=== PATIENT | male | born 1935 | race Caucasian/White ===

== ENCOUNTER → 2016-05-06 | Outpatient (CLI) | payer MEDICARE, OTHER ==
--- NOTE | 2016-05-06 14:04 | XR ---
EXAMINATION TYPE: XR chest 2V DATE OF EXAM: 05/06/2016 1:52 PM COMPARISON: 02/23/2016 INDICATION: Pleural effusion TECHNIQUE: Frontal and lateral views of the chest are obtained. FINDINGS: The heart size is normal. The pulmonary vasculature is normal. There is some mild infiltrate residual at the left base. Some linear opacities in the periphery of th e left lung. There is blunting the left costophrenic angle. Findings have improved from January 2016. IMPRESSION: 1. Residual increased lung markings at the left base. Scarring could be considered. Some recurrent pn eumonia or atelectasis could be considered.
== END | disposition home or self-care (01) ==
LOC: RADXRMAIN 13:33
PROVIDERS: ATTEND Family Medicine
DX: R91.8 Other nonspecific abnormal finding of lung field (principal)
CPT/HCPCS: 71020

== ENCOUNTER → 2016-05-18 | Day surgery (SDC) | payer MEDICARE, OTHER ==
[2016-05-13 16:00] VITALS: BMI 33.7
[~2016-05-18] MED LIST: BUPIVACAINE (PF) 0.5% 30 ML VIAL SQ ONE; DEXAMETHASONE SOD PHOSPHATE 10 MG/ML 1 ML VIAL IV ONE; HYDROmorphone 1 MG/ML 1 ML SYRINGE IVP PRN; LACTATED RINGERS 1,000 ML IV SCH; LIDOCAINE 1% 20 ML VIAL (10MG/ML) FOR IV START INTRADERMA PRN; LIDOCAINE 2% INJ 20 MG/ML SQ ONE; MIDAZOLAM 2 MG/2 ML VIAL IV PRN; MIDAZOLAM 2 MG/2 ML VIAL ONE; ONDANSETRON 4 MG/2 ML VIAL IVP ONE; PROPOFOL 10 MG/ML 20 ML VIAL IV ONE; Pre Op ABX Message 1 EACH MISC MISCELLANE ONE; SCOPOLAMINE 1.5MG/72HR PATCH TRANSDERM ONE; fentaNYL (PF) 50 MCG/ML 2 ML AMP ONE
[2016-05-18 11:50] VITALS: RESP 16; TEMP 97.8
[2016-05-18 13:50] VITALS: BP 167/76; PULSE 50
--- NOTE | 2016-05-19 19:39 | PCN ---
DATE OF PROCEDURE: 05/18/2016 PREOPERATIVE DIAGNOSIS: Left carpal tunnel syndrome. POSTOPERATIVE DIAGNOSIS: Left carpal tunnel syndrome. PROCEDURE: Left carpal tunnel release. DESCRIPTION OF PROCEDURE: The patient was taken to the operative suite where a sedation was administered by the Department of Anesthesia. I then performed a local injection along the line of the incision with a combination of Marcaine and Xylocaine both without epinephrine. The hand was then prepped and draped in the usual manner. The arm was elevated, exsanguinated and the cuff was inflated to 250 mmHg. A longitudinal incision was made along the ring finger ray distal to the wrist crease. Dissection was taken through the skin and subcutaneous tissue, initially sharp through the skin and then blunt through the subcutaneous tissue to ensure protection of any potential terminal transverse branches of the palmar cutaneous nerve. The palmar fascia was then incised under direct vision longitudinally exposing the transverse carpal ligament. The transverse carpal ligament also was incised under direct vision. The dissection was then continued proximally beneath the skin under direct vision to release the distal forearm fascia. The median nerve was then reflected free of tenosynovium to ensure no adhesions. The tourniquet was then released. The wound was then irrigated and the skin was closed with a running 5-0 nylon suture. A soft bulky dressing was applied including a volar plaster splint holding the wrist in a neutral slightly extended position. The patient was then taken to the recovery room in satisfactory condition.
== END ==
LOC: OR 11:25
PROVIDERS: ATTEND Orthopaedic Surgery Hand Surgery
DX: G56.02 Carpal tunnel syndrome, left upper limb (principal); M19.032 Primary osteoarthritis, left wrist; M19.031 Primary osteoarthritis, right wrist; M19.042 Primary osteoarthritis, left hand; M19.041 Primary osteoarthritis, right hand; I10 Essential (primary) hypertension; E78.5 Hyperlipidemia, unspecified; I48.91 Unspecified atrial fibrillation; I25.10 Atherosclerotic heart disease of native coronary artery without angina pectoris; I50.9 Heart failure, unspecified; Z79.01 Long term (current) use of anticoagulants; Z79.899 Other long term (current) drug therapy; Z88.8 Allergy status to other drugs, medicaments and biological substances
CPT/HCPCS: 64721; J2001; J2250; J1100; J2405; J3010; J2704; 99152; 99153

== ENCOUNTER 2017-01-27 23:22 | Emergency (ER) | payer MEDICARE, OTHER ==
[2017-01-27 23:46] LABS: Basophils # (A) 0.1 k/uL (0-0.2); Basophils % (A) 0 %; CH 28.5; Eosinophils # (A) 0.2 k/uL (0-0.7); Eosinophils % (A) 2 %; HDW 2.61; Luc # (Auto) 0.45; Luc % (Auto) 4; Lymphocytes # (A) 1.2 k/uL (1.0-4.8); Lymphocytes % (A) 10 %; MCH 28.8 pg (25.0-35.0); MCHC 32.3 g/dL (31.0-37.0); MCV 89.4 fL (80.0-100.0); Mean Platelet Volume 6.8; Monocytes # (A) 0.9 k/uL (0-1.0); Monocytes % (A) 7 %; Neutrophils # (A) 9.8 k/uL (1.3-7.7); Neutrophils % (A) 78 %; RBC 3.47 m/uL (4.30-5.90); RDW 13.8 % (11.5-15.5); WBC 12.6 k/uL (3.8-10.6); WBC (Perox) 13.31
[2017-01-27 23:57] LABS: Alcohol <10 mg/dL; Anion Gap 9 mmol/L; Carbon Dioxide 23 mmol/L (22-30); Chloride 102 mmol/L (98-107); Glucose 155 mg/dL (74-99); Non-African American GFR(MDRD) >60 (>60 ml/min/1.73 sqM); Sodium 134 mmol/L (137-145); Total Bilirubin 0.4 mg/dL (0.2-1.3); Total Protein 5.6 g/dL (6.3-8.2)
--- NOTE | 2017-01-27 23:58 | ED ---
General Adult HPI - General Chief complaint: Fall Stated complaint: weakness Time Seen by Provider: 01/27/17 23:24 Source: patient, EMS, RN notes reviewed Mode of arrival: EMS Limitations: no limitations - History of Present Illness Initial comments: 81-year-old male presents status post fall. Patient is on anticoagulation. There was minimal head trauma, no loss of consciousness. Patient only walks with a walker or is in a wheelchair. He was up at the window without his walker , stumbled backwards and fell hitting his head. Denies any neck pain. Denies headache. Patient was noted by prison staff to have left-sided weakness. According to the patient his left arm has been weak for 20 years. Patient denies chest pain. Denies difficulty breathing. Denies fever or chills. Denies abdominal pain. Denies nausea vomiting or diarrhea. - Related Data Home Medications Medication Instructions Recorded Confirmed Cetirizine HCl [Zyrtec] 10 mg PO DAILY 10/11/15 01/02/17 Gemfibrozil [Lopid] 600 mg PO HS 10/11/15 01/02/17 Misoprostol [Cytotec] 200 mcg PO BID 10/11/15 01/02/17 Tamsulosin [Flomax] 0.4 mg PO DAILY 10/11/15 01/02/17 Multivitamins, Thera [Multivitamin 1 tab PO HS 01/16/16 01/02/17 (formulary)] DULoxetine HCL [Cymbalta] 60 mg PO HS 05/13/16 01/02/17 Pantoprazole Sodium [Protonix] 20 mg PO BID 05/13/16 01/02/17 Rivaroxaban [Xarelto] 20 mg PO HS 01/02/17 01/02/17 Previous Rx's Medication Instructions Recorded Colchicine [Colcrys] 0.6 mg PO DAILY tab 02/24/16 Furosemide [Lasix] 40 mg PO DAILY tab 02/24/16 HYDROcodone/APAP 5-325MG [[place] 1 each PO Q6H PRN #20 tab 01/06/17 5-325] Docusate [Colace] 100 mg PO BID cap 01/07/17 Ertapenem [INVanz] 1 gm IVPB Q24H #14 day 01/07/17 Lisinopril [Zestril] 20 mg PO BID #60 tab 01/07/17 Metoprolol Tartrate [Lopressor] 50 mg PO BID #1 tab 01/07/17 amLODIPine BESYLATE [Norvasc] 5 mg PO BID #1 tablet 01/07/17 hydrALAZINE HCL [Apresoline] 50 mg PO TID tab 01/07/17 Allergies Allergy/AdvReac Type Severity Reaction Status Date / Time tobramycin Allergy Unknown Itching, Verified 01/27/17 23:35 Red eyes (allergy to tobramycin eye drops) Review of Systems ROS Statement: Those systems with pertinent positive or pertinent negative responses have been documented in the HPI. ROS Other: All systems not noted in ROS Statement are negative. Past Medical History Past Medical History: Atrial Fibrillation, Cancer, Chest Pain / Angina, Deep Vein Thrombosis (DVT), GERD/Reflux, Hyperlipidemia, Hypertension, Osteoarthritis (OA), Prostate Disorder Additional Past Medical History / Comment(s): prostate cancer had 41 radiation tx, atrial tachycardia, DVT R leg many years ago, chronic back pain. Patient has a history of empyema requiring surgical drainage with chest tube History of Any Multi-Drug Resistant Organisms: None Reported Past Surgical History: Back Surgery, Hernia Repair, Joint Replacement, Orthopedic Surgery Additional Past Surgical History / Comment(s): bilateral cataract removal, laminectomy, back sx has deann and screws, lt shoulder arthroplasty, bilateral total hips, umbilical hernia repair. oral sx Past Anesthesia/Blood Transfusion Reactions: Motion Sickness, Postoperative Nausea & Vomiting (PONV) Past Psychological History: Anxiety, Depression Smoking Status: Never smoker Past Alcohol Use History: None Reported, Occasional Past Drug Use History: None Reported - Past Family History Father Additional Family Medical History / Comment(s): Father fell at the age of 87yrs- had head injury- from complications. Mother Family Medical History: Congestive Heart Failure (CHF), Osteoarthritis (OA) Additional Family Medical History / Comment(s): Mother had severe arthritis. Son(s) Family Medical History: Cancer Additional Family Medical History / Comment(s): FIBROSARCOMA BONE CANCER- AT 16 YRS OLD Daughter(s) Family Medical History: Cancer, Deep Vein Thrombosis (DVT) Additional Family Medical History / Comment(s): CERVICAL CANCER General Exam Limitations: no limitations General appearance: alert, in no apparent distress Head exam: Present: atraumatic, normocephalic Eye exam: Present: normal appearance, PERRL ENT exam: Present: mucous membranes dry Neck exam: Present: normal inspection, full ROM. Absent: tenderness Respiratory exam: Present: normal lung sounds bilaterally. Absent: respiratory distress Cardiovascular Exam: Present: regular rate, normal rhythm GI/Abdominal exam: Present: soft, distended. 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 Absent: cyanosis, diaphoretic Course Vital Signs 01/27/17 01/27/17 01/28/17 23:28 23:38 00:08 Temperature 100.4 F H Pulse Rate 95 94 94 Respiratory 18 18 18 Rate Blood Pressure 145/67 137/63 O2 Sat by Pulse 95 94 L 93 L Oximetry 01/28/17 01/28/17 01:15 01:32 Temperature 97.9 F Pulse Rate 71 Respiratory 18 Rate Blood Pressure 147/70 O2 Sat by Pulse 98 Oximetry - Reevaluation(s) Reevaluation #1: 01/28/17 02:36 On reevaluation, neurologic exam remains unchanged. Patient has no complaints. EKG Findings - EKG Comments: EKG Findings:: EKG shows normal sinus rhythm, ventricular rate 93, P her vital 172, QRS duration 98, QTC 450, no ST segment elevation or depression Medical Decision Making - Medical Decision Making 81-year-old male presents status post mechanical fall. Patient normally ambulatory walker or is wheelchair-bound. He lost his balance falling backwards with minimal head trauma. No loss of consciousness. Patient is on anticoagulation. CT head is obtained, negative for intracranial hemorrhage, CT cervical spine shows severe C5-C6 stenosis, no fracture or subluxation. Chest x -ray is obtained, negative for any acute findings. X-ray of the pelvis is negative for bony abnormality. Laboratory studies are obtained, there is mild white blood cell count elevation of 12.6, this is down trending from previous. Lactic acid 1.0, mild hypocalcemia in the setting of hypoalbuminemia. Patient' s urinalysis is negative for infection. Patient will be discharged home, will return to the prison. Should follow up with his primary doctor in the next several days. Diagnosis: Closed head injury, fall, cervical stenosis. - Lab Data Result diagrams: 01/27/17 23:37 01/27/17 23:37 Lab Results 01/27/17 01/27/17 01/27/17 Range/Units 23:37 23:37 23:37 WBC 12.6 H (3.8-10.6) k/uL RBC 3.47 L (4.30-5.90) m/uL Hgb 10.0 L D (13.0-17.5) gm/dL Hct 31.0 L (39.0-53.0) % MCV 89.4 (80.0-100.0) fL MCH 28.8 (25.0-35.0) pg MCHC 32.3 (31.0-37.0) g/dL RDW 13.8 (11.5-15.5) % Plt Count 336 (150-450) k/uL Neutrophils % 78 % Lymphocytes % 10 % Monocytes % 7 % Eosinophils % 2 % Basophils % 0 % Neutrophils # 9.8 H (1.3-7.7) k/uL Lymphocytes # 1.2 (1.0-4.8) k/uL Monocytes # 0.9 (0-1.0) k/uL Eosinophils # 0.2 (0-0.7) k/uL Basophils # 0.1 (0-0.2) k/uL PT (9.0-12.0) sec INR (<1.2) APTT (22.0-30.0) sec Sodium 134 L (137-145) mmol/L Potassium 4.8 (3.5-5.1) mmol/L Chloride 102 (98-107) mmol/L Carbon Dioxide 23 (22-30) mmol/L Anion Gap 9 mmol/L BUN 14 (9-20) mg/dL Creatinine 0.80 (0.66-1.25) mg/dL Est GFR (MDRD) Af Amer >60 (>60 ml/min/1.73 sqM) Est GFR (MDRD) Non-Af >60 (>60 ml/min/1.73 sqM) Glucose 155 H (74-99) mg/dL Plasma Lactic Acid Thierry (0.7-2.0) mmol/L Calcium 8.0 L (8.4-10.2) mg/dL Total Bilirubin 0.4 (0.2-1.3) mg/dL AST 25 (17-59) U/L ALT 28 (21-72) U/L Alkaline Phosphatase 95 (38-126) U/L Total Creatine Kinase 53 L (55-170) U/L CK-MB (CK-2) 0.9 (0.0-2.4) ng/mL CK-MB (CK-2) Rel Index 1.7 Troponin I <0.012 (0.000-0.034) ng/mL Total Protein 5.6 L (6.3-8.2) g/dL Albumin 2.7 L (3.5-5.0) g/dL Urine Color Urine Appearance (Clear) Urine pH (5.0-8.0) Ur Specific [place] (1.001-1.035) Urine Protein (Negative) Urine Glucose (UA) (Negative) Urine Ketones (Negative) Urine Blood (Negative) Urine Nitrite (Negative) Urine Bilirubin (Negative) Urine Urobilinogen (<2.0) mg/dL Ur Leukocyte Esterase (Negative) Urine RBC (0-5) /hpf Urine WBC (0-5) /hpf Ur Squamous Epith Cells (0-4) /hpf Urine Opiates Screen (NotDetected) Ur Oxycodone Screen (NotDetected) Urine Methadone Screen (NotDetected) Ur Propoxyphene Screen (NotDetected) Ur Barbiturates Screen (NotDetected) U Tricyclic Antidepress (NotDetected) Ur Phencyclidine Scrn (NotDetected) Ur Amphetamines Screen (NotDetected) U Methamphetamines Scrn (NotDetected) U Benzodiazepines Scrn (NotDetected) Urine Cocaine Screen (NotDetected) U Marijuana (THC) Screen (NotDetected) Serum Alcohol <10 mg/dL Blood Type Blood Type Recheck Antibody Screen Spec Expiration Date 01/27/17 01/27/17 01/27/17 Range/Units 23:37 23:48 23:48 WBC (3.8-10.6) k/uL RBC (4.30-5.90) m/uL Hgb (13.0-17.5) gm/dL Hct (39.0-53.0) % MCV (80.0-100.0) fL MCH (25.0-35.0) pg MCHC (31.0-37.0) g/dL RDW (11.5-15.5) % Plt Count (150-450) k/uL Neutrophils % % Lymphocytes % % Monocytes % % Eosinophils % % Basophils % % Neutrophils # (1.3-7.7) k/uL Lymphocytes # (1.0-4.8) k/uL Monocytes # (0-1.0) k/uL Eosinophils # (0-0.7) k/uL Basophils # (0-0.2) k/uL PT 13.1 H (9.0-12.0) sec INR 1.3 H (<1.2) APTT 26.5 (22.0-30.0) sec Sodium (137-145) mmol/L Potassium (3.5-5.1) mmol/L Chloride (98-107) mmol/L Carbon Dioxide (22-30) mmol/L Anion Gap mmol/L BUN (9-20) mg/dL Creatinine (0.66-1.25) mg/dL Est GFR (MDRD) Af Amer (>60 ml/min/1.73 sqM) Est GFR (MDRD) Non-Af (>60 ml/min/1.73 sqM) Glucose (74-99) mg/dL Plasma Lactic Acid Thierry 1.1 (0.7-2.0) mmol/L Calcium (8.4-10.2) mg/dL Total Bilirubin (0.2-1.3) mg/dL AST (17-59) U/L ALT (21-72) U/L Alkaline Phosphatase (38-126) U/L Total Creatine Kinase (55-170) U/L CK-MB (CK-2) (0.0-2.4) ng/mL CK-MB (CK-2) Rel Index Troponin I (0.000-0.034) ng/mL Total Protein (6.3-8.2) g/dL Albumin (3.5-5.0) g/dL Urine Color Urine Appearance (Clear) Urine pH (5.0-8.0) Ur Specific [place] (1.001-1.035) Urine Protein (Negative) Urine Glucose (UA) (Negative) Urine Ketones (Negative) Urine Blood (Negative) Urine Nitrite (Negative) Urine Bilirubin (Negative) Urine Urobilinogen (<2.0) mg/dL Ur Leukocyte Esterase (Negative) Urine RBC (0-5) /hpf Urine WBC (0-5) /hpf Ur Squamous Epith Cells (0-4) /hpf Urine Opiates Screen (NotDetected) Ur Oxycodone Screen (NotDetected) Urine Methadone Screen (NotDetected) Ur Propoxyphene Screen (NotDetected) Ur Barbiturates Screen (NotDetected) U Tricyclic Antidepress (NotDetected) Ur Phencyclidine Scrn (NotDetected) Ur Amphetamines Screen (NotDetected) U Methamphetamines Scrn (NotDetected) U Benzodiazepines Scrn (NotDetected) Urine Cocaine Screen (NotDetected) U Marijuana (THC) Screen (NotDetected) Serum Alcohol mg/dL Blood Type A Positive Blood Type Recheck No Antibody Screen NEGATIVE Spec Expiration Date 01/30/2017 - 234701/28/17 Range/Units 01:26 WBC (3.8-10.6) k/uL RBC (4.30-5.90) m/uL Hgb (13.0-17.5) gm/dL Hct (39.0-53.0) % MCV (80.0-100.0) fL MCH (25.0-35.0) pg MCHC (31.0-37.0) g/dL RDW (11.5-15.5) % Plt Count (150-450) k/uL Neutrophils % % Lymphocytes % % Monocytes % % Eosinophils % % Basophils % % Neutrophils # (1.3-7.7) k/uL Lymphocytes # (1.0-4.8) k/uL Monocytes # (0-1.0) k/uL Eosinophils # (0-0.7) k/uL Basophils # (0-0.2) k/uL PT (9.0-12.0) sec INR (<1.2) APTT (22.0-30.0) sec Sodium (137-145) mmol/L Potassium (3.5-5.1) mmol/L Chloride (98-107) mmol/L Carbon Dioxide (22-30) mmol/L Anion Gap mmol/L BUN (9-20) mg/dL Creatinine (0.66-1.25) mg/dL Est GFR (MDRD) Af Amer (>60 ml/min/1.73 sqM) Est GFR (MDRD) Non-Af (>60 ml/min/1.73 sqM) Glucose (74-99) mg/dL Plasma Lactic Acid Thierry (0.7-2.0) mmol/L Calcium (8.4-10.2) mg/dL Total Bilirubin (0.2-1.3) mg/dL AST (17-59) U/L ALT (21-72) U/L Alkaline Phosphatase (38-126) U/L Total Creatine Kinase (55-170) U/L CK-MB (CK-2) (0.0-2.4) ng/mL CK-MB (CK-2) Rel Index Troponin I (0.000-0.034) ng/mL Total Protein (6.3-8.2) g/dL Albumin (3.5-5.0) g/dL Urine Color Yellow Urine Appearance Clear (Clear) Urine pH 6.5 (5.0-8.0) Ur Specific Parkin 1.012 (1.001-1.035) Urine Protein Trace H (Negative) Urine Glucose (UA) Negative (Negative) Urine Ketones Negative (Negative) Urine Blood Negative (Negative) Urine Nitrite Negative (Negative) Urine Bilirubin Negative (Negative) Urine Urobilinogen <2.0 (<2.0) mg/dL Ur Leukocyte Esterase Trace H (Negative) Urine RBC 4 (0-5) /hpf Urine WBC 1 (0-5) /hpf Ur Squamous Epith Cells 2 (0-4) /hpf Urine Opiates Screen Detected H (NotDetected) Ur Oxycodone Screen Not Detected (NotDetected) Urine Methadone Screen Not Detected (NotDetected) Ur Propoxyphene Screen Not Detected (NotDetected) Ur Barbiturates Screen Not Detected (NotDetected) U Tricyclic Antidepress Detected H (NotDetected) Ur Phencyclidine Scrn Not Detected (NotDetected) Ur Amphetamines Screen Not Detected (NotDetected) U Methamphetamines Scrn Not Detected (NotDetected) U Benzodiazepines Scrn Not Detected (NotDetected) Urine Cocaine Screen Not Detected (NotDetected) U Marijuana (THC) Screen Not Detected (NotDetected) Serum Alcohol mg/dL Blood Type Blood Type Recheck Antibody Screen Spec Expiration Date Disposition Clinical Impression: Fall, Closed head injury Disposition: HOME SELF-CARE Condition: Good Instructions: Fall Prevention for Older Adults (ED), Concussion (ED) Referrals: Christian Mahmood MD [Primary Care Provider] - 1-2 days Time of Disposition: 02:39
[2017-01-28 00:02] LABS: ALT 28 U/L (21-72); AST 25 U/L (17-59); Alkaline Phosphatase 95 U/L (38-126); Blood Urea Nitrogen 14 mg/dL (9-20); Potassium 4.8 mmol/L (3.5-5.1)
[2017-01-28 00:03] LABS: INR 1.3 (<1.2); Partial Thromboplastin Time 26.5 sec (22.0-30.0); Prothrombin Time 13.1 sec (9.0-12.0)
[2017-01-28] MEDS ORDERED: HYDROcodone/APAP 5-325MG 1 EACH TAB PO STA (00:10)
[2017-01-28 00:21] LABS: Creatine Kinase 53 U/L (55-170)
[2017-01-28 00:31] LABS: Creatine Kinase MB 0.9 ng/mL (0.0-2.4)
--- NOTE | 2017-01-28 00:32 | CT ---
EXAMINATION TYPE: CT brain [place] DATE OF EXAM: 01/28/2017 COMPARISON: NONE HISTORY: fall CT DLP: 1647.20 mGycm Automated exposure control for dose reduction was used. TECHNIQUE: CT scan of the head and cervical spine are performed without contrast. FINDINGS: There is cerebral cortical atrophy. There is patchy hypodensity in the periventricular wh ite matter. There is no mass effect nor midline shift. There is no sign of intracranial hemorrhage. T he calvarium is intact. The cervical vertebra have fairly normal alignment. There is moderate narrowing of disc spaces throug hout the cervical spine. There is extensive spur formation of the endplates at C4-5 C5-6. There is se kevin bony spinal stenosis at C5-6 and mild relative spinal stenosis at C4-5. There is hypertrophic fa cet arthropathy. I see no fracture line. The skull base is intact. There are some cystic changes at t he base of the odontoid consistent with degenerative phenomenon. IMPRESSION: Cerebral atrophy. No acute intracranial abnormality. Moderate multilevel spondylosis. Severe C5-6 spinal stenosis. No fracture.
[2017-01-28 00:35] LABS: Troponin I <0.012 ng/mL (0.000-0.034)
--- NOTE | 2017-01-28 00:35 | XR ---
EXAMINATION TYPE: XR chest 1V portable DATE OF EXAM: 01/28/2017 COMPARISON: 01/02/2017 HISTORY: Chest pain TECHNIQUE: Single frontal view of the chest is obtained. FINDINGS: There is no heart failure nor confluent pneumonic infiltrate. Thoracic aorta is atheromato us. There is left shoulder prosthesis. There are chest leads. I see no pleural effusion. IMPRESSION: No active cardiopulmonary disease. There is clearing of the mild atelectasis at the lung bases compared to old exam.
--- NOTE | 2017-01-28 01:30 | XR ---
EXAMINATION TYPE: XR pelvis AP view DATE OF EXAM: 01/28/2017 COMPARISON: NONE HISTORY: Fall and pain TECHNIQUE: Single view FINDINGS: Pelvic ring is intact. There are bilateral hip prostheses. Sacroiliac joints are intact. I see no pelvic fracture. IMPRESSION: No acute abnormality of the pelvis.
[2017-01-28 02:04] LABS: Appearance,Urine Clear (Clear); Bilirubin,Urine Negative (Negative); Glucose,Urine (UA) Negative (Negative); Ketones,Urine Negative (Negative); Leukocyte Esterase,Urine Trace (Negative); Nitrite,Urine Negative (Negative); PH, Urine 6.5 (5.0-8.0); Particle Count 1442; Protein,Urine Trace (Negative); RBC,Urine 4 /hpf (0-5); Specific Gravity,Urine 1.012 (1.001-1.035); Squamous Epithelial Cell,Urine 2 /hpf (0-4); UA Billing (MACRO vs. MICRO) MICRO; Urobilinogen,Urine <2.0 mg/dL (<2.0); WBC,Urine 1 /hpf (0-5)
[2017-01-28 02:36] VITALS: BP 165/70; PULSE 92; RESP 16; TEMP 97.5
== END 2017-01-28 03:21 | disposition home or self-care (01) ==
LOC: EC 23:22
DX: S09.90XA Unspecified injury of head, initial encounter (principal); M48.02 Spinal stenosis, cervical region; I48.91 Unspecified atrial fibrillation; E78.5 Hyperlipidemia, unspecified; I10 Essential (primary) hypertension; K21.9 Gastro-esophageal reflux disease without esophagitis; M19.90 Unspecified osteoarthritis, unspecified site; N42.9 Disorder of prostate, unspecified; F32.9 Major depressive disorder, single episode, unspecified; F41.9 Anxiety disorder, unspecified; Z85.46 Personal history of malignant neoplasm of prostate; Z86.718 Personal history of other venous thrombosis and embolism; Z79.01 Long term (current) use of anticoagulants; Z79.899 Other long term (current) drug therapy; Z88.1 Allergy status to other antibiotic agents; W06.XXXA Fall from bed, initial encounter; Y92.009 Unspecified place in unspecified non-institutional (private) residence as the place of occurrence of the external cause
CPT/HCPCS: 36415; 70450; 71010; 72125; 72170; 80053; 80306; 80320; 81001; 82550; 82553; 83605; 84484; 85025; 85610; 85730; 86850; 86900; 86901; 87040; 87086; 93005; 99285

== ENCOUNTER 2017-11-18 20:34 | Observation (INO) | payer MEDICARE, OTHER ==
--- NOTE | 2017-11-18 21:31 | ED ---
Chest Pain HPI - General Chief Complaint: Chest Pain Stated Complaint: chest pressure/pain in left arm Time Seen by Provider: 11/18/17 21:16 Source: patient, family, RN notes reviewed Mode of arrival: ambulatory Limitations: no limitations - History of Present Illness Initial Comments: This 82-year-old male who is brought in by family after sustaining chest pain is started around 5:30 tonight after dinner last evening until just before arriving in triage. Pain was dull 3/10 severity radiating from his mid chest to his left arm. He had no symptoms that shortness breath nausea vomiting fevers chills sweats or other symptoms. He currently is pain-free and symptom- free MD Complaint: chest pain - Related Data Home Medications Medication Instructions Recorded Confirmed Cetirizine HCl [Zyrtec] 10 mg PO DAILY 10/11/15 11/18/17 Gemfibrozil [Lopid] 600 mg PO HS 10/11/15 11/18/17 Tamsulosin [Flomax] 0.4 mg PO BID 10/11/15 11/18/17 Multivitamins, Thera [Multivitamin 1 tab PO DAILY 01/16/16 11/18/17 (formulary)] DULoxetine HCL [Cymbalta] 60 mg PO HS 05/13/16 11/18/17 Pantoprazole Sodium [Protonix] 20 mg PO DAILY 05/13/16 11/18/17 Rivaroxaban [Xarelto] 20 mg PO HS 01/02/17 11/18/17 HYDROcodone/APAP 5-325MG [[place] 1 tab PO Q6H PRN 11/18/17 11/18/17 5-325] amLODIPine [Norvasc] 10 mg PO DAILY 11/18/17 11/18/17 hydrALAZINE HCL [Apresoline] 25 mg PO TID 11/18/17 11/18/17 traMADol HCL [Ultram] 50 mg PO BID 11/18/17 11/18/17 Previous Rx's Medication Instructions Recorded Colchicine [Colcrys] 0.6 mg PO DAILY tab 02/24/16 Furosemide [Lasix] 40 mg PO DAILY tab 02/24/16 Lisinopril [Zestril] 20 mg PO BID #60 tab 01/07/17 Metoprolol Tartrate [Lopressor] 50 mg PO BID #1 tab 01/07/17 Allergies Allergy/AdvReac Type Severity Reaction Status Date / Time tobramycin Allergy Unknown Itching, Verified 11/18/17 21:30 Red eyes (allergy to tobramycin eye drops) Review of Systems ROS Statement: Those systems with pertinent positive or pertinent negative responses have been documented in the HPI. ROS Other: All systems not noted in ROS Statement are negative. EKG Findings - EKG Results: EKG: interpreted by CANDELARIA, sinus rhythm (Sinus rhythm with a 56 DC interval 212 ferrous duration 116 QT since QTC of 444/428 first-degree AV block no acute ST- T wave changes seen at this time.) Past Medical History Past Medical History: Atrial Fibrillation, Cancer, Chest Pain / Angina, Deep Vein Thrombosis (DVT), GERD/Reflux, Hyperlipidemia, Hypertension, Osteoarthritis (OA), Prostate Disorder Additional Past Medical History / Comment(s): prostate cancer had 41 radiation tx, atrial tachycardia, DVT R leg many years ago, chronic back pain. Patient has a history of empyema requiring surgical drainage with chest tube History of Any Multi-Drug Resistant Organisms: None Reported Past Surgical History: Back Surgery, Hernia Repair, Joint Replacement, Orthopedic Surgery Additional Past Surgical History / Comment(s): bilateral cataract removal, laminectomy, back sx has deann and screws, lt shoulder arthroplasty, bilateral total hips, umbilical hernia repair. oral sx Past Anesthesia/Blood Transfusion Reactions: Motion Sickness, Postoperative Nausea & Vomiting (PONV) Past Psychological History: Anxiety, Depression Smoking Status: Never smoker Past Alcohol Use History: None Reported, Occasional Past Drug Use History: None Reported - Past Family History Father Additional Family Medical History / Comment(s): Father fell at the age of 87yrs- had head injury- from complications. Mother Family Medical History: Congestive Heart Failure (CHF), Osteoarthritis (OA) Additional Family Medical History / Comment(s): Mother had severe arthritis. Son(s) Family Medical History: Cancer Additional Family Medical History / Comment(s): FIBROSARCOMA BONE CANCER- AT 16 YRS OLD Daughter(s) Family Medical History: Cancer, Deep Vein Thrombosis (DVT) Additional Family Medical History / Comment(s): CERVICAL CANCER General Exam - General Exam Comments Initial Comments: This is a well-developed well-nourished awake alert oriented 3 male Limitations: no limitations General appearance: alert, in no apparent distress Head exam: Present: atraumatic, normocephalic, normal inspection Eye exam: Present: normal appearance, PERRL, EOMI. Absent: scleral icterus, conjunctival injection, periorbital swelling ENT exam: Present: normal exam, mucous membranes moist Neck exam: Present: normal inspection. Absent: tenderness, meningismus, lymphadenopathy Respiratory exam: Present: normal lung sounds bilaterally. Absent: respiratory distress, wheezes, rales, rhonchi, stridor Cardiovascular Exam: Present: regular rate, normal rhythm, normal heart sounds. Absent: systolic murmur, diastolic murmur, rubs, gallop, clicks GI/Abdominal exam: Present: soft, normal bowel sounds. Absent: distended, tenderness, guarding, rebound, rigid Extremities exam: Present: normal inspection, full ROM, normal capillary refill , pedal edema (Trace edema). Absent: tenderness, joint swelling, calf tenderness Back exam: Present: normal inspection Neurological exam: Present: alert, oriented X3, CN II-XII intact Psychiatric exam: Present: normal affect, normal mood Skin exam: Present: warm, dry, intact, normal color. Absent: rash Course Vital Signs 11/18/17 11/18/17 11/18/17 20:37 22:07 23:45 Temperature 98.5 F Pulse Rate 59 L 50 L 53 L Respiratory 18 18 18 Rate Blood Pressure 159/87 146/66 168/74 O2 Sat by Pulse 95 96 97 Oximetry - Reevaluation(s) Reevaluation #1: 11/19/17 00:21 No further chest pain on reexamination. Chest Pain MDM - MDM Review the imaging shows no acute findings I did discuss findings with patient family members. Patient be admitted for evaluation of chest pain. Critical Care Time Critical Care Time: Yes Critical Care Time: 31 minutes of critical care time which includes history physical labs x-rays several reevaluation the patient. Discussed with patient family regarding findings. Admission orders documentation above. Discussed with the admitting service. Disposition Clinical Impression: Unstable angina pectoris, Chest pain Disposition: ADMITTED IP TO THIS [facility] Condition: Stable Referrals: Ramya Arthur III, MD [Primary Care Provider] - 1-2 days
[2017-11-18 21:48] LABS: HCT 38.6 % (39.0-53.0); HGB 12.9 gm/dL (13.0-17.5); MCH 28.8 pg (25.0-35.0); MCHC 33.5 g/dL (31.0-37.0); MCV 85.8 fL (80.0-100.0); Mean Platelet Volume 7.7; Platelet Count 208 k/uL (150-450); RDW 14.7 % (11.5-15.5); WBC 5.4 k/uL (3.8-10.6)
[2017-11-18 21:51] LABS: Albumin 3.9 g/dL (3.5-5.0); Calcium 8.8 mg/dL (8.4-10.2); Magnesium 2.2 mg/dL (1.6-2.3); Potassium 3.6 mmol/L (3.5-5.1); Total Bilirubin 0.2 mg/dL (0.2-1.3); Total Protein 6.3 g/dL (6.3-8.2)
[2017-11-18 21:52] LABS: INR 1.4 (<1.2); Partial Thromboplastin Time 26.9 sec (22.0-30.0); Prothrombin Time 12.9 sec (9.0-12.0)
[2017-11-18 21:55] LABS: Creatine Kinase 91 U/L (55-170)
--- NOTE | 2017-11-18 22:06 | XR ---
EXAMINATION TYPE: XR chest 2V DATE OF EXAM: 11/18/2017 COMPARISON: 09/23/2017 HISTORY: Short of breath TECHNIQUE: Frontal and lateral views of the chest are obtained. FINDINGS: Heart and mediastinum are within normal limits. There is minimal linear density in the lef t lower lobe. There is no heart failure. There is left shoulder prosthesis. There is no sign of pleur al effusion. IMPRESSION: Minimal subsegmental atelectasis in the left lower lobe. No change.
[2017-11-18 22:07] LABS: Troponin I <0.012 ng/mL (0.000-0.034)
[2017-11-18 22:51] LABS: Eosinophils # (M) 0.32 k/uL (0-0.7); Lymphocytes # (M) 1.73 k/uL (1.0-4.8); Monocytes # (M) 0.49 k/uL (0-1.0); Neutrophils # (M) 2.86 k/uL (1.3-7.7); Neutrophils % (M) 53 %; Nucleated Red Blood Cells 0 /100 WBC (0-0); Total Cells Counted 100
[2017-11-18 22:52] LABS: Large Platelets Present
[2017-11-19] MEDS ORDERED: NITROGLYCERIN SL TABS 0.4 MG TAB SUBLINGUAL PRN (00:22)
[2017-11-19] MEDS ORDERED: SODIUM CHLORIDE 0.9% 1,000 ML IV SCH (00:30)
[2017-11-19 02:04] VITALS: BMI 39.8
[2017-11-19] MEDS: HYDROcodone/APAP 5-325MG 1 EACH TAB PO PRN ×2 (02:13→11:50)
[2017-11-19 03:44] LABS: Creatine Kinase MB 0.8 ng/mL (0.0-2.4); Troponin I 0.015 ng/mL (0.000-0.034)
[2017-11-19] MEDS ORDERED: NITROGLYCERIN OINT 1 INCH/GM PACKET TOPICAL SCH (06:00)
[2017-11-19] MEDS: PANTOPRAZOLE 40 MG TABLET PO SCH (06:48)
[2017-11-19] MEDS: MULTIVITAMINS, THERA 1 EACH TAB PO SCH (08:38)
[2017-11-19] MEDS: amLODIPine 10 MG TAB PO SCH (08:38)
[2017-11-19] MEDS: hydrALAZINE HCL 25 MG TAB PO SCH ×3 (08:38→23:53)
[2017-11-19] MEDS: FUROSEMIDE 40 MG TAB PO SCH (08:38)
[2017-11-19] MEDS: LISINOPRIL 20 MG TAB PO SCH ×2 (08:38→20:36)
[2017-11-19] MEDS: COLCHICINE 0.6 MG EACH PO SCH (08:38)
[2017-11-19] MEDS: LORATADINE 10 MG TAB PO SCH (08:39)
[2017-11-19] MEDS: TAMSULOSIN 0.4 MG CAP.ER.24H PO SCH ×2 (08:39→20:36)
[2017-11-19] MEDS: METOPROLOL TARTRATE 50 MG TAB PO SCH ×2 (08:39→20:36)
[2017-11-19] MEDS: traMADol 50 MG TAB PO SCH ×2 (08:42→20:41)
[2017-11-19 09:58] LABS: Creatine Kinase MB 0.9 ng/mL (0.0-2.4); Troponin I 0.016 ng/mL (0.000-0.034)
--- NOTE | 2017-11-19 10:58 | P.PN ---
Progress Note - Text this is an addendum to the dictated cardiology consultation. The patient has a history of paroxysmal atrial fibrillation, hypertension and hyperlipidemia. He has a history of severe arthritis is very limited in his physical activity. He has a history of chronic dyspnea on exertion and presented yesterday with symptoms of chest discomfort at rest involving the left arm. The pain lasted for a few hours and resolved since without any recurrence. He has no prior history of documented CAD, no history of PND or orthopnea. He has mild chronic peripheral edema without any changes. He is in sinus mechanism since his admission. On physical examination his lungs are clear, he is in sinus mechanism and he has trace to mild edema. EKG shows no acute changes and his troponin are normal. The patient presents with chest discomfort that could to present cardiac etiology. I had a long discussion with him and his daughter regarding the options of conservative treatment versus proceeding with a stress test and if abnormal further evaluation. He does not want to proceed with any further testing beyond the medication. I will obtain an echocardiogram to further evaluate his ejection fraction, add nitrate to his regimen, and depending on his symptoms further recommendations will be made. Thank you for this consult we will follow with you.
--- NOTE | 2017-11-19 10:59 | P.CRDCN ---
History of Present Illness Consult date: 11/19/17 Requesting physician: Hilda Landa Reason for Consult (text): Unstable Angina Chief complaint: left arm pain and chest pressure History of present illness: This is a pleasant 82-year-old gentleman who follows with Dr. Zamudio in the office. He has a known history of paroxysmal atrial fibrillation, hypertension , hyperlipidemia, BPH, DVT, prior low back surgery and GERD. He is on Xarelto anticoagulation. He has not previously undergone stress testing due to his inability to lay flat. He presented to the emergency department with complaints of left arm pain that started around 5:30 or 6:00 in the evening he described the pain as a dull ache. He also developed some left-sided chest pressure. Symptoms lasted until about 9 PM when he was in triage. Chest x-ray on admission showed minimal sudden segmental atelectasis in the left lower lobe , no change. EKG showed sinus bradycardia with no ST-T wave changes compared to previous. Treatment is reviewed and showed a BUN of 18, creatinine 1.27, WBCs, hemoglobin 12.9 and troponin negative 2. Upon examination, patient is resting comfortably in bed. He denies further complaints of arm or chest discomfort. Blood pressure is running a little on the high side however he has been having some hypotension with dizziness at home therefore his hydralazine was decreased. He is maintaining sinus rhythm on the monitor. He denies complaints of dizziness, lightheadedness, syncope or palpitations. He does have lower extremity edema that seems to be chronic. He also complains of shortness of breath with exertion that is not new for him. Past Medical History Past Medical History: Atrial Fibrillation, Cancer, Chest Pain / Angina, Deep Vein Thrombosis (DVT), GERD/Reflux, Hyperlipidemia, Hypertension, Osteoarthritis (OA), Prostate Disorder Additional Past Medical History / Comment(s): prostate cancer had 41 radiation tx, atrial tachycardia, DVT R leg many years ago, chronic back pain. Patient has a history of empyema requiring surgical drainage with chest tube History of Any Multi-Drug Resistant Organisms: None Reported Past Surgical History: Back Surgery, Hernia Repair, Joint Replacement, Orthopedic Surgery Additional Past Surgical History / Comment(s): bilateral cataract removal, laminectomy, back sx has deann and screws, lt shoulder arthroplasty, bilateral total hips, umbilical hernia repair. oral sx Past Anesthesia/Blood Transfusion Reactions: Motion Sickness, Postoperative Nausea & Vomiting (PONV) Past Psychological History: Anxiety, Depression Additional Psychological History / Comment(s): Pt resides with his spouse, daughter and granddaughter. He uses a cane and a walker. The patient used to live in [place] the family move them from [place] back to [place] further care due to the increasing age and somewhat failing status. Relates is a lifelong nonsmoker. No significant alcohol or recreational drug use. No recent international travel. Was in the [employer], without travel. No animal exposures, except for the grandchilds guinea pig Smoking Status: Never smoker Past Alcohol Use History: None Reported Past Drug Use History: None Reported - Past Family History Father Additional Family Medical History / Comment(s): Father fell at the age of 87yrs- had head injury- from complications. Mother Family Medical History: Congestive Heart Failure (CHF), Osteoarthritis (OA) Additional Family Medical History / Comment(s): Mother had severe arthritis. Son(s) Family Medical History: Cancer Additional Family Medical History / Comment(s): FIBROSARCOMA BONE CANCER- AT 16 YRS OLD Daughter(s) Family Medical History: Cancer, Deep Vein Thrombosis (DVT) Additional Family Medical History / Comment(s): CERVICAL CANCER Medications and Allergies Home Medications Medication Instructions Recorded Confirmed Type Cetirizine HCl [Zyrtec] 10 mg PO DAILY 10/11/15 11/18/17 History Gemfibrozil [Lopid] 600 mg PO HS 10/11/15 11/18/17 History Tamsulosin [Flomax] 0.4 mg PO BID 10/11/15 11/18/17 History Multivitamins, Thera [Multivitamin 1 tab PO DAILY 01/16/16 11/18/17 History (formulary)] Colchicine [Colcrys] 0.6 mg PO DAILY tab 02/24/16 11/18/17 Rx Furosemide [Lasix] 40 mg PO DAILY tab 02/24/16 11/18/17 Rx DULoxetine HCL [Cymbalta] 60 mg PO HS 05/13/16 11/18/17 History Pantoprazole Sodium [Protonix] 20 mg PO DAILY 05/13/16 11/18/17 History Rivaroxaban [Xarelto] 20 mg PO HS 01/02/17 11/18/17 History Lisinopril [Zestril] 20 mg PO BID #60 tab 01/07/17 11/18/17 Rx Metoprolol Tartrate [Lopressor] 50 mg PO BID #1 tab 01/07/17 11/18/17 Rx HYDROcodone/APAP 5-325MG [[place] 1 tab PO Q6H PRN 11/18/17 11/18/17 History 5-325] amLODIPine [Norvasc] 10 mg PO DAILY 11/18/17 11/18/17 History hydrALAZINE HCL [Apresoline] 25 mg PO TID 11/18/17 11/18/17 History traMADol HCL [Ultram] 50 mg PO BID 11/18/17 11/18/17 History Allergies Allergy/AdvReac Type Severity Reaction Status Date / Time tobramycin Allergy Unknown Itching, Verified 11/18/17 21:30 Red eyes (allergy to tobramycin eye drops) Physical Exam Vitals: Vital Signs Temp Pulse Pulse Resp BP BP Pulse Ox 11/19/17 08:00 97.2 F L 64 16 171/80 94 L 11/19/17 04:00 96.8 F L 61 16 156/88 97 11/19/17 00:55 97.8 F 52 L 18 156/67 99 11/18/17 23:45 53 L 18 168/74 97 11/18/17 22:07 50 L 18 146/66 96 11/18/17 20:37 98.5 F 59 L 18 159/87 95 Intake and Output 11/18/17 11/19/17 11/19/17 22:59 06:59 14:59 Intake Total 160 Balance 160 Intake: Intake, IV Titration 160 Amount Sodium Chloride 0.9% 1, 160 000 ml @ 20 mls/hr IV . Q24H [facility] Rx#:[id number] Other: Voiding Method Toilet Toilet # Voids 2 Weight 115.45 kg 108 kg PHYSICAL EXAMINATION: HEENT: Head is atraumatic, normocephalic. Pupils equal, round. Neck is supple. There is no elevated jugular venous pressure. HEART EXAMINATION: Heart sounds regular, S1 and S2 with a systolic murmur. CHEST EXAMINATION: Lungs are coarse, clear to auscultation and precussion. No chest wall tenderness is noted on palpation or with deep breathing. ABDOMEN: Soft, nontender. Bowel sounds are heard. No organomegaly noted. EXTREMITIES: 2+ peripheral pulses with evidence of trace peripheral edema and no calf tenderness noted. NEUROLOGIC patient is awake, alert and oriented x3. . Results 11/18/17 21:05 11/18/17 21:05 Cardiac Enzymes 11/18/17 11/18/17 11/19/17 Range/Units 21:05 21:05 02:39 AST 21 (17-59) U/L CK-MB (CK-2) 1.0 0.8 (0.0-2.4) ng/mL Troponin I <0.012 0.015 (0.000-0.034) ng/mL 11/19/17 Range/Units 08:41 AST (17-59) U/L CK-MB (CK-2) 0.9 (0.0-2.4) ng/mL Troponin I 0.016 (0.000-0.034) ng/mL Coagulation 11/18/17 Range/Units 21:05 PT 12.9 H (9.0-12.0) sec APTT 26.9 (22.0-30.0) sec CBC 11/18/17 Range/Units 21:05 WBC 5.4 (3.8-10.6) k/uL RBC 4.50 (4.30-5.90) m/uL Hgb 12.9 L (13.0-17.5) gm/dL Hct 38.6 L (39.0-53.0) % Plt Count 208 (150-450) k/uL Comprehensive Metabolic Panel 11/18/17 Range/Units 21:05 Sodium 140 (137-145) mmol/L Potassium 3.6 (3.5-5.1) mmol/L Chloride 105 (98-107) mmol/L Carbon Dioxide 26 (22-30) mmol/L BUN 18 (9-20) mg/dL Creatinine 1.27 H (0.66-1.25) mg/dL Glucose 117 H (74-99) mg/dL Calcium 8.8 (8.4-10.2) mg/dL AST 21 (17-59) U/L ALT 22 (21-72) U/L Alkaline Phosphatase 96 (38-126) U/L Total Protein 6.3 (6.3-8.2) g/dL Albumin 3.9 (3.5-5.0) g/dL Current Medications Generic Name Dose Route Start Last Admin Trade Name Freq PRN Reason Stop Dose Admin Hydrocodone Bitart/Acetaminophen 1 each 11/19/17 00:24 11/19/17 02:13 [place] 5-325 PO 1 each Q6H PRN Administration Pain Amlodipine Besylate 10 mg 11/19/17 09:00 11/19/17 08:38 Norvasc PO 10 mg DAILY YADIRA Administration Aspirin 325 mg 11/20/17 09:00 Aspirin PO DAILY YADIRA Colchicine 0.6 mg 11/19/17 09:00 11/19/17 08:38 Colcrys PO 0.6 mg DAILY YADIRA Administration Duloxetine HCl 60 mg 11/19/17 21:00 Cymbalta PO HS YADIRA Furosemide 40 mg 11/19/17 09:00 11/19/17 08:38 Lasix PO 40 mg DAILY YADIRA Administration Gemfibrozil 600 mg 11/19/17 21:00 Lopid PO HS YADIRA Hydralazine HCl 25 mg 11/19/17 09:00 11/19/17 08:38 Apresoline PO 25 mg TID YADIRA Administration Sodium Chloride 1,000 mls @ 20 mls/hr 11/19/17 00:30 11/19/17 00:51 Saline 0.9% IV 20 mls/hr .Q24H YADIRA Administration Lisinopril 20 mg 11/19/17 09:00 11/19/17 08:38 Zestril PO 20 mg BID YADIRA Administration Loratadine 10 mg 11/19/17 09:00 11/19/17 08:39 Claritin PO 10 mg DAILY YADIRA Administration Metoprolol Tartrate 50 mg 11/19/17 09:00 11/19/17 08:39 Lopressor PO 50 mg BID YADIRA Administration Multivitamins 1 each 11/19/17 09:00 11/19/17 08:38 Theragran PO 1 each DAILY YADIRA Administration Nitroglycerin 1 inch 11/19/17 06:00 11/19/17 06:48 Nitro-Bid Oint TOPICAL 1 inch Q6HR YADIRA Administration Nitroglycerin 0.4 mg 11/19/17 00:22 Nitrostat SUBLINGUAL Q5M PRN Chest Pain Pantoprazole Sodium 40 mg 11/19/17 07:30 11/19/17 06:48 Protonix PO 40 mg AC-BRKFST YADIRA Administration Rivaroxaban 20 mg 11/19/17 21:00 Xarelto PO HS YADIRA Tamsulosin HCl 0.4 mg 11/19/17 09:00 11/19/17 08:39 Flomax PO 0.4 mg BID YADIRA Administration Tramadol HCl 50 mg 11/19/17 09:00 11/19/17 08:42 Ultram PO 50 mg BID YADIRA Administration Intake and Output 11/18/17 11/19/17 11/19/17 22:59 06:59 14:59 Intake Total 160 Balance 160 Intake: Intake, IV Titration 160 Amount Sodium Chloride 0.9% 1, 160 000 ml @ 20 mls/hr IV . Q24H [facility] Rx#:[id number] Other: Voiding Method Toilet Toilet # Voids 2 Weight 115.45 kg 108 kg 11/18/17 21:05 11/18/17 21:05 Assessment and Plan Assessment: #1 symptoms of arm pain and left-sided chest pressure, lasting 3-4 hours, troponins negative 3 #2 hypertension #3 hyperlipidemia #4 paroxysmal atrial fibrillation, currently maintaining sinus rhythm on anticoagulated on Xarelto #5 history of low back surgery with rods Plan: From cardiology's perspective, patient does not wish to pursue any further testing besides an echocardiogram. We will obtain echo and add oral nitrate. Discontinue aspirin. Continue Xarelto. We will continue to follow the patient and provide further recommendations accordingly. RADIO INTELLIGENCE OPERATOR note has been reviewed, I agree with a documented findings and plan of care. Patient was seen and examined.
[2017-11-19] MEDS: ISOSORBIDE MONONITRATE ER 30 MG TAB.ER.24H PO SCH (11:50)
--- NOTE | 2017-11-19 15:13 | HP ---
HISTORY AND PHYSICAL CHIEF COMPLAINT: Chest pain. HISTORY OF PRESENT ILLNESS: This is an 82-year-old gentleman with a past medical history of multiple medical problems, including history of atrial fibrillation, history of DVT, GERD, hypertension, hyperlipidemia being followed by Dr. Arthur. The patient is complaining of chest pain. The patient reported the chest pain in the anterior port of the chest, dull in character, which radiated to the left and left shoulder. Also patient had right shoulder pain related to rotator cuff disease. Otherwise, there is no history of fever, rigors. No headache, loss of consciousness or seizures. Patient came to [facility] and troponins are found to be negative. Cardiology evaluation in progress. PAST MEDICAL HISTORY: History of atrial fibrillation, history of DVT, GERD, hyperlipidemia, history of DJD, history of prostate cancer. MEDICATIONS PRIOR TO ADMISSION INCLUDE HOME MEDICATIONS ARE:: 1. [place] 5 mg q.6 p.r.n. 2. Ultram 50 mg p.o. b.i.d. 3. Apresoline 25 mg t.i.d. 4. Lopressor 50 mg b.i.d. 5. Zestril 20 mg p.o. b.i.d. 6. Lopid 600 mg q.h.s. 7. Cymbalta 60 mg. 8. Xarelto 10 mg p.o. q.h.s. 9. Multivitamins 1 p.o. daily. 10.Lasix 40 mg b.i.d. 11.Ceretec 10 mg daily. 12.Norvasc 10 mg p.o. daily. 13.Flomax 0.4 b.i.d. 14.Protonix 20 mg p.o. daily. 15.Colcrys 0.6 daily. ALLERGIES: TOBRAMYCIN. FAMILY HISTORY: History of CHF, DJD in the family. SOCIAL HISTORY: No history of smoking. No history of alcohol intake. REVIEW OF SYSTEMS: ENT: No diminished hearing or vision. CARDIOVASCULAR: No angina or palpitation. RESPIRATORY: As mentioned earlier. GI: No nausea. : No dysuria. NERVOUS SYSTEM: No numbness or weakness. ALLERGY/IMMUNOLOGY: No history of anemia or hayfever. MUSCULOSKELETAL: As mentioned earlier. HEMATOLOGY/ONCOLOGY: No history of anemia. ENDOCRINE: As mentioned earlier. CONSTITUTIONAL: As mentioned earlier. PSYCHIATRY: As mentioned earlier. PHYSICAL EXAM: Alert and oriented x3. Pulse 63, blood pressure 140/60, respirations 16, temp 97 degrees, pulse ox 94% on room air. HEENT: Conjunctivae normal. Oral mucosa moist. Neck is no jugular venous distention. No lymph node enlargement. CARDIOVASCULAR SYSTEM: S1, S2, muffled. RESPIRATORY: Breath sounds diminished at the bases, no rhonchi, no crackles. ABDOMEN: Soft, nontender. No mass palpable. LEGS: No edema, no swelling. NERVOUS SYSTEM: Higher functions as mentioned earlier. Moves all 4 extremities. No focal motor deficit. LYMPHATICS: No lymph node enlargement in the neck ora axillae. SKIN: No ulcer, rash or bleeding. LABS: WBC is 5.4, hemoglobin is 12.8, INR 1.4. Creatinine 1.27. ASSESSMENT: 1. Chest pain, possible unstable angina. 2. History of atrial fibrillation. 3. Deep venous thrombosis. 4. Gastroesophageal reflux disease. 5. Hypertension. 6. Hyperlipidemia. 7. History of degenerative joint disease. 8. History of prostate cancer. 9. Anxiety, depression. RECOMMENDATION AND DISCUSSION: In this 82-year-old gentleman who presented with multiple complex medical issues, will monitor the patient closely. Continue with the current management and symptomatic treatment. Follow closely with Cardiology with the medical treatment. Patient is probably not a candidate for extensive evaluation and surgery. Prognosis guarded. Otherwise, repeat labs will be ordered. Increase ambulation. C difficile will be requested. Guarded prognosis because of multiple complex medical issues. Further recommendations to follow. See orders for further details. Patient is on Xarelto. MMODL / IJN: [id number] /
--- NOTE | 2017-11-19 17:16 | ECHOF ---
Referral Reason:chest pain MEASUREMENTS -------- HEIGHT: 170.2 cm WEIGHT: 108.0 kg BP: RVIDd: 3.5 cm (< 3.3) IVSd: 1.3 cm (0.6 - 1.1) LVIDd: 4.9 cm (3.9 - 5.3) LVPWd: 1.2 cm (0.6 - 1.1) IVSs: 1.8 cm LVIDs: 3.4 cm LVPWs: 1.8 cm LA Diam: 2.7 cm (2.7 - 3.8) LAESV Index (A-L): 50.92 ml/m Ao Diam: 3.3 cm (2.0 - 3.7) AV Cusp: 2.3 cm (1.5 - 2.6) LA Diam: 4.1 cm (2.7 - 3.8) MV EXCURSION: 18.069 mm (> 18.000) MV EF SLOPE: 61 mm/s (70 - 150) EPSS: 0.7 cm MV E Miguel: 0.47 m/s MV DecT: 174 ms MV A Miguel: 0.77 m/s MV E/A Ratio: 0.62 RAP: 5.00 mmHg RVSP: 30.01 mmHg FINDINGS -------- Sinus rhythm. This was a techncally difficult study with suboptimal views, , Lumason utilized for enhancement of im ages. The left ventricular size is normal. There is mild concentric left ventricular hypertrophy. Overa ll left ventricular systolic function is low-normal with, an EF between 50 - 55 %. The right ventricle is moderately enlarged. The left atrium is mildly dilated. LA is severely dilated >40 ml/m2 The right atrial size is normal. 5.0mg OF Lumason UTLIZED: 2 OR MORE WALL SEGMENTS NOT VISUALIZED. There is mild aortic valve sclerosis. There is no evidence of aortic regurgitation. Mild mitral annular calcification present. Mild mitral regurgitation is present. Mild tricuspid regurgitation present. There is no evidence of pulmonary hypertension. The right v entricular systolic pressure, as measured by Doppler, is 30.01mmHg. There is no pulmonic regurgitation present. The aortic root size is normal. CONCLUSIONS -------- 1. This was a techncally difficult study with suboptimal views, , Lumason utilized for enhancement of images. 2. The left ventricular size is normal. 3. There is mild concentric left ventricular hypertrophy. 4. Overall left ventricular systolic function is low-normal with, an EF between 50 - 55 %. 5. The right ventricle is moderately enlarged. 6. The left atrium is mildly dilated. 7. LA is severely dilated >40 ml/m2 8. The right atrial size is normal. 9. 5.0mg OF Lumason UTLIZED: 2 OR MORE WALL SEGMENTS NOT VISUALIZED. 10. There is mild aortic valve sclerosis. 11. Mild mitral annular calcification present. 12. Mild mitral regurgitation is present. 13. Mild tricuspid regurgitation present. 14. There is no evidence of pulmonary hypertension. 15. The right ventricular systolic pressure, as measured by Doppler, is 30.01mmHg. 16. There is no pulmonic regurgitation present. 17. The aortic root size is normal. ADVERTISEMENT COMPOSITOR: Pastora Obrien RDCS
[2017-11-19] MEDS ORDERED: GEMFIBROZIL 600 MG TAB PO SCH (21:00)
[2017-11-19] MEDS ORDERED: DULoxetine HCL 60 MG CAPSULE.DR PO SCH (21:00)
[2017-11-19] MEDS ORDERED: RIVAROXABAN 20 MG TAB PO SCH (21:00)
[2017-11-20 06:48] LABS: HCT 37.4 % (39.0-53.0); HGB 12.4 gm/dL (13.0-17.5); MCH 29.1 pg (25.0-35.0); MCHC 33.1 g/dL (31.0-37.0); MCV 87.8 fL (80.0-100.0); Mean Platelet Volume 7.9; Platelet Count 220 k/uL (150-450); RBC 4.26 m/uL (4.30-5.90); RDW 14.8 % (11.5-15.5); WBC 7.9 k/uL (3.8-10.6)
[2017-11-20 06:52] LABS: Potassium 3.6 mmol/L (3.5-5.1)
[2017-11-20] MEDS: PANTOPRAZOLE 40 MG TABLET PO SCH (06:52)
[2017-11-20] MEDS: TAMSULOSIN 0.4 MG CAP.ER.24H PO SCH (08:29)
[2017-11-20] MEDS: LORATADINE 10 MG TAB PO SCH (08:29)
[2017-11-20] MEDS: COLCHICINE 0.6 MG EACH PO SCH (08:29)
[2017-11-20] MEDS: MULTIVITAMINS, THERA 1 EACH TAB PO SCH (08:29)
[2017-11-20] MEDS: METOPROLOL TARTRATE 50 MG TAB PO SCH (08:29)
[2017-11-20] MEDS: ISOSORBIDE MONONITRATE ER 30 MG TAB.ER.24H PO SCH (08:30)
[2017-11-20] MEDS: FUROSEMIDE 40 MG TAB PO SCH (08:30)
[2017-11-20] MEDS: traMADol 50 MG TAB PO SCH (08:32)
[2017-11-20] MEDS ORDERED: ASPIRIN 325 MG TAB PO SCH (09:00)
[2017-11-20 10:22] VITALS: RESP 20; TEMP 97
--- NOTE | 2017-11-20 11:22 | PN ---
PROGRESS NOTE Mr. Lugo is an 82-year-old male who presented with symptoms of arm discomfort of unclear etiology. He has a history of paroxysmal atrial fibrillation. He is feeling well this morning. He has no chest discomfort. His breathing has been stable. He denies any dizziness or palpitation. He denies any nausea. He had an echocardiogram performed yesterday that revealed a preserved systolic function with mild mitral and tricuspid regurgitation. He continues to be at this time on amlodipine 10 mg daily, furosemide 40 mg daily, gemfibrozil 600 mg daily, hydralazine 25 mg 3 times a day, isosorbide mononitrate 30 mg daily, lisinopril 20 mg twice a day, metoprolol tartrate 50 mg twice a day, and Xarelto 20 mg daily. PHYSICAL EXAMINATION: Blood pressure running in the 120s with a heart rate in the 60s. LUNGS: Clear. Heart S1-S2 with a systolic murmur. No diastolic murmur. ABDOMEN: Soft, nontender. Extremities: Trace edema. LAB DATA: Lab data revealed a hemoglobin 12.4, BUN and creatinine 24 and 1.1. IMPRESSION: 1. Symptoms of chest discomfort of unclear etiology. No evidence for acute coronary syndrome. 2. History of paroxysmal atrial fibrillation, remains sinus mechanism. 3. Hypertension. 4. Hyperlipidemia. 5. Severe arthritis. RECOMMENDATION: From the cardiac standpoint, he is stable on his present medical regimen. I would expect he should be able to be discharged home today and follow up with Dr. Zamudio in 1 week. MMODL / IJN: [id number] /
[2017-11-20 11:36] LABS: Basophils # (M) 0.08 k/uL (0-0.2); Eosinophils # (M) 0.32 k/uL (0-0.7); Lymphocytes # (M) 1.98 k/uL (1.0-4.8); Monocytes # (M) 0.47 k/uL (0-1.0); Neutrophils # (M) 5.06 k/uL (1.3-7.7); Neutrophils % (M) 64 %; Nucleated Red Blood Cells 0 /100 WBC (0-0); Total Cells Counted 100
[2017-11-20 11:58] VITALS: BP 104/56; PULSE 55
[2017-11-20] MEDS: amLODIPine 10 MG TAB PO SCH (12:13)
[2017-11-20] MEDS: LISINOPRIL 20 MG TAB PO SCH (12:13)
[2017-11-20] MEDS: hydrALAZINE HCL 25 MG TAB PO SCH (12:14)
--- NOTE | 2017-11-20 13:35 | DS ---
DISCHARGE SUMMARY DATE OF SERVICE: 11/20/2017 FINAL DIAGNOSES: 1. Chest pain possible unstable angina. Myocardial infarction ruled out. 2. History of atrial fibrillation. 3. DVT history. 4. History of gastroesophageal reflux disease. 5. Hyperlipidemia. 6. History of degenerative joint disease. 7. History of prostate cancer. 8. History of anxiety, depression. DISCHARGE DISPOSITION: The patient is being discharged in stable condition with guarded prognosis. HISTORY OF PRESENT ILLNESS: This 82-year-old gentleman with past medical history of multiple medical problems, being followed Dr. Arthur in the outpatient setting was admitted with chest pain. Myocardial infarction ruled out. Cardiology saw the patient. Medical management recommended. On exam, vitals are stable. Cardiovascular: S1, S2 Abdomen: Soft. Nervous System: No focal deficits. Lipid panel is negative. The patient will be discharged in stable condition with guarded prognosis. DISCHARGE ADVICE: 1. Diet is cardiac. 2. Activities until followup. 3. Follow with Dr. Arthur in 2-3 days. 4. Follow with timing inspector as recommended. MEDICATIONS: Medications will be as follows: 1. Norvasc 10 mg p.o. daily. 2. Zyrtec 10 mg p.o. daily. 3. Cymbalta 60 mg p.o. q.h.s. 4. Lopid 600 mg q.h.s. 5. Apresoline 25 mg t.i.d. 6. [place] 5 mg q.6h p.r.n. 7. Multivitamins 1 p.o. daily. 8. Protonix 40 mg p.o. daily. 9. Xarelto 20 mg p.o. q.h.s. 10.Flomax 0.5 b.i.d. 11.Ultram 50 mg p.o. b.i.d. 12.Colcrys 0.6 daily. 13.Lasix 40 mg p.o. daily. 14.Imdur ER 30 mg p.o. daily. 15.Zestril 20 mg p.o. b.i.d. 16.Lopressor 50 mg p.o. b.i.d. 17.Nitrostat 0.4 mg p.r.n. Once again, the patient will be discharged in stable condition with guarded prognosis. MMODL / IJN: [id number] /
== END 2017-11-20 13:19 | disposition home or self-care (01) ==
LOC: EC 20:34 → 3OBS 11-19 00:22 → 6SEL 11-19 00:44
PROVIDERS: ADMIT Hospitalist; ATTEND Hospitalist
DX: R07.89 Other chest pain (principal); M79.602 Pain in left arm; I48.0 Paroxysmal atrial fibrillation; I10 Essential (primary) hypertension; E78.5 Hyperlipidemia, unspecified; N40.0 Benign prostatic hyperplasia without lower urinary tract symptoms; K21.9 Gastro-esophageal reflux disease without esophagitis; M19.90 Unspecified osteoarthritis, unspecified site; M54.9 Dorsalgia, unspecified; G89.29 Other chronic pain; I08.1 Rheumatic disorders of both mitral and tricuspid valves; F41.9 Anxiety disorder, unspecified; F32.9 Major depressive disorder, single episode, unspecified; M75.102 Unspecified rotator cuff tear or rupture of left shoulder, not specified as traumatic; R60.0 Localized edema; R06.09 Other forms of dyspnea; Z79.01 Long term (current) use of anticoagulants; Z79.891 Long term (current) use of opiate analgesic; Z79.899 Other long term (current) drug therapy; Z88.1 Allergy status to other antibiotic agents; Z87.09 Personal history of other diseases of the respiratory system; Z85.46 Personal history of malignant neoplasm of prostate; Z86.718 Personal history of other venous thrombosis and embolism; Z92.3 Personal history of irradiation; Z98.42 Cataract extraction status, left eye; Z98.41 Cataract extraction status, right eye; Z96.643 Presence of artificial hip joint, bilateral; Z96.612 Presence of left artificial shoulder joint; Z82.49 Family history of ischemic heart disease and other diseases of the circulatory system; Z82.61 Family history of arthritis; Z80.8 Family history of malignant neoplasm of other organs or systems; Z83.2 Family history of diseases of the blood and blood-forming organs and certain disorders involving the immune mechanism
CPT/HCPCS: 99291 ×2; 36415; 93005; 97116; 97162; 80061; 80053; 80048; 82550 ×2; 82553 ×2; 83735; 84484 ×2; 85025 ×2; 85610; 85730; 71046; G0378 ×2; C8929; Q9950; 93306

== ENCOUNTER 2018-01-29 08:52 | Observation (INO) | payer MEDICARE, OTHER ==
--- NOTE | 2018-01-29 09:20 | ED ---
General Adult HPI - General Chief complaint: Shortness of Breath Stated complaint: Sob Time Seen by Provider: 01/29/18 08:55 Source: patient, family, RN notes reviewed Mode of arrival: wheelchair Limitations: no limitations - History of Present Illness Initial comments: This is an 82-year-old male who presents emergency Department complaining of difficulty breathing. Patient states she woke up this morning short of breath worsened normal. Patient states she has a history of A. fib and sinus tachycardia. Patient states she was told if he has some rapid heartbeat he can take an extra metoprolol but he did not do so he came to the emergency department instead. Patient denies any lightheadedness or dizziness. Patient denies any sensation of palpitations he knows he was having a fast heart rate is his daughter took his pulse. Patient denies any chest pain. Patient denies any fever chills or cough. Patient denies abdominal pain patient denies nausea vomiting diarrhea. Patient states lying about 2 L oxygen on and he feels at his baseline. - Related Data Home Medications Medication Instructions Recorded Confirmed Cetirizine HCl [Zyrtec] 10 mg PO DAILY 10/11/15 11/18/17 Gemfibrozil [Lopid] 600 mg PO HS 10/11/15 11/18/17 Tamsulosin [Flomax] 0.4 mg PO BID 10/11/15 11/18/17 Multivitamins, Thera [Multivitamin 1 tab PO DAILY 01/16/16 11/18/17 (formulary)] DULoxetine HCL [Cymbalta] 60 mg PO HS 05/13/16 11/18/17 Pantoprazole Sodium [Protonix] 20 mg PO DAILY 05/13/16 11/18/17 Rivaroxaban [Xarelto] 20 mg PO HS 01/02/17 11/18/17 HYDROcodone/APAP 5-325MG [[place] 1 tab PO Q6H PRN 11/18/17 11/18/17 5-325] amLODIPine [Norvasc] 10 mg PO DAILY 11/18/17 11/18/17 hydrALAZINE HCL [Apresoline] 25 mg PO TID 11/18/17 11/18/17 traMADol HCL [Ultram] 50 mg PO BID 11/18/17 11/18/17 Previous Rx's Medication Instructions Recorded Colchicine [Colcrys] 0.6 mg PO DAILY tab 02/24/16 Furosemide [Lasix] 40 mg PO DAILY tab 02/24/16 Lisinopril [Zestril] 20 mg PO BID #60 tab 01/07/17 Metoprolol Tartrate [Lopressor] 50 mg PO BID #1 tab 01/07/17 Isosorbide Mononitrate ER [Imdur] 30 mg PO DAILY #30 tab.er.24h 11/20/17 Nitroglycerin Sl Tabs [Nitrostat] 0.4 mg SUBLINGUAL Q5M PRN #20 tab 11/20/17 Allergies Allergy/AdvReac Type Severity Reaction Status Date / Time tobramycin Allergy Unknown Itching, Verified 01/29/18 08:55 Red eyes (allergy to tobramycin eye drops) Review of Systems ROS Statement: Those systems with pertinent positive or pertinent negative responses have been documented in the HPI. ROS Other: All systems not noted in ROS Statement are negative. Past Medical History Past Medical History: Atrial Fibrillation, Cancer, Chest Pain / Angina, Deep Vein Thrombosis (DVT), GERD/Reflux, Hyperlipidemia, Hypertension, Osteoarthritis (OA), Prostate Disorder Additional Past Medical History / Comment(s): prostate cancer had 41 radiation tx, atrial tachycardia, DVT R leg many years ago, chronic back pain. Patient has a history of empyema requiring surgical drainage with chest tube History of Any Multi-Drug Resistant Organisms: None Reported Past Surgical History: Back Surgery, Hernia Repair, Joint Replacement, Orthopedic Surgery Additional Past Surgical History / Comment(s): bilateral cataract removal, laminectomy, back sx has deann and screws, lt shoulder arthroplasty, bilateral total hips, umbilical hernia repair. oral sx Past Anesthesia/Blood Transfusion Reactions: Motion Sickness, Postoperative Nausea & Vomiting (PONV) Past Psychological History: Anxiety, Depression Smoking Status: Never smoker Past Alcohol Use History: None Reported Past Drug Use History: None Reported - Past Family History Father Additional Family Medical History / Comment(s): Father fell at the age of 87yrs- had head injury- from complications. Mother Family Medical History: Congestive Heart Failure (CHF), Osteoarthritis (OA) Additional Family Medical History / Comment(s): Mother had severe arthritis. Son(s) Family Medical History: Cancer Additional Family Medical History / Comment(s): FIBROSARCOMA BONE CANCER- AT 16 YRS OLD Daughter(s) Family Medical History: Cancer, Deep Vein Thrombosis (DVT) Additional Family Medical History / Comment(s): CERVICAL CANCER General Exam - General Exam Comments Initial Comments: GENERAL: Patient is well-developed and well-nourished. Patient is nontoxic and well- hydrated and is in mild distress. ENT: Neck is soft and supple. No significant lymphadenopathy is noted. Oropharynx is clear. Moist mucous membranes. Neck has full range of motion without eliciting any pain. EYES: The sclera were anicteric and conjunctiva were pink and moist. Extraocular movements were intact and pupils were equal round and reactive to light. Eyelids were unremarkable. PULMONARY: Unlabored respirations. Good breath sounds bilaterally. No audible rales rhonchi or wheezing was noted. CARDIOVASCULAR: There is a regular rate and rhythm without any murmurs gallops or rubs. ABDOMEN: Soft and nontender with normal bowel sounds. SKIN: Skin is clear with no lesions or rashes and otherwise unremarkable. NEUROLOGIC: Patient is alert and oriented x3. Cranial nerves II through XII are grossly intact. Motor and sensory are also intact. Normal speech, volume and content. Symmetrical smile. MUSCULOSKELETAL: Normal extremities with adequate strength and full range of motion. LYMPHATICS: No significant lymphadenopathy is noted PSYCHIATRIC: Normal psychiatric evaluation. Normal interpersonal interactions appears functionally intact in deals appropriately with others. No signs of depression. No signs of anxiety. Limitations: no limitations Course Vital Signs 01/29/18 01/29/18 01/29/18 08:53 09:07 09:54 Temperature 98.5 F 99.1 F Pulse Rate 121 H 120 H 92 Respiratory 20 20 20 Rate Blood Pressure 85/58 113/60 75/55 O2 Sat by Pulse 97 97 96 Oximetry 01/29/18 01/29/18 01/29/18 10:08 10:55 11:20 Temperature Pulse Rate 94 75 91 Respiratory 18 18 18 Rate Blood Pressure 94/62 91/60 113/66 O2 Sat by Pulse 95 96 Oximetry Medical Decision Making - Medical Decision Making EKG shows sinus tachycardia 119 bpm SD interval is 84 QRS is 112 QT interval 358 QTC is 503. Patient's EKG shows some slight ST segment depression in leads [address] of the chest shows no acute abnormality. Patient was on oxygen and at rest was not feeling short of breath. I spoke with Dr. Landa and he agreed to admit the patient admitted the patient wrote admitting orders. I consult to cardiology. Patient had multiple episodes of transient hypotension throughout his ED stay - Lab Data Result diagrams: 01/29/18 09:18 01/29/18 09:18 Lab Results 01/29/18 01/29/18 01/29/18 Range/Units 09:18 09:18 09:18 WBC 8.4 (3.8-10.6) k/uL RBC 5.02 (4.30-5.90) m/uL Hgb 14.3 (13.0-17.5) gm/dL Hct 42.7 (39.0-53.0) % MCV 85.0 (80.0-100.0) fL MCH 28.4 (25.0-35.0) pg MCHC 33.4 (31.0-37.0) g/dL RDW 14.4 (11.5-15.5) % Plt Count 236 (150-450) k/uL Neutrophils % 63 % Lymphocytes % 21 % Monocytes % 8 % Eosinophils % 3 % Basophils % 1 % Neutrophils # 5.3 (1.3-7.7) k/uL Lymphocytes # 1.8 (1.0-4.8) k/uL Monocytes # 0.7 (0-1.0) k/uL Eosinophils # 0.3 (0-0.7) k/uL Basophils # 0.1 (0-0.2) k/uL PT (9.0-12.0) sec INR (<1.2) APTT (22.0-30.0) sec D-Dimer (<0.60) mg/L FEU Sodium 144 (137-145) mmol/L Potassium 3.7 (3.5-5.1) mmol/L Chloride 105 (98-107) mmol/L Carbon Dioxide 25 (22-30) mmol/L Anion Gap 14 mmol/L BUN 16 (9-20) mg/dL Creatinine 0.90 (0.66-1.25) mg/dL Est GFR (CKD-EPI)AfAm >90 (>60 ml/min/1.73 sqM) Est GFR (CKD-EPI)NonAf 79 (>60 ml/min/1.73 sqM) Glucose 138 H (74-99) mg/dL Calcium 9.0 (8.4-10.2) mg/dL Magnesium 2.1 (1.6-2.3) mg/dL Total Bilirubin 0.5 (0.2-1.3) mg/dL AST 26 (17-59) U/L ALT 18 L (21-72) U/L Alkaline Phosphatase 93 (38-126) U/L Total Creatine Kinase 117 (55-170) U/L CK-MB (CK-2) 1.2 (0.0-2.4) ng/mL CK-MB (CK-2) Rel Index 1.0 Troponin I 0.023 (0.000-0.034) ng/mL NT-Pro-B Natriuret Pep pg/mL Total Protein 6.7 (6.3-8.2) g/dL Albumin 4.0 (3.5-5.0) g/dL 01/29/18 01/29/18 Range/Units 09:18 10:16 WBC (3.8-10.6) k/uL RBC (4.30-5.90) m/uL Hgb (13.0-17.5) gm/dL Hct (39.0-53.0) % MCV (80.0-100.0) fL MCH (25.0-35.0) pg MCHC (31.0-37.0) g/dL RDW (11.5-15.5) % Plt Count (150-450) k/uL Neutrophils % % Lymphocytes % % Monocytes % % Eosinophils % % Basophils % % Neutrophils # (1.3-7.7) k/uL Lymphocytes # (1.0-4.8) k/uL Monocytes # (0-1.0) k/uL Eosinophils # (0-0.7) k/uL Basophils # (0-0.2) k/uL PT 11.7 (9.0-12.0) sec INR 1.2 H (<1.2) APTT 29.9 (22.0-30.0) sec D-Dimer 0.70 H (<0.60) mg/L FEU Sodium (137-145) mmol/L Potassium (3.5-5.1) mmol/L Chloride (98-107) mmol/L Carbon Dioxide (22-30) mmol/L Anion Gap mmol/L BUN (9-20) mg/dL Creatinine (0.66-1.25) mg/dL Est GFR (CKD-EPI)AfAm (>60 ml/min/1.73 sqM) Est GFR (CKD-EPI)NonAf (>60 ml/min/1.73 sqM) Glucose (74-99) mg/dL Calcium (8.4-10.2) mg/dL Magnesium (1.6-2.3) mg/dL Total Bilirubin (0.2-1.3) mg/dL AST (17-59) U/L ALT (21-72) U/L Alkaline Phosphatase (38-126) U/L Total Creatine Kinase (55-170) U/L CK-MB (CK-2) (0.0-2.4) ng/mL CK-MB (CK-2) Rel Index Troponin I (0.000-0.034) ng/mL NT-Pro-B Natriuret Pep 586 pg/mL Total Protein (6.3-8.2) g/dL Albumin (3.5-5.0) g/dL Disposition Clinical Impression: Dyspnea, Atrial tachycardia, Transient hypotension Disposition: ADMITTED IP TO THIS HOSP Referrals: Ramya Arthur III, MD [Primary Care Provider] - 1-2 days Time of Disposition: 11:43
--- NOTE | 2018-01-29 09:40 | XR ---
EXAMINATION TYPE: XR chest 2V DATE OF EXAM: 01/29/2018 HISTORY: difficulty breathing. REFERENCE: Previous study dated 11/18/2017. FINDINGS: There is a left shoulder hemiarthroplasty in place. The patient has taken a relatively poor inspiration. There is minor atelectatic change present at bot h lung bases. The heart is not enlarged. Pleural spaces are clear. IMPRESSION: 1. BIBASILAR ATELECTASIS. 2. POOR INSPIRATION.
[2018-01-29 09:55] LABS: Basophils # (A) 0.1 k/uL (0-0.2); Basophils % (A) 1 %; Eosinophils # (A) 0.3 k/uL (0-0.7); Eosinophils % (A) 3 %; HCT 42.7 % (39.0-53.0); HGB 14.3 gm/dL (13.0-17.5); Lymphocytes # (A) 1.8 k/uL (1.0-4.8); Lymphocytes % (A) 21 %; MCH 28.4 pg (25.0-35.0); MCHC 33.4 g/dL (31.0-37.0); Mean Platelet Volume 8.2; Monocytes # (A) 0.7 k/uL (0-1.0); Monocytes % (A) 8 %; Neutrophils # (A) 5.3 k/uL (1.3-7.7); Neutrophils % (A) 63 %; Platelet Count 236 k/uL (150-450); RBC 5.02 m/uL (4.30-5.90); RDW 14.4 % (11.5-15.5); WBC 8.4 k/uL (3.8-10.6)
[2018-01-29 10:05] LABS: ALT 18 U/L (21-72); AST 26 U/L (17-59); Alkaline Phosphatase 93 U/L (38-126); Anion Gap 14 mmol/L; Blood Urea Nitrogen 16 mg/dL (9-20); Carbon Dioxide 25 mmol/L (22-30); Chloride 105 mmol/L (98-107); Glucose 138 mg/dL (74-99); Magnesium 2.1 mg/dL (1.6-2.3); Potassium 3.7 mmol/L (3.5-5.1); Sodium 144 mmol/L (137-145); Total Bilirubin 0.5 mg/dL (0.2-1.3); Total Protein 6.7 g/dL (6.3-8.2)
[2018-01-29 10:42] LABS: Creatine Kinase MB 1.2 ng/mL (0.0-2.4); Troponin I 0.023 ng/mL (0.000-0.034)
[2018-01-29 10:46] LABS: INR 1.2 (<1.2); Partial Thromboplastin Time 29.9 sec (22.0-30.0); Prothrombin Time 11.7 sec (9.0-12.0)
[2018-01-29 10:49] LABS: D-Dimer 0.7 mg/L FEU (<0.60)
--- NOTE | 2018-01-29 11:36 | CT ---
EXAMINATION TYPE: CT chest angio for PE DATE OF EXAM: 01/29/2018 COMPARISON: Previous study dated 10/11/2015 HISTORY: Shortness of breath, chest pains, elevated d-dimer CT DLP: 850.5 mGycm Automated exposure control for dose reduction was used. CONTRAST: CT Chest for pulmonary embolism performed with with IV Contrast, patient injected with 100 mL of Isov ue 370. FINDINGS: There is some dependent atelectasis in the dependent portions of the lungs. There is no significant axillary, mediastinal or hilar adenopathy. There is no evidence of pulmonary embolus. The root of the aorta is aneurysmal measuring 4.2 cm. The proximal arch is aneurysmal measuring 3.9 c m. The proximal descending thoracic aorta is aneurysmal measuring 3.6 cm. At the aortic hiatus, the a k[place] remains aneurysmal measuring 3.3 cm. There is no pleural or pericardial fluid. The heart is not enlarged. Visualized portions of the upper abdomen are unremarkable. There has been an extensive interpedicular deann fixation of the lumbar spine. There is hypertrophic sp ondylosis within the dorsal spine. IMPRESSION: 1. THIS EXAMINATION IS NEGATIVE FOR PULMONARY EMBOLUS. 2. 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 3. POSTOPERATIVE CHANGE. 4. DEGENERATIVE CHANGES WITHIN THE SPINE.
[2018-01-29] MEDS ORDERED: NITROGLYCERIN SL TABS 0.4 MG TAB SUBLINGUAL PRN ×2 (11:43→14:36)
[2018-01-29 13:25] VITALS: BMI 37.2
[2018-01-29] MEDS: traMADol 50 MG TAB PO SCH ×2 (14:13→20:08)
[2018-01-29] MEDS: PANTOPRAZOLE 40 MG TABLET PO SCH (14:13)
[2018-01-29] MEDS: COLCHICINE 0.6 MG EACH PO SCH (14:13)
[2018-01-29] MEDS: TAMSULOSIN 0.4 MG CAP.ER.24H PO SCH ×2 (14:13→20:08)
[2018-01-29] MEDS ORDERED: ACETAMINOPHEN TAB 500 MG TAB PO PRN (14:55)
[2018-01-29] MEDS ORDERED: ALPRAZolam 0.25 MG TAB PO PRN (14:55)
[2018-01-29] MEDS ORDERED: MELATONIN 3 MG TABLET PO PRN (14:55)
[2018-01-29 16:09] LABS: Troponin I 0.051 ng/mL (0.000-0.034)
--- NOTE | 2018-01-29 16:39 | HP ---
HISTORY AND PHYSICAL DATE OF SERVICE: 01/29/2018 CHIEF COMPLAINT: Shortness of breath. HISTORY OF PRESENT ILLNESS: This 82-year-old gentleman with a past medical history of multiple medical problems including atrial fibrillation, history of DVT, GERD, hypertension, hyperlipidemia, history of DJD, prostate cancer, back pain, anxiety, depression being followed by Dr. Arthur in the outpatient setting, the patient was noted to have tachycardia by family this morning. The pulse is 120 and irregular. Patient also complained of shortness of breath. The patient taken to the ER, patient had paroxysmal atrial fibrillation. The patient also had elevated D-dimer at this time. The D-dimer is 0.7, but however , a CT of the chest showed no evidence of any pulmonary embolism and thoracic aortic aneurysm 4.2 cm also noted. EKG on admission showed sinus tachycardia, showed PAT with 2:1 AV block. The patient was admitted to the hospital for further evaluation and treatment. There is no history of fever, rigors or chills. No history of headache, loss of consciousness or seizures. PAST MEDICAL HISTORY: History of atrial fibrillation, history of DVT, GERD, hypertension, hyperlipidemia, history of prostate disorder, back surgery, anxiety and depression. MEDICATIONS: Prior to admission include home medications are: 1. Lipitor 20 mg at bedtime. 2. Lopressor 25 mg b.i.d. 3. Kenalog 1 application b.i.d. 4. Ultram 50 mg b.i.d. 5. Apresoline 25 mg t.i.d. 6. Norvasc 10 mg. 7. Flomax 0.5 b.i.d. 8. Xarelto 20 mg. 9. Protonix 20 mg b.i.d. 10.Nitrostat 0.4 sublingual p.r.n. 11.Multivitamins. 12.Zestril 20 mg p.o. b.i.d. 13.Imdur 30 mg. 14.Hydrocodone. 15.Novinger 5 mg q.6h. 16.Lasix 40 mg. 17.Cymbalta 60 mg daily. 18.Colcrys 0.6 daily. 19.Zestoretic 10 mg p.o. daily. ALLERGIES: TOBRAMYCIN. FAMILY HISTORY: History of COPD. SOCIAL HISTORY: No history of smoking. Occasional alcohol intake. REVIEW OF SYSTEMS: ENT: Diminished hearing and diminished vision. CARDIOVASCULAR SYSTEM: As mentioned earlier. RESPIRATORY: As mentioned earlier. GI no nausea or vomiting., no dysuria. Nervous system: As mentioned earlier. Allergy/Immunology: No asthma or hayfever. Musculoskeletal as mentioned earlier. HEMATOLOGY/ONCOLOGY: As mentioned earlier. Endocrine as mentioned earlier. CONSTITUTIONAL: As mentioned earlier. Dermatology: Negative. Rheumatology: Negative. Psychiatry: As mentioned earlier. PHYSICAL EXAMINATION: Alert, oriented times three. Pulse 69, regular; blood pressure 95/39, respiration 18, temperature 98.4, pulse ox 98% on 2 L. HEENT: Conjunctivae normal. Oral mucosa moist. Neck is no jugular venous distention. No carotid bruit. No lymph node enlargement. Cardiovascular systems: S1, S2 muffled. RESPIRATORY: Breath sounds diminished in the bases. A few scattered rhonchi. No crackles. ABDOMEN: Soft, nontender. No mass palpable. Legs minimal edema. Nervous system: Higher functions as mentioned. Moves all 4 limbs. No focal motor or sensory deficits. Lymphatics: No lymph nodes palpable in the neck, axillae or groin. Skin: No ulcer, rash or bleeding. Joints: No active deforming arthropathy. LABS: CBC within normal limits. D-dimer is 0.76, glucose 138. ASSESSMENT: 1. Paroxysmal atrial fibrillation with fast ventricular rate. 2. Possible paroxysmal atrial tachycardia and supraventricular tachycardia. 3. History of atrial fibrillation. 4. History of chest pain and angina. 5. History of deep vein thrombosis. 6. Gastroesophageal reflux disease. 7. Hypertension. 8. Hyperlipidemia. 9. History of degenerative joint disease. 10.History of prostate cancer with radiation. 11.History of chronic obstructive pulmonary disease. 12.History of back surgery. 13.History of degenerative joint disease. 14.Anxiety, depression. 15.NO CODE, NO CPR, NO VENT. RECOMMENDATION: In this 82-year-old gentleman who presented with multiple complex medical issues. At this time, we will monitor the patient closely. Continue the current medication. Continue symptomatic treatment. Otherwise at this time, I would recommend continue the telemetry. Cardiology consultation. Continue the beta blockers. 2D echo with Doppler. The reason for the multiple symptomatology could very well be cardiac arrhythmia including paroxysmal atrial fibrillation and also tachycardia and paroxysmal tachycardia with AV blocks. We will continue to monitor and further monitoring heart patient. Prognosis guarded. Resume the rest of the medications. Discussed with the family. Discussed with staff. Further recommendations to follow. A copy of report being forwarded to Dr. Arthur who is the primary physician. Continue medical management. HERIBERTO / MARICARMEN: [id number] / [email or web address]
[2018-01-29] MEDS: hydrALAZINE HCL 25 MG TAB PO SCH ×2 (17:09→20:09)
[2018-01-29] MEDS: ATORVASTATIN 20 MG TAB PO SCH (20:07)
[2018-01-29] MEDS: RIVAROXABAN 20 MG TAB PO SCH (20:08)
[2018-01-29] MEDS: DULoxetine HCL 60 MG CAPSULE.DR PO SCH (20:08)
[2018-01-29] MEDS: LISINOPRIL 20 MG TAB PO SCH (20:08)
[2018-01-29] MEDS: METOPROLOL TARTRATE 25 MG TAB PO SCH (20:08)
[2018-01-29] MEDS: TRIAMCINOLONE ACET 0.1% OINTMENT 15 GM TUBE TOPICAL SCH (20:09)
--- NOTE | 2018-01-29 22:27 | CONS ---
CONSULTATION CHIEF COMPLAINT: Shortness of breath. Noel is an 82-year-old gentleman with history of paroxysmal atrial fibrillation, hypertension, dyslipidemia, chronic low back pain, who presented to the hospital complaining of shortness of breath, fatigue and tiredness, was found to be in atrial fibrillation with slightly elevated heart rate. He denies chest pain, denies leg edema, paroxysmal nocturnal dyspnea or orthopnea. His predominant symptom is shortness of breath with activity. He had an echocardiogram done in October that showed normal LV systolic function. The exact etiology for his shortness of breath is unclear. He is not in congestive heart failure. BNP is normal and does not have myocardial ischemia. Troponin is negative. D-dimer was slightly elevated, but had a CT scan of the chest that was negative for pulmonary embolism. I will repeat an echo on him to reassess his LV function. It is possible that the shortness of breath is related to elevated heart rate. PAST MEDICAL HISTORY: Significant for paroxysmal atrial fibrillation, hypertension and dyslipidemia. MEDICATIONS: At home include Lipitor, Lopressor 25 b.i.d., Apresoline 25 t.i.d., Norvasc 10 q. daily, Xarelto, Protonix, Restoril, Imdur, [place], Lasix, Cymbalta. ALLERGY: TO TOBRAMYCIN. FAMILY HISTORY: Negative for premature coronary artery disease. SOCIAL HISTORY: Negative for current smoking, EtOH abuse, or drug abuse. REVIEW OF SYSTEMS: HEENT is unremarkable. Cardiac as described above. Respiratory as described above. GI negative. : Negative. Allergy/Immunology: Negative. SKIN: Negative. Musculoskeletal significant for arthritis. Psychosocial: Negative. HEMATOLOGIC: Negative. CONSTITUTIONAL: Negative. DERM: Negative. Oncological negative. Rest of the system review is not relevant. EXAM: Patient is comfortable at rest. Vital signs are stable. There is no jugular venous distention. Chest exam reveals good air entry bilaterally. I do not hear any crackles or rhonchi. Heart exam reveals first and second heart sounds. No gallop. No murmur. Abdomen is soft, nontender. Exam of the extremities did not reveal any edema. Peripheral pulses are felt. EKG does not reveal acute ischemic changes. BNP is normal. CT chest is negative. ASSESSMENT: 1. Shortness of breath, probably related to the atrial fibrillation. 2. Paroxysmal atrial fibrillation. 3. Hypertension. 4. Dyslipidemia. PLAN: I will continue the patient on current medications. Obtain a 2D echo. Watch him on telemetry and decide on further course of action. HERIBERTO / MARICARMEN: [id number] /
[2018-01-30 01:01] LABS: Troponin I 0.046 ng/mL (0.000-0.034)
[2018-01-30] MEDS: HYDROcodone/APAP 5-325MG 1 EACH TAB PO PRN (04:29)
[2018-01-30] MEDS: PANTOPRAZOLE 40 MG TABLET PO SCH (06:39)
[2018-01-30 07:26] LABS: Basophils % (A) 1 %; Eosinophils # (A) 0.3 k/uL (0-0.7); Eosinophils % (A) 4 %; HCT 35.7 % (39.0-53.0); HGB 12.4 gm/dL (13.0-17.5); Lymphocytes # (A) 1.9 k/uL (1.0-4.8); Lymphocytes % (A) 28 %; MCH 29.4 pg (25.0-35.0); MCHC 34.7 g/dL (31.0-37.0); MCV 84.7 fL (80.0-100.0); Mean Platelet Volume 7.9; Monocytes # (A) 0.5 k/uL (0-1.0); Monocytes % (A) 8 %; Neutrophils # (A) 3.7 k/uL (1.3-7.7); Neutrophils % (A) 55 %; Platelet Count 180 k/uL (150-450); RBC 4.22 m/uL (4.30-5.90); RDW 14.6 % (11.5-15.5); WBC 6.7 k/uL (3.8-10.6)
[2018-01-30 07:31] LABS: Calcium 8.5 mg/dL (8.4-10.2); Potassium 3.4 mmol/L (3.5-5.1)
[2018-01-30] MEDS: ASPIRIN 325 MG TAB PO SCH (08:52)
[2018-01-30] MEDS: FUROSEMIDE 40 MG TAB PO SCH (08:52)
[2018-01-30] MEDS: amLODIPine 10 MG TAB PO SCH (08:52)
[2018-01-30] MEDS: COLCHICINE 0.6 MG EACH PO SCH (08:52)
[2018-01-30] MEDS: LORATADINE 10 MG TAB PO SCH (08:53)
[2018-01-30] MEDS: LISINOPRIL 20 MG TAB PO SCH ×2 (08:53→20:38)
[2018-01-30] MEDS: ISOSORBIDE MONONITRATE ER 30 MG TAB.ER.24H PO SCH (08:53)
[2018-01-30] MEDS: METOPROLOL TARTRATE 25 MG TAB PO SCH ×2 (08:54→20:38)
[2018-01-30] MEDS: TAMSULOSIN 0.4 MG CAP.ER.24H PO SCH ×2 (08:54→20:38)
[2018-01-30] MEDS: hydrALAZINE HCL 25 MG TAB PO SCH ×3 (08:59→20:42)
[2018-01-30] MEDS: traMADol 50 MG TAB PO SCH ×2 (08:59→20:38)
[2018-01-30] MEDS: TRIAMCINOLONE ACET 0.1% OINTMENT 15 GM TUBE TOPICAL SCH ×2 (09:00→20:40)
--- NOTE | 2018-01-30 12:26 | P.PN ---
Subjective Progress Note Date: 01/30/18 This is an 82-year-old gentleman with history of paroxysmal A. fib, hypertension , dyslipidemia who presented to the hospital with shortness of breath and fatigue. The patient was found to be in A. fib RVR and was placed on a Cardizem drip initially. He has since converted to a normal sinus mechanism around 5 AM today. The patient also had hypotension on admission and mildly elevated troponins. This is all thought to be secondary to A. fib RVR at the time and not consistent with acute myocardial ischemia. He is hemodynamically stable. Denies chest discomfort, shortness of breath or palpitations. Objective - Vital Signs Vital signs: Vital Signs Temp 97.0 F L 01/30/18 08:55 Pulse 61 01/30/18 11:00 Resp 18 01/30/18 11:00 BP 129/63 01/30/18 11:00 Pulse Ox 93 L 01/30/18 11:00 Intake & Output 01/29/18 01/30/18 01/30/18 18:59 06:59 18:59 Intake Total 120 Balance 120 Weight 107.8 kg 108.9 kg Intake: Oral 120 Other: Voiding Method Toilet Toilet Toilet # Voids 1 - Exam Gen.: Patient is alert and oriented, in no acute distress. Lungs: Clear to auscultation, no thrills or rhonchi appreciated. Heart: Regular rate and rhythm slightly bradycardic, no murmur. Extremities: No lower extremity edema is noted. Neuro: Patient is alert and oriented 3. - Labs CBC & Chem 7: 01/30/18 06:23 01/30/18 06:23 Labs: Abnormal Lab Results - Last 24 Hours (Table) 01/29/18 01/30/18 01/30/18 Range/Units 15:06 00:06 06:23 RBC (4.30-5.90) m/uL Hgb (13.0-17.5) gm/dL Hct (39.0-53.0) % Potassium 3.4 L (3.5-5.1) mmol/L BUN 22 H (9-20) mg/dL Glucose 105 H (74-99) mg/dL Troponin I 0.051 H* 0.046 H* (0.000-0.034) ng/mL HDL Cholesterol 28 L (40-60) mg/dL 01/30/18 Range/Units 06:23 RBC 4.22 L (4.30-5.90) m/uL Hgb 12.4 L (13.0-17.5) gm/dL Hct 35.7 L (39.0-53.0) % Potassium (3.5-5.1) mmol/L BUN (9-20) mg/dL Glucose (74-99) mg/dL Troponin I (0.000-0.034) ng/mL HDL Cholesterol (40-60) mg/dL Assessment and Plan Assessment: 1. Paroxysmal atrial fibrillation with RVR on admission, now sinus mechanism 2. Elevated troponin secondary to A. fib RVR, not consistent with acute myocardial ischemia 3. Hypertension 4. Hyperlipidemia Plan: Continue with current medication regimen. Replace potassium per protocol. From a cardiac standpoint, the patient may be discharged home when he is medically stable. He can continue with Lopressor and Xarelto. His minimally elevated troponins were thought to be secondary to supply demand mismatch while in atrial fibrillation with rapid ventricular response. He can be further evaluated as an outpatient and scheduled for stress test if indicated.
[2018-01-30] MEDS: MULTIVITAMINS, THERA 1 EACH TAB PO SCH (13:19)
--- NOTE | 2018-01-30 14:49 | P.PN ---
Subjective Progress Note Date: 01/30/18 Principal diagnosis: Shortness of breath and tachycardia I'm dictating progress note for Dr. Landa Interval history: This is an 82-year-old gentleman with history of paroxysmal A. fib, hypertension , dyslipidemia who presented to the hospital with shortness of breath and fatigue. The patient was found to be in A. fib RVR and was placed on a Cardizem drip initially. He has since converted to a normal sinus mechanism around 5 AM today. The patient also had hypotension on admission and mildly elevated troponins. This is all thought to be secondary to A. fib RVR at the time and not consistent with acute myocardial ischemia. He is hemodynamically stable. Patient denied fever chills or diaphoresis. Denied chest pain or palpitation. Denied shortness of breath cough or sputum production. Denied abdominal pain nausea vomiting diarrhea or constipation. Denied urgency frequency dysuria. Objective - Vital Signs Vital signs: Vital Signs Temp 97.0 F L 01/30/18 08:55 Pulse 61 01/30/18 11:00 Resp 18 01/30/18 11:00 BP 129/63 01/30/18 11:00 Pulse Ox 93 L 01/30/18 11:00 Intake & Output 01/29/18 01/30/18 01/30/18 18:59 06:59 18:59 Intake Total 120 Balance 120 Weight 107.8 kg 108.9 kg Intake: Oral 120 Other: Voiding Method Toilet Toilet Toilet # Voids 1 - Exam PHYSICAL EXAM: VITAL SIGNS: As mentioned above GENERAL: Awake oriented 3 not in any acute discomfort HEENT: Conjunctivae normal. eyes normal. NECK: No JVD. Supple CARDIOVASCULAR: S1, S2 muffled. No murmur RESPIRATION: Breath sounds clear on auscultation bilaterally. No rhonchi or crackles. No bronchial breathing. ABDOMEN: Soft, nontender . No guarding. no masses palpable. N.Bowel sounds heard. LEGS: No edema. no swelling PSYCHIATRY: Alert and oriented 3, mood and affect normal. NERVOUS SYSTEM: Awake oriented 3 no focal deficit Skin: no ulcer no rash Joints: No active swelling. No inflammation. Active Medications Acetaminophen (Tylenol Tab) 500 mg PO Q6HR PRN PRN Reason: Fever and/ or Pain Hydrocodone Bitart/Acetaminophen ([place] 5-325) 1 each PO Q6H PRN PRN Reason: Pain Last Admin: 01/30/18 04:29 Dose: 1 each Alprazolam (Xanax) 0.25 mg PO TID PRN PRN Reason: Anxiety Amlodipine Besylate (Norvasc) 10 mg PO DAILY [facility] Last Admin: 01/30/18 08:52 Dose: 10 mg Aspirin (Aspirin) 325 mg PO DAILY [facility] Last Admin: 01/30/18 08:52 Dose: 325 mg Atorvastatin Calcium (Lipitor) 20 mg PO HS [facility] Last Admin: 01/29/18 20:07 Dose: 20 mg Colchicine (Colcrys) 0.6 mg PO DAILY [facility] Last Admin: 01/30/18 08:52 Dose: 0.6 mg Duloxetine HCl (Cymbalta) 60 mg PO HS [facility] Last Admin: 01/29/18 20:08 Dose: 60 mg Furosemide (Lasix) 40 mg PO DAILY [facility] Last Admin: 01/30/18 08:52 Dose: 40 mg Hydralazine HCl (Apresoline) 25 mg PO TID [facility] Last Admin: 01/30/18 08:59 Dose: 25 mg Isosorbide Mononitrate (Imdur) 30 mg PO DAILY [facility] Last Admin: 01/30/18 08:53 Dose: 30 mg Lisinopril (Zestril) 20 mg PO BID [facility] Last Admin: 01/30/18 08:53 Dose: 20 mg Loratadine (Claritin) 10 mg PO DAILY [facility] Last Admin: 01/30/18 08:53 Dose: 10 mg Melatonin (Melatonin) 3 mg PO HS PRN PRN Reason: Insomnia Metoprolol Tartrate (Lopressor) 25 mg PO BID [facility] Last Admin: 01/30/18 08:54 Dose: 25 mg Multivitamins (Theragran) 1 each PO DAILY@1200 [facility] Last Admin: 01/30/18 13:19 Dose: 1 each Nitroglycerin (Nitrostat) 0.4 mg SUBLINGUAL Q5M PRN PRN Reason: Chest Pain Pantoprazole Sodium (Protonix) 40 mg PO AC-BRKFST [facility] Last Admin: 01/30/18 06:39 Dose: 40 mg Rivaroxaban (Xarelto) 20 mg PO HS [facility] Last Admin: 01/29/18 20:08 Dose: 20 mg Tamsulosin HCl (Flomax) 0.4 mg PO BID [facility] Last Admin: 10/07/18 08:54 Dose: 0.4 mg Tramadol HCl (Ultram) 50 mg PO BID [facility] Last Admin: 01/30/18 08:59 Dose: 50 mg Triamcinolone Acetonide (Kenalog) 1 applic TOPICAL BID [facility] Last Admin: 01/30/18 09:00 Dose: 1 applic - Labs CBC & Chem 7: 01/30/18 06:23 01/30/18 06:23 Labs: Abnormal Lab Results - Last 24 Hours (Table) 01/29/18 01/30/18 01/30/18 Range/Units 15:06 00:06 06:23 RBC (4.30-5.90) m/uL Hgb (13.0-17.5) gm/dL Hct (39.0-53.0) % Potassium 3.4 L (3.5-5.1) mmol/L BUN 22 H (9-20) mg/dL Glucose 105 H (74-99) mg/dL Troponin I 0.051 H* 0.046 H* (0.000-0.034) ng/mL HDL Cholesterol 28 L (40-60) mg/dL 01/30/18 Range/Units 06:23 RBC 4.22 L (4.30-5.90) m/uL Hgb 12.4 L (13.0-17.5) gm/dL Hct 35.7 L (39.0-53.0) % Potassium (3.5-5.1) mmol/L BUN (9-20) mg/dL Glucose (74-99) mg/dL Troponin I (0.000-0.034) ng/mL HDL Cholesterol (40-60) mg/dL Assessment and Plan Assessment: 1. Paroxysmal atrial fibrillation with RVR on admission, now sinus mechanism 2. Elevated troponin secondary to A. fib RVR, not consistent with acute myocardial ischemia 3. Hypertension 4. Hyperlipidemia 5. Osteoarthritis 6. History of Prostate cancer 7. History of deep vein thrombosis 8. GERD 9. Generalized weakness 10. Hypokalemia Plan: ontinue with current medication regimen. Replace potassium per protocol. He can continue with Lopressor and Xarelto. His minimally elevated troponins were thought to be secondary to supply demand mismatch while in atrial fibrillation with rapid ventricular response. Encourage activities as tolerated. Monitor CBC and BMP in the morning. Monitor patient closely, further plans based on his clinical course. Initiate PT and OT evaluation. Discharge planning next 24 -48 hours. The impression and plan of care has been dictated as directed. : I performed a history and examination of this patient, discussed the same with the dictator. I agree with the dictator's note ,documented as a scribe. Any additional findings or plans will be noted.
[2018-01-30] MEDS: ATORVASTATIN 20 MG TAB PO SCH (20:38)
[2018-01-30] MEDS: DULoxetine HCL 60 MG CAPSULE.DR PO SCH (20:38)
[2018-01-30] MEDS: RIVAROXABAN 20 MG TAB PO SCH (20:38)
[2018-01-31] MEDS: HYDROcodone/APAP 5-325MG 1 EACH TAB PO PRN (02:43)
[2018-01-31 05:28] VITALS: PULSE 60; RESP 18
[2018-01-31] MEDS: PANTOPRAZOLE 40 MG TABLET PO SCH (06:32)
[2018-01-31 07:17] LABS: Calcium 8.6 mg/dL (8.4-10.2); Potassium 3.5 mmol/L (3.5-5.1)
[2018-01-31 08:03] LABS: HCT 36.6 % (39.0-53.0); HGB 12.3 gm/dL (13.0-17.5); MCHC 33.6 g/dL (31.0-37.0); MCV 86.1 fL (80.0-100.0); Mean Platelet Volume 8.4; Platelet Count 192 k/uL (150-450); RBC 4.24 m/uL (4.30-5.90); RDW 14.3 % (11.5-15.5); WBC 5.9 k/uL (3.8-10.6)
[2018-01-31] MEDS: LORATADINE 10 MG TAB PO SCH (08:45)
[2018-01-31] MEDS: ASPIRIN 325 MG TAB PO SCH (08:45)
[2018-01-31] MEDS: METOPROLOL TARTRATE 25 MG TAB PO SCH (08:45)
[2018-01-31] MEDS: LISINOPRIL 20 MG TAB PO SCH (08:45)
[2018-01-31] MEDS: ISOSORBIDE MONONITRATE ER 30 MG TAB.ER.24H PO SCH (08:45)
[2018-01-31] MEDS: amLODIPine 10 MG TAB PO SCH (08:46)
[2018-01-31] MEDS: TRIAMCINOLONE ACET 0.1% OINTMENT 15 GM TUBE TOPICAL SCH (08:46)
[2018-01-31] MEDS: FUROSEMIDE 40 MG TAB PO SCH (08:46)
[2018-01-31] MEDS: COLCHICINE 0.6 MG EACH PO SCH (08:46)
[2018-01-31] MEDS: TAMSULOSIN 0.4 MG CAP.ER.24H PO SCH (08:46)
[2018-01-31] MEDS: traMADol 50 MG TAB PO SCH (08:48)
[2018-01-31] MEDS: hydrALAZINE HCL 25 MG TAB PO SCH (08:48)
[2018-01-31 08:53] VITALS: TEMP 96.9
[2018-01-31 11:01] LABS: Band Neutrophils % 1 %; Eosinophils # (M) 0.06 k/uL (0-0.7); Lymphocytes # (M) 1.12 k/uL (1.0-4.8); Monocytes # (M) 0.71 k/uL (0-1.0); Neutrophils % (M) 67 %; Nucleated Red Blood Cells 0 /100 WBC (0-0); Total Cells Counted 100
[2018-01-31] MEDS ORDERED: POTASSIUM CHLORIDE ER 20 MEQ TAB.ER PO STA (11:18)
--- NOTE | 2018-01-31 11:20 | P.PN ---
Subjective Progress Note Date: 01/31/18 This is an 82-year-old gentleman with history of paroxysmal A. fib, hypertension , dyslipidemia who presented to the hospital with shortness of breath and fatigue. The patient was found to be in A. fib RVR and was placed on a Cardizem drip initially. He has since converted to a normal sinus mechanism . Patient was also noted to have mild abnormality in troponin which was felt to be secondary to atrial fibrillation with rapid ventricular response. At the time of my examination this morning, he continues to be in a normal sinus rhythm , denies any palpitations in breathing overall is stable. TSH level is normal. Blood pressure 122/60 with a heart rate in the 60s, 96% on room air. White blood cell count 5.9, hemoglobin 12.3, platelet count 192. Sodium 139, potassium 3.5, BUN 22, creatinine 0.9. Objective - Vital Signs Vital signs: Vital Signs Temp 96.9 F L 01/31/18 08:00 Pulse 60 01/31/18 08:00 Resp 18 01/31/18 04:00 BP 122/62 01/31/18 08:00 Pulse Ox 96 01/31/18 08:00 Intake & Output 01/30/18 01/31/18 01/31/18 18:59 06:59 18:59 Intake Total 240 600 240 Output Total 500 Balance 240 600 -260 Weight 110.677 kg Intake: Oral 240 600 240 Output: Urine 500 Other: Voiding Method Toilet Toilet # Voids 1 1 - Exam PHYSICAL EXAMINATION: GENERAL: 82-year-old gentleman in no acute distress at the time of my examination HEENT: Head is atraumatic, normocephalic. Pupils equal, round. Sclera anicteric. Conjunctiva are clear. Mucous membranes of the mouth are moist. Neck is supple. There is no elevated jugular venous pressure. No carotid bruit is heard. HEART EXAMINATION: Heart S1, S2 normal. No murmur or gallop heard. CHEST EXAMINATION: Lungs are clear to auscultation and precussion. No chest wall tenderness is noted on palpation or with deep breathing. ABDOMEN: Soft, nontender. Bowel sounds are heard. No organomegaly noted. EXTREMITIES: 2+ peripheral pulses with no evidence of peripheral edema and no calf tenderness noted. NEUROLOGIC patient is awake, alert and oriented X3. . - Labs CBC & Chem 7: 01/31/18 06:13 01/31/18 06:13 Labs: Abnormal Lab Results - Last 24 Hours (Table) 01/31/18 01/31/18 Range/Units 06:13 06:13 RBC 4.24 L (4.30-5.90) m/uL Hgb 12.3 L (13.0-17.5) gm/dL Hct 36.6 L (39.0-53.0) % BUN 22 H (9-20) mg/dL Glucose 108 H (74-99) mg/dL Assessment and Plan Plan: Assessment and plan #1 paroxysmal atrial fibrillation, currently in normal sinus rhythm #2 elevated troponin, secondary to A. fib with RVR, not consistent with acute myocardial ischemia #3 hypertension #4 hyperlipidemia Plan We will replace the patient's potassium today, continue the rest of his current medications. He may be able to be discharged home once cleared by primary and we will make him a follow-up appointment with Dr. Zamudio in the office post discharge. DNP note has been reviewed, I agree with a documented findings and plan of care. Patient was seen and examined.
[2018-01-31] MEDS: MULTIVITAMINS, THERA 1 EACH TAB PO SCH (12:30)
--- NOTE | 2018-01-31 12:30 | ECHOF ---
Referral Reason:lv function MEASUREMENTS -------- HEIGHT: 170.2 cm WEIGHT: 110.7 kg BP: 149/70 RVIDd: 3.6 cm (< 3.3) IVSd: 1.4 cm (0.6 - 1.1) LVIDd: 4.8 cm (3.9 - 5.3) LVPWd: 1.4 cm (0.6 - 1.1) IVSs: 1.8 cm LVIDs: 3.9 cm LVPWs: 1.4 cm LA Diam: 4.7 cm (2.7 - 3.8) Ao Diam: 3.3 cm (2.0 - 3.7) AV Cusp: 1.9 cm (1.5 - 2.6) LA Diam: 5.2 cm (2.7 - 3.8) MV EXCURSION: 21.388 mm (> 18.000) MV EF SLOPE: 61 mm/s (70 - 150) EPSS: 0.5 cm MV E Miguel: 0.25 m/s MV DecT: 406 ms MV A Miguel: 0.58 m/s MV E/A Ratio: 0.43 RAP: 5.00 mmHg RVSP: 27.49 mmHg FINDINGS -------- Sinus rhythm. This was a techncally difficult study with suboptimal views, , Lumason utilized for enhancement of im ages. The left ventricular size is normal. There is moderate concentric left ventricular hypertrophy. O verall left ventricular systolic function is low-normal with, an EF between 50 - 55 %. The right ventricle is normal in size. The left atrial size is normal. 5.0mg OF Lumason UTLIZED: 2 OR MORE WALL SEGMENTS NOT VISUALIZED. There is mild aortic valve sclerosis. There is no evidence of aortic regurgitation. Mild mitral annular calcification present. Mild mitral regurgitation is present. Mild tricuspid regurgitation present. There is no evidence of pulmonary hypertension. The right v entricular systolic pressure, as measured by Doppler, is 27.49mmHg. There is no pulmonic regurgitation present. The aortic root size is normal. There is no pericardial effusion. CONCLUSIONS -------- 1. This was a techncally difficult study with suboptimal views, , Lumason utilized for enhancement of images. 2. The left ventricular size is normal. 3. There is moderate concentric left ventricular hypertrophy. 4. Overall left ventricular systolic function is low-normal with, an EF between 50 - 55 %. 5. The right ventricle is normal in size. 6. The left atrial size is normal. 7. 5.0mg OF Lumason UTLIZED: 2 OR MORE WALL SEGMENTS NOT VISUALIZED. 8. There is mild aortic valve sclerosis. 9. Mild mitral annular calcification present. 10. Mild mitral regurgitation is present. 11. Mild tricuspid regurgitation present. 12. There is no evidence of pulmonary hypertension. 13. The right ventricular systolic pressure, as measured by Doppler, is 27.49mmHg. 14. There is no pulmonic regurgitation present. 15. The aortic root size is normal. 16. There is no pericardial effusion. [employer] [facility] MANAGER: Pastora Obrien RDCS
[2018-01-31 15:22] VITALS: BP 121/58
--- NOTE | 2018-01-31 22:11 | DS ---
DISCHARGE SUMMARY DATE OF SERVICE: 01/31/2018 FINAL DIAGNOSES: 1. Paroxysmal atrial fibrillation with fast ventricular rate. 2. Possible supraventricular tachycardia with 2:1 AV block. 3. History of atrial fibrillation. 4. History of chest pain, angina. 5. History of deep venous thrombosis. 6. Gastroesophageal reflux disease. 7. Hypertension. 8. Hyperlipidemia. 9. History of degenerative joint disease. 10.History of prostate cancer with radiation. 11.History of chronic obstructive pulmonary disease. 12.History of back surgery. 13.History of anxiety, depression. 14.NO CODE, NO CPR, NO VENT. DISCHARGE DISPOSITION: The patient will be discharged in stable condition with guarded prognosis. HISTORY OF PRESENT ILLNESS: This 82-year-old gentleman with a past medical history of multiple medical problems was admitted with cardiac arrhythmia. The patient was seen by Cardiology. Telemetry showed no abnormal findings. Potassium was replaced. Evaluation with Dr. Zamudio in the outpatient setting is recommended to rule out the possibility of sick sinus syndrome and long-term monitoring such as a loop recorder. Ejection fraction was found to be 50% to 55%. On exam, vital signs are stable. CARDIOVASCULAR SYSTEM: S1, S2 muffled. ABDOMEN: Soft. NERVOUS SYSTEM: No focal deficit. DISCHARGE ADVICE AND MEDICATIONS: 1. Diet is cardiac. 2. Activity limited until followup. 3. Follow up with primary physician in 2-3 days. Patient is followed by Dr. Arthur in the outpatient setting. 4. Follow up with LUIS Shahid as recommended. 5. Follow up with Cardiology as recommended. 6. Norvasc 10 mg p.o. daily p.o. daily. 7. Lipitor 20 mg at bedtime. 8. Zyrtec 10 mg p.o. daily. 9. Cymbalta 60 mg at bedtime. 10.Apresoline 25 mg p.o. t.i.d. 11.[place] 5 mg q.6 p.r.n. 12.Lopressor 25 mg p.o. b.i.d. 13.Multivitamins 1 p.o. daily. 14.Protonix 20 mg p.o. daily. 15.Xarelto 20 mg at bedtime. 16.Flomax 0.4 b.i.d. 17.Ultram 50 mg b.i.d. 18.Kenalog topical application. 19.Colchicine 0.6 daily. 20.Lasix 40 mg p.o. daily. 21.Imdur ER 30 mg p.o. daily. 22.Zestril 20 mg b.i.d. 23.Nitrostat 0.4 sublingually p.r.n. Once again, the patient will be discharged in stable condition with guarded prognosis. MMJONATHANL / LORRIN: [id number] /
== END 2018-01-31 17:02 | disposition home or self-care (01) ==
LOC: EC 08:52 → 6SEL 11:43
PROVIDERS: ADMIT Hospitalist; ATTEND Hospitalist
DX: I48.0 Paroxysmal atrial fibrillation (principal); E87.6 Hypokalemia; I95.9 Hypotension, unspecified; R77.8 Other specified abnormalities of plasma proteins; R79.89 Other specified abnormal findings of blood chemistry; I71.2 Thoracic aortic aneurysm, without rupture; I10 Essential (primary) hypertension; K21.9 Gastro-esophageal reflux disease without esophagitis; R53.1 Weakness; E78.5 Hyperlipidemia, unspecified; M19.90 Unspecified osteoarthritis, unspecified site; F41.9 Anxiety disorder, unspecified; G89.29 Other chronic pain; M54.5 Low back pain; F32.9 Major depressive disorder, single episode, unspecified; Z79.01 Long term (current) use of anticoagulants; Z79.899 Other long term (current) drug therapy; Z79.891 Long term (current) use of opiate analgesic; Z88.1 Allergy status to other antibiotic agents; Z92.3 Personal history of irradiation; Z86.718 Personal history of other venous thrombosis and embolism; Z87.09 Personal history of other diseases of the respiratory system; Z85.46 Personal history of malignant neoplasm of prostate; Z98.42 Cataract extraction status, left eye; Z98.41 Cataract extraction status, right eye; Z96.612 Presence of left artificial shoulder joint; Z96.643 Presence of artificial hip joint, bilateral; Z80.8 Family history of malignant neoplasm of other organs or systems; Z82.61 Family history of arthritis; Z82.49 Family history of ischemic heart disease and other diseases of the circulatory system; Z80.49 Family history of malignant neoplasm of other genital organs; Z83.2 Family history of diseases of the blood and blood-forming organs and certain disorders involving the immune mechanism; Z83.6 Family history of other diseases of the respiratory system; Z66 Do not resuscitate
CPT/HCPCS: 99285; 36415; 93005; 85379; 83880; 80061; 80053; 80048 ×2; 84443; 82550 ×2; 82553 ×2; 83735; 84484 ×2; 85025 ×3; 85610; 85730; 71046; 71275; G0378 ×3; C8929; Q9950; Q9967; 93306

== ENCOUNTER 2019-05-06 12:01 | Emergency (ER) | payer MEDICARE, OTHER ==
--- NOTE | 2019-05-06 12:24 | ED ---
General Adult HPI - General Chief complaint: Fall Stated complaint: Fell yesterday shoulder/hips pain Time Seen by Provider: 05/06/19 12:20 Source: patient, RN notes reviewed, old records reviewed Mode of arrival: ambulatory Limitations: no limitations - History of Present Illness Initial comments: 83 male presenting status post fall which occurred yesterday afternoon approximately 24 hours prior to arrival. Patient had been bumped by the tailgate of his car and he fell onto his right side. No head trauma. No loss consciousness. Patient complaining of right shoulder pain and bilateral hip pain. He has been ambulatory since the fall. He is on Xarelto with history of atrial fibrillation. Denies any chest pain. Denies back pain. Denies abd ominal pain. He's had previous osteoarthritis of the right shoulder. Denies numbness or tingling in the right hand or forearm. Denies any injury to the left upper extremity. - Related Data Home Medications Medication Instructions Recorded Confirmed Cetirizine HCl [Zyrtec] 10 mg PO DAILY 10/11/15 01/29/18 Tamsulosin [Flomax] 0.4 mg PO BID 10/11/15 01/29/18 Multivitamins, Thera [Multivitamin 1 tab PO DAILY 01/16/16 01/29/18 (formulary)] DULoxetine HCL [Cymbalta] 60 mg PO HS 05/13/16 01/29/18 Pantoprazole Sodium [Protonix] 20 mg PO DAILY 05/13/16 01/29/18 Rivaroxaban [Xarelto] 20 mg PO HS 01/02/17 01/29/18 HYDROcodone/APAP 5-325MG [[place] 1 tab PO Q6H PRN 11/18/17 01/29/18 5-325] amLODIPine [Norvasc] 10 mg PO DAILY 11/18/17 01/29/18 hydrALAZINE HCL [Apresoline] 25 mg PO TID 11/18/17 01/29/18 traMADol HCL [Ultram] 50 mg PO BID 11/18/17 01/29/18 Atorvastatin [Lipitor] 20 mg PO HS 01/29/18 01/29/18 Metoprolol Tartrate [Lopressor] 25 mg PO BID 01/29/18 01/29/18 Triamcinolone 0.1% Ointment 1 applic TOPICAL BID 01/29/18 01/29/18 [Kenalog 0.1% Ointment] Previous Rx's Medication Instructions Recorded Colchicine [Colcrys] 0.6 mg PO DAILY tab 02/24/16 Furosemide [Lasix] 40 mg PO DAILY tab 02/24/16 Lisinopril [Zestril] 20 mg PO BID #60 tab 01/07/17 Isosorbide Mononitrate ER [Imdur] 30 mg PO DAILY #30 tab.er.24h 11/20/17 Nitroglycerin Sl Tabs [Nitrostat] 0.4 mg SUBLINGUAL Q5M PRN #20 tab 11/20/17 Allergies Allergy/AdvReac Type Severity Reaction Status Date / Time tobramycin Allergy Unknown Itching, Verified 05/06/19 12:15 Red eyes (allergy to tobramycin eye drops) Review of Systems ROS Statement: Those systems with pertinent positive or pertinent negative responses have been documented in the HPI. ROS Other: All systems not noted in ROS Statement are negative. Past Medical History Past Medical History: Atrial Fibrillation, Cancer, Chest Pain / Angina, Deep Vein Thrombosis (DVT), GERD/Reflux, Hyperlipidemia, Hypertension, Osteoarthritis (OA), Prostate Disorder Additional Past Medical History / Comment(s): prostate cancer had 41 radiation tx, atrial tachycardia, DVT R leg many years ago, chronic back pain. Patient has a history of empyema requiring surgical drainage with chest tube History of Any Multi-Drug Resistant Organisms: None Reported Past Surgical History: Back Surgery, Hernia Repair, Joint Replacement, Orthopedic Surgery Additional Past Surgical History / Comment(s): bilateral cataract removal, laminectomy, back sx has deann and screws, lt shoulder arthroplasty, bilateral total hips, umbilical hernia repair. oral sx Past Anesthesia/Blood Transfusion Reactions: Motion Sickness, Postoperative Nausea & Vomiting (PONV) Past Psychological History: Anxiety, Depression Smoking Status: Never smoker Past Alcohol Use History: None Reported Past Drug Use History: None Reported - Past Family History Father Family Medical History: COPD Additional Family Medical History / Comment(s): Father fell at the age of 87yrs- had head injury- from complications. Mother Family Medical History: Congestive Heart Failure (CHF), Osteoarthritis (OA) Additional Family Medical History / Comment(s): Mother had severe arthritis. Son(s) Family Medical History: Cancer Additional Family Medical History / Comment(s): FIBROSARCOMA BONE CANCER- AT 16 YRS OLD Daughter(s) Family Medical History: Cancer, Deep Vein Thrombosis (DVT) Additional Family Medical History / Comment(s): CERVICAL CANCER General Exam Limitations: no limitations General appearance: alert, in no apparent distress Head exam: Present: atraumatic, normocephalic Eye exam: Present: normal appearance, PERRL, EOMI ENT exam: Present: normal exam Neck exam: Present: normal inspection. Absent: tenderness, meningismus Respiratory exam: Present: normal lung sounds bilaterally. Absent: respiratory distress, wheezes Cardiovascular Exam: Present: regular rate, normal rhythm GI/Abdominal exam: Present: soft. Absent: distended, tenderness, guarding, rebound Extremities exam: Present: other (Decreased range of motion of the right shoulder secondary to pain. Tenderness over the before meals joint. No gross deformity. Distal pulses intact.) Back exam: Present: normal inspection. Absent: tenderness Neurological exam: Present: alert, oriented X3, CN II-XII intact, normal gait. Absent: motor sensory deficit Skin exam: Present: warm, dry, intact. Absent: cyanosis, diaphoretic Course Vital Signs 05/06/19 12:12 Temperature 97.8 F Pulse Rate 75 Respiratory 16 Rate Blood Pressure 104/66 O2 Sat by Pulse 94 L Oximetry Medical Decision Making - Medical Decision Making 83-year-old male status post fall with bilateral hip pain and right shoulder pain. X-rays performed of the right shoulder and humerus, negative for acute bony abnormalities, no fracture dislocation. There is osteoarthritis of the shoulder and before meals joints. X-rays obtained of the bilateral hips and pelvis negative for acute bony abnormality, bilateral prosthesis appears intact. Patient reassured with x-ray findings. He will follow-up with his primary care physician. If symptoms persist she will need repeat imaging. May require orthopedic follow-up. Disposition Clinical Impression: Fall, Primary osteoarthritis, right shoulder, AC joint pain Disposition: HOME SELF-CARE Condition: Fair Instructions (If sedation given, give patient instructions): Fall Prevention (ED), Osteoarthritis (ED), Acromioclavicular Separation (ED) Is patient prescribed a controlled substance at d/c from ED?: No Referrals: Ramya Arthur III, MD [Primary Care Provider] - 1-2 days Time of Disposition: 13:22
--- NOTE | 2019-05-06 13:05 | XR ---
EXAMINATION TYPE: XR Hip Bilateral and AP pelvis , 6 VIEWS DATE OF EXAM ORDERED: 05/06/2019 HISTORY: fall. COMPARISON: Previous study dated 01/28/2017. FINDINGS: There are bilateral hip arthroplasties in place. There is been an interpedicular fusion in the lower lumbar spine. No acute fracture or dislocation is seen. IMPRESSION: 1. EXTENSIVE POSTSURGICAL CHANGE. 2. NO ACUTE OSSEOUS LESION.
--- NOTE | 2019-05-06 13:06 | XR ---
EXAMINATION TYPE: XR humerus RT , 3 VIEWS DATE OF EXAM ORDERED: 05/06/2019 HISTORY: fall. COMPARISON: None. FINDINGS: No long bone fracture is identified. This either represents projecting over the torso givi ng a suboptimal view. There are marked hypertrophic changes in the right AC joint. IMPRESSION: SUBOPTIMAL STUDY DEMONSTRATING DEGENERATIVE CHANGE BUT NO ACUTE OSSEOUS LESION.
--- NOTE | 2019-05-06 13:08 | XR ---
EXAMINATION TYPE: XR shoulder complete RT , 3 VIEWS DATE OF EXAM ORDERED: 05/06/2019 HISTORY: fall. COMPARISON: None. FINDINGS: No fracture or dislocation is seen. There are moderate hypertrophic changes in the right A C joint. There is near complete loss of the glenohumeral joint space. IMPRESSION: 1. NO ACUTE OSSEOUS LESION. 2. MODERATELY SEVERE DEGENERATIVE CHANGE.
[2019-05-06 13:33] VITALS: BP 133/68; PULSE 69; RESP 18; TEMP 98.2
== END 2019-05-06 13:40 | disposition home or self-care (01) ==
LOC: EC 12:01
DX: M19.011 Primary osteoarthritis, right shoulder (principal); M25.551 Pain in right hip; M25.552 Pain in left hip; I48.91 Unspecified atrial fibrillation; K21.9 Gastro-esophageal reflux disease without esophagitis; E78.5 Hyperlipidemia, unspecified; I10 Essential (primary) hypertension; F41.9 Anxiety disorder, unspecified; F32.9 Major depressive disorder, single episode, unspecified; Z86.718 Personal history of other venous thrombosis and embolism; Z85.46 Personal history of malignant neoplasm of prostate; Z96.612 Presence of left artificial shoulder joint; Z96.643 Presence of artificial hip joint, bilateral; Z79.01 Long term (current) use of anticoagulants; Z79.891 Long term (current) use of opiate analgesic; Z79.899 Other long term (current) drug therapy; Z88.1 Allergy status to other antibiotic agents; W19.XXXA Unspecified fall, initial encounter; Y92.89 Other specified places as the place of occurrence of the external cause
CPT/HCPCS: 73521; 99284

== ENCOUNTER 2019-11-26 20:49 | Observation (INO) | payer MEDICARE, OTHER ==
--- NOTE | 2019-11-26 21:16 | ED ---
General Adult HPI - General Chief complaint: Dizziness Stated complaint: Dizziness Time Seen by Provider: 11/26/19 20:55 Source: patient Mode of arrival: wheelchair Limitations: no limitations - History of Present Illness Initial comments: Dictation was produced using [employer] dictation software. please excuse any grammatical, word or spelling errors. This patient was cared for during a federal and state declared state of emergency secondary to Covid 19 Chief Complaint: 84-year-old male multiple comorbidities presents with dizziness. History of Present Illness: 84-year-old male just prior to arrival patient was trying to go to the restroom when all of a sudden he felt acute onset dizziness. Patient states he had to sit down and had his escorted into the bathroom. Patient number ambulance with a walker. Patient reports that he only feels dizzy whenever he stands up. He states he feels okay when he is lying or sitting up. Denies any sensation of the room spinning. He has no pain complaints. Patient does take anticoagulation medications for atrial fibrillation. He denies any headache. No nausea vomiting diarrhea. He has been eating well. He denies any recent changes in medications. His daughter/power of ent nurse is at bedside. She reports that she checked his vital signs and symptoms lungs which were found to be around his baseline. He has chronic pitting edema to bilateral lower extremities. The ROS documented in this emergency department record has been reviewed and confirmed by me. Those systems with pertinent positive or negative responses have been documented in the HPI. All other systems are other negative and/or noncontributory. PHYSICAL EXAM: General Impression: Alert and oriented x3, not in acute distress HEENT: Normocephalic atraumatic, extra-ocular movements intact, pupils equal and reactive to light bilaterally, mucous membranes moist. Cardiovascular: Heart regular rate and rhythm Chest: Able to complete full sentences, no retractions, no tachypnea Abdomen: abdomen soft, non-tender, non-distended, no organomegaly Musculoskeletal: Pulses present and equal in all extremities, 1+ pitting edema bilaterally Motor: no focal deficits noted Neurological: CN II-XII grossly intact, no focal motor or sensory deficits noted, no nystagmus, dizziness not elicited with lying flat and decubitus positions Skin: Intact with no visualized rashes Psych: Normal affect and mood ED course: 84-year-old male presents with acute onset dizziness. Vital signs upon arrival are within acceptable limits. History of present illness suggests orthostasis. EKG shows no acute processes. Laboratory evaluation obtained. Hemoglobin stable 14.2. Rest of CBC is unremarkable. Metabolic panel shows elevated renal markers. Lactic acidosis 2.4. Rest metabolic panel is negative. Physical presentation concerning for mild dehydration. Patient given intravenous fluids. Orthostatic vital signs were obtained. Patient states he was a little nauseated when he stood up. Standing blood pressure is approximately 15 systolic blood pressure points less then when sitting or lying down. He is recommended to patient and daughter that patient would likely benefit from short inpatient admission or fluid hydration and medical monitoring. Discussed patient case with sheet was went except patient's care. Patient and daughter agreeable to disposition. EKG interpretation: Ventricular rate 70, normal sinus rhythm,. 180, QRS 104, QTC 427. No VT prolongation, no QTC prolongation, no ST or T-wave changes noted. EKG compared to 01/29/2018 showing no changes. Overall, this EKG is unrem arkable - Related Data Home Medications Medication Instructions Recorded Confirmed Cetirizine HCl [Zyrtec] 10 mg PO DAILY 10/11/15 01/29/18 Tamsulosin [Flomax] 0.4 mg PO BID 10/11/15 01/29/18 Multivitamins, Thera [Multivitamin 1 tab PO DAILY 01/16/16 01/29/18 (formulary)] DULoxetine HCL [Cymbalta] 60 mg PO HS 05/13/16 01/29/18 Pantoprazole Sodium [Protonix] 20 mg PO DAILY 05/13/16 01/29/18 Rivaroxaban [Xarelto] 20 mg PO HS 01/02/17 01/29/18 HYDROcodone/APAP 5-325MG [[place] 1 tab PO Q6H PRN 11/18/17 01/29/18 5-325] amLODIPine [Norvasc] 10 mg PO DAILY 11/18/17 01/29/18 hydrALAZINE HCL [Apresoline] 25 mg PO TID 11/18/17 01/29/18 traMADol HCL [Ultram] 50 mg PO BID 11/18/17 01/29/18 Atorvastatin [Lipitor] 20 mg PO HS 01/29/18 01/29/18 Metoprolol Tartrate [Lopressor] 25 mg PO BID 01/29/18 01/29/18 Triamcinolone 0.1% Ointment 1 applic TOPICAL BID 01/29/18 01/29/18 [Kenalog 0.1% Ointment] Previous Rx's Medication Instructions Recorded Colchicine [Colcrys] 0.6 mg PO DAILY tab 02/24/16 Furosemide [Lasix] 40 mg PO DAILY tab 02/24/16 lisinopriL [Zestril] 20 mg PO BID #60 tab 01/07/17 Isosorbide Mononitrate ER [Imdur] 30 mg PO DAILY #30 tab.er.24h 11/20/17 Nitroglycerin Sl Tabs [Nitrostat] 0.4 mg SUBLINGUAL Q5M PRN #20 tab 11/20/17 Allergies Allergy/AdvReac Type Severity Reaction Status Date / Time tobramycin Allergy Unknown Itching, Verified 11/26/19 20:52 Red eyes (allergy to tobramycin eye drops) Review of Systems ROS Statement: Those systems with pertinent positive or pertinent negative responses have been documented in the HPI. ROS Other: All systems not noted in ROS Statement are negative. Past Medical History Past Medical History: Atrial Fibrillation, Cancer, Chest Pain / Angina, Deep Vein Thrombosis (DVT), GERD/Reflux, Hyperlipidemia, Hypertension, Osteoarthritis (OA), Prostate Disorder Additional Past Medical History / Comment(s): prostate cancer had 41 radiation tx, atrial tachycardia, DVT R leg many years ago, chronic back pain. Patient has a history of empyema requiring surgical drainage with chest tube History of Any Multi-Drug Resistant Organisms: None Reported Past Surgical History: Back Surgery, Hernia Repair, Joint Replacement, Orthopedic Surgery Additional Past Surgical History / Comment(s): bilateral cataract removal, laminectomy, back sx has deann and screws, lt shoulder arthroplasty, bilateral total hips, umbilical hernia repair. oral sx Past Anesthesia/Blood Transfusion Reactions: Motion Sickness, Postoperative Nausea & Vomiting (PONV) Past Psychological History: Anxiety, Depression Smoking Status: Never smoker Past Alcohol Use History: None Reported Past Drug Use History: None Reported - Past Family History Father Family Medical History: COPD Additional Family Medical History / Comment(s): Father fell at the age of 87yrs- had head injury- from complications. Mother Family Medical History: Congestive Heart Failure (CHF), Osteoarthritis (OA) Additional Family Medical History / Comment(s): Mother had severe arthritis. Son(s) Family Medical History: Cancer Additional Family Medical History / Comment(s): FIBROSARCOMA BONE CANCER- AT 16 YRS OLD Daughter(s) Family Medical History: Cancer, Deep Vein Thrombosis (DVT) Additional Family Medical History / Comment(s): CERVICAL CANCER General Exam Limitations: no limitations Course Vital Signs 11/26/19 11/26/19 20:50 21:49 Temperature 98.3 F Pulse Rate 71 Pulse Rate [ 68 Sitting Cardroom Drawing Runner] Pulse Rate [ 75 Standing Cardroom Drawing Runner ] Pulse Rate [ 67 Supine Cardroom Drawing Runner] Respiratory 20 18 Rate Blood Pressure 120/66 Blood Pressure 114/61 [Right Arm Sitting] Blood Pressure 103/64 [Right Arm Standing] Blood Pressure 113/53 [Right Arm Supine] O2 Sat by Pulse 97 Oximetry Medical Decision Making - Lab Data Result diagrams: 11/26/19 21:15 11/26/19 21:15 Lab Results 11/26/19 11/26/19 11/26/19 Range/Units 21:15 21:15 21:15 WBC 7.8 (3.8-10.6) k/uL RBC 4.56 (4.30-5.90) m/uL Hgb 14.2 (13.0-17.5) gm/dL Hct 42.4 (39.0-53.0) % MCV 93.0 (80.0-100.0) fL MCH 31.1 (25.0-35.0) pg MCHC 33.5 (31.0-37.0) g/dL RDW 14.1 (11.5-15.5) % Plt Count 192 (150-450) k/uL Neutrophils % (Manual) 52 % Band Neutrophils % 3 % Lymphocytes % (Manual) 33 % Monocytes % (Manual) 8 % Eosinophils % (Manual) 4 % Neutrophils # (Manual) 4.20 (1.3-7.7) k/uL Lymphocytes # (Manual) 2.57 (1.0-4.8) k/uL Monocytes # (Manual) 0.62 (0-1.0) k/uL Eosinophils # (Manual) 0.31 (0-0.7) k/uL Nucleated RBCs 0 (0-0) /100 WBC Manual Slide Review Performed Sodium 136 L (137-145) mmol/L Potassium 4.6 (3.5-5.1) mmol/L Chloride 102 (98-107) mmol/L Carbon Dioxide 23 (22-30) mmol/L Anion Gap 11 mmol/L BUN 32 H (9-20) mg/dL Creatinine 1.46 H (0.66-1.25) mg/dL Est GFR (CKD-EPI)AfAm 50 (>60 ml/min/1.73 sqM) Est GFR (CKD-EPI)NonAf 44 (>60 ml/min/1.73 sqM) Glucose 149 H (74-99) mg/dL Plasma Lactic Acid Thierry (0.7-2.0) mmol/L Calcium 8.7 (8.4-10.2) mg/dL Magnesium 2.3 (1.6-2.3) mg/dL Total Bilirubin 0.5 (0.2-1.3) mg/dL AST 32 (17-59) U/L ALT 21 (4-49) U/L Alkaline Phosphatase 79 (38-126) U/L Troponin I <0.012 (0.000-0.034) ng/mL Total Protein 6.6 (6.3-8.2) g/dL Albumin 4.1 (3.5-5.0) g/dL 11/26/19 Range/Units 21:19 WBC (3.8-10.6) k/uL RBC (4.30-5.90) m/uL Hgb (13.0-17.5) gm/dL Hct (39.0-53.0) % MCV (80.0-100.0) fL MCH (25.0-35.0) pg MCHC (31.0-37.0) g/dL RDW (11.5-15.5) % Plt Count (150-450) k/uL Neutrophils % (Manual) % Band Neutrophils % % Lymphocytes % (Manual) % Monocytes % (Manual) % Eosinophils % (Manual) % Neutrophils # (Manual) (1.3-7.7) k/uL Lymphocytes # (Manual) (1.0-4.8) k/uL Monocytes # (Manual) (0-1.0) k/uL Eosinophils # (Manual) (0-0.7) k/uL Nucleated RBCs (0-0) /100 WBC Manual Slide Review Sodium (137-145) mmol/L Potassium (3.5-5.1) mmol/L Chloride (98-107) mmol/L Carbon Dioxide (22-30) mmol/L Anion Gap mmol/L BUN (9-20) mg/dL Creatinine (0.66-1.25) mg/dL Est GFR (CKD-EPI)AfAm (>60 ml/min/1.73 sqM) Est GFR (CKD-EPI)NonAf (>60 ml/min/1.73 sqM) Glucose (74-99) mg/dL Plasma Lactic Acid Thierry 2.4 H* (0.7-2.0) mmol/L Calcium (8.4-10.2) mg/dL Magnesium (1.6-2.3) mg/dL Total Bilirubin (0.2-1.3) mg/dL AST (17-59) U/L ALT (4-49) U/L Alkaline Phosphatase (38-126) U/L Troponin I (0.000-0.034) ng/mL Total Protein (6.3-8.2) g/dL Albumin (3.5-5.0) g/dL Disposition Clinical Impression: Dehydration, Lactic acidosis Disposition: ADMITTED IP TO THIS HOSP Condition: Fair Referrals: Ramya Arthur III, MD [Primary Care Provider] - 1-2 days Decision Time: 22:10
[2019-11-26 21:32] LABS: HCT 42.4 % (39.0-53.0); HGB 14.2 gm/dL (13.0-17.5); MCH 31.1 pg (25.0-35.0); MCHC 33.5 g/dL (31.0-37.0); Mean Platelet Volume 8.3; Platelet Count 192 k/uL (150-450); RBC 4.56 m/uL (4.30-5.90); RDW 14.1 % (11.5-15.5); WBC 7.8 k/uL (3.8-10.6)
[2019-11-26 21:33] LABS: Albumin 4.1 g/dL (3.5-5.0); Calcium 8.7 mg/dL (8.4-10.2); Magnesium 2.3 mg/dL (1.6-2.3); Potassium 4.6 mmol/L (3.5-5.1); Total Bilirubin 0.5 mg/dL (0.2-1.3); Total Protein 6.6 g/dL (6.3-8.2)
--- NOTE | 2019-11-26 21:36 | XR ---
EXAMINATION TYPE: XR chest 1V portable DATE OF EXAM: 11/26/2019 COMPARISON: 10/17/2018 HISTORY: Cough TECHNIQUE: Single view FINDINGS: There is no heart failure nor confluent pneumonic infiltrate. Costophrenic angles are clear . Thoracic aorta is atheromatous. There is left shoulder prosthesis. There are chest leads. IMPRESSION: No active cardiopulmonary disease. Limited exam. No change compared to old exam.
[2019-11-26] MEDS ORDERED: SODIUM CHLORIDE 0.9% 500 ML 500 ML IV STA (21:45)
[2019-11-26 21:56] LABS: Band Neutrophils % 3 %; Eosinophils # (M) 0.31 k/uL (0-0.7); Lymphocytes # (M) 2.57 k/uL (1.0-4.8); Monocytes # (M) 0.62 k/uL (0-1.0); Neutrophils % (M) 52 %; Nucleated Red Blood Cells 0 /100 WBC (0-0); Total Cells Counted 100
[2019-11-26] MEDS ORDERED: ONDANSETRON 4 MG/2 ML VIAL IVP PRN (22:05)
[2019-11-26] MEDS ORDERED: ACETAMINOPHEN TAB 325 MG TAB PO PRN (22:05)
[2019-11-26] MEDS ORDERED: NALOXONE 0.4 MG/ML 1 ML VIAL IV PRN (22:05)
[2019-11-26] MEDS: SODIUM CHLORIDE 0.9% 1,000 ML IV SCH (22:41)
[2019-11-26 23:10] VITALS: RESP 16
[2019-11-27 04:01] LABS: Appearance,Urine Clear (Clear); Bilirubin,Urine Negative (Negative); Blood,Urine Negative (Negative); Color,Urine Yellow; Glucose,Urine (UA) Negative (Negative); Ketones,Urine Negative (Negative); Leukocyte Esterase,Urine Negative (Negative); Nitrite,Urine Negative (Negative); Protein,Urine Negative (Negative); Specific Gravity,Urine 1.012 (1.001-1.035); Urobilinogen,Urine <2.0 mg/dL (<2.0)
[2019-11-27] MEDS ORDERED: lisinopriL 10 MG TAB PO SCH (06:30)
[2019-11-27] MEDS ORDERED: COLCHICINE 0.6 MG EACH PO SCH (06:30)
[2019-11-27] MEDS ORDERED: ISOSORBIDE MONONITRATE ER 30 MG TAB.ER.24H PO SCH (06:30)
[2019-11-27] MEDS ORDERED: TAMSULOSIN 0.4 MG CAP.ER.24H PO SCH (06:30)
[2019-11-27] MEDS ORDERED: LORATADINE 10 MG TAB PO SCH (06:30)
[2019-11-27] MEDS ORDERED: amLODIPine 10 MG TAB PO SCH (06:30)
[2019-11-27] MEDS ORDERED: METOPROLOL TARTRATE 25 MG TAB PO SCH (06:30)
[2019-11-27] MEDS ORDERED: SPIRONOLACTONE 25 MG TAB PO SCH (06:30)
[2019-11-27] MEDS ORDERED: PANTOPRAZOLE 40 MG TABLET PO SCH (06:30)
[2019-11-27 07:14] LABS: Potassium 4.2 mmol/L (3.5-5.1)
[2019-11-27] MEDS: SODIUM CHLORIDE 0.9% 1,000 ML IV SCH (10:23)
[2019-11-27 14:38] VITALS: BP 130/60; PULSE 80; TEMP 98
[2019-11-27] MEDS ORDERED: RIVAROXABAN 20 MG TAB PO SCH (17:30)
[2019-11-27] MEDS ORDERED: ATORVASTATIN 20 MG TAB PO SCH (17:30)
[2019-11-27] MEDS ORDERED: DULoxetine HCL 60 MG CAPSULE.DR PO SCH (17:30)
--- NOTE | 2019-11-29 08:47 | P.HPIM ---
History of Present Illness Please consider this note as combined H and P and discharge summary Diagnoses: Dehydration with postural hypotension, Improved Elevated lactic acid, came back to normal Acute kidney injury secondary to above, came back to normal Generalized weakness secondary to above. Results Paroxysmal Atrial fibrillation, on xarelto Hypertension Hyperlipidemia GERD Osteoarthritis The prostatic hypertrophy Chronic back pain History of right leg DVT Hospital course: This is a pleasant 84 years old male with the multiple medical problems including atrial fibrillation, deep venous thrombosis, hyperlipidemia, hype rtension, osteoarthritis, chronic back pain, bilateral leg edema. He follows up with Dr. Hernandez and Dr. Collins as an outpatient. He stopped seeing Dr. Sommer because there is no medical needs. He presents because of generalized weakness and postural dizziness when he was trying to go to the restroom this morning. Patient has been prescribed Lasix 60 mg and Aldactone and it recently because of his leg edema. Patient was found dehydrated and he was admitted to the hospital and he got IV fluids, this morning his back to his normal self as he was telling me. He denies chest pain or dyspnea, no coughing. No abdominal pain, no nausea vomiting, no change in urine or bowel habits. No dysuria. No fever. Patient says that his weakness have resolved and he does not want to see physical [facility] as he already has a walker and there is no much more he can do. Patient's wants to go home today. He has a follow-up tomorrow with his entry manager Dr. Collins for his A. fib, his for follow-up every 6 months. Vitals are stable and patient is afebrile. CBC is unremarkable. High lactic acid 2.4, came back to normal at 1.2, sodium is 136, 135, elevated creatinine 1.4, came down to 1.2. UA is negative for infection Chest x-ray: No acute process. EKG showing normal sinus rhythm In the emergency room and received a bolus of 500 mL and started on normal saline at 80 mL per hour With improvement patient's symptoms patient found stable and can be discharged. Patient was instructed to stop Aldactone and a lower dose of Lasix from 60 down to 40 mg daily and he agrees with the treatment his postural vitals checked again and back to normal, no more postural hypotension upon discharge Physical therapy is called however patient declined evaluation, he refused to go to rehab if indicated. Patient and daughter at bedside states patient has helped at home Problems and management plan were discussed with the patient and he verbalized understanding and acceptance Patient was found stable and can be discharged home however he needs follow-up as an outpatient. Patient was instructed to follow up with PCP Dr. Burkett within one week and patient agrees. Patient was instructed to follow up with his entry manager Dr. Collins tomorrow and he agrees. Daughter at bedside in the agrees with these recommendations as well Gen: patient is a AAOx3, no distress CVS: S1-S2, RRR, no murmur Lungs: B/L CTA, no wheezing Abdomen: soft, no distention, no tenderness, positive bowel sounds Extremity: no leg edema or induration Time spent more than 35 minutes Review of Systems CONSTITUTIONAL: No fever, no malaise, no fatigue. HEENT: No recent visual problems or hearing problems. Denied any sore throat. CARDIOVASCULAR: No orthopnea, PND, no palpitations, no syncope. PULMONARY: No shortness of breath, no cough, no hemoptysis. GASTROINTESTINAL: No diarrhea, no nausea, no vomiting, no abdominal pain. Normoactive bowel sounds. NEUROLOGICAL: No headaches, no weakness, no numbness. HEMATOLOGICAL: Denies any bleeding or petechiae. GENITOURINARY: Denies any burning micturition, frequency, or urgency. MUSCULOSKELETAL/RHEUMATOLOGICAL: Denies any joint pain, swelling, or any muscle pain. ENDOCRINE: Denies any polyuria or polydipsia. Past Medical History Past Medical History: Atrial Fibrillation, Cancer, Chest Pain / Angina, Deep Vein Thrombosis (DVT), GERD/Reflux, Hyperlipidemia, Hypertension, Osteoarthritis (OA), Prostate Disorder Additional Past Medical History / Comment(s): prostate cancer had 41 radiation tx, atrial tachycardia, DVT R leg many years ago, chronic back pain. Patient has a history of empyema requiring surgical drainage with chest tube History of Any Multi-Drug Resistant Organisms: None Reported Past Surgical History: Back Surgery, Hernia Repair, Joint Replacement, Orthopedic Surgery Additional Past Surgical History / Comment(s): bilateral cataract removal, laminectomy, back sx has deann and screws, lt shoulder arthroplasty, bilateral total hips, umbilical hernia repair. oral sx Past Anesthesia/Blood Transfusion Reactions: Motion Sickness, Postoperative Nausea & Vomiting (PONV) Past Psychological History: Anxiety, Depression Additional Psychological History / Comment(s): Pt resides with his spouse, blessing hernández and granddaughter. He uses a cane and a walker. The patient used to live in [place] the family move them from [place] back to [place] further care due to the increasing age and somewhat failing status. Relates is a lifelong nonsmoker. No significant alcohol or recreational drug use. No recent international travel. Was in the [employer], without travel. No animal exposures, except for the grandchilds guinea pig Smoking Status: Never smoker Past Alcohol Use History: None Reported Past Drug Use History: None Reported - Past Family History Father Family Medical History: COPD Additional Family Medical History / Comment(s): Father fell at the age of 87yrs- had head injury- from complications. Mother Family Medical History: Congestive Heart Failure (CHF), Osteoarthritis (OA) Additional Family Medical History / Comment(s): Mother had severe arthritis. Son(s) Family Medical History: Cancer Additional Family Medical History / Comment(s): FIBROSARCOMA BONE CANCER- AT 16 YRS OLD Daughter(s) Family Medical History: Cancer, Deep Vein Thrombosis (DVT) Additional Family Medical History / Comment(s): CERVICAL CANCER Medications and Allergies Home Medications Medication Instructions Recorded Confirmed Type Cetirizine HCl [Zyrtec] 10 mg PO DAILY@0630 10/11/15 11/26/19 History Tamsulosin [Flomax] 0.4 mg PO BID@0630,1730 10/11/15 11/26/19 History Multivitamins, Thera [Multivitamin 1 tab PO DAILY@0630 01/16/16 11/26/19 History (formulary)] DULoxetine HCL [Cymbalta] 60 mg PO HS@1730 05/13/16 11/26/19 History Pantoprazole Sodium [Protonix] 20 mg PO DAILY@0630 05/13/16 11/26/19 History Rivaroxaban [Xarelto] 20 mg PO HS@1730 01/02/17 11/26/19 History HYDROcodone/APAP 5-325MG [[place] 1 tab PO DAILY PRN 11/18/17 11/26/19 History 5-325] amLODIPine [Norvasc] 10 mg PO DAILY@0630 11/18/17 11/26/19 History hydrALAZINE HCL [Apresoline] 25 mg PO TID@0630,1200,1730 11/18/17 11/26/19 History traMADol HCL [Ultram] 50 mg PO BID@0630,1730 11/18/17 11/26/19 History Atorvastatin [Lipitor] 20 mg PO HS@1730 01/29/18 11/26/19 History Metoprolol Tartrate [Lopressor] 25 mg PO BID@0630,1730 01/29/18 11/26/19 History Colchicine [Colcrys] 0.6 mg PO DAILY@62911/26/19 11/26/19 History Isosorbide Mononitrate ER [Imdur] 30 mg PO DAILY@62911/26/19 11/26/19 History Lisinopril [Prinivil] 20 mg PO BID@0630,17311/26/19 11/26/19 History Nitroglycerin Sl Tabs [Nitrostat] 0.4 mg SL Q5M PRN 11/26/19 11/26/19 History Furosemide [Lasix] 40 mg PO DAILY@0630 #30 tab 11/27/19 Rx Allergies Allergy/AdvReac Type Severity Reaction Status Date / Time tobramycin Allergy Unknown Itching, Verified 11/26/19 22:16 Red eyes, Inflammation(tobramycin eye drops) Physical Exam Vitals: Vital Signs Temp Pulse Pulse Pulse Pulse Resp BP 11/27/19 03:00 97.9 F 95 16 11/26/19 23:00 97.9 F 61 16 11/26/19 22:42 65 18 114/58 11/26/19 21:49 68 75 67 18 11/26/19 20:50 98.3 F 71 20 120/66 BP BP BP Pulse Ox 11/27/19 03:00 130/62 95 11/26/19 23:00 148/79 11/26/19 22:42 95 11/26/19 21:49 114/61 103/64 113/53 11/26/19 20:50 97 Intake and Output 11/26/19 11/27/19 11/27/19 22:59 06:59 14:59 Intake Total 480 Balance 480 Intake: Oral 480 Other: # Voids 300 Weight 108.862 kg 108.862 kg GENERAL: The patient is alert and oriented x3, not in any acute distress. Well developed, well nourished. HEENT: Pupils are round and equally reacting to light. EOMI. No scleral icterus. No conjunctival pallor. Normocephalic, atraumatic. No pharyngeal erythema. No thyromegaly. CARDIOVASCULAR: S1 and S2 present. No murmurs, rubs, or gallops. PULMONARY: Chest is clear to auscultation, no wheezing or crackles. ABDOMEN: Soft, nontender, nondistended, normoactive bowel sounds. No palpable organomegaly. MUSCULOSKELETAL: No joint swelling or deformity. EXTREMITIES: No cyanosis, clubbing, or pedal edema. NEUROLOGICAL: Gross neurological examination did not reveal any focal deficits. SKIN: No rashes. No petechiae Results CBC & Chem 7: 11/26/19 21:15 11/27/19 05:58 Labs: Abnormal Lab Results - Last 24 Hours (Table) 11/26/19 11/26/19 11/27/19 Range/Units 21:15 21:19 05:58 Sodium 136 L 135 L (137-145) mmol/L BUN 32 H 29 H (9-20) mg/dL Creatinine 1.46 H (0.66-1.25) mg/dL Glucose 149 H 104 H (74-99) mg/dL Plasma Lactic Acid Thierry 2.4 H* (0.7-2.0) mmol/L Calcium 8.0 L (8.4-10.2) mg/dL Thrombosis Risk Factor Assmnt - Choose All That Apply Each Factor Represents 1 point: Heart failure (<1month), Obesity (BMI >25), Swollen legs (current) Each Risk Factor Represents 3 Points: History of DVT/PE Other congenital or acquired thrombophilia - If yes, enter type in comment: Yes Thrombosis Risk Factor Assessment Total Risk Factor Score: 6 Thrombosis Risk Factor Assessment Level: High Risk
== END 2019-11-27 15:10 | disposition home or self-care (01) ==
LOC: EC 20:49 → 1SOBS 22:05
PROVIDERS: ADMIT Internal Medicine; ATTEND Internal Medicine
DX: E86.0 Dehydration (principal); I95.1 Orthostatic hypotension; E87.2 Acidosis; N17.9 Acute kidney failure, unspecified; I48.0 Paroxysmal atrial fibrillation; I10 Essential (primary) hypertension; E78.5 Hyperlipidemia, unspecified; K21.9 Gastro-esophageal reflux disease without esophagitis; M19.90 Unspecified osteoarthritis, unspecified site; N40.0 Benign prostatic hyperplasia without lower urinary tract symptoms; G89.29 Other chronic pain; M54.9 Dorsalgia, unspecified; R60.0 Localized edema; I47.1 Supraventricular tachycardia; F41.9 Anxiety disorder, unspecified; F32.9 Major depressive disorder, single episode, unspecified; E66.9 Obesity, unspecified; Z68.37 Body mass index [BMI] 37.0-37.9, adult; Z03.818 Encounter for observation for suspected exposure to other biological agents ruled out; Z79.01 Long term (current) use of anticoagulants; Z79.899 Other long term (current) drug therapy; Z79.891 Long term (current) use of opiate analgesic; Z79.52 Long term (current) use of systemic steroids; Z88.1 Allergy status to other antibiotic agents; Z85.46 Personal history of malignant neoplasm of prostate; Z92.3 Personal history of irradiation; Z86.718 Personal history of other venous thrombosis and embolism; Z87.09 Personal history of other diseases of the respiratory system; Z98.890 Other specified postprocedural states; Z87.19 Personal history of other diseases of the digestive system; Z96.612 Presence of left artificial shoulder joint; Z96.643 Presence of artificial hip joint, bilateral; Z98.41 Cataract extraction status, right eye; Z98.42 Cataract extraction status, left eye; Z87.898 Personal history of other specified conditions; Z82.5 Family history of asthma and other chronic lower respiratory diseases; Z91.89 Other specified personal risk factors, not elsewhere classified; Z82.49 Family history of ischemic heart disease and other diseases of the circulatory system; Z82.61 Family history of arthritis; Z80.8 Family history of malignant neoplasm of other organs or systems; Z80.49 Family history of malignant neoplasm of other genital organs
CPT/HCPCS: 96360; 99285; 36415; 93005; 80053; 80048; 83605 ×2; 83735; 84484 ×2; 85025; 81003; 71045; G0378 ×2; U0003

== ENCOUNTER 2020-05-01 09:09 | Emergency (ER) | payer MEDICARE, OTHER ==
[2020-05-01 09:19] VITALS: BP 125/64; PULSE 85; RESP 18; TEMP 98.6
--- NOTE | 2020-05-01 09:36 | ED ---
General Adult HPI - General Chief complaint: Abdominal Pain Stated complaint: Abd Pain Time Seen by Provider: 05/01/20 09:13 Source: patient Mode of arrival: ambulatory Limitations: physical limitation - History of Present Illness Initial comments: Dictation was produced using [employer] dictation software. please excuse any grammatical, word or spelling errors. This patient was cared for during a federal and state declared state of emergency secondary to Covid 19 Chief Complaint: 84-year-old male presents with abdominal pain History of Present Illness: 84-year-old male who presents with a couple days of abdominal pain. Patient states the pain is only when he walks or bears weight on his right side. Patient states at rest he doesn't have any symptoms. Denies any nausea vomiting or diarrhea. he has history of hernia repair. No other abdominal. Patient denies any changes in his appetite. He is tolerating oral. States he came to the emergency department today because he his ride was only available today. States pain is to his right lower quadrant. Denies any radiation. The ROS documented in this emergency department record has been reviewed and confirmed by me. Those systems with pertinent positive or negative responses have been documented in the HPI. All other systems are other negative and/or noncontributory. PHYSICAL EXAM: General Impression: Alert and oriented x3, not in acute distress HEENT: Normocephalic atraumatic, extra-ocular movements intact, pupils equal and reactive to light bilaterally, mucous membranes moist. Cardiovascular: Heart regular rate and rhythm Chest: Able to complete full sentences, no retractions, no tachypnea Abdomen: abdomen soft, non-tender, no palpable mass with Valsalva to the right lower quadrant, he points to the area of McBurney's point when asked where his pain is reports is nontender currently, Non-distended, no organomegaly, no skin changes over, he does report pain over that area when standing especially with bearing weight to his right lower extremity Musculoskeletal: Pulses present and equal in all extremities, no peripheral edema Motor: no focal deficits noted Neurological: CN II-XII grossly intact, no focal motor or sensory deficits noted Skin: Intact with no visualized rashes Psych: Normal affect and mood ED course: 84-year-old male with abdominal strain. As upon arrival are within acceptable limits. No concerns of acute intra-abdominal process. Patient given Lidoderm patch. He is advised follow-up with his primary care physician. - Related Data Home Medications Medication Instructions Recorded Confirmed Cetirizine HCl [Zyrtec] 10 mg PO DAILY@0630 10/11/15 11/26/19 Tamsulosin [Flomax] 0.4 mg PO BID@0630,1730 10/11/15 11/26/19 Multivitamins, Thera [Multivitamin 1 tab PO DAILY@0630 01/16/16 11/26/19 (formulary)] DULoxetine HCL [Cymbalta] 60 mg PO HS@1730 05/13/16 11/26/19 Pantoprazole Sodium [Protonix] 20 mg PO DAILY@0630 05/13/16 11/26/19 Rivaroxaban [Xarelto] 20 mg PO HS@17301/02/17 11/26/19 HYDROcodone/APAP 5-325MG [[place] 1 tab PO DAILY PRN 11/18/17 11/26/19 5-325] amLODIPine [Norvasc] 10 mg PO DAILY@0630 11/18/17 11/26/19 hydrALAZINE HCL [Apresoline] 25 mg PO TID@0630,1200,1730 11/18/17 11/26/19 traMADol HCL [Ultram] 50 mg PO BID@0630,1730 11/18/17 11/26/19 Atorvastatin [Lipitor] 20 mg PO HS@1730 01/29/18 11/26/19 Metoprolol Tartrate [Lopressor] 25 mg PO BID@0630,1730 01/29/18 11/26/19 Colchicine [Colcrys] 0.6 mg PO DAILY@30 11/26/19 11/26/19 Isosorbide Mononitrate ER [Imdur] 30 mg PO DAILY@30 11/26/19 11/26/19 Lisinopril [Prinivil] 20 mg PO BID@0630,17311/26/19 11/26/19 Nitroglycerin Sl Tabs [Nitrostat] 0.4 mg SL Q5M PRN 11/26/19 11/26/19 Previous Rx's Medication Instructions Recorded Furosemide [Lasix] 40 mg PO DAILY@0630 #30 tab 11/27/19 Allergies Allergy/AdvReac Type Severity Reaction Status Date / Time tobramycin Allergy Unknown Itching, Verified 05/01/20 09:19 Red eyes, Inflammation(tobramycin eye drops) Review of Systems ROS Statement: Those systems with pertinent positive or pertinent negative responses have been documented in the HPI. ROS Other: All systems not noted in ROS Statement are negative. Past Medical History Past Medical History: Atrial Fibrillation, Cancer, Chest Pain / Angina, Deep Vein Thrombosis (DVT), GERD/Reflux, Hyperlipidemia, Hypertension, Osteoarthritis (OA), Prostate Disorder Additional Past Medical History / Comment(s): prostate cancer had 41 radiation tx, atrial tachycardia, DVT R leg many years ago, chronic back pain. Patient has a history of empyema requiring surgical drainage with chest tube History of Any Multi-Drug Resistant Organisms: None Reported Past Surgical History: Back Surgery, Hernia Repair, Joint Replacement, Orthopedic Surgery Additional Past Surgical History / Comment(s): bilateral cataract removal, laminectomy, back sx has deann and screws, lt shoulder arthroplasty, bilateral total hips, umbilical hernia repair. oral sx Past Anesthesia/Blood Transfusion Reactions: Motion Sickness, Postoperative Nausea & Vomiting (PONV) Past Psychological History: Anxiety, Depression Smoking Status: Never smoker Past Alcohol Use History: None Reported Past Drug Use History: None Reported - Past Family History Father Family Medical History: COPD Additional Family Medical History / Comment(s): Father fell at the age of 87yrs- had head injury- from complications. Mother Family Medical History: Congestive Heart Failure (CHF), Osteoarthritis (OA) Additional Family Medical History / Comment(s): Mother had severe arthritis. Son(s) Family Medical History: Cancer Additional Family Medical History / Comment(s): FIBROSARCOMA BONE CANCER- AT 16 YRS OLD Daughter(s) Family Medical History: Cancer, Deep Vein Thrombosis (DVT) Additional Family Medical History / Comment(s): CERVICAL CANCER General Exam Limitations: physical limitation Course Vital Signs 05/01/20 09:16 Temperature 98.6 F Pulse Rate 85 Respiratory 18 Rate Blood Pressure 125/64 O2 Sat by Pulse 95 Oximetry Disposition Clinical Impression: Abdominal wall strain Disposition: HOME SELF-CARE Condition: Good Instructions (If sedation given, give patient instructions): Acute Abdominal Pain (ED) Is patient prescribed a controlled substance at d/c from ED?: No Referrals: Ramya Arthur III, MD [Primary Care Provider] - 1-2 days Time of Disposition: 09:36
[2020-05-01] MEDS: LIDOCAINE 5% PATCH TOPICAL SCH ×2 (09:49→09:50)
[2020-05-02] MEDS ORDERED: LIDOCAINE 5% PATCH TOPICAL SCH (09:00)
== END 2020-05-01 09:56 | disposition home or self-care (01) ==
LOC: EC 09:09
DX: S39.011A Strain of muscle, fascia and tendon of abdomen, initial encounter (principal); F41.9 Anxiety disorder, unspecified; M19.90 Unspecified osteoarthritis, unspecified site; I10 Essential (primary) hypertension; G89.29 Other chronic pain; M54.9 Dorsalgia, unspecified; K21.9 Gastro-esophageal reflux disease without esophagitis; I48.91 Unspecified atrial fibrillation; I20.9 Angina pectoris, unspecified; E78.5 Hyperlipidemia, unspecified; F32.9 Major depressive disorder, single episode, unspecified; Z79.899 Other long term (current) drug therapy; Z79.01 Long term (current) use of anticoagulants; Z91.09 Other allergy status, other than to drugs and biological substances; Z88.1 Allergy status to other antibiotic agents; Z85.46 Personal history of malignant neoplasm of prostate; Z86.718 Personal history of other venous thrombosis and embolism; Z96.612 Presence of left artificial shoulder joint; X58.XXXA Exposure to other specified factors, initial encounter
CPT/HCPCS: 99283

== ENCOUNTER 2021-06-22 18:43 | Observation (INO) | payer MEDICARE, OTHER ==
--- NOTE | 2021-06-22 19:19 | ED ---
General Adult HPI - General Chief complaint: Urogenital Stated complaint: Urinary Retention Time Seen by Provider: 06/22/21 18:47 Source: patient, EMS, RN notes reviewed, old records reviewed Mode of arrival: EMS Limitations: no limitations - History of Present Illness Initial comments: Patient is an 86-year-old male with past medical history remarkable for atrial fibrillation on blood thinners, GERD, prostate cancer, hypertension who presents emergency Department complaining of no urination to the day today. He is on Lasix for extremity swelling, mucinous he has not had a urinary episodes since this morning. Also is complaining of lack of bowel movements for the last 6 days he believes. States he is still passing gas. No change in appetite or diarrhea. Denies any nausea, vomiting, emesis. Denies any bleeding. Denies any worsening lower extremity edema. Has chronic dyspnea. Primary concerned for urinary retention, but would like to be evaluated for his possible constipation as well. Denies any chest pain, shortness of breath. Endorses some abdominal fullness sensation suprapubically. No other abdominal pain. Does not believe he has had issues with urinating previously.When patient arrived, he noted that he is DNR/DNI. - Related Data Home Medications Medication Instructions Recorded Confirmed Cetirizine HCl [Zyrtec] 10 mg PO DAILY@0630 10/11/15 06/22/21 Tamsulosin [Flomax] 0.4 mg PO BID@0630,1730 10/11/15 06/22/21 Multivitamins, Thera [Multivitamin 1 tab PO DAILY@0630 01/16/16 06/22/21 (formulary)] DULoxetine HCL [Cymbalta] 60 mg PO HS@1730 05/13/16 06/22/21 Pantoprazole Sodium [Protonix] 20 mg PO DAILY@0630 05/13/16 06/22/21 Rivaroxaban [Xarelto] 20 mg PO HS@1730 01/02/17 06/22/21 amLODIPine [Norvasc] 10 mg PO DAILY@0630 11/18/17 06/22/21 hydrALAZINE HCL [Apresoline] 25 mg PO TID@0630,1200,1730 11/18/17 06/22/21 Atorvastatin [Lipitor] 20 mg PO HS@1730 01/29/18 06/22/21 Metoprolol Tartrate [Lopressor] 12.5 mg PO DAILY 01/29/18 06/22/21 Colchicine [Colcrys] 0.6 mg PO DAILY@0630 11/26/19 06/22/21 Lisinopril [Prinivil] 20 mg PO BID@0630,1730 11/26/19 06/22/21 Nitroglycerin Sl Tabs [Nitrostat] 0.4 mg SL Q5M PRN 11/26/19 06/22/21 Furosemide [Lasix] 40 mg PO TUTH 06/22/21 06/22/21 diphenhydrAMINE [Benadryl] 25 mg PO BID 06/22/21 06/22/21 traMADol HCL [traMADol HCL ER] 200 mg PO BID 06/22/21 06/22/21 Previous Rx's Medication Instructions Recorded Furosemide [Lasix] 40 mg PO DAILY@0630 #30 tab 11/27/19 Allergies Allergy/AdvReac Type Severity Reaction Status Date / Time tobramycin Allergy Unknown Itching, Verified 06/22/21 21:18 Red eyes, Inflammation(tobramycin eye drops) Review of Systems ROS Statement: Those systems with pertinent positive or pertinent negative responses have been documented in the HPI. Review of Systems: CONST: Denies fever EYES: Denies blurry vision ENT: Denies nasal congestion C/V: Denies Chest pain RESP: Denies shortness of breath GI: Endorses abdominal fullness : Endorses reduced urination SKIN: Denies rash. MSK: Denies joint pain. NEURO: Denies headache ROS Other: All systems not noted in ROS Statement are negative. Past Medical History Past Medical History: Atrial Fibrillation, Cancer, Chest Pain / Angina, Deep Vein Thrombosis (DVT), GERD/Reflux, Hyperlipidemia, Hypertension, Osteoarthritis (OA), Prostate Disorder Additional Past Medical History / Comment(s): prostate cancer had 41 radiation tx, atrial tachycardia, DVT R leg many years ago, chronic back pain. Patient has a history of empyema requiring surgical drainage with chest tube History of Any Multi-Drug Resistant Organisms: None Reported Past Surgical History: Back Surgery, Hernia Repair, Joint Replacement, Orthopedic Surgery Additional Past Surgical History / Comment(s): bilateral cataract removal, laminectomy, back sx has deann and screws, lt shoulder arthroplasty, bilateral total hips, umbilical hernia repair. oral sx Past Anesthesia/Blood Transfusion Reactions: Motion Sickness, Postoperative Nausea & Vomiting (PONV) Past Psychological History: Anxiety, Depression Smoking Status: Never smoker Past Alcohol Use History: None Reported Past Drug Use History: None Reported - Past Family History Father Family Medical History: COPD Additional Family Medical History / Comment(s): Father fell at the age of 87yrs- had head injury- from complications. Mother Family Medical History: Congestive Heart Failure (CHF), Osteoarthritis (OA) Additional Family Medical History / Comment(s): Mother had severe arthritis. Son(s) Family Medical History: Cancer Additional Family Medical History / Comment(s): FIBROSARCOMA BONE CANCER- AT 16 YRS OLD Daughter(s) Family Medical History: Cancer, Deep Vein Thrombosis (DVT) Additional Family Medical History / Comment(s): CERVICAL CANCER General Exam - General Exam Comments Initial Comments: General: Appears in no acute distress. HEAD: Normal with no signs of head trauma. EYES: PERRLA, EOMI, conjunctiva normal, no discharge. ENT: Hearing grossly intact, normal oropharynx. RESPIRATORY: Clear breath sounds bilaterally. No wheezes, rales, or rhonchi. C/V: Regular rate and rhythm. S1 and S2 auscultated, mild 1+ pitting edema to the bilateral ankles. peripheral pulses 2+ and intact throughout ABD: Abdomen is soft. Patient is somewhat distended the suprapubic region with some discomfort on palpation. No guarding. No rebound tenderness. No peritoneal signs. EXT: Normal range of motion, no obvious deformity SKIN: No rashes or lesions observed on exposed skin. NEURO: Alert and oriented 4. No focal deficits. Limitations: no limitations Course Vital Signs 06/22/21 06/22/21 06/22/21 18:53 19:31 22:40 Temperature 97.9 F 97.7 F Pulse Rate 104 H 92 130 H Respiratory 18 18 18 Rate Blood Pressure 131/99 135/93 162/62 O2 Sat by Pulse 94 L 94 L 95 Oximetry 06/22/21 06/23/21 23:50 00:15 Temperature Pulse Rate 124 H 116 H Respiratory 16 16 Rate Blood Pressure O2 Sat by Pulse 93 L 95 Oximetry Medical Decision Making - Medical Decision Making Based on patient's presentation and physical exam, concern for urinary ret ention. Bladder scan did reveal large amount of urine in his bladder, and therefore the catheter will be placed. Patient's concerned for possible constipation as well as and therefore we will obtain an abdominal x-ray as well as basic laboratory studies. Urinalysis will be sent. Patient was in agreement this plan. Following Morton catheter placement, a total of over 800 mL of urine was returne d. Laboratory studies are unremarkable. Abdominal x-ray was unremarkable. On reevaluation, patient went stable. I did discuss with him as well as family members that I would like to admit the hospital for neurology evaluation. He appears to be having acute onset of urinary retention. They were in agreement this plan. I spoke with the admitting team under ESTELA Jurado of [facility] who accepted the patient. Patient was admitted under Dr. Landa in stable condition. Urology was consulted. - Lab Data Result diagrams: 06/22/21 19:31 06/22/21 19:31 Lab Results 06/22/21 06/22/21 06/22/21 Range/Units 19:31 19:31 19:31 WBC 8.2 (3.8-10.6) k/uL RBC 4.94 (4.30-5.90) m/uL Hgb 15.8 (13.0-17.5) gm/dL Hct 47.0 (39.0-53.0) % MCV 95.3 (80.0-100.0) fL MCH 31.9 (25.0-35.0) pg MCHC 33.5 (31.0-37.0) g/dL RDW 14.4 (11.5-15.5) % Plt Count 197 (150-450) k/uL MPV 9.0 Neutrophils % (Manual) 77 % Lymphocytes % (Manual) 12 % Monocytes % (Manual) 10 % Eosinophils % (Manual) 1 % Neutrophils # (Manual) 6.31 (1.3-7.7) k/uL Lymphocytes # (Manual) 0.98 L (1.0-4.8) k/uL Monocytes # (Manual) 0.82 (0-1.0) k/uL Eosinophils # (Manual) 0.08 (0-0.7) k/uL Nucleated RBCs 0 (0-0) /100 WBC Manual Slide Review Performed RBC Morphology Normal Sodium 139 (137-145) mmol/L Potassium 3.9 (3.5-5.1) mmol/L Chloride 102 (98-107) mmol/L Carbon Dioxide 27 (22-30) mmol/L Anion Gap 10 mmol/L BUN 19 (9-20) mg/dL Creatinine 1.10 (0.66-1.25) mg/dL Est GFR (CKD-EPI)AfAm 70 (>60 ml/min/1.73 sqM) Est GFR (CKD-EPI)NonAf 61 (>60 ml/min/1.73 sqM) Glucose 133 H (74-99) mg/dL Calcium 8.9 (8.4-10.2) mg/dL Total Bilirubin 0.8 (0.2-1.3) mg/dL AST 30 (17-59) U/L ALT 15 (4-49) U/L Alkaline Phosphatase 88 (38-126) U/L Total Protein 6.8 (6.3-8.2) g/dL Albumin 4.0 (3.5-5.0) g/dL Amylase 41 (30-110) U/L Lipase 86 (23-300) U/L Urine Color Yellow Urine Appearance Clear (Clear) Urine pH 7.0 (5.0-8.0) Ur Specific [place] 1.010 (1.001-1.035) Urine Protein Negative (Negative) Urine Glucose (UA) Negative (Negative) Urine Ketones Negative (Negative) Urine Blood Negative (Negative) Urine Nitrite Negative (Negative) Urine Bilirubin Negative (Negative) Urine Urobilinogen <2.0 (<2.0) mg/dL Ur Leukocyte Esterase Negative (Negative) Disposition Clinical Impression: Urinary retention, History of atrial fibrillation Disposition: ADMITTED IP TO THIS HOSP Condition: Stable
[2021-06-22 20:03] LABS: Appearance,Urine Clear (Clear); Bilirubin,Urine Negative (Negative); Blood,Urine Negative (Negative); Color,Urine Yellow; Glucose,Urine (UA) Negative (Negative); Ketones,Urine Negative (Negative); Leukocyte Esterase,Urine Negative (Negative); Nitrite,Urine Negative (Negative); Protein,Urine Negative (Negative); Urobilinogen,Urine <2.0 mg/dL (<2.0)
--- NOTE | 2021-06-22 20:08 | XR ---
EXAMINATION TYPE: XR KUB DATE OF EXAM: 06/22/2021 COMPARISON: 02/07/2016 HISTORY: Fluid TECHNIQUE: Single view FINDINGS: There is multilevel lumbar spine fusion surgery. There is bilateral hip prosthesis. There is no sign of intestinal obstruction or pneumoperitoneum. Fecal pattern is normal. There is 7 mm calcification over the lower pole left kidney without change. There are similar elongat ed calcification over the right kidney. IMPRESSION: Nonacute abdomen. No adverse change. Bilateral renal calculi.
[2021-06-22 20:14] LABS: Calcium 8.9 mg/dL (8.4-10.2); Potassium 3.9 mmol/L (3.5-5.1); Total Bilirubin 0.8 mg/dL (0.2-1.3); Total Protein 6.8 g/dL (6.3-8.2)
[2021-06-22 20:20] LABS: HGB 15.8 gm/dL (13.0-17.5); MCH 31.9 pg (25.0-35.0); MCHC 33.5 g/dL (31.0-37.0); MCV 95.3 fL (80.0-100.0); Platelet Count 197 k/uL (150-450); RBC 4.94 m/uL (4.30-5.90); RDW 14.4 % (11.5-15.5); WBC 8.2 k/uL (3.8-10.6)
[2021-06-22] MEDS ORDERED: NALOXONE 0.4 MG/ML 1 ML VIAL IV PRN (21:29)
[2021-06-22] MEDS ORDERED: ONDANSETRON 4 MG/2 ML VIAL IVP PRN (21:29)
[2021-06-22 22:34] LABS: Eosinophils # (M) 0.08 k/uL (0-0.7); Lymphocytes # (M) 0.98 k/uL (1.0-4.8); Monocytes # (M) 0.82 k/uL (0-1.0); Neutrophils # (M) 6.31 k/uL (1.3-7.7); Neutrophils % (M) 77 %; Nucleated Red Blood Cells 0 /100 WBC (0-0); Total Cells Counted 100
[2021-06-22 22:35] LABS: RBC Morphology Normal
[2021-06-22] MEDS: METOPROLOL TARTRATE 12.5 MG TAB PO SCH (22:38)
[2021-06-22] MEDS: traMADol 50 MG TAB PO SCH (22:39)
[2021-06-22] MEDS ORDERED: METOPROLOL TARTRATE 12.5 MG TAB PO STA (22:45)
[2021-06-22 23:14] VITALS: TEMP 97.7
[2021-06-23 05:25] VITALS: RESP 20
[2021-06-23] MEDS ORDERED: MULTIVITAMINS, THERA 1 EACH TAB PO SCH (06:30)
[2021-06-23] MEDS ORDERED: PANTOPRAZOLE 40 MG TABLET PO SCH (06:30)
[2021-06-23] MEDS ORDERED: FUROSEMIDE 40 MG TAB PO SCH (06:30)
[2021-06-23] MEDS ORDERED: LORATADINE 10 MG TAB PO SCH (06:30)
[2021-06-23] MEDS ORDERED: amLODIPine 10 MG TAB PO SCH (06:30)
[2021-06-23] MEDS ORDERED: COLCHICINE 0.6 MG EACH PO SCH (06:30)
[2021-06-23] MEDS: hydrALAZINE HCL 25 MG TAB PO SCH ×2 (08:35→12:17)
[2021-06-23] MEDS: TAMSULOSIN 0.4 MG CAP.ER.24H PO SCH ×2 (08:35→16:50)
[2021-06-23] MEDS: lisinopriL 20 MG TAB PO SCH ×2 (08:35→16:50)
[2021-06-23] MEDS: traMADol 50 MG TAB PO SCH (08:36)
[2021-06-23] MEDS ORDERED: diphenhydrAMINE 25 MG CAP PO SCH (09:00)
[2021-06-23] MEDS: METOPROLOL TARTRATE 12.5 MG TAB PO SCH (12:17)
--- NOTE | 2021-06-23 13:09 | P.HPIM ---
History of Present Illness Patient wasn't 86-year-old male came in the emergency department complains of crampy abdominal pain which started yesterday patient believed he has constipation his last bowel movement was couple days ago patient had a bowel movement today his abdominal pain completely resolved patient is an abdominal x- ray which showed some incidental finding of nephrolithiasis. Patient was retaining urine does have history of benign prostatic hypertrophy for which patient is on tamsulosin patient has a Morton catheter and urology was consulted as per the request of the family members. REVIEW OF SYSTEMS: CONSTITUTIONAL: No fever, no malaise, no fatigue. HEENT: No recent visual problems or hearing problems. Denied any sore throat. CARDIOVASCULAR: No chest pain, orthopnea, PND, no palpitations, no syncope. PULMONARY: No shortness of breath, no cough, no hemoptysis. GASTROINTESTINAL: No diarrhea, no nausea, no vomiting. NEUROLOGICAL: No headaches, no weakness, no numbness. HEMATOLOGICAL: Denies any bleeding or petechiae. GENITOURINARY: Denies any burning micturition, frequency, or urgency. MUSCULOSKELETAL/RHEUMATOLOGICAL: Denies any joint pain, swelling, or any muscle pain. ENDOCRINE: Denies any polyuria or polydipsia. The rest of the 14-point review of systems is negative. PHYSICAL EXAMINATION: GENERAL: The patient is alert and oriented x3, not in any acute distress. Obese HEENT: Pupils are round and equally reacting to light. EOMI. No scleral icterus. No conjunctival pallor. Normocephalic, atraumatic. No pharyngeal erythema. No thyromegaly. CARDIOVASCULAR: S1 and S2 present. No murmurs, rubs, or gallops. PULMONARY: Chest is clear to auscultation, no wheezing or crackles. ABDOMEN: Soft, nontender, nondistended, normoactive bowel sounds. No palpable organomegaly. MUSCULOSKELETAL: No joint swelling or deformity. EXTREMITIES: No cyanosis, clubbing, or pedal edema. NEUROLOGICAL: Gross neurological examination did not reveal any focal deficits. SKIN: No rashes. Assessment and plan -Abdominal discomfort secondary to constipation which resolved at this time patient will be discharged on lactulose on as-needed basis for constipation as an outpatient -Urinary retention patient will be continued on tamsulosin will be evaluated by urology and will be discharged after urology recommendations. does have history of benign prostatic hypertrophy -Proximal atrial fibrillation presently rate controlled continue with rate control medications and anticoagulation -History of DVT in the past -Hyperlipidemia -Hypertension -Osteoarthritis benign prostatic hypertrophy DVT prophylaxis: On anticoagulation for atrial fibrillation Past Medical History Past Medical History: Atrial Fibrillation, Cancer, Chest Pain / Angina, Deep Vein Thrombosis (DVT), GERD/Reflux, Hyperlipidemia, Hypertension, Memory Impairment, Osteoarthritis (OA), Prostate Disorder Additional Past Medical History / Comment(s): Paroxysmal Afib, atach, DVT R leg years ago, bilateral lower extremity edema/past R lower leg wounds/L lower leg wrapped, prostate cancer with 41 radiation treatments, BPH, chronic back and R shoulder pain, past empyema with surgery to drain/chest tube History of Any Multi-Drug Resistant Organisms: None Reported Past Surgical History: Back Surgery, Hernia Repair, Joint Replacement, Orthopedic Surgery Additional Past Surgical History / Comment(s): bilateral cataract removal, laminectomy,/back sx has 2 rods and screws, lt shoulder arthroplasty, bilateral total hips, L carpal tunnel release, umbilical hernia repair, colonoscopy, oral sx. Past Anesthesia/Blood Transfusion Reactions: Motion Sickness, Postoperative Nausea & Vomiting (PONV) Smoking Status: Never smoker - Past Family History Father Family Medical History: COPD Additional Family Medical History / Comment(s): Father fell at the age of 87yrs- had head injury- from complications. Mother Family Medical History: Congestive Heart Failure (CHF), Osteoarthritis (OA) Additional Family Medical History / Comment(s): Mother had severe arthritis. Son(s) Family Medical History: Cancer Additional Family Medical History / Comment(s): FIBROSARCOMA BONE CANCER- AT 16 YRS OLD Daughter(s) Family Medical History: Cancer, Deep Vein Thrombosis (DVT) Additional Family Medical History / Comment(s): CERVICAL CANCER Medications and Allergies Home Medications Medication Instructions Recorded Confirmed Type Cetirizine HCl [Zyrtec] 10 mg PO DAILY@0610/11/15 06/22/21 History Tamsulosin [Flomax] 0.4 mg PO BID@0630,172910/11/15 06/22/21 History Multivitamins, Thera [Multivitamin 1 tab PO DAILY@0630 01/16/16 06/22/21 History (formulary)] DULoxetine HCL [Cymbalta] 60 mg PO HS@1730 05/13/16 06/22/21 History Pantoprazole Sodium [Protonix] 20 mg PO DAILY@0630 05/13/16 06/22/21 History Rivaroxaban [Xarelto] 20 mg PO HS@1730 01/02/17 06/22/21 History amLODIPine [Norvasc] 10 mg PO DAILY@0630 11/18/17 06/22/21 History hydrALAZINE HCL [Apresoline] 25 mg PO TID@0630,1200,1730 11/18/17 06/22/21 History Atorvastatin [Lipitor] 20 mg PO HS@1730 01/29/18 06/22/21 History Metoprolol Tartrate [Lopressor] 12.5 mg PO DAILY 01/29/18 06/22/21 History Colchicine [Colcrys] 0.6 mg PO DAILY@0630 11/26/19 06/22/21 History Lisinopril [Prinivil] 20 mg PO BID@0630,1730 11/26/19 06/22/21 History Nitroglycerin Sl Tabs [Nitrostat] 0.4 mg SL Q5M PRN 11/26/19 06/22/21 History Furosemide [Lasix] 40 mg PO DAILY@0630 #30 tab 11/27/19 06/22/21 Rx Furosemide [Lasix] 40 mg PO TUTH 06/22/21 06/22/21 History diphenhydrAMINE [Benadryl] 25 mg PO BID 06/22/21 06/22/21 History traMADol HCL [traMADol HCL ER] 200 mg PO BID 06/22/21 06/22/21 History Lactulose [Cephulac] 20 gm PO BID PRN #300 ml 06/23/21 Rx Allergies Allergy/AdvReac Type Severity Reaction Status Date / Time tobramycin Allergy Unknown Itching, Verified 06/22/21 21:18 Red eyes, Inflammation(tobramycin eye drops) Physical Exam Vitals: Vital Signs Temp Pulse Pulse Resp BP BP Pulse Ox 06/23/21 12:18 91 131/56 06/23/21 08:33 116 H 133/86 06/23/21 05:00 87 20 124/88 96 06/23/21 04:00 96 22 122/88 95 06/23/21 02:00 97.7 F 88 22 128/87 97 06/23/21 01:16 97 22 126/90 97 06/23/21 01:00 116 H 22 168/78 97 06/23/21 00:15 116 H 16 95 06/22/21 23:50 124 H 16 93 L 06/22/21 22:40 97.7 F 130 H 18 162/62 95 06/22/21 19:31 92 18 135/93 94 L 06/22/21 18:53 97.9 F 104 H 18 131/99 94 L Intake and Output 06/22/21 06/23/21 06/23/21 22:59 06:59 14:59 Output Total 850 250 Balance -850 -250 Output: Urine 850 250 Uretheral (Morton) 850 Other: Voiding Method Toilet Indwelling Catheter Weight 117.934 kg 117.934 kg Results CBC & Chem 7: 06/22/21 19:31 06/22/21 19:31 Labs: Abnormal Lab Results - Last 24 Hours (Table) 06/22/21 06/22/21 Range/Units 19:31 19:31 Lymphocytes # (Manual) 0.98 L (1.0-4.8) k/uL Glucose 133 H (74-99) mg/dL Thrombosis Risk Factor Assmnt - Choose All That Apply Any of the Below Risk Factors Present?: Yes Each Factor Represents 1 point: Obesity (BMI >25), Swollen legs (current) Other Risk Factors: Yes Each Risk Factor Represents 2 Points: Malignancy Each Risk Factor Represents 3 Points: Age 75 years or older, Family history of DVT/PE, History of DVT/PE Thrombosis Risk Factor Assessment Total Risk Factor Score: 13 Thrombosis Risk Factor Assessment Level: High Risk
--- NOTE | 2021-06-23 13:10 | P.DS ---
Providers Date of admission: 06/22/21 21:29 Attending physician: Hilda Landa Consults: 06/22/21 21:30 Consult Physician Routine Consulting Provider: Kemal Jones Consult Reason/Comments: urinary retention Do you want consulting provider notified?: Yes, Notify in am Primary care physician: Ram[facility] Course: Refer to my history of present illness for further details Patient Condition at Discharge: Stable Plan - Discharge Summary Discharge Rx Participant: No New Discharge Prescriptions: New Lactulose [Cephulac] 20 gm PO BID PRN #300 ml PRN Reason: Constipation No Action Tamsulosin [Flomax] 0.4 mg PO BID@0630,1730 Cetirizine HCl [Zyrtec] 10 mg PO DAILY@0630 Multivitamins, Thera [Multivitamin (formulary)] 1 tab PO DAILY@0630 Pantoprazole Sodium [Protonix] 20 mg PO DAILY@0630 DULoxetine HCL [Cymbalta] 60 mg PO HS@1730 Rivaroxaban [Xarelto] 20 mg PO HS@1730 hydrALAZINE HCL [Apresoline] 25 mg PO TID@0630,1200,1730 amLODIPine [Norvasc] 10 mg PO DAILY@0630 Metoprolol Tartrate [Lopressor] 12.5 mg PO DAILY Atorvastatin [Lipitor] 20 mg PO HS@1730 Colchicine [Colcrys] 0.6 mg PO DAILY@0630 Lisinopril [Prinivil] 20 mg PO BID@0630,1730 Nitroglycerin Sl Tabs [Nitrostat] 0.4 mg SL Q5M PRN PRN Reason: Chest Pain Furosemide [Lasix] 40 mg PO DAILY@0630 #30 tab Furosemide [Lasix] 40 mg PO TUTH diphenhydrAMINE [Benadryl] 25 mg PO BID traMADol HCL [traMADol HCL ER] 200 mg PO BID Discharge Medication List Cetirizine HCl [Zyrtec] 10 mg PO DAILY@0630 10/11/15 [History] Tamsulosin [Flomax] 0.4 mg PO BID@0630,1730 10/11/15 [History] Multivitamins, Thera [Multivitamin (formulary)] 1 tab PO DAILY@0630 01/16/16 [History] DULoxetine HCL [Cymbalta] 60 mg PO HS@1730 05/13/16 [History] Pantoprazole Sodium [Protonix] 20 mg PO DAILY@0630 05/13/16 [History] Rivaroxaban [Xarelto] 20 mg PO HS@1730 01/02/17 [History] amLODIPine [Norvasc] 10 mg PO DAILY@0630 11/18/17 [History] hydrALAZINE HCL [Apresoline] 25 mg PO TID@0630,1200,1730 11/18/17 [History] Atorvastatin [Lipitor] 20 mg PO HS@1730 01/29/18 [History] Metoprolol Tartrate [Lopressor] 12.5 mg PO DAILY 01/29/18 [History] Colchicine [Colcrys] 0.6 mg PO DAILY@0630 11/26/19 [History] Lisinopril [Prinivil] 20 mg PO BID@0630,1730 11/26/19 [History] Nitroglycerin Sl Tabs [Nitrostat] 0.4 mg SL Q5M PRN 11/26/19 [History] Furosemide [Lasix] 40 mg PO DAILY@0630 #30 tab 11/27/19 [Rx] Furosemide [Lasix] 40 mg PO TUTH 06/22/21 [History] diphenhydrAMINE [Benadryl] 25 mg PO BID 06/22/21 [History] traMADol HCL [traMADol HCL ER] 200 mg PO BID 06/22/21 [History] Lactulose [Cephulac] 20 gm PO BID PRN #300 ml 06/23/21 [Rx] Follow up Appointment(s)/Referral(s): Ramya Arthur III, MD [Primary Care Provider] - 3 Days Discharge Disposition: HOME SELF-CARE
[2021-06-23 16:49] VITALS: BP 125/77; PULSE 97
[2021-06-23] MEDS ORDERED: ATORVASTATIN 20 MG TAB PO SCH (17:30)
[2021-06-23] MEDS ORDERED: DULoxetine HCL 60 MG CAPSULE.DR PO SCH (17:30)
[2021-06-23] MEDS ORDERED: RIVAROXABAN 20 MG TAB PO SCH (17:30)
[2021-06-24] MEDS ORDERED: FUROSEMIDE 40 MG TAB PO SCH (21:31)
== END 2021-06-23 18:21 | disposition home or self-care (01) ==
LOC: EC 18:43 → 6NMEDSUR 21:29
PROVIDERS: ADMIT Hospitalist; ATTEND Hospitalist
DX: R33.9 Retention of urine, unspecified (principal); K21.9 Gastro-esophageal reflux disease without esophagitis; I10 Essential (primary) hypertension; N40.1 Benign prostatic hyperplasia with lower urinary tract symptoms; K59.00 Constipation, unspecified; I48.0 Paroxysmal atrial fibrillation; R06.00 Dyspnea, unspecified; E78.5 Hyperlipidemia, unspecified; M19.90 Unspecified osteoarthritis, unspecified site; I47.1 Supraventricular tachycardia; G89.29 Other chronic pain; M54.9 Dorsalgia, unspecified; F41.9 Anxiety disorder, unspecified; F32.A Depression, unspecified; R41.3 Other amnesia; M79.89 Other specified soft tissue disorders; E66.9 Obesity, unspecified; Z68.38 Body mass index [BMI] 38.0-38.9, adult; Z66 Do not resuscitate; Z79.899 Other long term (current) drug therapy; Z79.01 Long term (current) use of anticoagulants; Z79.891 Long term (current) use of opiate analgesic; Z88.1 Allergy status to other antibiotic agents; Z86.718 Personal history of other venous thrombosis and embolism; Z85.46 Personal history of malignant neoplasm of prostate; Z92.3 Personal history of irradiation; Z86.711 Personal history of pulmonary embolism; Z96.643 Presence of artificial hip joint, bilateral; Z82.5 Family history of asthma and other chronic lower respiratory diseases; Z82.49 Family history of ischemic heart disease and other diseases of the circulatory system; Z82.61 Family history of arthritis; Z80.8 Family history of malignant neoplasm of other organs or systems; Z80.49 Family history of malignant neoplasm of other genital organs
CPT/HCPCS: 99285; 36415; 80053; 82150; 83690; 85025; 81003; 74018; G0378 ×2

== ENCOUNTER → 2022-02-03 | Outpatient (CLI) | payer MEDICARE, OTHER ==
[2022-02-03 18:44] LABS: HCT 41.1 % (39.6-50.0); MCH 31.3 pg (27.0-32.0); MCHC 34.1 g/dL (32.0-37.0); MCV 91.9 fL (80.0-97.0); Mean Platelet Volume 11.8 fL (9.5-12.2); NRBC Per 100 WBC 0 /100 WBCS (0.0-0.0); Platelet Count 191 X 10*3/uL (140-440); RBC 4.47 X 10*6/uL (4.40-5.60); RDW 14.6 % (11.5-14.5); WBC 7.42 X 10*3/uL (4.50-10.00)
[2022-02-03 19:18] LABS: African American GFR (CKD) 70.1 (60.0-200.0); Anion Gap 12.5 mmol/L (10.00-18.00); Blood Urea Nitrogen 15.6 mg/dL (9.0-27.0); Carbon Dioxide 24.2 mmol/L (20.0-27.5); Non-African American GFR(CKD) 60.5 (60.0-200.0); Potassium 3.6 mmol/L (3.5-5.5)
== END | disposition home or self-care (01) ==
LOC: LABPAT 13:03
PROVIDERS: ATTEND Internal Medicine Clinical Cardiac Electrophysiology
DX: Z01.812 Encounter for preprocedural laboratory examination (principal); I48.0 Paroxysmal atrial fibrillation; I49.5 Sick sinus syndrome
CPT/HCPCS: 80051; 82565; 84520; 85027

== ENCOUNTER 2022-02-16 08:05 | Day surgery (SDC) | payer MEDICARE, OTHER ==
[~2022-02-16 08:05] MED LIST changes: -BUPIVACAINE (PF) 0.5% 30 ML VIAL SQ ONE; -DEXAMETHASONE SOD PHOSPHATE 10 MG/ML 1 ML VIAL IV ONE; -HYDROmorphone 1 MG/ML 1 ML SYRINGE IVP PRN; -LIDOCAINE 1% 20 ML VIAL (10MG/ML) FOR IV START INTRADERMA PRN; -LIDOCAINE 2% INJ 20 MG/ML SQ ONE; -MIDAZOLAM 2 MG/2 ML VIAL IV PRN; -MIDAZOLAM 2 MG/2 ML VIAL ONE; -ONDANSETRON 4 MG/2 ML VIAL IVP ONE; -PROPOFOL 10 MG/ML 20 ML VIAL IV ONE; -Pre Op ABX Message 1 EACH MISC MISCELLANE ONE; -SCOPOLAMINE 1.5MG/72HR PATCH TRANSDERM ONE; +SODIUM CHLORIDE 0.9% 1,000 ML IV SCH; -fentaNYL (PF) 50 MCG/ML 2 ML AMP ONE
[2022-02-16] MEDS ORDERED: SODIUM CHLORIDE 0.9% 500 ML 500 ML IV ONE (08:20)
[2022-02-16 08:30] VITALS: RESP 16; TEMP 96.9
[2022-02-16] MEDS ORDERED: PROPOFOL 10 MG/ML 20 ML VIAL IV ONE (09:20)
[2022-02-16] MEDS ORDERED: LIDOCAINE 2% INJ 20 MG/ML (2 ML VIAL) ONE (09:20)
--- NOTE | 2022-02-16 10:25 | P.EPPROC ---
- EP Procedure Note Electrophysiology Procedure Note: Diagnosis Persistent symptomatic atrial fibrillation tiredness and fatigue Procedure Successful electrical cardioversion with a 200 J biphasic shock in the AP configuration Successful at first attempt, currently in sinus rhythm Postprocedure 12-lead EKG showed sinus mechanism with a first-degree AV block Plan Continue Xarelto 20 mg daily at bedtime Continue amiodarone at 200 mg by mouth daily After 3 months we will reduced to 100 mg by mouth daily Continue metoprolol 12.5 mg by mouth daily in the morning
[2022-02-16 13:53] VITALS: BP 113/60; PULSE 68
== END 2022-02-16 11:12 | disposition home or self-care (01) ==
LOC: CATHEP 08:05
PROVIDERS: ATTEND Internal Medicine Clinical Cardiac Electrophysiology
DX: I48.91 Unspecified atrial fibrillation (principal); I44.0 Atrioventricular block, first degree; M19.90 Unspecified osteoarthritis, unspecified site; Z79.899 Other long term (current) drug therapy
CPT/HCPCS: 92960; J2704; J2001

== ENCOUNTER → 2022-04-13 | Outpatient (CLI) | payer MEDICARE, OTHER ==
[2022-04-13 22:57] LABS: African American GFR (CKD) 62.5 (60.0-200.0); Anion Gap 10.5 mmol/L (10.00-18.00); BUN/Creat Ratio 16.53 Ratio (12.00-20.00); Calcium 8.6 mg/dL (8.7-10.3); Carbon Dioxide 26.8 mmol/L (20.0-27.5); Magnesium 2.3 mg/dL (1.5-2.4); Non-African American GFR(CKD) 53.9 (60.0-200.0)
== END | disposition home or self-care (01) ==
LOC: LABWHC1 15:36
PROVIDERS: ATTEND Internal Medicine Clinical Cardiac Electrophysiology
DX: I10 Essential (primary) hypertension (principal)
CPT/HCPCS: 36415; 80048; 83735

== ENCOUNTER 2022-08-23 08:48 | Emergency (ER) | payer MEDICARE, OTHER ==
[2022-08-23 08:54] VITALS: BP 135/91; PULSE 93; RESP 18; TEMP 96.7
--- NOTE | 2022-08-23 09:16 | ED ---
Fall HPI - General Chief Complaint: Fall Stated Complaint: Fall, hip pain Time Seen by Provider: 08/23/22 08:50 Source: patient, family, EMS, RN notes reviewed Mode of arrival: EMS Limitations: no limitations - History of Present Illness Initial Comments: This is an 87-year-old male who presents to the emergency department for a fall. Patient was walking out of the bathroom this morning when he lost his balance and fell backwards. When he fell, he hit the back and right side of his head. Also complains of right-sided shoulder pain and right hip pain. Denies any loss of consciousness. He is on Xarelto for A. fib. He was given fentanyl by EMS on route for pain, which he states was effective. Denies any fevers, chills, sore throat, cough, dyspnea, chest pain, palpitations, abdominal pain, nausea, vomiting, or diarrhea. MD Complaint: fall Fall From: standing Place Fall Occurred: home Loss of Consciousness: none - Related Data Home Medications Medication Instructions Recorded Confirmed Cetirizine HCl [Zyrtec] 10 mg PO DAILY@0630 10/11/15 02/16/22 Tamsulosin [Flomax] 0.4 mg PO BID@0630,1730 10/11/15 02/16/22 Multivitamins, Thera [Multivitamin 1 tab PO DAILY@30 01/16/16 02/16/22 (formulary)] DULoxetine HCL [Cymbalta] 60 mg PO HS@1730 05/13/16 02/16/22 Pantoprazole Sodium [Protonix] 20 mg PO DAILY@0630 05/13/16 02/16/22 Rivaroxaban [Xarelto] 20 mg PO HS@1730 01/02/17 02/16/22 amLODIPine [Norvasc] 5 mg PO DAILY@0630 11/18/17 02/16/22 Atorvastatin [Lipitor] 20 mg PO HS@1730 01/29/18 02/16/22 Metoprolol Tartrate [Lopressor] 12.5 mg PO DAILY 01/29/18 02/16/22 Colchicine [Colcrys] 0.6 mg PO DAILY@0630 11/26/19 02/16/22 Nitroglycerin Sl Tabs [Nitrostat] 0.4 mg SL Q5M PRN 11/26/19 02/12/22 Furosemide [Lasix] 60 mg PO TUFR 06/22/21 02/16/22 diphenhydrAMINE [Benadryl] 25 mg PO BID 06/22/21 02/16/22 traMADol HCL [traMADol HCL ER] 200 mg PO BID 06/22/21 02/16/22 Acetaminophen [Tylenol Arthritis] 2 tab PO TID 02/12/22 02/16/22 Amiodarone [Cordarone] 200 mg PO DAILY 02/12/22 02/16/22 Docusate [Colace] 100 mg PO DAILY 02/12/22 02/16/22 Furosemide [Lasix] 40 mg PO SUMOWETHSA 02/12/22 02/16/22 Isosorbide Mononitrate ER [Imdur] 30 mg PO DAILY 02/12/22 02/16/22 Valsartan 160 mg PO BID 02/12/22 02/16/22 Previous Rx's Medication Instructions Recorded Lactulose [Cephulac] 20 gm PO BID PRN #300 ml 06/23/21 Allergies Allergy/AdvReac Type Severity Reaction Status Date / Time tobramycin Allergy Unknown Itching, Verified 08/23/22 08:54 Red eyes, Inflammation(tobramycin eye drops) Review of Systems ROS Statement: Those systems with pertinent positive or pertinent negative responses have been documented in the HPI. ROS Other: All systems not noted in ROS Statement are negative. Past Medical History Past Medical History: Atrial Fibrillation, Cancer, Chest Pain / Angina, Deep Vein Thrombosis (DVT), GERD/Reflux, Hyperlipidemia, Hypertension, Memory Impairment, Osteoarthritis (OA), Prostate Disorder Additional Past Medical History / Comment(s): Paroxysmal Afib, atach, DVT R leg years ago, bilateral lower extremity edema/past R lower leg wounds/L lower leg wrapped, prostate cancer with 41 radiation treatments, BPH, chronic back and R shoulder pain, past empyema with surgery to drain/chest tube History of Any Multi-Drug Resistant Organisms: None Reported Past Surgical History: Back Surgery, Hernia Repair, Joint Replacement, Orthopedic Surgery Additional Past Surgical History / Comment(s): bilateral cataract removal, laminectomy,/back sx has 2 rods and screws, lt shoulder arthroplasty, bilateral total hips, L carpal tunnel release, umbilical hernia repair, colonoscopy, oral sx. Past Anesthesia/Blood Transfusion Reactions: Motion Sickness, Postoperative Nausea & Vomiting (PONV) Past Psychological History: Anxiety, Depression Smoking Status: Never smoker Past Alcohol Use History: None Reported Past Drug Use History: None Reported - Past Family History Father Family Medical History: COPD Additional Family Medical History / Comment(s): Father fell at the age of 87yrs- had head injury- from complications. Mother Family Medical History: Congestive Heart Failure (CHF), Osteoarthritis (OA) Additional Family Medical History / Comment(s): Mother had severe arthritis. Son(s) Family Medical History: Cancer Additional Family Medical History / Comment(s): FIBROSARCOMA BONE CANCER- AT 16 YRS OLD Daughter(s) Family Medical History: Cancer, Deep Vein Thrombosis (DVT) Additional Family Medical History / Comment(s): CERVICAL CANCER General Exam Limitations: no limitations General appearance: alert, in no apparent distress Head exam: Present: atraumatic, normocephalic, other (Superficial abrasion over the right parietal region. No active bleeding.) Eye exam: Present: normal appearance, PERRL, EOMI. Absent: scleral icterus, conjunctival injection, periorbital swelling Respiratory exam: Present: normal lung sounds bilaterally. Absent: respiratory distress, wheezes, rales, rhonchi, stridor Cardiovascular Exam: Present: regular rate, normal rhythm, normal heart sounds. Absent: systolic murmur, diastolic murmur, rubs, gallop, clicks Extremities exam: Present: other (No tenderness to palpation over the right shoulder and no tenderness to palpation over the right greater trochanter. Full active and passive range of motion of the right upper and lower upper extremity. 2+ radial pulses and 2+ DP and TP pulses.) Neurological exam: Present: alert, oriented X3, CN II-XII intact Expanded Cerebellar function: Finger to Nose: Normal, Romberg: Normal Motor strength exam: RUE: 5, LUE: 5, RLE: 5, LLE: 5 Psychiatric exam: Present: normal affect, normal mood Skin exam: Present: warm, dry, intact, normal color. Absent: rash Course Vital Signs 08/23/22 08:50 Temperature 96.7 F L Pulse Rate 93 Respiratory 18 Rate Blood Pressure 135/91 O2 Sat by Pulse 95 Oximetry Medical Decision Making - Medical Decision Making This is an 87-year-old male who presents to the emergency department for a fall. Was pt. sent in by a medical professional or institution? @ -No Did you speak to anyone other than the patient for history? @ -EMS Did you review nursing and triage notes? @ -Yes, and I agree, it is accurate with regards to the patient's symptoms. Were old charts reviewed? @ -No Differential Diagnosis? @ -Differential Diagnosis Head Injury: Contusion, hematoma, intracranial hemorrhage, skull fracture, whiplash, concussion, this is not meant to be an all-inclusive list. -Differential Hip Injury: Fracture, dislocation, contusion, this is not meant to be an all-inclusive list. X-rays interpreted by me (1pt min.)? @ -X-ray of the right shoulder and right hip obtained. My interpretation identifies no acute fractures or dislocations. CT interpreted by me (1pt min.)? @ -Computed tomography scan of the brain and c-spine obtained. My interpretation identifies no evidence of an acute intracranial hemorrhage, skull fracture, or cervical spine fracture. What testing was considered but not performed? (CT, X-rays, U/S, labs)? Why? @ -None What meds were considered but not given? Why? @ -None Did you discuss the management of the patient with other professionals? @ -No Did you reconcile home meds? @ -No Was smoking cessation discussed for >3mins.? @ -No Was critical care preformed (if so, how long)? @ -No Were there social determinants of health that impacted care today? How? (Homelessness, low income, unemployed, alcoholism, drug addiction, transportation, low edu. Level, literacy, decrease access to med. care, snf, rehab)? @ -No Was there de-escalation of care discussed even if they declined? (Discuss DNR or withdrawal of care, Hospice)? @ -No What co-morbidities impacted this encounter? (DM, HTN, Smoking, COPD, CAD, Cancer, CVA, Hep., AIDS, mental health diagnosis, sleep apnea, morbid obesity)? @ -Atrial fibrillation, Osteoarthritis Was patient admitted / discharged? @ -Discharged. Computed tomography scan of the brain/c-spine and x-rays of the right shoulder and right hip obtained. No acute findings were noted on any of the imaging. 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 Patient has no weakness. Also denies any known history of strokes and cannot think of any time over the last 6 years where he may have experienced something like this, however he cannot be certain. He is also already taking Xarelto. Patient was able to ambulate on his own with a walker and felt comfortable for discharge home. Advised Tylenol as needed for pain relief and applying ice the painful areas for 15-20 minutes every 2-3 hours. Undiagnosed new problem with uncertain prognosis? @ -None Drug Therapy requiring intensive monitoring for toxicity (Heparin, Nitro, Insulin, Cardizem)? @ -None Were any procedures done? @ -None Diagnosis/symptom? @ -Fall, head injury Acute, or Chronic, or Acute on Chronic? @ -Acute Uncomplicated (without systemic symptoms) or Complicated (systemic symptoms)? @ -Uncomplicated Side effects of treatment? @ -None Exacerbation, Progression, or Severe Exacerbation] @ -Not applicable Poses a threat to life or bodily function? @ -No Return precautions reviewed in depth, the patient is instructed to return to the emergency department with any new, worsening, or concerning symptoms. Patient verbalized understanding. This case was discussed in detail with the attending ED physician, Dr. Kumar Presentation, findings, and treatment plan discussed in detail as well. - Radiology Data Radiology results: report reviewed, image reviewed Disposition Clinical Impression: Fall, Head injury Disposition: HOME SELF-CARE Instructions (If sedation given, give patient instructions): Fall Prevention for Older Adults (ED) Additional Instructions: Return to the emergency department with any new, worsening, or concerning symptoms. Take Tylenol as needed for pain relief. You can apply ice to the affected areas for 10-15 minutes every 2-3 hours. Follow up with your primary care provider in 1-2 days. Is patient prescribed a controlled substance at d/c from ED?: No Referrals: Ramya Arthur III, MD [Primary Care Provider] - 1-2 days
--- NOTE | 2022-08-23 09:31 | CT ---
EXAMINATION TYPE: CT brain lorenza zepeda con DATE OF EXAM: 08/23/2022 COMPARISON: 01/28/2017 HISTORY: FALL CT DLP: 1553 mGycm Automated exposure control for dose reduction was used. TECHNIQUE: CT scan of the head and cervical spine are performed without contrast. FINDINGS Head CT: The ventricles, basal cisterns and sulci over convexities are moderately enlarged consistent with mod erate generalized atrophy which is appropriate for the patient's age. There is a small remote infarct involving the right parietal cortex and subcortical white matter. There is moderate diffuse decreased density in the periventricular white matter consistent with moder ate chronic ischemic white matter demyelination. There is no acute intra or extra-axial hemorrhage. The paranasal sinuses and mastoid air cells are well aerated. There is no calvarial defect or fractur e. CT cervical spine. The craniovertebral junction relationships and prevertebral soft tissues are normal. The cervical vertebral segments are normal in height there is no evidence of fracture. There are miguel a ed degenerative changes involving the intervertebral discs facet joints and uncovertebral joints. The re is fusion at the C4-5 segments and near fusion of the C3-4 segments. There is posterior hypertroph ic spurring resulting in significant encroachment of the cervical canal resulting in at least moderat e cervical stenosis.. IMPRESSION: 1. No evidence of acute bleed or mass effect. 2. Small remote right parietal infarct. This appears remote but was not present on the prior study [place] 01/28/2017 3. Age-appropriate atrophy and chronic ischemic white matter demyelination 4. No acute trauma to the cervical spine. 5. Marked degenerative changes of the cervical spine. 6. Significant bony encroachment of the cervical spinal canal at the C5-6 level secondary to posterio r hypertrophic spurring.
--- NOTE | 2022-08-23 09:52 | XR ---
Right shoulder HISTORY: Pain following trauma COMPARISON: 05/06/2019. TECHNIQUE: 3 views of the right shoulder were obtained. There is no fracture or dislocation. There are marked degenerative changes of the glenohumeral joint with marked joint space narrowing and subchondral sclerosis. There is mild to moderate osteophytic change of the acromioclavicular joint. There is a soft tissue well-circumscribed calcification beneath the acromion which likely represents calcific tendinitis. IMPRESSION: No evidence of acute trauma.
--- NOTE | 2022-08-23 09:54 | XR ---
Right hip. HISTORY: Pain following trauma. COMPARISON: 05/06/2019. TECHNIQUE: 2 views the right hip were obtained. 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 There is no fracture or dislocation. There is mild osteopenia noted IMPRESSION: 1. No evidence of acute trauma. 2. Total right hip prosthesis.
== END 2022-08-23 11:18 | disposition home or self-care (01) ==
LOC: EC 08:48
DX: S09.90XA Unspecified injury of head, initial encounter (principal); I10 Essential (primary) hypertension; K21.9 Gastro-esophageal reflux disease without esophagitis; E78.5 Hyperlipidemia, unspecified; I48.91 Unspecified atrial fibrillation; F41.9 Anxiety disorder, unspecified; F32.A Depression, unspecified; Z79.899 Other long term (current) drug therapy; Z88.8 Allergy status to other drugs, medicaments and biological substances; W18.30XA Fall on same level, unspecified, initial encounter; Y92.002 Bathroom of unspecified non-institutional (private) residence as the place of occurrence of the external cause; Y93.01 Activity, walking, marching and hiking
CPT/HCPCS: 70450; 72125; 73502; 99284

== ENCOUNTER 2022-10-13 14:04 | Emergency (ER) | payer MEDICARE, OTHER ==
[2022-10-13] MEDS ORDERED: HYDROcodone/APAP 5-325MG 1 EACH TAB PO STA (15:14)
--- NOTE | 2022-10-13 15:18 | ED ---
Fall HPI - General Chief Complaint: Fall Stated Complaint: Fall-blood thinners Time Seen by Provider: 10/13/22 14:54 Source: EMS Mode of arrival: EMS - History of Present Illness Initial Comments: This patient is an 87-year-old man with history of frequent falls who presents to have evaluation after he had a ground-level fall at home. The patient states that his knees frequently give out, and he believes that this happened today. He hit his chest wall against the edge of a couch. The patient was then too weak to get up so EMS was called and brought him here for evaluation. 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 Fall Witnessed: yes, by bystander Place Fall Occurred: home Loss of Consciousness: none Prolonged Down Time?: no Symptoms Prior to Fall: none Location: chest Severity: moderate Quality: dull Context: history of frequent falls - Related Data Home Medications Medication Instructions Recorded Confirmed Cetirizine HCl [Zyrtec] 10 mg PO DAILY 10/11/15 10/13/22 Tamsulosin [Flomax] 0.4 mg PO BID 10/11/15 10/13/22 Multivitamins, Thera [Multivitamin 1 tab PO DAILY 01/16/16 10/13/22 (formulary)] DULoxetine HCL [Cymbalta] 60 mg PO HS 05/13/16 10/13/22 Pantoprazole Sodium [Protonix] 20 mg PO DAILY 05/13/16 10/13/22 Rivaroxaban [Xarelto] 20 mg PO HS 01/02/17 10/13/22 Atorvastatin [Lipitor] 20 mg PO HS 01/29/18 10/13/22 Colchicine [Colcrys] 0.6 mg PO DAILY 11/26/19 10/13/22 Nitroglycerin Sl Tabs [Nitrostat] 0.4 mg SL Q5M PRN 11/26/19 10/13/22 Furosemide [Lasix] 60 mg PO TUFR 06/22/21 10/13/22 diphenhydrAMINE [Benadryl] 50 mg PO BID PRN 06/22/21 10/13/22 traMADol HCL [traMADol HCL ER] 200 mg PO BID 06/22/21 10/13/22 Acetaminophen [Tylenol Arthritis] 1,300 mg PO TID PRN 02/12/22 10/13/22 Docusate [Colace] 100 mg PO DAILY 02/12/22 10/13/22 Furosemide [Lasix] 40 mg PO SUMOWETHSA 02/12/22 10/13/22 Isosorbide Mononitrate ER [Imdur] 30 mg PO DAILY 02/12/22 10/13/22 Valsartan 160 mg PO BID 02/12/22 10/13/22 Spironolactone [Aldactone] 25 mg PO DAILY 10/13/22 10/13/22 carvediloL [Coreg] 6.25 mg PO BID 10/13/22 10/13/22 polyethylene glycoL 3350 [Miralax] 17 gm PO DAILY PRN 10/13/22 10/13/22 Previous Rx's Medication Instructions Recorded HYDROcodone/APAP 10-325MG [Sunol 0.5 tab PO Q6HR PRN 3 Days #6 tab 10/13/22 10-325] HYDROcodone/APAP 5-325MG [Sunol 1 tab PO Q4HR PRN 3 Days #12 tab 10/13/22 5-325] Allergies Allergy/AdvReac Type Severity Reaction Status Date / Time tobramycin Allergy Unknown Itching, Verified 10/13/22 15:46 Red eyes, Inflammation(tobramycin eye drops) Review of Systems ROS Statement: Those systems with pertinent positive or pertinent negative responses have been documented in the HPI. ROS Other: All systems not noted in ROS Statement are negative. Constitutional: Reports: weakness (Chronic). Denies: fever, chills Respiratory: Denies: cough, dyspnea Cardiovascular: Reports: chest pain (Left chest wall pain after fall). Denies: palpitations, orthopnea, syncope Gastrointestinal: Denies: abdominal pain, nausea, vomiting Genitourinary: Denies: dysuria, hematuria Musculoskeletal: Denies: back pain Skin: Denies: rash Neurological: Denies: headache, confusion Past Medical History Past Medical History: Atrial Fibrillation, Cancer, Chest Pain / Angina, Deep Vein Thrombosis (DVT), GERD/Reflux, Hyperlipidemia, Hypertension, Memory Impairment, Osteoarthritis (OA), Prostate Disorder Additional Past Medical History / Comment(s): Paroxysmal Afib, atach, DVT R leg years ago, bilateral lower extremity edema/past R lower leg wounds/L lower leg wrapped, prostate cancer with 41 radiation treatments, BPH, chronic back and R shoulder pain, past empyema with surgery to drain/chest tube History of Any Multi-Drug Resistant Organisms: None Reported Past Surgical History: Back Surgery, Hernia Repair, Joint Replacement, Orthopedic Surgery Additional Past Surgical History / Comment(s): bilateral cataract removal, laminectomy,/back sx has 2 rods and screws, lt shoulder arthroplasty, bilateral total hips, L carpal tunnel release, umbilical hernia repair, colonoscopy, oral sx. Past Anesthesia/Blood Transfusion Reactions: Motion Sickness, Postoperative Nausea & Vomiting (PONV) Past Psychological History: Anxiety, Depression Smoking Status: Never smoker Past Alcohol Use History: None Reported Past Drug Use History: None Reported - Past Family History Father Family Medical History: COPD Additional Family Medical History / Comment(s): Father fell at the age of 87yrs-had head injury- from complications. Mother Family Medical History: Congestive Heart Failure (CHF), Osteoarthritis (OA) Additional Family Medical History / Comment(s): Mother had severe arthritis. Son(s) Family Medical History: Cancer Additional Family Medical History / Comment(s): FIBROSARCOMA BONE CANCER- AT 16 YRS OLD Daughter(s) Family Medical History: Cancer, Deep Vein Thrombosis (DVT) Additional Family Medical History / Comment(s): CERVICAL CANCER General Exam General appearance: alert, in no apparent distress Head exam: Present: atraumatic, normocephalic Eye exam: Present: normal appearance, PERRL, EOMI. Absent: scleral icterus, conjunctival injection Neck exam: Present: normal inspection, full ROM. Absent: tenderness Respiratory exam: Present: normal lung sounds bilaterally, chest wall tenderness. Absent: respiratory distress, wheezes, rales, rhonchi, stridor Cardiovascular Exam: Present: irregular rhythm, normal heart sounds. Absent: systolic murmur, diastolic murmur, rubs, gallop GI/Abdominal exam: Present: soft. Absent: distended, tenderness, guarding, rebound, rigid, mass Extremities exam: Present: normal inspection, normal capillary refill. Absent: pedal edema, calf tenderness Back exam: Present: normal inspection. Absent: CVA tenderness (R), CVA tenderness (L) Neurological exam: Present: alert. Absent: motor sensory deficit Skin exam: Present: warm, dry, intact, normal color, abrasion (Right facial abrasion) Course Vital Signs 10/13/22 10/13/22 10/13/22 14:10 14:15 16:00 Temperature 97.4 F L Pulse Rate 74 Respiratory 18 Rate Blood Pressure 133/92 133/92 O2 Sat by Pulse 98 89 L Oximetry 10/13/22 18:00 Temperature 97.6 F Pulse Rate 87 Respiratory 16 Rate Blood Pressure 137/104 O2 Sat by Pulse 93 L Oximetry Medical Decision Making - Medical Decision Making The patient had chest x-ray with ribs included which I interpreted as being negative for acute bony injury and no pneumothorax. The patient had computed tomography scan of the brain which was negative for acute bony injury and for intracranial hemorrhage. This patient is an 87-year-old man here after ground level fall. He was complaining of rib pain and therefore rib x-rays obtained these are negative. The patient did have contusion of the knee but is able to bear weight and therefore clinically cleared. He is feeling somewhat better on reevaluation and would like to go home. Discussed appropriate further care and follow-up as well as return parameters. Was pt. sent in by a medical professional or institution (, PA, [employer], urgent care, hospital, or long term...) When possible be specific @ -[No] Did you speak to anyone other than the patient for history (EMS, parent, family, police, friend...)? What history was obtained from this source @ -[No] Did you review nursing and triage notes (agree or disagree)? Why? @ -[I reviewed and agree with nursing and triage notes] Were old charts reviewed (outside hosp., previous admission, EMS record, old EKG, old radiological studies, urgent care reports/EKG's, long term records)? Report findings @ -[No old charts were reviewed] Differential Diagnosis (chest pain, altered mental status, abdominal pain women, abdominal pain men, vaginal bleeding, weakness, fever, dyspnea, syncope, headache, dizziness, GI bleed, back pain, seizure, CVA, palpatations, mental health, musculoskeletal)? @ -[Differential Musculoskeletal Muscular strain, contusion, ligament sprain, fracture, arthritis, septic arthritis, bursitis, cellulitis, muscle spasm, nerve compression, DVT, arterial occlusion, herpes zoster, electrolyte abnormality, tumor.... This is not meant to be in all inclusive list EKG interpreted by me (3pts min.). @ -[As above] X-rays interpreted by me (1pt min.). @ -[I interpreted as above CT interpreted by me (1pt min.). @ -[I interpreted as above U/S interpreted by me (1pt. min.). @ -[None done] What testing was considered but not performed or refused? (CT, X-rays, U/S, labs)? Why? @ -[None] What meds were considered but not given or refused? Why? @ -[None] Did you discuss the management of the patient with other professionals (professionals i.e. , PA, [employer], lab, RT, psych nurse, director social, mental health clinician, teacher, veterans service officer, assistant case manager)? Give summary @ -[No] Was smoking cessation discussed for >3mins.? @ -[No] Was critical care preformed (if so, how long)? @ -[No] Were there social determinants of health that impacted care today? How? (Homelessness, low income, unemployed, alcoholism, drug addiction, transportation, low edu. Level, literacy, decrease access to med. care, longterm, rehab)? @ -[No] Was there de-escalation of care discussed even if they declined (Discuss DNR or withdrawal of care, Hospice)? DNR status @ -[No] What co-morbidities impacted this encounter? (DM, HTN, Smoking, COPD, CAD, Cancer, CVA, ARF, Chemo, Hep., AIDS, mental health diagnosis, sleep apnea, morbid obesity)? @ -[None] Was patient admitted / discharged? Hospital course, mention meds given and route, prescriptions, significant lab abnormalities, going to OR and other pertinent info. @ -[Discharged Undiagnosed new problem with uncertain prognosis? @ -[No] Drug Therapy requiring intensive monitoring for toxicity (Heparin, Nitro, Insulin, Cardizem)? @ -[No] Were any procedures done? @ -[No] Diagnosis/symptom? @ -[Acute knee contusion Acute chest wall contusion Acute, or Chronic, or Acute on Chronic? @ -[default] Uncomplicated (without systemic symptoms) or Complicated (systemic symptoms)? @ -[Uncomplicated Side effects of treatment? @ -[No] Exacerbation, Progression, or Severe Exacerbation? @ -[No] Poses a threat to life or bodily function? How? (Chest pain, [place], [place], pneumonia, PE, COPD, DKA, ARF, appy, cholecystitis, CVA, Diverticulitis, Homicidal, Suicidal, threat to staff... and all critical care pts) @ -[No] - Lab Data Result diagrams: 10/13/22 16:22 10/13/22 16:22 Lab Results 10/13/22 10/13/22 10/13/22 Range/Units 16:22 16:22 16:22 WBC 9.0 (3.8-10.6) k/uL RBC 4.73 (4.30-5.90) m/uL Hgb 15.8 (13.0-17.5) gm/dL Hct 46.2 (39.0-53.0) % MCV 97.7 (80.0-100.0) fL MCH 33.4 (25.0-35.0) pg MCHC 34.2 (31.0-37.0) g/dL RDW 13.7 (11.5-15.5) % Plt Count 148 L (150-450) k/uL MPV 9.7 Neutrophils % 64 % Lymphocytes % 19 % Monocytes % 10 % Eosinophils % 3 % Basophils % 1 % Neutrophils # 5.8 (1.3-7.7) k/uL Lymphocytes # 1.7 (1.0-4.8) k/uL Monocytes # 0.9 (0-1.0) k/uL Eosinophils # 0.3 (0-0.7) k/uL Basophils # 0.0 (0-0.2) k/uL Sodium 135 L (137-145) mmol/L Potassium 5.3 H (3.5-5.1) mmol/L Chloride 102 (98-107) mmol/L Carbon Dioxide 27 (22-30) mmol/L Anion Gap 6 mmol/L BUN 21 H (9-20) mg/dL Creatinine 1.03 (0.66-1.25) mg/dL Est GFR (CKD-EPI)AfAm 76 (>60 ml/min/1.73 sqM) Est GFR (CKD-EPI)NonAf 65 (>60 ml/min/1.73 sqM) Glucose 102 H (74-99) mg/dL Lactic Ac Sepsis Rflx Plasma Lactic Acid Thierry (0.7-2.0) mmol/L Calcium 8.6 (8.4-10.2) mg/dL Magnesium 2.3 (1.6-2.3) mg/dL Total Bilirubin 0.9 (0.2-1.3) mg/dL AST 37 (17-59) U/L ALT 18 (4-49) U/L Alkaline Phosphatase 73 (38-126) U/L Total Protein 6.7 (6.3-8.2) g/dL Albumin 3.9 (3.5-5.0) g/dL Urine Color Light Yellow Urine Appearance Clear (Clear) Urine pH 5.5 (5.0-8.0) Ur Specific Holt 1.007 (1.001-1.035) Urine Protein Negative (Negative) Urine Glucose (UA) Negative (Negative) Urine Ketones Negative (Negative) Urine Blood Negative (Negative) Urine Nitrite Negative (Negative) Urine Bilirubin Negative (Negative) Urine Urobilinogen <2.0 (<2.0) mg/dL Ur Leukocyte Esterase Negative (Negative) 10/13/22 10/13/22 Range/Units 16:22 16:55 WBC (3.8-10.6) k/uL RBC (4.30-5.90) m/uL Hgb (13.0-17.5) gm/dL Hct (39.0-53.0) % MCV (80.0-100.0) fL MCH (25.0-35.0) pg MCHC (31.0-37.0) g/dL RDW (11.5-15.5) % Plt Count (150-450) k/uL MPV Neutrophils % % Lymphocytes % % Monocytes % % Eosinophils % % Basophils % % Neutrophils # (1.3-7.7) k/uL Lymphocytes # (1.0-4.8) k/uL Monocytes # (0-1.0) k/uL Eosinophils # (0-0.7) k/uL Basophils # (0-0.2) k/uL Sodium (137-145) mmol/L Potassium (3.5-5.1) mmol/L Chloride (98-107) mmol/L Carbon Dioxide (22-30) mmol/L Anion Gap mmol/L BUN (9-20) mg/dL Creatinine (0.66-1.25) mg/dL Est GFR (CKD-EPI)AfAm (>60 ml/min/1.73 sqM) Est GFR (CKD-EPI)NonAf (>60 ml/min/1.73 sqM) Glucose (74-99) mg/dL Lactic Ac Sepsis Rflx Y Plasma Lactic Acid Thierry 2.8 H* (0.7-2.0) mmol/L Calcium (8.4-10.2) mg/dL Magnesium (1.6-2.3) mg/dL Total Bilirubin (0.2-1.3) mg/dL AST (17-59) U/L ALT (4-49) U/L Alkaline Phosphatase (38-126) U/L Total Protein (6.3-8.2) g/dL Albumin (3.5-5.0) g/dL Urine Color Urine Appearance (Clear) Urine pH (5.0-8.0) Ur Specific Holt (1.001-1.035) Urine Protein (Negative) Urine Glucose (UA) (Negative) Urine Ketones (Negative) Urine Blood (Negative) Urine Nitrite (Negative) Urine Bilirubin (Negative) Urine Urobilinogen (<2.0) mg/dL Ur Leukocyte Esterase (Negative) Disposition Clinical Impression: Fall, Knee contusion Disposition: HOME SELF-CARE Condition: Good Instructions (If sedation given, give patient instructions): Fall Prevention for Older Adults (ED), Contusion in Adults (ED) Prescriptions: HYDROcodone/APAP 10-325MG [Sunol 10-325] 0.5 tab PO Q6HR PRN 3 Days #6 tab PRN Reason: Pain HYDROcodone/APAP 5-325MG [Sunol 5-325] 1 tab PO Q4HR PRN 3 Days #12 tab PRN Reason: Pain Is patient prescribed a controlled substance at d/c from ED?: Yes When asked, does pt state using other controlled substances?: No If prescribed controlled substance>3 days was MAPS reviewed?: Prescribed <3 Days If opioid is for acute pain is fill amount 7 days or less?: Yes If Rx opioid, was Start Talking consent form obtained?: Yes Referrals: Ramya Arthur III, MD [Primary Care Provider] - 1-2 days
--- NOTE | 2022-10-13 16:17 | CT ---
EXAMINATION TYPE: CT brain cspine wo con CT DLP: 1611 mGycm, Automated exposure control for dose reduction was used. DATE OF EXAM: 10/13/2022 4:07 PM COMPARISON: 08/23/2022 CLINICAL INDICATION:Male, 87 years old with history of fall injury; fall on blood thinners TECHNIQUE: Brain: Multiple axial CT images of the brain were obtained without IV contrast. Cspine: Axial CT images from the skull base to the inferior aspect of T2 we obtained without intraven ous contrast. Coronal and sagittal reformatted images were also reviewed. FINDINGS: Brain: Extra-axial spaces: No abnormal extra-axial fluid collections. Ventricular system: Dilatation in proportion to cerebral atrophy. Cerebral parenchyma: Scattered remote injury suggested including the right frontal lobe right parieta l lobe with encephalomalacia. No acute intraparenchymal hemorrhage or mass effect. The arredondo-white ju nction is well differentiated. Scattered hypoattenuating areas are seen within the white matter. Cerebellum: Unremarkable. Mass effect: No evidence of midline shift. Intracranial vasculature: Atherosclerotic calcifications of the intracranial vessels. Soft tissues: Normal. Calvarium/osseous structures: No depressed skull fracture. Paranasal sinuses and mastoid air cells: Clear. Visualized orbits: Bilateral aphakia Cervical spine: Fracture: None. Osseous structures: Multilevel degenerative disc disease changes with endplate spurring and disc oste ophyte complex's. Vertebral alignment: Within normal limits. Spinal canal/Neural Foramina: Disc osteophyte complexes at ?? with at least mild spinal canal stenosi s. Facet joint uncovertebral joint arthropathy scattered throughout the cervical spine with varying d egrees of neural foraminal stenosis. Neck soft tissues: Prevertebral soft tissues are within normal limits. Other: The airway is patent. The lung apices are clear. IMPRESSION: 1. No acute intracranial process. 2. Remote injuries along with Nonspecific white matter changes, likely secondary to chronic small ve ssel ischemic disease. 3. No evidence of cervical spine fracture. 4. Moderate to severe multilevel degenerative disc disease with varying degrees of high-grade neural foraminal stenosis..
[2022-10-13 16:48] LABS: Basophils % (A) 1 %; Eosinophils # (A) 0.3 k/uL (0-0.7); Eosinophils % (A) 3 %; HCT 46.2 % (39.0-53.0); HGB 15.8 gm/dL (13.0-17.5); Lymphocytes # (A) 1.7 k/uL (1.0-4.8); Lymphocytes % (A) 19 %; MCH 33.4 pg (25.0-35.0); MCHC 34.2 g/dL (31.0-37.0); MCV 97.7 fL (80.0-100.0); Mean Platelet Volume 9.7; Monocytes # (A) 0.9 k/uL (0-1.0); Monocytes % (A) 10 %; Neutrophils # (A) 5.8 k/uL (1.3-7.7); Neutrophils % (A) 64 %; Platelet Count 148 k/uL (150-450); RBC 4.73 m/uL (4.30-5.90); RDW 13.7 % (11.5-15.5)
[2022-10-13 16:50] LABS: ALT 18 U/L (4-49); AST 37 U/L (17-59); African American GFR (CKD) 76 (>60 ml/min/1.73 sqM); Albumin 3.9 g/dL (3.5-5.0); Alkaline Phosphatase 73 U/L (38-126); Anion Gap 6 mmol/L; Blood Urea Nitrogen 21 mg/dL (9-20); Calcium 8.6 mg/dL (8.4-10.2); Carbon Dioxide 27 mmol/L (22-30); Chloride 102 mmol/L (98-107); Magnesium 2.3 mg/dL (1.6-2.3); Non-African American GFR(CKD) 65 (>60 ml/min/1.73 sqM); Potassium 5.3 mmol/L (3.5-5.1); Sodium 135 mmol/L (137-145); Total Bilirubin 0.9 mg/dL (0.2-1.3); Total Protein 6.7 g/dL (6.3-8.2)
[2022-10-13 16:55] LABS: Glucose 102 mg/dL (74-99)
[2022-10-13] MEDS ORDERED: SODIUM CHLORIDE 0.9% 500 ML 500 ML IV STA ×2 (16:56→18:23)
--- NOTE | 2022-10-13 17:25 | XR ---
EXAMINATION TYPE: XR ribs LT w pa chest xray, 5 views DATE OF EXAM: 10/13/2022 Comparison: 11/26/2019 Clinical History: 87-year-old male pain after fall injury Findings: Heart mildly enlarged. Atherosclerotic arch calcifications. Left shoulder arthroplasty. End-stage deg enerative change right shoulder. Left basal underpenetrated and not well assessed. Remainder of the l ungs appear clear. Subtle cortical step-off along the left anterior sixth rib. No displaced left rib fracture seen. Impression: Possible subtle nondisplaced anterior left sixth rib fracture. Correlate for point tenderness. Left b ase underpenetrated and not well assessed. Remainder of the lungs appear clear.
[2022-10-13] MEDS ORDERED: MORPHINE SULFATE 4 MG/ML SYRINGE IV STA (17:43)
[2022-10-13 18:14] LABS: Appearance,Urine Clear (Clear); Bilirubin,Urine Negative (Negative); Blood,Urine Negative (Negative); Color,Urine Light Yellow; Glucose,Urine (UA) Negative (Negative); Ketones,Urine Negative (Negative); Leukocyte Esterase,Urine Negative (Negative); Nitrite,Urine Negative (Negative); PH, Urine 5.5 (5.0-8.0); Protein,Urine Negative (Negative); Specific Gravity,Urine 1.007 (1.001-1.035); Urobilinogen,Urine <2.0 mg/dL (<2.0)
[2022-10-13 18:57] VITALS: BP 137/104; PULSE 87; RESP 16; TEMP 97.6
== END 2022-10-13 19:21 | disposition home or self-care (01) ==
LOC: EC 14:04
DX: S20.211A Contusion of right front wall of thorax, initial encounter (principal); S80.00XA Contusion of unspecified knee, initial encounter; E78.5 Hyperlipidemia, unspecified; I10 Essential (primary) hypertension; I48.0 Paroxysmal atrial fibrillation; K21.9 Gastro-esophageal reflux disease without esophagitis; M19.90 Unspecified osteoarthritis, unspecified site; Z86.718 Personal history of other venous thrombosis and embolism; F41.9 Anxiety disorder, unspecified; F32.A Depression, unspecified; Z88.8 Allergy status to other drugs, medicaments and biological substances; Z79.899 Other long term (current) drug therapy; W18.30XA Fall on same level, unspecified, initial encounter
CPT/HCPCS: 36415; 80053; 83605; 83735; 85025; 81003; 71101; 72125; 70450; 99285; 96374; J2270

== ENCOUNTER 2023-01-22 10:15 | Inpatient (IN) | payer MEDICARE, OTHER ==
--- NOTE | 2023-01-22 10:39 | ED ---
General Adult HPI - General Stated complaint: Weakness Time Seen by Provider: 01/22/23 10:16 Source: patient, EMS, RN notes reviewed, old records reviewed Limitations: altered mental status - History of Present Illness Initial comments: 87-year-old male presents for evaluation of increased confusion, left-sided weakness. Patient had apparently had progressive left-sided weakness with some degree of baseline left arm weakness. The timing of this is uncertain but there was noted to be significant edema to the left arm and that he had not been moving it recently. No fever. Patient denies pain complaints. History is limited from the patient himself. - Related Data Home Medications Medication Instructions Recorded Confirmed Cetirizine HCl [Zyrtec] 10 mg PO DAILY@79910/11/15 01/22/23 Tamsulosin [Flomax] 0.4 mg PO BID@799,209910/11/15 01/22/23 Multivitamins, Thera [Multivitamin 1 tab PO DAILY@79901/16/16 01/22/23 (formulary)] DULoxetine HCL [Cymbalta] 60 mg PO HS@212905/13/16 01/22/23 Pantoprazole Sodium [Protonix] 20 mg PO DAILY@79905/13/16 01/22/23 Rivaroxaban [Xarelto] 20 mg PO HS@212901/02/17 01/22/23 Atorvastatin [Lipitor] 20 mg PO HS@209901/29/18 01/22/23 Colchicine [Colcrys] 0.6 mg PO DAILY@79911/26/19 01/22/23 Nitroglycerin Sl Tabs [Nitrostat] 0.4 mg SL Q5M PRN 11/26/19 01/22/23 Furosemide [Lasix] 60 mg PO TUFR@79906/22/21 01/22/23 diphenhydrAMINE [Benadryl] 50 mg PO BID@799,212906/22/21 01/22/23 Acetaminophen [Tylenol Arthritis] 1,300 mg PO TID PRN 02/12/22 01/22/23 Docusate [Colace] 100 mg PO DAILY@79902/12/22 01/22/23 Furosemide [Lasix] 40 mg PO SUMOWETHSA@79902/12/22 01/22/23 Isosorbide Mononitrate ER [Imdur] 30 mg PO DAILY@0800 02/12/22 01/22/23 Valsartan 160 mg PO BID@0800,2130 02/12/22 01/22/23 Spironolactone [Aldactone] 25 mg PO DAILY@0800 10/13/22 01/22/23 polyethylene glycoL 3350 [Miralax] 17 gm PO DAILY PRN 10/13/22 01/22/23 Albuterol Inhaler [Ventolin Hfa 2 puff INHALATION RT-Q6H PRN 01/09/23 01/22/23 Inhaler] Benzonatate [Tessalon Perles] 200 mg PO Q8HR@0600,1400,2200 01/18/23 01/22/23 Lidocaine 4% Cream [Lmx 4] 1 applic TOPICAL QID PRN 01/18/23 01/22/23 Magnesium Hydroxide [Milk of 7,200 mg PO Q2D PRN 01/18/23 01/22/23 Magnesia Concentrate] Na Phos,M-B/Na Phos,Di-Ba [Fleet 133 ml RECTAL DAILY PRN 01/18/23 01/22/23 Adult] bisacodyL [Dulcolax] 10 mg RECTAL DAILY PRN 01/18/23 01/22/23 carvediloL [Coreg] 25 mg PO BID@0800,209901/18/23 01/22/23 guaiFENesin [guaiFENesin Oral 200 mg PO Q4H PRN 01/18/23 01/22/23 Solution] HYDROcodone/APAP 5-325MG [[place] 1 tab PO BID@0900,209901/22/23 01/22/23 5-325] Previous Rx's Medication Instructions Recorded fentaNYL 12MCG/HR PATCH [Duragesic 1 patch TRANSDERM Q72H #1 patch 01/13/23 12MCG/HR] Allergies Allergy/AdvReac Type Severity Reaction Status Date / Time tobramycin Allergy Unknown Itching, Verified 01/22/23 12:04 Red eyes, Inflammation(tobramycin eye drops) Review of Systems ROS Statement: Those systems with pertinent positive or pertinent negative responses have been documented in the HPI. ROS Other: All systems not noted in ROS Statement are negative. Past Medical History Past Medical History: Atrial Fibrillation, Cancer, Chest Pain / Angina, Deep Vein Thrombosis (DVT), GERD/Reflux, Hyperlipidemia, Hypertension, Memory Impairment, Osteoarthritis (OA), Prostate Disorder Additional Past Medical History / Comment(s): Paroxysmal Afib, atach, DVT R leg years ago, bilateral lower extremity edema/past R lower leg wounds/L lower leg wrapped, prostate cancer with 41 radiation treatments, BPH, chronic back and R shoulder pain, past empyema with surgery to drain/chest tube History of Any Multi-Drug Resistant Organisms: None Reported Past Surgical History: Back Surgery, Hernia Repair, Joint Replacement, Orthopedic Surgery Additional Past Surgical History / Comment(s): bilateral cataract removal, laminectomy,/back sx has 2 rods and screws, lt shoulder arthroplasty, bilateral total hips, L carpal tunnel release, umbilical hernia repair, colonoscopy, oral sx. Past Anesthesia/Blood Transfusion Reactions: Motion Sickness, Postoperative Nausea & Vomiting (PONV) Past Psychological History: Anxiety, Depression Smoking Status: Never smoker Past Alcohol Use History: None Reported Past Drug Use History: None Reported - Past Family History Father Family Medical History: COPD Additional Family Medical History / Comment(s): Father fell at the age of 87yrs- had head injury- from complications. Mother Family Medical History: Congestive Heart Failure (CHF), Osteoarthritis (OA) Additional Family Medical History / Comment(s): Mother had severe arthritis. Son(s) Family Medical History: Cancer Additional Family Medical History / Comment(s): FIBROSARCOMA BONE CANCER- AT 16 YRS OLD Daughter(s) Family Medical History: Cancer, Deep Vein Thrombosis (DVT) Additional Family Medical History / Comment(s): CERVICAL CANCER General Exam General appearance: in no apparent distress, lethargic Head exam: Present: atraumatic, normocephalic Eye exam: Present: normal appearance, PERRL ENT exam: Present: mucous membranes dry Neck exam: Present: normal inspection. Absent: tenderness, meningismus Respiratory exam: Present: normal lung sounds bilaterally. Absent: respiratory distress, wheezes Cardiovascular Exam: Present: regular rate, irregular rhythm GI/Abdominal exam: Present: soft, distended. Absent: tenderness, guarding Extremities exam: Present: pedal edema (Edema to bilateral lower extremities and left upper extremity.) Neurological exam: Present: alert, motor sensory deficit (No movement of the left arm) Psychiatric exam: Present: normal affect, normal mood Skin exam: Present: warm, dry Course Vital Signs 01/22/23 10:36 Temperature 97.7 F Pulse Rate 96 Respiratory 18 Rate Blood Pressure 126/91 O2 Sat by Pulse 97 Oximetry Medical Decision Making - Medical Decision Making Was pt. sent in by a medical professional or institution (, SALMA, CHIEF EXECUTIVE, urgent care, hospital, or residential...) When possible be specific @ -No Did you speak to anyone other than the patient for history (EMS, parent, family, police, friend...)? What history was obtained from this source @ -[Paramedics, and the patient's daughter Did you review nursing and triage notes (agree or disagree)? Why? @ -I reviewed and agree with nursing and triage notes Were old charts reviewed (outside hosp., previous admission, EMS record, old EKG, old radiological studies, urgent care reports/EKG's, residential records)? Report findings @ -No old charts were reviewed Differential Diagnosis (chest pain, altered mental status, abdominal pain women, abdominal pain men, vaginal bleeding, weakness, fever, dyspnea, syncope, headache, dizziness, GI bleed, back pain, seizure, CVA, palpatations, mental health, musculoskeletal)? @ -[Differential CVA Ischemic stroke, hemorrhagic stroke, brain tumor, atypical migraine, Wernicke's encephalopathy, seizure, multiple sclerosis, meningitis, encephalitis, hypoglycemia, Guillain-Mallory, electrolytes disturbance, myasthenia gravis.... This is not meant to be an all-inclusive list EKG interpreted by me (3pts min.). @ H fibrillation rate of 92, QRS duration 104, QTC [address] segment elevation. X-rays interpreted by me (1pt min.). @ -None done CT interpreted by me (1pt min.). @ -[CT negative for intracranial hemorrhage or mass effect U/S interpreted by me (1pt. min.). @ -None done What testing was considered but not performed or refused? (CT, X-rays, U/S, la bs)? Why? @ -None What meds were considered but not given or refused? Why? @ -None Did you discuss the management of the patient with other professionals (professionals i.e. , SALMA, CHIEF EXECUTIVE, lab, RT, psych nurse, social worker masters, podiatric technician, teacher, safety and security officer, case management director)? Give summary @ -[Dr. Sweeney Was smoking cessation discussed for >3mins.? @ -No Was critical care preformed (if so, how long)? @ -No Were there social determinants of health that impacted care today? How? (Homelessness, low income, unemployed, alcoholism, drug addiction, transportation, low edu. Level, literacy, decrease access to med. care, halfway, rehab)? @ -No Was there de-escalation of care discussed even if they declined (Discuss DNR or withdrawal of care, Hospice)? DNR status @ -DNR What co-morbidities impacted this encounter? (DM, HTN, Smoking, COPD, CAD, Cancer, CVA, ARF, Chemo, Hep., AIDS, mental health diagnosis, sleep apnea, morbid obesity)? @ Hypertension, atrial fibrillation, and immobility Was patient admitted / discharged? Hospital course, mention meds given and route, prescriptions, significant lab abnormalities, going to OR and other pertinent info. @87-year-old male presenting for evaluation of increased confusion and left arm weakness. Patient will not move the left arm at all he seems to have left-sided neglect. According to the daughter his symptoms have been present for the past several days may be a week. He is on Xarelto with history of atrial fibrillation. Head CT is negative for intracranial hemorrhage. Patient does have significant swelling in the left upper extremity which does likely related to the duration of weakness. There is no external signs of trauma, no gross deformity. Ultrasound has been ordered to rule out DVT these results are pending. Case discussed with Dr. Sweeney who will admit with neurology on consult. Undiagnosed new problem with uncertain prognosis? @ -No Drug Therapy requiring intensive monitoring for toxicity (Heparin, Nitro, Insulin, Cardizem)? @ -No Were any procedures done? @ -No Diagnosis/symptom? @ -[Left arm weakness, possible CVA Acute, or Chronic, or Acute on Chronic? @ -[Acute Uncomplicated (without systemic symptoms) or Complicated (systemic symptoms)? @ -default Side effects of treatment? @ -No Exacerbation, Progression, or Severe Exacerbation? @ -No Poses a threat to life or bodily function? How? (Chest pain, [place], [place], pneumonia, PE, COPD, DKA, ARF, appy, cholecystitis, CVA, Diverticulitis, Homicidal, Suicidal, threat to staff... and all critical care pts) @ -[Yes, CVA - Lab Data Result diagrams: 01/22/23 10:51 01/22/23 10:51 Lab Results 01/22/23 01/22/23 01/22/23 Range/Units 10:51 10:51 10:51 WBC 9.9 (3.8-10.6) k/uL RBC 4.16 L (4.30-5.90) m/uL Hgb 14.4 (13.0-17.5) gm/dL Hct 40.8 (39.0-53.0) % MCV 98.2 (80.0-100.0) fL MCH 34.7 (25.0-35.0) pg MCHC 35.3 (31.0-37.0) g/dL RDW 13.6 (11.5-15.5) % Plt Count 174 (150-450) k/uL MPV 8.6 Neutrophils % 68 % Lymphocytes % 17 % Monocytes % 8 % Eosinophils % 3 % Basophils % 0 % Neutrophils # 6.7 (1.3-7.7) k/uL Lymphocytes # 1.7 (1.0-4.8) k/uL Monocytes # 0.8 (0-1.0) k/uL Eosinophils # 0.3 (0-0.7) k/uL Basophils # 0.0 (0-0.2) k/uL PT 14.3 H (9.0-12.0) sec INR 1.4 H (<1.2) APTT 31.0 H (22.0-30.0) sec Sodium 139 (137-145) mmol/L Potassium 3.9 (3.5-5.1) mmol/L Chloride 103 (98-107) mmol/L Carbon Dioxide 28 (22-30) mmol/L Anion Gap 8 mmol/L BUN 23 H (9-20) mg/dL Creatinine 0.94 (0.66-1.25) mg/dL Est GFR (CKD-EPI)AfAm 84 (>60 ml/min/1.73 sqM) Est GFR (CKD-EPI)NonAf 73 (>60 ml/min/1.73 sqM) Glucose 162 H (74-99) mg/dL Plasma Lactic Acid Thierry (0.7-2.0) mmol/L Calcium 8.6 (8.4-10.2) mg/dL Magnesium 2.0 (1.6-2.3) mg/dL Total Bilirubin 0.9 (0.2-1.3) mg/dL AST 29 (17-59) U/L ALT 20 (4-49) U/L Alkaline Phosphatase 78 (38-126) U/L Troponin I (0.000-0.034) ng/mL NT-Pro-B Natriuret Pep 3510 pg/mL Total Protein 6.0 L (6.3-8.2) g/dL Albumin 3.4 L (3.5-5.0) g/dL Urine Color Urine Appearance (Clear) Urine pH (5.0-8.0) Ur Specific [place] (1.001-1.035) Urine Protein (Negative) Urine Glucose (UA) (Negative) Urine Ketones (Negative) Urine Blood (Negative) Urine Nitrite (Negative) Urine Bilirubin (Negative) Urine Urobilinogen (<2.0) mg/dL Ur Leukocyte Esterase (Negative) Urine RBC (0-5) /hpf Urine WBC (0-5) /hpf Urine Bacteria (None) /hpf Urine Mucus (None) /hpf 01/22/23 01/22/23 01/22/23 Range/Units 10:51 10:51 12:25 WBC (3.8-10.6) k/uL RBC (4.30-5.90) m/uL Hgb (13.0-17.5) gm/dL Hct (39.0-53.0) % MCV (80.0-100.0) fL MCH (25.0-35.0) pg MCHC (31.0-37.0) g/dL RDW (11.5-15.5) % Plt Count (150-450) k/uL MPV Neutrophils % % Lymphocytes % % Monocytes % % Eosinophils % % Basophils % % Neutrophils # (1.3-7.7) k/uL Lymphocytes # (1.0-4.8) k/uL Monocytes # (0-1.0) k/uL Eosinophils # (0-0.7) k/uL Basophils # (0-0.2) k/uL PT (9.0-12.0) sec INR (<1.2) APTT (22.0-30.0) sec Sodium (137-145) mmol/L Potassium (3.5-5.1) mmol/L Chloride (98-107) mmol/L Carbon Dioxide (22-30) mmol/L Anion Gap mmol/L BUN (9-20) mg/dL Creatinine (0.66-1.25) mg/dL Est GFR (CKD-EPI)AfAm (>60 ml/min/1.73 sqM) Est GFR (CKD-EPI)NonAf (>60 ml/min/1.73 sqM) Glucose (74-99) mg/dL Plasma Lactic Acid Thierry 1.6 (0.7-2.0) mmol/L Calcium (8.4-10.2) mg/dL Magnesium (1.6-2.3) mg/dL Total Bilirubin (0.2-1.3) mg/dL AST (17-59) U/L ALT (4-49) U/L Alkaline Phosphatase (38-126) U/L Troponin I 0.019 (0.000-0.034) ng/mL NT-Pro-B Natriuret Pep pg/mL Total Protein (6.3-8.2) g/dL Albumin (3.5-5.0) g/dL Urine Color Yellow Urine Appearance Cloudy (Clear) Urine pH 6.0 (5.0-8.0) Ur Specific [place] 1.018 (1.001-1.035) Urine Protein Negative (Negative) Urine Glucose (UA) Negative (Negative) Urine Ketones Negative (Negative) Urine Blood Large H (Negative) Urine Nitrite Negative (Negative) Urine Bilirubin Negative (Negative) Urine Urobilinogen <2.0 (<2.0) mg/dL Ur Leukocyte Esterase Moderate H (Negative) Urine RBC >182 H (0-5) /hpf Urine WBC 37 H (0-5) /hpf Urine Bacteria Moderate H (None) /hpf Urine Mucus Rare H (None) /hpf Disposition Clinical Impression: Weakness, Cerebrovascular accident (CVA), UTI (urinary tract infection) Disposition: ADMITTED IP TO THIS [facility] Condition: Stable Is patient prescribed a controlled substance at d/c from ED?: No Referrals: Jeb Sweeney MD [Primary Care Provider] - 1-2 days Time of Disposition: 14:03
[2023-01-22 11:08] LABS: INR 1.4 (<1.2); Prothrombin Time 14.3 sec (9.0-12.0)
[2023-01-22 11:22] LABS: ALT 20 U/L (4-49); AST 29 U/L (17-59); African American GFR (CKD) 84 (>60 ml/min/1.73 sqM); Albumin 3.4 g/dL (3.5-5.0); Alkaline Phosphatase 78 U/L (38-126); Anion Gap 8 mmol/L; Blood Urea Nitrogen 23 mg/dL (9-20); Calcium 8.6 mg/dL (8.4-10.2); Carbon Dioxide 28 mmol/L (22-30); Chloride 103 mmol/L (98-107); Glucose 162 mg/dL (74-99); Non-African American GFR(CKD) 73 (>60 ml/min/1.73 sqM); Potassium 3.9 mmol/L (3.5-5.1); Sodium 139 mmol/L (137-145); Total Bilirubin 0.9 mg/dL (0.2-1.3)
[2023-01-22 11:24] LABS: Basophils % (A) 0 %; Eosinophils # (A) 0.3 k/uL (0-0.7); Eosinophils % (A) 3 %; HCT 40.8 % (39.0-53.0); HGB 14.4 gm/dL (13.0-17.5); Lymphocytes # (A) 1.7 k/uL (1.0-4.8); Lymphocytes % (A) 17 %; MCH 34.7 pg (25.0-35.0); MCHC 35.3 g/dL (31.0-37.0); MCV 98.2 fL (80.0-100.0); Mean Platelet Volume 8.6; Monocytes # (A) 0.8 k/uL (0-1.0); Monocytes % (A) 8 %; Neutrophils # (A) 6.7 k/uL (1.3-7.7); Neutrophils % (A) 68 %; Platelet Count 174 k/uL (150-450); RBC 4.16 m/uL (4.30-5.90); RDW 13.6 % (11.5-15.5); WBC 9.9 k/uL (3.8-10.6)
--- NOTE | 2023-01-22 11:25 | CT ---
EXAMINATION TYPE: CT brain wo con DATE OF EXAM: 01/22/2023 COMPARISON: 01/18/2023 HISTORY: ams CT DLP: [address] of the brain was performed. The ventricles, basal cisterns and sulci overlying the cerebral convexities demonstrate mild enlargem ent. Remote insult right posterior parietal region. There is no evidence for intracranial hemorrhage or sulcal effacement. There is decreased attenuation about the periventricular white matter and deep white matter of both c erebral hemispheres, compatible with chronic small vessel ischemia. Differential diagnosis does inclu de demyelination. No mass effects are seen.No midline shift. Osseous calvarium is intact. If symptoms persist consider MRI. IMPRESSION: 1. Age related atrophic and chronic small vessel ischemic change without acute intracranial process s een at this time.
[2023-01-22 11:30] LABS: NT-Pro-B-Type Natriuretic Pept 3510 pg/mL
--- NOTE | 2023-01-22 11:52 | XR ---
EXAMINATION TYPE: XR chest 1V portable DATE OF EXAM: 01/22/2023 COMPARISON: 01/18/2023 INDICATION: Weakness TECHNIQUE: Frontal and lateral views of the chest are obtained. FINDINGS: The heart size is enlarged. The pulmonary vasculature is normal. The lungs are clear. IMPRESSION: 1. Cardiomegaly
[2023-01-22] MEDS ORDERED: fentaNYL (PF) 50 MCG/ML 2 ML AMP IVP STA (12:42)
[2023-01-22 12:47] LABS: Appearance,Urine Cloudy (Clear); Bacteria,Urine Moderate /hpf; Bilirubin,Urine Negative (Negative); Blood,Urine Large (Negative); Color,Urine Yellow; Glucose,Urine (UA) Negative (Negative); Ketones,Urine Negative (Negative); Leukocyte Esterase,Urine Moderate (Negative); Mucus,Urine Rare /hpf; Nitrite,Urine Negative (Negative); Protein,Urine Negative (Negative); RBC,Urine >182 /hpf (0-5); Specific Gravity,Urine 1.018 (1.001-1.035); Urobilinogen,Urine <2.0 mg/dL (<2.0); WBC,Urine 37 /hpf (0-5)
[2023-01-22] MEDS ORDERED: cefTRIAXone IN SWFI 1,000 MG/10 ML SYRINGE IVP STA (12:59)
[2023-01-22] MEDS ORDERED: NALOXONE 0.4 MG/ML 1 ML VIAL IV PRN (13:57)
--- NOTE | 2023-01-22 14:06 | US ---
EXAMINATION TYPE: US venous doppler duplex UE LT DATE OF EXAM: 01/22/2023 COMPARISON: NONE CLINICAL INDICATION: Male, 87 years old with history of swelling; weakness, left arm swelling, no h/o dvt, on thinners for A-fib SIDE PERFORMED: Left Left Arm: Negative for DVT unable to view proximal subclavian vein due to patient positioning IMPRESSION: No diagnostic evidence of DVT as visualized.
[2023-01-22] MEDS ORDERED: ALBUTEROL NEBULIZED 2.5 MG/3 ML INHALATION PRN (15:18)
[2023-01-22] MEDS ORDERED: LIDOCAINE 4% CREAM 5 GM TUBE TOPICAL PRN (15:18)
[2023-01-22] MEDS ORDERED: guaiFENesin SYRUP 100MG/5ML 200 MG/10 ML CUP PO PRN (15:18)
[2023-01-22] MEDS ORDERED: NITROGLYCERIN SL TABS 0.4 MG TAB SUBLINGUAL PRN (15:18)
[2023-01-22] MEDS ORDERED: polyethylene glycoL 3350 17 GM POWD.PACK PO PRN (15:18)
[2023-01-22] MEDS ORDERED: ACETAMINOPHEN TAB 500 MG TAB PO PRN (15:18)
[2023-01-22] MEDS: SODIUM CHLORIDE 0.9% 1,000 ML IV SCH (15:41)
[2023-01-22] MEDS: RIVAROXABAN 20 MG TAB PO SCH (21:48)
[2023-01-22] MEDS: diphenhydrAMINE 25 MG CAP PO SCH (21:50)
[2023-01-22] MEDS: carvediloL 12.5 MG TAB PO SCH (21:50)
[2023-01-22] MEDS: ATORVASTATIN 20 MG TAB PO SCH (21:51)
[2023-01-22] MEDS: TAMSULOSIN 0.4 MG CAP.ER.24H PO SCH (21:51)
[2023-01-22] MEDS: DULoxetine HCL 60 MG CAPSULE.DR PO SCH (21:51)
[2023-01-22] MEDS: VALSARTAN 160 MG TAB PO SCH (21:51)
[2023-01-22] MEDS: BENZONATATE 100 MG CAP PO SCH (21:52)
[2023-01-22] MEDS: HYDROcodone/APAP 5-325MG 1 EACH TAB PO SCH (21:52)
[2023-01-23] MEDS: BENZONATATE 100 MG CAP PO SCH ×3 (06:49→20:53)
[2023-01-23] MEDS: COLCHICINE 0.6 MG EACH PO SCH (07:50)
[2023-01-23] MEDS: HYDROcodone/APAP 5-325MG 1 EACH TAB PO SCH ×2 (07:50→20:54)
[2023-01-23] MEDS: VALSARTAN 160 MG TAB PO SCH ×2 (07:50→20:54)
[2023-01-23] MEDS: SPIRONOLACTONE 25 MG TAB PO SCH (07:50)
[2023-01-23] MEDS: DOCUSATE 100 MG CAP PO SCH (07:50)
[2023-01-23] MEDS: MULTIVITAMINS, THERA 1 EACH TAB PO SCH (07:50)
[2023-01-23] MEDS: TAMSULOSIN 0.4 MG CAP.ER.24H PO SCH ×2 (07:50→20:54)
[2023-01-23] MEDS: LORATADINE 10 MG TAB PO SCH (07:51)
[2023-01-23] MEDS: carvediloL 12.5 MG TAB PO SCH ×2 (07:51→20:54)
[2023-01-23] MEDS: ISOSORBIDE MONONITRATE ER 30 MG TAB.ER.24H PO SCH (07:51)
[2023-01-23] MEDS: FUROSEMIDE 40 MG TAB PO SCH (07:51)
[2023-01-23] MEDS: PANTOPRAZOLE 40 MG TABLET PO SCH (07:51)
[2023-01-23] MEDS: diphenhydrAMINE 25 MG CAP PO SCH ×2 (07:51→20:54)
[2023-01-23 08:36] LABS: HCT 42.2 % (39.0-53.0); HGB 14.3 gm/dL (13.0-17.5); MCH 33.5 pg (25.0-35.0); MCHC 33.9 g/dL (31.0-37.0); Mean Platelet Volume 8.9; Platelet Count 178 k/uL (150-450); RBC 4.26 m/uL (4.30-5.90); RDW 13.7 % (11.5-15.5); WBC 11.5 k/uL (3.8-10.6)
[2023-01-23 08:56] LABS: ALT 17 U/L (4-49); AST 29 U/L (17-59); African American GFR (CKD) >90 (>60 ml/min/1.73 sqM); Albumin 3.2 g/dL (3.5-5.0); Alkaline Phosphatase 78 U/L (38-126); Anion Gap 8 mmol/L; Blood Urea Nitrogen 20 mg/dL (9-20); Calcium 8.6 mg/dL (8.4-10.2); Carbon Dioxide 26 mmol/L (22-30); Chloride 106 mmol/L (98-107); Glucose 111 mg/dL (74-99); Non-African American GFR(CKD) 78 (>60 ml/min/1.73 sqM); Potassium 4.1 mmol/L (3.5-5.1); Sodium 140 mmol/L (137-145); Total Bilirubin 0.7 mg/dL (0.2-1.3); Total Protein 5.8 g/dL (6.3-8.2)
--- NOTE | 2023-01-23 11:25 | P.HPIM ---
History of Present Illness H&P Date: 01/22/23 Chief Complaint: Left-sided upper extremity weakness HISTORY OF PRESENT ILLNESS: This is an 87-year-old male with a previous medical history significant for hypertension and hypertensive cardio vascular disease, hyperlipidemia, history of paroxysmal atrial fibrillation on chronic anti- coagulation with Xarelto, chronic bilateral lower extremity edema also history of prostate cancer in the past status post ablation therapy history of chronic back pain and anxiety depressive disorder and was recently hospitalized at [facility] back on 01/10/2023 after he was found to have generalized weakness and he was brought into the hospital by his daughter was not able to take care of him at that time he was tested positive for COVID-19 and he was in atrial fibrillation with rapid ventricular response, he was seen and evaluated and eventually he was discharged to go to [facility] for physical therapy and rehabilitation, patient was intended to the emergency department at [facility] from the [facility] care [facility] after he was found to have TIA-like symptoms despite the fact patient is chronically anticoagulated with Xarelto had a computed tomography scan of the brain did not show evidence of acute abnormalities at that time he did have some lactose status with increased confusion and agitation, this corrected and the patient was sent back to the [facility] apparently received a phone call yesterday from his nurse in the morning stated the patient is not able to move his left upper extremity and according to the nursing staff this was not noticed until today but according to the physical therapy note this patient going on for about 24 hours, family stated that the patient was not able to move his left upper extremity since early this week, patient apparently was instructed to go to the emergency department at [facility] via EMS, had a computed tomography scan brain did not show evidence of acute infarct or bleed, venous Doppler of the left upper extremity did not show evidence of acute abnormalities, patient was found to have a urinary tract infection catheter associated, he was started on IV antibiotic in the form of Rocephin 1 g IV piggyback every 24 hours, his 12-lead EKG showed atrial fibrillation with controlled rate, his recent blood work came back negative, but because of the presentation he was admitted to the hospital with neurology consultation. REVIEW OF SYSTEMS: Constitutional: No documented fever, no chills, no night sweats. No weight change. No weakness, fatigue or lethargy. No daytime sleepiness. EENT: No headache. No blurred vision or double vision, no loss of vision. No loss of Hearing, no ringing in the ears, no dizziness. No nasal drainage or congestion. No epistaxis. No sore throat. Lungs: No shortness of breath, no cough, no sputum production. No wheezing. Reports dyspnea with activity. Cardiovascular: No chest pain, no lower extremity edema. No palpitations. No paroxysmal nocturnal dyspnea. No orthopnea. No lightheadedness or dizziness. No syncopal episodes. Abdominal: Reports abdominal pain. No nausea, vomiting. No diarrhea. No constipation. No bloody or tarry stools reports loss of appetite. Genitourinary: No dysuria, increased frequency, urgency. No urinary retention. Musculoskeletal: No myalgias. No muscle weakness, no gait dysfunction, no frequent falls. No back pain. No neck pain. Integumentary: No wounds, no lesions. No rash or pruritus. No unusual bruising. No change in hair or nails. Neurologic: No aphasia. No facial droop. No change in mentation. No head injury. No headache. No paralysis. No paresthesia. Psychiatric: No depression. No anxiety. No mood swings. Endocrine: No abnormal blood sugars. No weight change. PAST MEDICAL HISTORY: Hypertension and hypertensive cardiovascular disease. Mixed hyperlipidemia. Paroxysmal atrial fibrillation. Chronic edema both lower extremities. History of prostate cancer status post reduction therapy. Chronic back pain. Anxiety. Depression. Vascular dementia with behavioral disturbances. Gait dysfunction. History of DVT of the right lower extremity. GERD. Osteoarthritis. History of Empyema the right side status post chest tube placement and removal. ALLERGIC rhinitis. Gout. Constipation. PAST SURGICAL HISTORY: Bilateral cataract surgery. Procedure lumbar laminectomy with fusion. Left shoulder arthroplasty. Bilateral total hip arthroplasty. Left carpal tunnel release. Umbilical hernia repair. Colonoscopy. Oral surgery. SOCIAL HISTORY: Patient is a lifelong nonsmoker, he denies any alcohol ingestion, history of drug use or abuse, he lives with his daughter currently resides [facility] for physical therapy and rehabilitation. FAMILY HISTORY: Father at age of 87 from head injury and complication due to that, mother at the age of 85 from osteoarthritis as well as congestive heart failure, patient had once had an initial 16 from fibrosarcoma as well as pounds cancer, patient has 2 daughters one daughter with cervical cancer and history of DVT. PHYSICAL EXAMINATION: General: 87-year-old male laying down in bed in no apparent distress. HEENT: Head is atraumatic, normocephalic, pupils were equal round reactive to light and recommendation, extraocular muscle movement were intact, sclera nonicteric, conjunctivae were pale, mucous membranes of the mouth are somewhat dry. Neck: Supple, no JVP, decreased carotid upstroke bilaterally, no lymphade nopathy. Chest: Decreased breath sounds at the bases, few rhonchi, no expiratory wheezes, no chest wall tenderness, no intercostal retractions. Heart: First heart sound is normal, second heart sound is normal there is systolic ejection murmur 2/6 left sternal border,irregularly irregular due to atrial fibrillation. Abdomen: Soft, nontender, nondistended, positive bowel sounds. Extremities: There is +3 edema no calf tenderness DP +2 bilaterally. Neurologic examination: Patient is awake alert and oriented X 2, cranial nerves II-12 patient moves his right upper extremity and both lower extremities he is flaccid in the left upper extremity. ASSESSMENT AND PLAN: 1. Left upper extremity weakness possible subacute CVA. Patient did have a computed tomography scan of the brain that did not show evidence of acute or subacute stroke, obtain x-ray of the left shoulder, neuro check every 4 hours for the next 24 hours, neurology evaluation, patient may need to go for an MRI of the brain with and without contrast. Continue Xarelto 20 mg orally once every day and add aspirin 81 mg once every day, ultrasound of the carotids as well as echocardiogram 2. Increased edema in the left upper extremity post venous Doppler that was negative for DVT. Check x-ray of the left shoulder. 3. Hypertension and hypertensive cardiovascular disease. Continue patient on carvedilol 25 mg orally twice every day, continue patient on valsartan 160 mg orally twice every day, monitor the patient blood pressure very closely, continue also spironolactone 25 mg once every day. 4. Mixed hyperlipidemia. Continue patient on atorvastatin 20 mg once every day. 5. Chronic atrial fibrillation. Continue patient on Xarelto 20 mg once every day, continue carvedilol 25 mg orally twice every day. 6. Urinary tract infection source. Urine culture for culture continue with ceftriaxone 1 g IV piggyback every 24 hours. 7. Recent COVID-19. Recovering well. Continue supportive care with guaifenesin as well as Tessalon Perles other supportive vitamins. 8. History of prostate cancer status post radiotherapy. Continue Flomax 0.4 mg orally twice every day, currently has a Morton catheter in place. 9. Chronic diastolic heart failure. Continue patient on carvedilol 25 mg orally twice every day, valsartan 160 mg orally twice every day, continue with spironolactone 25 mg once every day, as well as Lasix 40 mg once every day except 60 mg twice every week. Monitor the patient's electrolytes magnesium regularly. Echocardiogram will be done. 10. History of gout. Continue colchicine 0.6 mg orally once every day. 11. GERD with esophagitis. Continue patient on Protonix 40 mg once every day. 12. Severe osteoarthritis of both knees with chronic pain syndrome. Continue patient on fentanyl patch 12 g every 72 hours, Crowley 5/325 g orally twice every day, monitor the patient very closely. 13. Consultation. Continue patient on MiraLAX 17 g in 8 ounces water, Colace 100 mg orally twice every day. 14. Depression continue patient on Cymbalta 60 mg orally once every day. 15. Medical debility. With regard to [facility]. 16. DO NOT RESUSCITATE okay for hospitalization 17. DVT prophylaxis. Continue patient on Xarelto 20 mg once every day. 18. GI prophylaxis. Continue patient on Protonix 40 mg daily. 19. Admit to inpatient. Estimate a length of stay 2 midnights. 20. Patient is full code. Past Medical History Past Medical History: Atrial Fibrillation, Cancer, Chest Pain / Angina, Deep Vein Thrombosis (DVT), GERD/Reflux, Hyperlipidemia, Hypertension, Memory Impairment, Osteoarthritis (OA), Prostate Disorder Additional Past Medical History / Comment(s): Paroxysmal Afib, atach, DVT R leg years ago, bilateral lower extremity edema/past R lower leg wounds/L lower leg wrapped, prostate cancer with 41 radiation treatments, BPH, chronic back and R shoulder pain, past empyema with surgery to drain/chest tube History of Any Multi-Drug Resistant Organisms: None Reported Past Surgical History: Back Surgery, Hernia Repair, Joint Replacement, Orthopedic Surgery Additional Past Surgical History / Comment(s): bilateral cataract removal, laminectomy,/back sx has 2 rods and screws, lt shoulder arthroplasty, bilateral total hips, L carpal tunnel release, umbilical hernia repair, colonoscopy, oral sx. Past Anesthesia/Blood Transfusion Reactions: Motion Sickness, Postoperative Nausea & Vomiting (PONV) Past Psychological History: Anxiety, Depression Smoking Status: Never smoker Past Alcohol Use History: None Reported Past Drug Use History: None Reported - Past Family History Father Family Medical History: COPD Additional Family Medical History / Comment(s): Father fell at the age of 87yrs- had head injury- from complications. Mother Family Medical History: Congestive Heart Failure (CHF), Osteoarthritis (OA) Additional Family Medical History / Comment(s): Mother had severe arthritis. Son(s) Family Medical History: Cancer Additional Family Medical History / Comment(s): FIBROSARCOMA BONE CANCER- AT 16 YRS OLD Daughter(s) Family Medical History: Cancer, Deep Vein Thrombosis (DVT) Additional Family Medical History / Comment(s): CERVICAL CANCER Medications and Allergies Home Medications Medication Instructions Recorded Confirmed Type Cetirizine HCl [Zyrtec] 10 mg PO DAILY@79910/11/15 01/22/23 History Tamsulosin [Flomax] 0.4 mg PO BID@799,209910/11/15 01/22/23 History Multivitamins, Thera [Multivitamin 1 tab PO DAILY@79901/16/16 01/22/23 History (formulary)] DULoxetine HCL [Cymbalta] 60 mg PO HS@212905/13/16 01/22/23 History Pantoprazole Sodium [Protonix] 20 mg PO DAILY@79905/13/16 01/22/23 History Rivaroxaban [Xarelto] 20 mg PO HS@212901/02/17 01/22/23 History Atorvastatin [Lipitor] 20 mg PO HS@209901/29/18 01/22/23 History Colchicine [Colcrys] 0.6 mg PO DAILY@79911/26/19 01/22/23 History Nitroglycerin Sl Tabs [Nitrostat] 0.4 mg SL Q5M PRN 11/26/19 01/22/23 History Furosemide [Lasix] 60 mg PO TUFR@79906/22/21 01/22/23 History diphenhydrAMINE [Benadryl] 50 mg PO BID@00,212906/22/21 01/22/23 History Acetaminophen [Tylenol Arthritis] 1,300 mg PO TID PRN 02/12/22 01/22/23 History Docusate [Colace] 100 mg PO DAILY@0800 02/12/22 01/22/23 History Furosemide [Lasix] 40 mg PO SUMOWETHSA@0800 02/12/22 01/22/23 History Isosorbide Mononitrate ER [Imdur] 30 mg PO DAILY@0800 02/12/22 01/22/23 History Valsartan 160 mg PO BID@0800,21302/12/22 01/22/23 History Spironolactone [Aldactone] 25 mg PO DAILY@0800 10/13/22 01/22/23 History polyethylene glycoL 3350 [Miralax] 17 gm PO DAILY PRN 10/13/22 01/22/23 History Albuterol Inhaler [Ventolin Hfa 2 puff INHALATION RT-Q6H PRN 01/09/23 01/22/23 History Inhaler] fentaNYL 12MCG/HR PATCH [Duragesic 1 patch TRANSDERM Q72H #1 patch 01/13/23 01/22/23 Rx 12MCG/HR] Benzonatate [Tessalon Perles] 200 mg PO Q8HR@0600,1400,2200 01/18/23 01/22/23 History Lidocaine 4% Cream [Lmx 4] 1 applic TOPICAL QID PRN 01/18/23 01/22/23 History Magnesium Hydroxide [Milk of 7,200 mg PO Q2D PRN 01/18/23 01/22/23 History Magnesia Concentrate] Na Phos,M-B/Na Phos,Di-Ba [Fleet 133 ml RECTAL DAILY PRN 01/18/23 01/22/23 Histo ry Adult] bisacodyL [Dulcolax] 10 mg RECTAL DAILY PRN 01/18/23 01/22/23 History carvediloL [Coreg] 25 mg PO BID@0800,209901/18/23 01/22/23 History guaiFENesin [guaiFENesin Oral 200 mg PO Q4H PRN 01/18/23 01/22/23 History Solution] HYDROcodone/APAP 5-325MG [Crowley 1 tab PO BID@0900,209901/22/23 01/22/23 History 5-325] Allergies Allergy/AdvReac Type Severity Reaction Status Date / Time tobramycin Allergy Unknown Itching, Verified 01/22/23 12:04 Red eyes, Inflammation(tobramycin eye drops) Physical Exam Vitals: Vital Signs Temp Pulse Resp BP Pulse Ox 01/23/23 09:11 79 18 149/82 95 01/23/23 08:11 95 01/23/23 08:00 90 18 148/85 94 L 01/23/23 06:00 81 18 134/79 96 01/23/23 02:00 92 18 146/98 96 01/22/23 21:46 88 18 128/85 97 01/22/23 18:38 98.4 F 98 17 99/70 98 01/22/23 17:11 89 15 117/97 98 01/22/23 15:42 97.7 F 84 17 126/88 97 01/22/23 15:07 103 H 16 129/103 97 Intake and Output 01/22/23 01/23/23 01/23/23 22:59 06:59 14:59 Output Total 725 Balance -725 Output: Urine 725 Other: # Bowel Movements 1 Results CBC & Chem 7: 01/23/23 06:59 01/23/23 06:59 Labs: Abnormal Lab Results - Last 24 Hours (Table) 01/22/23 01/22/23 01/22/23 Range/Units 10:51 10:51 10:51 WBC (3.8-10.6) k/uL RBC 4.16 L (4.30-5.90) m/uL PT 14.3 H (9.0-12.0) sec INR 1.4 H (<1.2) APTT 31.0 H (22.0-30.0) sec BUN 23 H (9-20) mg/dL Glucose 162 H (74-99) mg/dL Total Protein 6.0 L (6.3-8.2) g/dL Albumin 3.4 L (3.5-5.0) g/dL Urine Blood (Negative) Ur Leukocyte Esterase (Negative) Urine RBC (0-5) /hpf Urine WBC (0-5) /hpf Urine Bacteria (None) /hpf Urine Mucus (None) /hpf 01/22/23 01/23/23 01/23/23 Range/Units 12:25 06:59 06:59 WBC 11.5 H (3.8-10.6) k/uL RBC 4.26 L (4.30-5.90) m/uL PT (9.0-12.0) sec INR (<1.2) APTT (22.0-30.0) sec BUN (9-20) mg/dL Glucose 111 H (74-99) mg/dL Total Protein 5.8 L (6.3-8.2) g/dL Albumin 3.2 L (3.5-5.0) g/dL Urine Blood Large H (Negative) Ur Leukocyte Esterase Moderate H (Negative) Urine RBC >182 H (0-5) /hpf Urine WBC 37 H (0-5) /hpf Urine Bacteria Moderate H (None) /hpf Urine Mucus Rare H (None) /hpf
[2023-01-23] MEDS: ASPIRIN 81 MG PO SCH (11:52)
[2023-01-23] MEDS: SODIUM CHLORIDE 0.9% 1,000 ML IV SCH (11:53)
--- NOTE | 2023-01-23 12:09 | XR ---
Left shoulder HISTORY: Pain COMPARISON: None TECHNIQUE: 3 views left shoulder were obtained. FINDINGS: There is a left shoulder replacement. There is no fracture or dislocation. There is mild degenerative change of the AC joint. Soft tissues unremarkable. IMPRESSION: Total left shoulder without acute fracture or dislocation.
--- NOTE | 2023-01-23 13:25 | P.CNNES ---
History of Present Illness Consult date: 01/23/23 Requesting physician: Jase Kumar Reason for Consult: left arm weakness, possible CVA History of Present Illness: This is a 87-year-old gentleman with history of atrial fibrillation on xarelto who presents to the emergency department because of confusion and left arm weakness. Some of the history is obtained from the patient's daughter (Noemi) via phone. Per the daughter is seems that the patient had the left arm weakness since this Wednesday which was on 01/18/2023 he presented to our facility and according to the daughter he had some abnormal postural bilateral upper extremity was some twitching it was felt possibly that is a activity was due to tramadol that she was notified by the ED team then he was discharged back to his nursing facility in [facility]. She stated that her daughter seen the patient at the nursing facility this past and she knows to the left arm was hanging on the side and she had to bring it and so unsure if he continued to have left arm weakness from the 01/18/2023 till now. Unsure if his left-sided weakness improved and got worse. He is on Xarelto for his A. fib. The daughter denies that the patient has any history of strokes or seizures in the past. Per the ED team the patient had left arm weakness is seems the patient has been having these symptoms several days may be up to a week and he is on Xarelto he also has edema of the left upper extremity. I assume no IV TPA since patient had the symptoms for a couple days and he is on Xarelto and the risks outweigh the benefit. Some of the workup during his hospital visit consisted of: Analysis seems suggestive of underlying ureter tract infection CT of the head is reported as age-related atrophy can chronic small vessel ischemic change without acute intracranial process seen at this time. I personally reviewed the CT and I felt the patient has an old lacunar over the right thalamus. I also feel the patient has subacute hypodensity changes over the right frontal region. I felt the patient had same changes on 01/18/2023 CT Review of Systems The pertinent positive and negative as per HPI. Past Medical History Past Medical History: Atrial Fibrillation, Cancer, Chest Pain / Angina, Deep Vein Thrombosis (DVT), GERD/Reflux, Hyperlipidemia, Hypertension, Memory Impairment, Osteoarthritis (OA), Prostate Disorder Additional Past Medical History / Comment(s): Paroxysmal Afib, atach, DVT R leg years ago, bilateral lower extremity edema/past R lower leg wounds/L lower leg wrapped, prostate cancer with 41 radiation treatments, BPH, chronic back and R shoulder pain, past empyema with surgery to drain/chest tube History of Any Multi-Drug Resistant Organisms: None Reported Past Surgical History: Back Surgery, Hernia Repair, Joint Replacement, Orthopedic Surgery Additional Past Surgical History / Comment(s): bilateral cataract removal, laminectomy,/back sx has 2 rods and screws, lt shoulder arthroplasty, bilateral total hips, L carpal tunnel release, umbilical hernia repair, colonoscopy, oral sx. Past Anesthesia/Blood Transfusion Reactions: Motion Sickness, Postoperative Nausea & Vomiting (PONV) Past Psychological History: Anxiety, Depression Smoking Status: Never smoker Past Alcohol Use History: None Reported Past Drug Use History: None Reported - Past Family History Father Family Medical History: COPD Additional Family Medical History / Comment(s): Father fell at the age of 87yrs- had head injury- from complications. Mother Family Medical History: Congestive Heart Failure (CHF), Osteoarthritis (OA) Additional Family Medical History / Comment(s): Mother had severe arthritis. Son(s) Family Medical History: Cancer Additional Family Medical History / Comment(s): FIBROSARCOMA BONE CANCER- AT 16 YRS OLD Daughter(s) Family Medical History: Cancer, Deep Vein Thrombosis (DVT) Additional Family Medical History / Comment(s): CERVICAL CANCER Medications and Allergies Home Medications Medication Instructions Recorded Confirmed Type Cetirizine HCl [Zyrtec] 10 mg PO DAILY@0800 10/11/15 01/22/23 History Tamsulosin [Flomax] 0.4 mg PO BID@0800,2100 10/11/15 01/22/23 History Multivitamins, Thera [Multivitamin 1 tab PO DAILY@0800 01/16/16 01/22/23 History (formulary)] DULoxetine HCL [Cymbalta] 60 mg PO HS@212905/13/16 01/22/23 History Pantoprazole Sodium [Protonix] 20 mg PO DAILY@0800 05/13/16 01/22/23 History Rivaroxaban [Xarelto] 20 mg PO HS@212901/02/17 01/22/23 History Atorvastatin [Lipitor] 20 mg PO HS@2100 01/29/18 01/22/23 History Colchicine [Colcrys] 0.6 mg PO DAILY@0800 11/26/19 01/22/23 History Nitroglycerin Sl Tabs [Nitrostat] 0.4 mg SL Q5M PRN 11/26/19 01/22/23 History Furosemide [Lasix] 60 mg PO TUFR@0800 06/22/21 01/22/23 History diphenhydrAMINE [Benadryl] 50 mg PO BID@0800,2130 06/22/21 01/22/23 History Acetaminophen [Tylenol Arthritis] 1,300 mg PO TID PRN 02/12/22 01/22/23 History Docusate [Colace] 100 mg PO DAILY@0800 02/12/22 01/22/23 History Furosemide [Lasix] 40 mg PO SUMOWETHSA@0800 02/12/22 01/22/23 History Isosorbide Mononitrate ER [Imdur] 30 mg PO DAILY@0800 02/12/22 01/22/23 History Valsartan 160 mg PO BID@0800,2130 02/12/22 01/22/23 History Spironolactone [Aldactone] 25 mg PO DAILY@0800 10/13/22 01/22/23 History polyethylene glycoL 3350 [Miralax] 17 gm PO DAILY PRN 10/13/22 01/22/23 History Albuterol Inhaler [Ventolin Hfa 2 puff INHALATION RT-Q6H PRN 01/09/23 01/22/23 History Inhaler] fentaNYL 12MCG/HR PATCH [Duragesic 1 patch TRANSDERM Q72H #1 patch 01/13/23 01/22/23 Rx 12MCG/HR] Benzonatate [Tessalon Perles] 200 mg PO Q8HR@0600,1400,2200 01/18/23 01/22/23 History Lidocaine 4% Cream [Lmx 4] 1 applic TOPICAL QID PRN 01/18/23 01/22/23 History Magnesium Hydroxide [Milk of 7,200 mg PO Q2D PRN 01/18/23 01/22/23 History Magnesia Concentrate] Na Phos,M-B/Na Phos,Di-Ba [Fleet 133 ml RECTAL DAILY PRN 01/18/23 01/22/23 History Adult] bisacodyL [Dulcolax] 10 mg RECTAL DAILY PRN 01/18/23 01/22/23 History carvediloL [Coreg] 25 mg PO BID@0800,209901/18/23 01/22/23 History guaiFENesin [guaiFENesin Oral 200 mg PO Q4H PRN 01/18/23 01/22/23 History Solution] HYDROcodone/APAP 5-325MG [Petaca 1 tab PO BID@0900,209901/22/23 01/22/23 History 5-325] Allergies Allergy/AdvReac Type Severity Reaction Status Date / Time tobramycin Allergy Unknown Itching, Verified 01/22/23 12:04 Red eyes, Inflammation(tobramycin eye drops) Physical Examination - Vital Signs Vital Signs: Vital Signs Temp Pulse Resp BP Pulse Ox 01/23/23 11:55 98.1 F 81 20 199/78 96 01/23/23 10:56 96 18 151/96 90 L 01/23/23 09:11 79 18 149/82 95 01/23/23 08:11 95 01/23/23 08:00 90 18 148/85 94 L 01/23/23 06:00 81 18 134/79 96 01/23/23 02:00 92 18 146/98 96 01/22/23 21:46 88 18 128/85 97 01/22/23 18:38 98.4 F 98 17 99/70 98 01/22/23 17:11 89 15 117/97 98 01/22/23 15:42 97.7 F 84 17 126/88 97 01/22/23 15:07 103 H 16 129/103 97 Intake and Output 01/22/23 01/23/23 01/23/23 22:59 06:59 14:59 Output Total 725 875 Balance -725 -875 Output: Urine 725 875 Uretheral (Morton) 875 Other: # Bowel Movements 1 GENERAL: The patient is lying in bed and is not in acute distress. NEUROLOGICAL: Higher mental function: The patient is awake, alert, oriented to self and stated he was in hospital. Patient is following simple commands. No aphasia from limited language and no neglect. Cranial nerves: The pupils are round, equal and reactive to light. Visual rahman are full to confrontation throughout. Extraocular movement is intact no nystagmus is noted. Facial sensation is normal to touch throughout. The facial strength is normal throughout. Hearing is moderately to severely decreased bilaterally to hand rub. Tongue is midline and moved [id number] without any difficulty. No dysarthria is noted. Motor: The strength is 0/5 in left upper extremity. He has edema in the left upper extremity. Lifting left lower above gravity and hard to appreciated full strength because of cooperation. Right sided is 5/5. Decrease tone over the left upper. Normal bulk other than edema over the left upper extremity. Cerebellum: Normal finger to nose over the right and unable to assess left because of weakness. Sensation: Sensation is normal to touch throughout. Reflexes (right/left): 2+ over the right. 1+ in lowers. Left upper hard to asses since edema. Plantars are mute bilaterally. Results - Laboratory Findings CBC and BMP: 01/23/23 06:59 01/23/23 06:59 Abnormal Lab Findings: Abnormal Labs 01/22/23 01/22/23 01/22/23 10:51 10:51 10:51 WBC RBC 4.16 L PT 14.3 H INR 1.4 H APTT 31.0 H BUN 23 H Glucose 162 H Total Protein 6.0 L Albumin 3.4 L Urine Blood Ur Leukocyte Esterase Urine RBC Urine WBC Urine Bacteria Urine Mucus 01/22/23 01/23/23 01/23/23 12:25 06:59 06:59 WBC 11.5 H RBC 4.26 L PT INR APTT BUN Glucose 111 H Total Protein 5.8 L Albumin 3.2 L Urine Blood Large H Ur Leukocyte Esterase Moderate H Urine RBC >182 H Urine WBC 37 H Urine Bacteria Moderate H Urine Mucus Rare H Assessment and Plan Assessment: This is an 87-year-old gentleman who presents to the emergency department because of the altered mental status and left upper extremity weakness. According to the daughter he has been having left upper extremity weakness since 01/18/2023 and the kids are facility but it seems like he had abnormal posture of the bilateral upper and some twitching and was notified that was probably due to the tramadol then was discharged back to the nursing facility. During this examination he had significant left upper extremity weakness with edema as well as has likely underlying urinary tract infection. On CT of the head I felt the patient had the old lacunar over right thalamus but I felt the patient had the subacute changes over the right frontal but that was also seen on 01/18/2023 CT in my opinion Left upper extremity weakness: Suspect subacute ischemic stroke. No IV TPA since has had the symptoms for dates as well as is on anticoagulation and the risk outweighed the benefit. Altered mental status seems due to likely underlying acute urinary tract infection Left upper extremity edema History of atrial fibrillation on Xarelto Plan: MRI the brain, carotid duplex, 2-D echo was ordered by the primary team is pending Patient is on aspirin 81 mg, Xarelto 20 mode gram daily at bedtime as well as the Lipitor 20 mg. I ordered a routine EEG because of recent episode of twitching on 01/18/2023 to rule out any underlying seizure discharges Ordered hemoglobin A1c, vitamin B12, folate as well as a ammonia level since the episode of confusion She had a recent TSH on 01/11/2023 which was normal. I'll not get a repeat TSH. Ordered the fasting lipid panel for tomorrow in the morning. Continue neuro checks Cardiac monitoring PT OT and RECORD LIBRARIAN are consulted We'll defer the rest of the medical management to primary team For DVT prophylaxis the patient is on Xarelto. Plan discussed with the patient's daughter (Noemi) via phone. Thank you for the consultation. Time with Patient: Greater than 30
--- NOTE | 2023-01-23 13:51 | US ---
EXAMINATION TYPE: US carotid duplex BILAT DATE OF EXAM: 01/23/2023 COMPARISON: NONE CLINICAL INDICATION: Male, 87 years old with history of CVA; CVA TECHNIQUE: Carotid duplex ultrasound examination. Indirect Doppler criteria was utilized. FINDINGS: EXAM MEASUREMENTS: RIGHT: Peak Systolic Velocity (PSV) cm/sec ----- Right CCA: 44.1 ----- Right ICA: 152 ----- Right ECA: 108 ICA/CCA ratio: 3.5 RIGHT: End Diastole cm/sec ----- Right CCA: 7.4 ----- Right ICA: 35.3 ----- Right ECA: 14.3 LEFT: Peak Systolic Velocity (PSV) cm/sec ----- Left CCA: 43.6 ----- Left ICA: 59.7 ----- Left ECA: 76.6 ICA/CCA ratio: 1.4 LEFT: End Diastole cm/sec ----- Left CCA: 1.9 ----- Left ICA: 12.9 ----- Left ECA: 0.0 VERTEBRALS (direction of flow): Right Vertebral: unable to visualize Left Vertebral: unable to visualize Rhythm: Normal SHOWROOM SALESPERSON NOTES: Moderate plaque right bifurcation. Mild plaque left bifurcation. Increased veloci ties right ICA IMPRESSION: 1. Moderate plaque formation involving the right carotid bulb and proximal internal carotid artery re sulting in a moderate 50-69% stenosis. 2. Mild plaque formation in the left carotid bulb and proximal internal carotid artery resulting in m ild stenosis. Criteria for Assigning % of Stenosis / Diameter reduction (Estimation based on the indirect measurements of the internal carotid artery velocities (ICA PSV). 1. Normal (no stenosis)=ICA PSV < 125 cm/s: ratio < 2.0: ICA EDV<40 cm/s. 2. Less than 50% stenosis=ICA PSV < 125 cm/s: ratio < 2.0: ICA EDV<40 cm/s. 3. 50 to 69% stenosis=ICA PSV of 125 to 230 cm/s: ration 2.0 ? 4.0: ICA EDV 40-100 cm/s. 4. Greater than 70% stenosis to near occlusion= ICA PSV > 230 cm/s: ratio > 4.0: ICA EDV > 100 cm/s. 5. Near occlusion= ICA PSV velocities may be low or undetectable: variable ratio and ICA EDV. 6. Total occlusion=unable to detect flow.
--- NOTE | 2023-01-23 13:56 | P.PN ---
Subjective Progress Note Date: 01/23/23 HISTORY OF PRESENT ILLNESS: This is an 87-year-old male with a previous medical history signifi cant for hypertension and hypertensive cardio vascular disease, hyperlipidemia, history of paroxysmal atrial fibrillation on chronic anti-coagulation with Xarelto, chronic bilateral lower extremity edema also history of prostate cancer in the past status post ablation therapy history of chronic back pain and anxiety depressive disorder and was recently hospitalized at [facility] back on 01/10/2023 after he was found to have generalized weakness and he was brought into the hospital by his daughter was not able to take care of him at that time he was tested positive for COVID-19 and he was in atrial fibrillation with rapid ventricular response, he was seen and evaluated and eventually he was discharged to go to [facility] for physical therapy and rehabilitation, patient was intended to the emergency department at [facility] from the [facility] after he was found to have TIA-like symptoms despite the fact patient is chronically anticoagulated with Xarelto had a computed tomography scan of the brain did not show evidence of acute abnormalities at that time he d id have some lactose status with increased confusion and agitation, this corrected and the patient was sent back to the [facility] apparently received a phone call yesterday from his nurse in the morning stated the patient is not able to move his left upper extremity and according to the nursing staff this was not noticed until today but according to the physical therapy note this patient going on for about 24 hours, family stated that the patient was not able to move his left upper extremity since early this week, patient apparently was instructed to go to the emergency department at [facility] via EMS, had a computed tomography scan brain did not show evidence of acute infarct or blee d, venous Doppler of the left upper extremity did not show evidence of acute abnormalities, patient was found to have a urinary tract infection catheter associated, he was started on IV antibiotic in the form of Rocephin 1 g IV piggyback every 24 hours, his 12-lead EKG showed atrial fibrillation with controlled rate, his recent blood work came back negative, but because of the presentation he was admitted to the hospital with neurology consultation. 01/23: Patient is laying down in bed does not appear to be in acute distress, he continues to be at baseline, he continues to have paralysis of the left upper extremity, computed tomography scan of the brain did not show evidence of acute stroke, ultrasound of the carotids will be obtained, echocardiogram will be obtained, continue Xarelto, continue and add aspirin 81 mg once every day, neurology consultation, MRI of the brain with and without contrast, we will follow-up with the patient very closely, physical therapy and occupational thera py evaluation, speech therapy evaluation as well. REVIEW OF SYSTEMS: Constitutional: No documented fever, no chills, no night sweats. No weight change. No weakness, fatigue or lethargy. No daytime sleepiness. EENT: No headache. No blurred vision or double vision, no loss of vision. No loss of Hearing, no ringing in the ears, no dizziness. No nasal drainage or congestion. No epistaxis. No sore throat. Lungs: No shortness of breath, no cough, no sputum production. No wheezing. Reports dyspnea with activity. Cardiovascular: No chest pain, no lower extremity edema. No palpitations. No paroxysmal nocturnal dyspnea. No orthopnea. No lightheadedness or dizziness. No syncopal episodes. Abdominal: Reports abdominal pain. No nausea, vomiting. No diarrhea. No constipation. No bloody or tarry stools reports loss of appetite. Genitourinary: No dysuria, increased frequency, urgency. No urinary retention. Musculoskeletal: No myalgias. No muscle weakness, no gait dysfunction, no frequent falls. No back pain. No neck pain. Integumentary: No wounds, no lesions. No rash or pruritus. No unusual bruising. No change in hair or nails. Neurologic: No aphasia. No facial droop. No change in mentation. No head injury. No headache. No paralysis. No paresthesia. Psychiatric: No depression. No anxiety. No mood swings. Endocrine: No abnormal blood sugars. No weight change. PHYSICAL EXAMINATION: General: 87-year-old male laying down in bed in no apparent distress. HEENT: Head is atraumatic, normocephalic, pupils were equal round reactive to light and recommendation, extraocular muscle movement were intact, sclera nonicteric, conjunctivae were pale, mucous membranes of the mouth are somewhat dry. Neck: Supple, no JVP, decreased carotid upstroke bilaterally, no lymphadenopathy. Chest: Decreased breath sounds at the bases, few rhonchi, no expiratory wheezes, no chest wall tenderness, no intercostal retractions. Heart: First heart sound is normal, second heart sound is normal there is systolic ejection murmur 2/6 left sternal border,irregularly irregular due to atrial fibrillation. Abdomen: Soft, nontender, nondistended, positive bowel sounds. Extremities: There is +3 edema no calf tenderness DP +2 bilaterally. Neurologic examination: Patient is awake alert and oriented X 2, cranial nerves II-12 patient moves his right upper extremity and both lower extremities he is flaccid in the left upper extremity. ASSESSMENT AND PLAN: 1. Left upper extremity weakness possible subacute CVA Patient did have a computed tomography scan of the brain that did not show evidence of acute or subacute stroke, obtain x-ray of the left shoulder, neuro check every 4 hours for the next 24 hours, neurology evaluation, patient may need to go for an MRI of the brain with and without contrast. Continue Xarelto 20 mg orally once every day and add aspirin 81 mg once every day, ultrasound of the carotids as well as echocardiogram 2. Increased edema in the left upper extremity post venous Doppler that was negative for DVT. Check x-ray of the left shoulder. 3. Hypertension and hypertensive cardiovascular disease. Continue patient on carvedilol 25 mg orally twice every day, continue patient on valsartan 160 mg orally twice every day, monitor the patient blood pressure very closely, continue also spironolactone 25 mg once every day. 4. Mixed hyperlipidemia. Continue patient on atorvastatin 20 mg once every day. 5. Chronic atrial fibrillation. Continue patient on Xarelto 20 mg once every day, continue carvedilol 25 mg orally twice every day. 6. Urinary tract infection source. Urine culture for culture continue with ceftriaxone 1 g IV piggyback every 24 hours. 7. Recent COVID-19. Recovering well. Continue supportive care with guaife nesin as well as Tessalon Perles other supportive vitamins. 8. History of prostate cancer status post radiotherapy. Continue Flomax 0.4 mg orally twice every day, currently has a Morton catheter in place. 9. Chronic diastolic heart failure. Continue patient on carvedilol 25 mg orally twice every day, valsartan 160 mg orally twice every day, continue with spironolactone 25 mg once every day, as well as Lasix 40 mg once every day except 60 mg twice every week. Monitor the patient's electrolytes magnesium regularly. Echocardiogram will be done. 10. History of gout. Continue colchicine 0.6 mg orally once every day. 11. GERD with esophagitis. Continue patient on Protonix 40 mg once every day. 12. Severe osteoarthritis of both knees with chronic pain syndrome. Continue patient on fentanyl patch 12 g every 72 hours, Haven 5/325 g orally twice every day, monitor the patient very closely. 13. Consultation. Continue patient on MiraLAX 17 g in 8 ounces water, Colace 100 mg orally twice every day. 14. Depression continue patient on Cymbalta 60 mg orally once every day. 15. Medical debility. With regard to go back to [facility] for physical therapy and rehabilitation. 16. DO NOT RESUSCITATE okay for hospitalization 17. DVT prophylaxis. Continue patient on Xarelto 20 mg once every day. 18. GI prophylaxis. Continue patient on Protonix 40 mg daily. Objective - Vital Signs Vital signs: Vital Signs Temp 98.4 F 01/22/23 18:38 Pulse 96 01/23/23 10:56 Resp 18 01/23/23 10:56 BP 151/96 01/23/23 10:56 Pulse Ox 90 L 01/23/23 10:56 FiO2 Intake & Output 01/22/23 01/23/23 01/23/23 18:59 06:59 18:59 Output Total 725 Balance -725 Weight 122.47 kg Output: Urine 725 Other: # Bowel Movements 1 - Labs CBC & Chem 7: 01/23/23 06:59 01/23/23 06:59 Labs: Abnormal Lab Results - Last 24 Hours (Table) 01/22/23 01/23/23 01/23/23 Range/Units 12:25 06:59 06:59 WBC 11.5 H (3.8-10.6) k/uL RBC 4.26 L (4.30-5.90) m/uL Glucose 111 H (74-99) mg/dL Total Protein 5.8 L (6.3-8.2) g/dL Albumin 3.2 L (3.5-5.0) g/dL Urine Blood Large H (Negative) Ur Leukocyte Esterase Moderate H (Negative) Urine RBC >182 H (0-5) /hpf Urine WBC 37 H (0-5) /hpf Urine Bacteria Moderate H (None) /hpf Urine Mucus Rare H (None) /hpf
[2023-01-23] MEDS: DULoxetine HCL 60 MG CAPSULE.DR PO SCH (20:54)
[2023-01-23] MEDS: RIVAROXABAN 20 MG TAB PO SCH (20:54)
[2023-01-23] MEDS: ATORVASTATIN 20 MG TAB PO SCH (20:54)
[2023-01-24] MEDS: BENZONATATE 100 MG CAP PO SCH ×3 (07:00→20:19)
[2023-01-24] MEDS: COLCHICINE 0.6 MG EACH PO SCH (09:28)
[2023-01-24] MEDS: ASPIRIN 81 MG PO SCH (09:29)
[2023-01-24] MEDS: FUROSEMIDE 40 MG TAB PO SCH (09:29)
[2023-01-24] MEDS: VALSARTAN 160 MG TAB PO SCH ×2 (09:29→20:19)
[2023-01-24] MEDS: SPIRONOLACTONE 25 MG TAB PO SCH (09:29)
[2023-01-24] MEDS: ISOSORBIDE MONONITRATE ER 30 MG TAB.ER.24H PO SCH (09:29)
[2023-01-24] MEDS: diphenhydrAMINE 25 MG CAP PO SCH ×2 (09:29→20:18)
[2023-01-24] MEDS: PANTOPRAZOLE 40 MG TABLET PO SCH (09:30)
[2023-01-24] MEDS: HYDROcodone/APAP 5-325MG 1 EACH TAB PO SCH ×2 (09:30→20:19)
[2023-01-24] MEDS: MULTIVITAMINS, THERA 1 EACH TAB PO SCH (09:30)
[2023-01-24] MEDS: TAMSULOSIN 0.4 MG CAP.ER.24H PO SCH ×2 (09:30→20:19)
[2023-01-24] MEDS: DOCUSATE 100 MG CAP PO SCH (09:30)
[2023-01-24] MEDS: carvediloL 12.5 MG TAB PO SCH ×2 (09:30→20:18)
[2023-01-24] MEDS: LORATADINE 10 MG TAB PO SCH (09:30)
[2023-01-24] MEDS: SODIUM CHLORIDE 0.9% 1,000 ML IV SCH (10:37)
--- NOTE | 2023-01-24 10:42 | P.PN ---
Subjective Progress Note Date: 01/24/23 HISTORY OF PRESENT ILLNESS: This is an 87-year-old male with a previous medical history signifi cant for hypertension and hypertensive cardio vascular disease, hyperlipidemia, history of paroxysmal atrial fibrillation on chronic anti-coagulation with Xarelto, chronic bilateral lower extremity edema also history of prostate cancer in the past status post ablation therapy history of chronic back pain and anxiety depressive disorder and was recently hospitalized at [facility] back on 01/10/2023 after he was found to have generalized weakness and he was brought into the hospital by his daughter was not able to take care of him at that time he was tested positive for COVID-19 and he was in atrial fibrillation with rapid ventricular response, he was seen and evaluated and eventually he was discharged to go to [facility] for physical therapy and rehabilitation, patient was intended to the emergency department at [facility] from the [facility] after he was found to have TIA-like symptoms despite the fact patient is chronically anticoagulated with Xarelto had a computed tomography scan of the brain did not show evidence of acute abnormalities at that time he d id have some lactose status with increased confusion and agitation, this corrected and the patient was sent back to the [facility] apparently received a phone call yesterday from his nurse in the morning stated the patient is not able to move his left upper extremity and according to the nursing staff this was not noticed until today but according to the physical therapy note this patient going on for about 24 hours, family stated that the patient was not able to move his left upper extremity since early this week, patient apparently was instructed to go to the emergency department at [facility] via EMS, had a computed tomography scan brain did not show evidence of acute infarct or blee d, venous Doppler of the left upper extremity did not show evidence of acute abnormalities, patient was found to have a urinary tract infection catheter associated, he was started on IV antibiotic in the form of Rocephin 1 g IV piggyback every 24 hours, his 12-lead EKG showed atrial fibrillation with controlled rate, his recent blood work came back negative, but because of the presentation he was admitted to the hospital with neurology consultation. 01/23: Patient is laying down in bed does not appear to be in acute distress, he continues to be at baseline, he continues to have paralysis of the left upper extremity, computed tomography scan of the brain did not show evidence of acute stroke, ultrasound of the carotids will be obtained, echocardiogram will be obtained, continue Xarelto, continue and add aspirin 81 mg once every day, neurology consultation, MRI of the brain with and without contrast, we will follow-up with the patient very closely, physical therapy and occupational thera py evaluation, speech therapy evaluation as well. 01/24: Patient is laying down in bed in no apparent distress, he denies any chest pain, shortness breath, he continues to have flaccid left upper extremity, history of culture is negative, continue antibiotic for now, patient had his culture sent after the antibiotic was given, monitor the patient symptoms very closely, patient is scheduled to go for MRI of the brain with and without CAD, ultrasound of the carotid which evidence of moderate right internal carotid stenosis 50-60%, mild left internal carotid artery stenosis, echocardiogram still pending, monitor the patient closely. Continue Xarelto 20 mg once every day, continue aspirin 81 mg once every day, continue with neuro check, neurology is following. REVIEW OF SYSTEMS: Constitutional: No documented fever, no chills, no night sweats. No weight change. No weakness, fatigue or lethargy. No daytime sleepiness. EENT: No headache. No blurred vision or double vision, no loss of vision. No loss of Hearing, no ringing in the ears, no dizziness. No nasal drainage or congestion. No epistaxis. No sore throat. Lungs: No shortness of breath, no cough, no sputum production. No wheezing. Reports dyspnea with activity. Cardiovascular: No chest pain, no lower extremity edema. No palpitations. No paroxysmal nocturnal dyspnea. No orthopnea. No lightheadedness or dizziness. No syncopal episodes. Abdominal: Reports abdominal pain. No nausea, vomiting. No diarrhea. No con stipation. No bloody or tarry stools reports loss of appetite. Genitourinary: No dysuria, increased frequency, urgency. No urinary retention. Musculoskeletal: No myalgias. No muscle weakness, no gait dysfunction, no frequent falls. No back pain. No neck pain. Integumentary: No wounds, no lesions. No rash or pruritus. No unusual bruising. No change in hair or nails. Neurologic: No aphasia. No facial droop. No change in mentation. No head injury. No headache. No paralysis. No paresthesia. Psychiatric: No depression. No anxiety. No mood swings. Endocrine: No abnormal blood sugars. No weight change. PHYSICAL EXAMINATION: General: 87-year-old male laying down in bed in no apparent distress. HEENT: Head is atraumatic, normocephalic, pupils were equal round reactive to light and recommendation, extraocular muscle movement were intact, sclera nonicteric, conjunctivae were pale, mucous membranes of the mouth are somewhat dry. Neck: Supple, no JVP, decreased carotid upstroke bilaterally, no lymphadenopathy. Chest: Decreased breath sounds at the bases, few rhonchi, no expiratory wheezes, no chest wall tenderness, no intercostal retractions. Heart: First heart sound is normal, second heart sound is normal there is systolic ejection murmur 2/6 left sternal border,irregularly irregular due to atrial fibrillation. Abdomen: Soft, nontender, nondistended, positive bowel sounds. Extremities: There is +3 edema no calf tenderness DP +2 bilaterally. Neurologic examination: Patient is awake alert and oriented X 2, cranial nerves II-12 patient moves his right upper extremity and both lower extremities he is flaccid in the left upper extremity. ASSESSMENT AND PLAN: 1. Left upper extremity weakness possible subacute CVA Patient did have a computed tomography scan of the brain that did not show evidence of acute or subacute stroke, obtain x-ray of the left shoulder, neuro check every 4 hours for the next 24 hours, neurology evaluation, patient may need to go for an MRI of the brain with and without contrast. Continue Xarelto 20 mg orally once every day and add aspirin 81 mg once every day, ultrasound of the carotids as well as echocardiogram 2. Increased edema in the left upper extremity post venous Doppler that was negative for DVT. Check x-ray of the left shoulder. 3. Hypertension and hypertensive cardiovascular disease. Continue patient on carvedilol 25 mg orally twice every day, continue patient on valsartan 160 mg orally twice every day, monitor the patient blood pressure very closely, continue also spironolactone 25 mg once every day. 4. Mixed hyperlipidemia. Continue patient on atorvastatin 20 mg once every day. 5. Chronic atrial fibrillation. Continue patient on Xarelto 20 mg once every day, continue carvedilol 25 mg orally twice every day. 6. Urinary tract infection source. Urine culture for culture continue with ceftriaxone 1 g IV piggyback every 24 hours. 7. Recent COVID-19. Recovering well. Continue supportive care with guaifenesin as well as Tessalon Perles other supportive vitamins. 8. History of prostate cancer status post radiotherapy. Continue Flomax 0.4 mg orally twice every day, currently has a Morton catheter in place. 9. Chronic diastolic heart failure. Continue patient on carvedilol 25 mg orally twice every day, valsartan 160 mg orally twice every day, continue with spironolactone 25 mg once every day, as well as Lasix 40 mg once every day except 60 mg twice every week. Monitor the patient's electrolytes magnesium regularly. Echocardiogram will be done. 10. History of gout. Continue colchicine 0.6 mg orally once every day. 11. GERD with esophagitis. Continue patient on Protonix 40 mg once every day. 12. Severe osteoarthritis of both knees with chronic pain syndrome. Continue patient on fentanyl patch 12 g every 72 hours, [place] 5/325 g orally twice every day, monitor the patient very closely. 13. Consultation. Continue patient on MiraLAX 17 g in 8 ounces water, Colace 100 mg orally twice every day. 14. Depression continue patient on Cymbalta 60 mg orally once every day. 15. Medical debility. With regard to go back to [facility] for physical therapy and rehabilitation. 16. DO NOT RESUSCITATE okay for hospitalization 17. DVT prophylaxis. Continue patient on Xarelto 20 mg once every day. 18. GI prophylaxis. Continue patient on Protonix 40 mg daily. Objective - Vital Signs Vital signs: Vital Signs Temp 98.2 F 01/24/23 04:00 Pulse 89 01/24/23 04:00 Resp 16 01/24/23 04:00 BP 157/79 01/24/23 04:00 Pulse Ox 95 01/24/23 08:38 FiO2 Intake & Output 01/23/23 01/24/23 01/24/23 18:59 06:59 18:59 Intake Total 600 Output Total 1675 425 Balance -1670 175 Intake: Intake, IV Titration 60 Amount Sodium Chloride 0.9% 1, 60 000 ml @ 10 mls/hr IV . Q[facility]H [facility] Rx#:[id number] Oral 540 Output: Urine 1627 425 Uretheral (Morton) 4162 425 Other: Voiding Method Indwelling Catheter - Labs CBC & Chem 7: 01/23/23 06:59 01/23/23 06:59 Labs: Microbiology - Last 24 Hours (Table) 01/22/23 13:20 Blood Culture - Preliminary Blood 01/22/23 13:10 Blood Culture - Preliminary Blood 01/22/23 13:08 Urine Culture - Final Urine,Catheterized
--- NOTE | 2023-01-24 11:37 | P.PN ---
Subjective Progress Note Date: 01/24/23 I am following-up with patient and he is about the same. He continues to have left arm weakness. Objective - Vital Signs Vital signs: Vital Signs Temp 98.0 F 01/24/23 09:13 Pulse 87 01/24/23 10:12 Resp 18 01/24/23 10:12 BP 165/100 01/24/23 09:13 Pulse Ox 97 01/24/23 09:13 FiO2 Intake & Output 01/23/23 01/24/23 01/24/23 18:59 06:59 18:59 Intake Total 600 0 Output Total 1675 425 325 Balance -1675 175 -325 Intake: Intake, IV Titration 60 Amount Sodium Chloride 0.9% 1, 60 000 ml @ 10 mls/hr IV . Q24H [facility] Rx#:[id number] Oral 540 0 Output: Urine 1675 425 325 Uretheral (Morton) 1475 425 Other: Voiding Method Indwelling Catheter Indwelling Catheter - Exam GENERAL: The patient is lying in bed and is not in acute distress. NEUROLOGICAL: Higher mental function: The patient is awake, alert, oriented to self and stated he was in hospital. Patient is following simple commands. No aphasia from limited language and no neglect. Cranial nerves: The pupils are round, equal and reactive to light. Visual rahman are full to confrontation throughout. Extraocular movement is intact no nystagmus is noted. The facial strength is normal throughout. Hearing is moderately to severely decreased bilaterally to hand rub. Tongue is midline and moved [id number] without any difficulty. No dysarthria is noted. Motor: The strength is 0/5 in left upper extremity. He has edema in the left upper extremity. Lifting left lower above gravity and hard to appreciated full strength because of cooperation. Right sided is 5/5. Decrease tone over the left upper. Normal bulk other than edema over the left upper extremity. Cerebellum: Normal finger to nose over the right and unable to assess left because of weakness. Some of the workup during his hospital visit consisted of: Urine Analysis seems suggestive of underlying ureter tract infection Ammonia level is less than 9. CT of the head is reported as age-related atrophy can chronic small vessel ischemic change without acute intracranial process seen at this time. I personally reviewed the CT and I felt the patient has an old lacunar over the right thalamus. I also feel the patient has subacute hypodensity changes over the right frontal region. I felt the patient had same changes on 01/18/2023 CT Carotid duplex is reported as moderate plaque formation involving the right carotid bulb and proximal internal carotid artery resulting in moderate 50-69% stenosis. Mild plaque formation in the left carotid bulb and proximal internal carotid artery resulting in mild stenosis. - Labs CBC & Chem 7: 01/23/23 06:59 01/23/23 06:59 Labs: Microbiology - Last 24 Hours (Table) 01/22/23 13:20 Blood Culture - Preliminary Blood 01/22/23 13:10 Blood Culture - Preliminary Blood 01/22/23 13:08 Urine Culture - Final Urine,Catheterized Assessment and Plan Assessment: This is an 87-year-old gentleman who presents to the emergency department because of the altered mental status and left upper extremity weakness. According to the daughter he has been having left upper extremity weakness since 01/18/2023 and the kids are facility but it seems like he had abnormal posture of the bilateral upper and some twitching and was notified that was probably due to the tramadol then was discharged back to the nursing facility. During this examination he had significant left upper extremity weakness with edema as well as has likely underlying urinary tract infection. On CT of the head I felt the patient had the old lacunar over right thalamus but I felt the patient had the subacute changes over the right frontal but that was also seen on 01/18/2023 CT in my opinion Left upper extremity weakness: Suspect subacute ischemic stroke. No IV TPA since has had the symptoms for dates as well as is on anticoagulation and the risk outweighed the benefit. Right ICA stenosis about 50-69% on the carotid duplex. Altered mental status seems due to likely underlying acute urinary tract infection Left upper extremity edema History of atrial fibrillation on Xarelto Plan: MRI the brain, 2-D echo was ordered by the primary team is pending. If MRI Brain is negative for stroke recommend to pursue with MRI Cervical. I consulted vascular surgery team for the right ICA stenosis of 50-69% stenosis. I will also pursue CT angiography of the head and neck. Patient is on aspirin 81 mg, Xarelto 20 mode gram daily at bedtime as well as the Lipitor 20 mg. I ordered a routine EEG because of recent episode of twitching on 01/18/2023 to rule out any underlying seizure discharges Pending hemoglobin A1c, vitamin B12, folate since the episode of confusion She had a recent TSH on 01/11/2023 which was normal. I'll not get a repeat TSH. Pending fasting lipid panel. Continue neuro checks Cardiac monitoring PT OT and RES HABILITATION ASSISTANT are consulted We'll defer the rest of the medical management to primary team For DVT prophylaxis the patient is on Xarelto. Plan discussed with the primary attending. Dr. Figueroa will start neurology service tomorrow A.M. Time with Patient: Less than 30
[2023-01-24] MEDS: guaiFENesin SYRUP 100MG/5ML 200 MG/10 ML CUP PO PRN (14:33)
[2023-01-24 14:49] LABS: Chol/HDL Ratio 2.41 Ratio; LDL Cholesterol,Calculated 30.3 mg/dL (0.0-131.0); VLDL Calculation 16.48 mg/dL (5.00-40.00)
[2023-01-24] MEDS: CYANOCOBALAMIN 1,000 MCG/ML 1 ML VIAL IM SCH (15:46)
--- NOTE | 2023-01-24 17:11 | P.GSCN ---
History of Present Illness Consult date: 01/24/23 History of present illness: Noel is an 87-year-old male who presented to the hospital initially with left arm weakness and confusion. He has a history of atrial fibrillation, cancer, history of DVT, hypertension, hyperlipidemia and memory impairments. His daughter who is a nurse states essentially that he had left arm weakness and typically has been able to get up and walk himself but has had issues doing so. He was recently diagnosed with COVID and was in an extended care facility but had been back at home prior to this and doing relatively well with the aid of family. He does have a history of being on Xarelto given his atrial fibrillation but was not on any other antiplatelet medication prior to this. Past Medical History Past Medical History: Atrial Fibrillation, Cancer, Chest Pain / Angina, Deep Vein Thrombosis (DVT), GERD/Reflux, Hyperlipidemia, Hypertension, Memory Impairment, Osteoarthritis (OA), Prostate Disorder Additional Past Medical History / Comment(s): Paroxysmal Afib, atach, DVT R leg years ago, bilateral lower extremity edema/past R lower leg wounds/L lower leg wrapped, prostate cancer with 41 radiation treatments, BPH, chronic back and R shoulder pain, past empyema with surgery to drain/chest tube History of Any Multi-Drug Resistant Organisms: None Reported Past Surgical History: Back Surgery, Hernia Repair, Joint Replacement, Orthopedic Surgery Additional Past Surgical History / Comment(s): bilateral cataract removal, laminectomy,/back sx has 2 rods and screws, lt shoulder arthroplasty, bilateral total hips, L carpal tunnel release, umbilical hernia repair, colonoscopy, oral sx. Past Anesthesia/Blood Transfusion Reactions: Motion Sickness, Postoperative Nausea & Vomiting (PONV) Past Psychological History: Anxiety, Depression Smoking Status: Never smoker Past Alcohol Use History: None Reported Past Drug Use History: None Reported - Past Family History Father Family Medical History: COPD Additional Family Medical History / Comment(s): Father fell at the age of 87yrs- had head injury- from complications. Mother Family Medical History: Congestive Heart Failure (CHF), Osteoarthritis (OA) Additional Family Medical History / Comment(s): Mother had severe arthritis. Son(s) Family Medical History: Cancer Additional Family Medical History / Comment(s): FIBROSARCOMA BONE CANCER- AT 16 YRS OLD Daughter(s) Family Medical History: Cancer, Deep Vein Thrombosis (DVT) Additional Family Medical History / Comment(s): CERVICAL CANCER Medications and Allergies Home Medications Medication Instructions Recorded Confirmed Type Cetirizine HCl [Zyrtec] 10 mg PO DAILY@0800 10/11/15 01/22/23 History Tamsulosin [Flomax] 0.4 mg PO BID@0800,2100 10/11/15 01/22/23 History Multivitamins, Thera [Multivitamin 1 tab PO DAILY@0800 01/16/16 01/22/23 History (formulary)] DULoxetine HCL [Cymbalta] 60 mg PO HS@212905/13/16 01/22/23 History Pantoprazole Sodium [Protonix] 20 mg PO DAILY@0805/13/16 01/22/23 History Rivaroxaban [Xarelto] 20 mg PO HS@212901/02/17 01/22/23 History Atorvastatin [Lipitor] 20 mg PO HS@2100 01/29/18 01/22/23 History Colchicine [Colcrys] 0.6 mg PO DAILY@0800 11/26/19 01/22/23 History Nitroglycerin Sl Tabs [Nitrostat] 0.4 mg SL Q5M PRN 11/26/19 01/22/23 History Furosemide [Lasix] 60 mg PO TUFR@79906/22/21 01/22/23 History diphenhydrAMINE [Benadryl] 50 mg PO BID@0800,0 06/22/21 01/22/23 History Acetaminophen [Tylenol Arthritis] 1,300 mg PO TID PRN 02/12/22 01/22/23 History Docusate [Colace] 100 mg PO DAILY@0802/12/22 01/22/23 History Furosemide [Lasix] 40 mg PO SUMOWETHSA@0802/12/22 01/22/23 History Isosorbide Mononitrate ER [Imdur] 30 mg PO DAILY@0802/12/22 01/22/23 History Valsartan 160 mg PO BID@0800,0 02/12/22 01/22/23 History Spironolactone [Aldactone] 25 mg PO DAILY@0800 10/13/22 01/22/23 History polyethylene glycoL 3350 [Miralax] 17 gm PO DAILY PRN 10/13/22 01/22/23 History Albuterol Inhaler [Ventolin Hfa 2 puff INHALATION RT-Q6H PRN 01/09/23 01/22/23 History Inhaler] fentaNYL 12MCG/HR PATCH [Duragesic 1 patch TRANSDERM Q72H #1 patch 01/13/23 01/22/23 Rx 12MCG/HR] Benzonatate [Tessalon Perles] 200 mg PO Q8HR@0600,1400,2200 01/18/23 01/22/23 History Lidocaine 4% Cream [Lmx 4] 1 applic TOPICAL QID PRN 01/18/23 01/22/23 History Magnesium Hydroxide [Milk of 7,200 mg PO Q2D PRN 01/18/23 01/22/23 History Magnesia Concentrate] Na Phos,M-B/Na Phos,Di-Ba [Fleet 133 ml RECTAL DAILY PRN 01/18/23 01/22/23 History Adult] bisacodyL [Dulcolax] 10 mg RECTAL DAILY PRN 01/18/23 01/22/23 History carvediloL [Coreg] 25 mg PO BID@0800,2100 01/18/23 01/22/23 History guaiFENesin [guaiFENesin Oral 200 mg PO Q4H PRN 01/18/23 01/22/23 History Solution] HYDROcodone/APAP 5-325MG [Fulshear 1 tab PO BID@0900,2100 01/22/23 01/22/23 History 5-325] Allergies Allergy/AdvReac Type Severity Reaction Status Date / Time tobramycin Allergy Unknown Itching, Verified 01/22/23 12:04 Red eyes, Inflammation(tobramycin eye drops) Surgical - Exam Vital Signs Temp Pulse Resp BP Pulse Ox 97.7 F 96 18 126/91 97 01/22/23 10:36 01/22/23 10:36 01/22/23 10:36 01/22/23 10:36 01/22/23 10:36 General: 87-year-old male laying down in bed in no apparent distress. HEENT: Head is atraumatic, normocephalic,mucous membranes of the mouth are somewhat dry. Neck: Supple, no JVP Chest: no expiratory wheezes,no intercostal retractions. Abdomen: nondistended Extremities: There is +3 edema Neurologic examination: Patient is awake alert and oriented X 2, patient moves his right upper extremity and both lower extremities he is flaccid in the left upper extremity. Results - Labs 01/23/23 06:59 01/23/23 06:59 Abnormal Lab Results - Last 24 Hours (Table) 01/23/23 01/24/23 Range/Units 14:34 07:51 Hemoglobin A1c 6.9 H (<=6.0) % HDL Cholesterol 33.20 L (40.00-60.00) mg/dL Microbiology - Last 24 Hours (Table) 01/22/23 13:20 Blood Culture - Preliminary Blood 01/22/23 13:10 Blood Culture - Preliminary Blood 01/22/23 13:08 Urine Culture - Final Urine,Catheterized Diabetes panel 01/23/23 01/24/23 Range/Units 14:34 07:51 Hemoglobin A1c 6.9 H (<=6.0) % Triglycerides 82.40 (0.00-149.00) mg/dL HDL Cholesterol 33.20 L (40.00-60.00) mg/dL Assessment and Plan Assessment: Left upper extremity weakness, suspect ischemic stroke Right ICA stenosis very close to 50% Atrial fibrillation on Xarelto Plan: Long discussion had with the family all in the room and the daughter at the bedside who is the decision maker. Patient himself was not on any antiplatelet therapy prior to this. Given his advanced age and no antiplatelet medication pr ior would consider treatment in this regard prior to going forward with recommendations for surgery with his comorbid conditions. Daughter states that they would have to have a family discussion prior to even deciding upon going forward with surgical intervention versus no intervention. I think a more conservative route is most manageable and appropriate at this time especially considering the stenosis is closer to 50% based upon my evaluation. It was discussed with the daughter that should he need to be changed from aspirin to Plavix, that would be reasonable versus continuing just aspirin along with his Xarelto since he has not been on anything previous as far as antiplatelets. She seemingly understands the plan and is very willing to proceed in this manner rather than aggressively towards surgical intervention
[2023-01-24] MEDS: DULoxetine HCL 60 MG CAPSULE.DR PO SCH (20:18)
[2023-01-24] MEDS: RIVAROXABAN 20 MG TAB PO SCH (20:19)
[2023-01-24] MEDS: ATORVASTATIN 20 MG TAB PO SCH (20:19)
[2023-01-25] MEDS: BENZONATATE 100 MG CAP PO SCH ×3 (06:23→19:52)
[2023-01-25] MEDS: MULTIVITAMINS, THERA 1 EACH TAB PO SCH (09:18)
[2023-01-25] MEDS: FUROSEMIDE 40 MG TAB PO SCH (09:18)
[2023-01-25] MEDS: ISOSORBIDE MONONITRATE ER 30 MG TAB.ER.24H PO SCH (09:18)
[2023-01-25] MEDS: DOCUSATE 100 MG CAP PO SCH (09:18)
[2023-01-25] MEDS: HYDROcodone/APAP 5-325MG 1 EACH TAB PO SCH ×2 (09:18→19:53)
[2023-01-25] MEDS: ASPIRIN 81 MG PO SCH (09:19)
[2023-01-25] MEDS: SPIRONOLACTONE 25 MG TAB PO SCH (09:19)
[2023-01-25] MEDS: PANTOPRAZOLE 40 MG TABLET PO SCH (09:19)
[2023-01-25] MEDS: TAMSULOSIN 0.4 MG CAP.ER.24H PO SCH ×2 (09:19→19:53)
[2023-01-25] MEDS: carvediloL 12.5 MG TAB PO SCH ×2 (09:19→19:52)
[2023-01-25] MEDS: diphenhydrAMINE 25 MG CAP PO SCH ×2 (09:19→19:52)
[2023-01-25] MEDS: VALSARTAN 160 MG TAB PO SCH ×2 (09:19→19:53)
[2023-01-25] MEDS: LORATADINE 10 MG TAB PO SCH (09:19)
[2023-01-25] MEDS: CYANOCOBALAMIN 1,000 MCG/ML 1 ML VIAL IM SCH (09:20)
[2023-01-25] MEDS: COLCHICINE 0.6 MG EACH PO SCH (09:21)
--- NOTE | 2023-01-25 09:22 | CT ---
EXAMINATION TYPE: CT angio head neck CT DLP: 640.40 mGycm, Automated exposure control for dose reduction was used. DATE OF EXAM: 01/25/2023 9:11 AM COMPARISON: Carotid ultrasound 01/23/2023. CLINICAL INDICATION:Male, 87 years old with history of right ica stenosis on duplex. stroke; [facility], TECHNIQUE: Axially acquired helical CT angiogram of the head and neck was obtained with contrast util izing 75 cc of Isovue-370 administered intravenously. Axial images are supplemented with 3D reconstru ctions which were post-processed at an independent workstation. NASCET criteria used. FINDINGS: Essentially nondiagnostic examination due to patient's kyphotic positioning. Nonvisualization of the great vessels and common carotid arteries and proximal internal carotid arteries. Poor visualization of the bilateral intracranial arteries. The visualized intracranial portions of the vertebral arterie s appear grossly patent. The visualized portions of the distal internal carotid arteries appear gross ly patent. Suggested less than 50% stenosis at the origin of the right internal carotid artery second kaycee to calcified plaque on the reformatted images. Suggested 60% stenosis at the origin of the left i nternal carotid artery on the reformatted images. IMPRESSION: Essentially nondiagnostic examination due to patient kyphotic positioning. Suggested less than 50% stenosis at the origin of the right internal carotid artery secondary to calc ified plaque on the reformatted images. Suggested 60% stenosis at the origin of the left internal car otid artery on the reformatted images.
[2023-01-25] MEDS: guaiFENesin SYRUP 100MG/5ML 200 MG/10 ML CUP PO PRN (09:31)
[2023-01-25 10:14] LABS: ALT 19 U/L (4-49); AST 34 U/L (17-59); African American GFR (CKD) >90 (>60 ml/min/1.73 sqM); Alkaline Phosphatase 77 U/L (38-126); Anion Gap 10 mmol/L; Blood Urea Nitrogen 20 mg/dL (9-20); Calcium 8.2 mg/dL (8.4-10.2); Carbon Dioxide 21 mmol/L (22-30); Chloride 104 mmol/L (98-107); Glucose 117 mg/dL (74-99); Non-African American GFR(CKD) 81 (>60 ml/min/1.73 sqM); Potassium 3.9 mmol/L (3.5-5.1); Sodium 135 mmol/L (137-145); Total Bilirubin 0.7 mg/dL (0.2-1.3); Total Protein 5.7 g/dL (6.3-8.2)
[2023-01-25 10:17] LABS: Basophils % (A) 1 %; Eosinophils # (A) 0.3 k/uL (0-0.7); Eosinophils % (A) 4 %; HCT 43.2 % (39.0-53.0); HGB 14.7 gm/dL (13.0-17.5); Lymphocytes # (A) 1.5 k/uL (1.0-4.8); Lymphocytes % (A) 21 %; MCH 33.6 pg (25.0-35.0); MCHC 33.9 g/dL (31.0-37.0); Mean Platelet Volume 8.1; Monocytes # (A) 0.4 k/uL (0-1.0); Monocytes % (A) 6 %; Neutrophils # (A) 4.5 k/uL (1.3-7.7); Neutrophils % (A) 65 %; Platelet Count 193 k/uL (150-450); RBC 4.37 m/uL (4.30-5.90); RDW 13.2 % (11.5-15.5)
--- NOTE | 2023-01-25 11:00 | P.PN ---
Subjective Progress Note Date: 01/25/23 Principal diagnosis: Carotid stenosis Patient was seen and examined today as follow-up. No acute changes through the night. Left upper extremity remains flaccid, no other new focal deficits reported. Patient continues on Xarelto and ASA. Patient underwent CT angiogram head and neck. Report states essentially nondiagnostic due to patient's kyphotic positioning. Suggested less than 50% stenosis at the origin of the right internal carotid artery secondary to calcified plaque on the reformatted images. Suggested 60% stenosis at the origin of the left internal carotid ar crissy on the reformatted images. Objective - Vital Signs Vital signs: Vital Signs Temp 97.4 F L 01/25/23 09:14 Pulse 85 01/25/23 09:14 Resp 18 01/25/23 09:14 BP 156/94 01/25/23 09:14 Pulse Ox 98 01/25/23 09:14 FiO2 Intake & Output 01/24/23 01/25/23 01/25/23 18:59 06:59 18:59 Intake Total 120 Output Total 1725 700 Balance -1605 -700 Intake: Oral 120 Output: Urine 1725 700 Uretheral (Morton) 1000 Other: Voiding Method Indwelling Catheter Indwelling Catheter - Exam General appearance: The patient is alert, oriented to self and place, appears in no acute distress. HET: Head is normocephalic and atraumatic. Pupils are equal and reactive. Neck: Supple. Heart: Regular. Lungs: Equal expansion, normal respiratory effort. Abdomen: Soft, nondistended. Extremities: Normal skin color and turgor. Left upper extremity swelling and bruising noted. Neurological: Alert and oriented to self and place. Left upper extremity flaccid. - Labs CBC & Chem 7: 01/25/23 08:42 01/25/23 08:42 Labs: Abnormal Lab Results - Last 24 Hours (Table) 01/23/23 01/24/23 01/25/23 Range/Units 14:34 07:51 08:42 Sodium 135 L (137-145) mmol/L Carbon Dioxide 21 L (22-30) mmol/L Glucose 117 H (74-99) mg/dL Hemoglobin A1c 6.9 H (<=6.0) % Calcium 8.2 L (8.4-10.2) mg/dL Total Protein 5.7 L (6.3-8.2) g/dL Albumin 3.0 L (3.5-5.0) g/dL HDL Cholesterol 33.20 L (40.00-60.00) mg/dL Microbiology - Last 24 Hours (Table) 01/22/23 13:20 Blood Culture - Preliminary Blood 01/22/23 13:10 Blood Culture - Preliminary Blood Assessment and Plan Assessment: 1. Left upper extremity weakness, suspect ischemic stroke 2. Right ICA stenosis very close to 50% 3. Atrial fibrillation on Xarelto Plan: Long discussion had with the family all in the room and the daughter at the bedside who is the decision maker with Dr. Morton. Patient himself was not on any antiplatelet therapy prior to this. Given his advanced age and no antiplatelet medication prior would consider treatment in this regard prior to going forward with recommendations for surgery with his comorbid conditions. Daughter states that they would have to have a family discussion prior to even deciding upon going forward with surgical intervention versus no intervention. A more conservative route is most manageable and appropriate at this time especially considering the stenosis is closer to 50% based upon Dr. Morton's evaluation. It was discussed with the daughter that should he need to be changed from aspirin to Plavix, that would be reasonable versus continuing just aspirin along with his Xarelto since he has not been on anything previous as far as antiplatelets. She seemingly understands the plan and is very willing to proceed in this manner rather than aggressively towards surgical intervention. The impression and plan of care has been dictated as directed. I performed a history and examination of this patient, discussed the same with the dictator. I agree with the dictator's note ,documented as a scribe. Any additional findings or plans will be noted.
--- NOTE | 2023-01-25 11:14 | CA ---
Transthoracic Echo Report Name: Noel Lugo Age: 87 Gender: M : 1935 Exam Date: 01/25/2023 08:51 Exam Location: [place] [facility] Ht (in): 70 Wt (lb): 270 Ordering Physician: Jeb Sweeney MD Attending/Referring Phys: [employer] [facility] Procedure CPT: Indications: CVA Cardiac Hx: Technical Quality: Very technically difficult study Contrast 1: Lumason Total Dose (mL): 5 Contrast 2: Total Dose (mL): MEASUREMENTS (Male / Female) Normal Values 2D ECHO LV Diastolic Diameter PLAX 4.6 cm 4.2 - 5.9 / 3.9 - 5.3 cm LV Systolic Diameter PLAX 4.0 cm IVS Diastolic Thickness 1.3 cm 0.6 - 1.0 / 0.6 - 0.9 cm LVPW Diastolic Thickness 1.1 cm 0.6 - 1.0 / 0.6 - 0.9 cm LV Relative Wall Thickness 0.5 LVOT Diameter 2.1 cm Ascending Aorta Diameter 3.8 cm M-MODE Aortic Root Diameter MM 3.5 cm LA Systolic Diameter MM 4.2 cm LA Ao Ratio MM 1.2 AV Cusp Separation MM 1.1 cm DOPPLER AV Peak Velocity 201.1 cm/s AV Peak Gradient 16.2 mmHg AV Mean Velocity 144.7 cm/s AV Mean Gradient 9.2 mmHg AV Velocity Time Integral 34.5 cm LVOT Peak Velocity 81.7 cm/s LVOT Peak Gradient 2.7 mmHg LVOT Velocity Time Integral 16.3 cm LVOT Stroke Volume 57.2 cm??? LVOT Stroke Volume Index 24.1 ml/m??? LVOT Cardiac Index 2210.9 cm???/min???m??? AV Area Cont Eq vti 1.7 cm??? AV Area Cont Eq pk 1.4 cm??? Mitral E Point Velocity 67.5 cm/s MV Deceleration Time 118.3 ms LV E' Lateral Velocity 9.1 cm/s Mitral E to LV E' Lateral Ratio 7.4 LV E' Septal Velocity 6.5 cm/s Mitral E to LV E' Septal Ratio 10.4 TR Peak Velocity 261.0 cm/s TR Peak Gradient 27.3 mmHg Right Ventricular Systolic Press 32.4 mmHg FINDINGS Left Ventricle Mildly increased left ventricular wall thickness. Left ventricular cavity size normal. Normal left ventricular systolic function with no obvious regional wall motion abnormalities. Left ventricular ejection fraction is estimated at 55- 60%. Right Ventricle Right ventricle not well visualized but appears dilated. Right Atrium Right atrium not well visualized. Left Atrium Left atrium not well visualized. Mitral Valve Structurally normal mitral valve. Mildly decreased mobility of the posterior mitral valve leaflet. Aortic Valve Trileaflet aortic valve. Diffuse thickening of the aortic valve cusps with reduced excursion. Trace to mild aortic regurgitation. Mild aortic stenosis. Tricuspid Valve Tricuspid valve not well visualized. Mild tricuspid regurgitation. Pulmonic Valve Pulmonic valve not well visualized. Pericardium No pericardial effusion. Aorta Aorta at upper limits of normal. CONCLUSIONS Normal LV systolic function Mild aortic stenosis Previewed by: Dr. Steven Rsoas MD (Electronically Signed) Final Date: 25 January 2023 11:13
[2023-01-25] MEDS: SODIUM CHLORIDE 0.9% 1,000 ML IV SCH (12:54)
--- NOTE | 2023-01-25 13:28 | P.PN ---
Subjective Progress Note Date: 01/25/23 HISTORY OF PRESENT ILLNESS: This is an 87-year-old male with a previous medical history signifi cant for hypertension and hypertensive cardio vascular disease, hyperlipidemia, history of paroxysmal atrial fibrillation on chronic anti-coagulation with Xarelto, chronic bilateral lower extremity edema also history of prostate cancer in the past status post ablation therapy history of chronic back pain and anxiety depressive disorder and was recently hospitalized at [facility] back on 01/10/2023 after he was found to have generalized weakness and he was brought into the hospital by his daughter was not able to take care of him at that time he was tested positive for COVID-19 and he was in atrial fibrillation with rapid ventricular response, he was seen and evaluated and eventually he was discharged to go to [facility] for physical therapy and rehabilitation, patient was intended to the emergency department at [facility] from the [facility] after he was found to have TIA-like symptoms despite the fact patient is chronically anticoagulated with Xarelto had a computed tomography scan of the brain did not show evidence of acute abnormalities at that time he d id have some lactose status with increased confusion and agitation, this corrected and the patient was sent back to the [facility] apparently received a phone call yesterday from his nurse in the morning stated the patient is not able to move his left upper extremity and according to the nursing staff this was not noticed until today but according to the physical therapy note this patient going on for about 24 hours, family stated that the patient was not able to move his left upper extremity since early this week, patient apparently was instructed to go to the emergency department at [facility] via EMS, had a computed tomography scan brain did not show evidence of acute infarct or blee d, venous Doppler of the left upper extremity did not show evidence of acute abnormalities, patient was found to have a urinary tract infection catheter associated, he was started on IV antibiotic in the form of Rocephin 1 g IV piggyback every 24 hours, his 12-lead EKG showed atrial fibrillation with controlled rate, his recent blood work came back negative, but because of the presentation he was admitted to the hospital with neurology consultation. 01/23: Patient is laying down in bed does not appear to be in acute distress, he continues to be at baseline, he continues to have paralysis of the left upper extremity, computed tomography scan of the brain did not show evidence of acute stroke, ultrasound of the carotids will be obtained, echocardiogram will be obtained, continue Xarelto, continue and add aspirin 81 mg once every day, neurology consultation, MRI of the brain with and without contrast, we will follow-up with the patient very closely, physical therapy and occupational thera py evaluation, speech therapy evaluation as well. 01/24: Patient is laying down in bed in no apparent distress, he denies any chest pain, shortness breath, he continues to have flaccid left upper extremity, history of culture is negative, continue antibiotic for now, patient had his culture sent after the antibiotic was given, monitor the patient symptoms very closely, patient is scheduled to go for MRI of the brain with and without CAD, ultrasound of the carotid which evidence of moderate right internal carotid stenosis 50-60%, mild left internal carotid artery stenosis, echocardiogram still pending, monitor the patient closely. Continue Xarelto 20 mg once every day, continue aspirin 81 mg once every day, continue with neuro check, neurology is following. 01/25: Patient was seen yesterday by vascular surgery regarding right ICA stenosis with recommendations for conservative management and recommended changing from aspirin to Plavix. Patient subsequently underwent CT angiogram of the head and neck that was essentially nondiagnostic due to kyphotic positioning. Suggested less than 50% stenosis at the origin of the right internal carotid artery secondary to calcified plaque on the reformatted images. Suggested 60% stenosis at the origin of the left internal carotid artery on the reformatted images.neurology is following closely and recommended EEG for recent episode of twitching. Also echocardiogram has been obtained and report is pending. MRI of the brain is pending. Blood pressure 156/94, heart rate in the 80s and 90s, pulse ox 98% on room air, afebrile. Sodium is 135, potassium 3.9, creatinine 0.8. Right shoulder x-ray did not show any acute fracture or dislocation. REVIEW OF SYSTEMS: Constitutional: No documented fever, no chills, no night sweats. No weight change. No weakness, fatigue or lethargy. No daytime sleepiness. EENT: No headache. No blurred vision or double vision, no loss of vision. No loss of Hearing, no ringing in the ears, no dizziness. No nasal drainage or congestion. No epistaxis. No sore throat. Lungs: No shortness of breath, no cough, no sputum production. No wheezing. Reports dyspnea with activity. Cardiovascular: No chest pain, no lower extremity edema. No palpitations. No paroxysmal nocturnal dyspnea. No orthopnea. No lightheadedness or dizziness. No syncopal episodes. Abdominal: Reports abdominal pain. No nausea, vomiting. No diarrhea. No constipation. No bloody or tarry stools reports loss of appetite. Genitourinary: No dysuria, increased frequency, urgency. No urinary retention. Musculoskeletal: No myalgias. No muscle weakness, no gait dysfunction, no frequent falls. No back pain. No neck pain. Integumentary: No wounds, no lesions. No rash or pruritus. No unusual bruising. No change in hair or nails. Neurologic: No aphasia. No facial droop. No change in mentation. No head injury. No headache. No paralysis. No paresthesia. Psychiatric: No depression. No anxiety. No mood swings. Endocrine: No abnormal blood sugars. No weight change. PHYSICAL EXAMINATION: General: 87-year-old male laying down in bed in no apparent distress. HEENT: Head is atraumatic, normocephalic, pupils were equal round reactive to light and recommendation, extraocular muscle movement were intact, sclera nonicteric, conjunctivae were pale, mucous membranes of the mouth are somewhat dry. Neck: Supple, no JVP, decreased carotid upstroke bilaterally, no lymphadenopathy. Chest: Decreased breath sounds at the bases, few rhonchi, no expiratory wheezes, no chest wall tenderness, no intercostal retractions. Heart: First heart sound is normal, second heart sound is normal there is systolic ejection murmur 2/6 left sternal border,irregularly irregular due to atrial fibrillation. Abdomen: Soft, nontender, nondistended, positive bowel sounds. Extremities: There is +3 edema no calf tenderness DP +2 bilaterally. Neurologic examination: Patient is awake alert and oriented X 2, cranial nerves II-12 patient moves his right upper extremity and both lower extremities he is flaccid in the left upper extremity. ASSESSMENT AND PLAN: 1. Left upper extremity weakness possible subacuteinitial CAT scan of the braind not show evidence of acute or subacute. Neurology consult appreciated. EEG, echocardiogram and MRI of the brain are all pending. , neurology evaluation, patient may need to go for an MRI of the brain with and without contrast. Continue Xarelto 20 mg orally once every day and add aspirin 81 mg once every day, ultrasound of the carotids as well as echocardiogram 2. Increased edema in the left upper extremity post venous Doppler that was negative for DVT. Check x-ray of the left shoulder. 3. Carotid stenosis. Consult with vascular surgery appreciated. Plan is for conservative management. 4. Hypertension and hypertensive cardiovascular disease. Continue patient on carvedilol 25 mg orally twice every day, continue patient on valsartan 160 mg orally twice every day, monitor the patient blood pressure very closely, continue also spironolactone 25 mg once every day. 5. Mixed hyperlipidemia. Continue patient on atorvastatin 20 mg once every day. 6. Chronic atrial fibrillation. Continue patient on Xarelto 20 mg once every day, continue carvedilol 25 mg orally twice every day. 7. Urinary tract infection source. Urine culture for culture continue with c eftriaxone 1 g IV piggyback every 24 hours. 8. Recent COVID-19. Recovering well. Continue supportive care with guaifenesin as well as Tessalon Perles other supportive vitamins. 9. History of prostate cancer status post radiotherapy. Continue Flomax 0.4 mg orally twice every day, currently has a Morton catheter in place. 10. Chronic diastolic heart failure. Continue patient on carvedilol 25 mg orally twice every day, valsartan 160 mg orally twice every day, continue with spironolactone 25 mg once every day, as well as Lasix 40 mg once every day except 60 mg twice every week. Monitor the patient's electrolytes magnesium regularly. Echocardiogram will be done. 11. History of gout. Continue colchicine 0.6 mg orally once every day. 12. GERD with esophagitis. Continue patient on Protonix 40 mg once every day. 13. Severe osteoarthritis of both knees with chronic pain syndrome. Continue patient on fentanyl patch 12 g every 72 hours, Bethel 5/325 g orally twice every day, monitor the patient very closely. 14. Consultation. Continue patient on MiraLAX 17 g in 8 ounces water, Colace 100 mg orally twice every day. 15. Depression continue patient on Cymbalta 60 mg orally once every day. 16. Medical debility. With regard to go back to [facility] for physical therapy and rehabilitation. 17. DO NOT RESUSCITATE okay for hospitalization 18. DVT prophylaxis. Continue patient on Xarelto 20 mg once every day. 18. GI prophylaxis. Continue patient on Protonix 40 mg daily. Impression and plan of care have been directed as dictated by the signing physician. Jaimie Solomon nurse practitioner acting as scribe for signing physician. Objective - Vital Signs Vital signs: Vital Signs Temp 97.4 F L 01/25/23 09:14 Pulse 85 01/25/23 09:14 Resp 18 01/25/23 09:14 BP 156/94 01/25/23 09:14 Pulse Ox 98 01/25/23 09:14 FiO2 Intake & Output 01/24/23 01/25/23 01/25/23 18:59 06:59 18:59 Intake Total 120 Output Total 1725 700 Balance -1605 -700 Intake: Oral 120 Output: Urine 1725 700 Uretheral (Morton) 1000 Other: Voiding Method Indwelling Catheter Indwelling Catheter - Labs CBC & Chem 7: 01/25/23 08:42 01/25/23 08:42 Labs: Abnormal Lab Results - Last 24 Hours (Table) 01/23/23 01/24/23 Range/Units 14:34 07:51 Hemoglobin A1c 6.9 H (<=6.0) % HDL Cholesterol 33.20 L (40.00-60.00) mg/dL Microbiology - Last 24 Hours (Table) 01/22/23 13:20 Blood Culture - Preliminary Blood 01/22/23 13:10 Blood Culture - Preliminary Blood
--- NOTE | 2023-01-25 14:36 | P.PN ---
Subjective Progress Note Date: 01/25/23 Patient was initially seen by Dr. Enio Lopez. Please refer to his note for details. Patient is a 87-year-old right-handed male with left-sided weakness for about a week. Symptoms started last Wednesday on 01/18/2023. He was evaluated in the ER and released back to [facility] after a reported normal CT head. Patient's symptoms got worse on , 01/21/2023 with worsening left arm weakness and by Wednesday, he was flaccid in the left upper extremity therefore came to the ER. Patient has history of hypertension, also diagnosed with new onset diabetes. His lipids are well controlled with Lipitor. Patient's daughter Noemi was present, who states that patient usually at home walks with his rolling walker. He has not been walking since a stroke. Patient also suffered from Covid on 01/09/2023. Patient has history of atrial fibrillation since September 2016 and has been on Xarelto since then. Patient also has right ICA stenosis about 50-69%, vascular surgeon on board. Some of the workup during his hospital visit consisted of: Urine Analysis seems suggestive of underlying ureter tract infection Ammonia level is less than 9. CT of the head is reported as age-related atrophy can chronic small vessel ischemic change without acute intracranial process seen at this time. I personally reviewed the CT and I felt the patient has an old lacunar over the right thalamus. I also feel the patient has subacute hypodensity changes over the right frontal region. I felt the patient had same changes on 01/18/2023 CT Carotid duplex is reported as moderate plaque formation involving the right carotid bulb and proximal internal carotid artery resulting in moderate 50-69% stenosis. Mild plaque formation in the left carotid bulb and proximal internal carotid artery resulting in mild stenosis. Objective - Vital Signs Vital signs: Vital Signs Temp 97.4 F L 01/25/23 09:14 Pulse 85 01/25/23 09:14 Resp 18 01/25/23 09:14 BP 156/94 01/25/23 09:14 Pulse Ox 98 01/25/23 09:14 FiO2 Intake & Output 01/24/23 01/25/23 01/25/23 18:59 06:59 18:59 Intake Total 120 Output Total 1725 700 Balance -1605 -700 Intake: Oral 120 Output: Urine 1725 700 Uretheral (Morton) 1000 Other: Voiding Method Indwelling Catheter Indwelling Catheter - Exam Patient is an elderly male, in no acute distress. Patient is alert awake oriented to time place and person. Speech and language functions are normal. Patient can name and repeat very well. No aphasia or dysarthria. Attention, concentration and fund of knowledge is adequate. Detailed testing deferred. On cranial nerve examination, pupils are equal, round and reacting to light, visual rahman revealed left visual field neglect on confrontation. Extraocular muscles are intact with no nystagmus. Face is symmetric, tongue protrudes to the midline. Palatal elevation and sensation normal, hearing and shoulder shrug normal, facial sensation normal. On muscle strength testing, the strength is (right/left) deltoid 5-/0, biceps 5/0, triceps 5/0, trim die maker 5/3. In the lower limbs hip flexion 5/5, ankle dorsiflexion 5/5. Sensory to touch is decreased on the left, with significant neglect in the left arm and left leg as compared to the right. Cerebellar functions could not be performed on the left side because of weakness. No ataxia in the right side. Tone and bulk of muscles normal. Gait deferred.. On general examination, there is no carotid bruit or murmur, S1-S2 audible. Chest is clear on consultation. Abdomen is soft nontender. No organomegaly, bowel sounds present. - Labs CBC & Chem 7: 01/25/23 08:42 01/25/23 08:42 Labs: Abnormal Lab Results - Last 24 Hours (Table) 01/23/23 01/24/23 01/25/23 Range/Units 14:34 07:51 08:42 Sodium 135 L (137-145) mmol/L Carbon Dioxide 21 L (22-30) mmol/L Glucose 117 H (74-99) mg/dL Hemoglobin A1c 6.9 H (<=6.0) % Calcium 8.2 L (8.4-10.2) mg/dL Total Protein 5.7 L (6.3-8.2) g/dL Albumin 3.0 L (3.5-5.0) g/dL HDL Cholesterol 33.20 L (40.00-60.00) mg/dL Microbiology - Last 24 Hours (Table) 01/22/23 13:20 Blood Culture - Preliminary Blood 01/22/23 13:10 Blood Culture - Preliminary Blood Assessment and Plan Assessment: Probable acute ischemic stroke involving left arm paresis, and left-sided visual and sensory neglect. Symptoms started since last 01/18/2023. Left upper extremity weakness: Suspect subacute ischemic stroke. Patient was not a candidate for TPA because of symptoms present for several days, as well as is on anticoagulation and the risk outweighed the benefit. Right ICA stenosis about 50-69% on the carotid duplex. Altered mental status seems due to likely underlying acute urinary tract infection, currently on ceftriaxone. Left upper extremity edema New onset diabetes Vitamin B12 deficiency History of atrial fibrillation on Xarelto Plan: MRI the brain pending. CTA of head and neck revealed essentially nondiagnostic examination due to patient kyphotic positioning. Suggested less than 50% stenosis at the origin of the right BAILEY secondary to calcified plaque on the reformatted images. Suggested 60% stenosis at the origin of the left ICA on the reformatted images. Vascular surgery seen the patient, recommending medical management. Patient has been started on aspirin 81 mg for stroke prevention related to vascular disease. Patient also on, Xarelto 20 mg for his history of atrial fibrillation, as well as the Lipitor 20 mg. Hemoglobin A1c 6.9, suggestive of new onset diabetes. Recommend healthy lifestyles, dietary adjustment, and follow A1c in 3 months. Discussed with patient's daughter. Vitamin B12 borderline 224, folate 29.30. We will give vitamin B12 injections for 2-3 days and then continue B12 orally thereafter. Patient had a recent TSH on 01/11/2023 which was normal. Fasting lipid panel with cholesterol 80, LDL 30.3, HDL 33 and triglycerides 82. Continue Lipitor 20 mg daily that patient was taking at home. Continue neuro checks Cardiac monitoring PT OT and [facility]ER are consulted We'll defer the rest of the medical management to primary team For DVT prophylaxis the patient is on Xarelto.
--- NOTE | 2023-01-25 16:46 | MR ---
EXAMINATION TYPE: MR brain wo/w con DATE OF EXAM: 01/25/2023 3:45 PM CLINICAL INDICATION:Male, 87 years old with history of CVA; COMPARISON: CT 01/25/2023 TECHNIQUE: Multi planar, multi sequence imaging was performed through the brain including: T1, T2, In version recovery, susceptibility weighted imaging and gradient echo imaging and Diffusion weighted im aging. The patient was then given intravenous contrast and multi planar, T1 fat-saturation images wer e obtained. IV Contrast: 12 cc Gadavist FINDINGS: Scattered areas of restricted diffusion within the cortex and subcortical white matter as well as the deep white matter throughout the right cerebrum and left frontal lobe. Also affecting the corpus kip losum posteriorly at the splenium. Postcontrast imaging demonstrates some enhancement which is gyrifo rm in the area of infarct particularly the right occipital lobe. Cerebral atrophy with proportional d ilation of ventricular system. Intracranial arterial flow voids are maintained. Midline structures sh ow no abnormality. Scattered foci of high T2 signal intensity are seen within the periventricular whi te matter. Scattered microinfarcts most pronounced in the posterior left frontal lobe. The bone marrow signal is within normal limits. Paranasal sinuses and mastoid air cells: Mild scattered paranasal sinus disease. Visualized orbits: Orbital contents are intact. IMPRESSION: 1. Scattered infarcts in microinfarcts throughout the right cerebrum and to a lesser extent the left with areas of luxury perfusion also present some of these areas of infarct most pronounced right occi pital lobe and posterior right frontal. Correlate for embolic phenomenon. 2. Nonspecific white matter changes, likely related to small vessel ischemic disease.
[2023-01-25] MEDS: DULoxetine HCL 60 MG CAPSULE.DR PO SCH (19:52)
[2023-01-25] MEDS: ATORVASTATIN 20 MG TAB PO SCH (19:52)
[2023-01-25] MEDS: RIVAROXABAN 20 MG TAB PO SCH (19:53)
[2023-01-26] MEDS ORDERED: FUROSEMIDE 20 MG TAB PO SCH (08:00)
[2023-01-26] MEDS: BENZONATATE 100 MG CAP PO SCH ×3 (08:02→19:53)
[2023-01-26] MEDS: DOCUSATE 100 MG CAP PO SCH (10:15)
[2023-01-26] MEDS: ASPIRIN 81 MG PO SCH (10:16)
[2023-01-26] MEDS: PANTOPRAZOLE 40 MG TABLET PO SCH (10:16)
[2023-01-26] MEDS: MULTIVITAMINS, THERA 1 EACH TAB PO SCH (10:16)
[2023-01-26] MEDS: ISOSORBIDE MONONITRATE ER 30 MG TAB.ER.24H PO SCH (10:16)
[2023-01-26] MEDS: carvediloL 12.5 MG TAB PO SCH ×2 (10:17→19:53)
[2023-01-26] MEDS: TAMSULOSIN 0.4 MG CAP.ER.24H PO SCH ×2 (10:17→19:54)
[2023-01-26] MEDS: SPIRONOLACTONE 25 MG TAB PO SCH (10:17)
[2023-01-26] MEDS: HYDROcodone/APAP 5-325MG 1 EACH TAB PO SCH ×2 (10:17→19:53)
[2023-01-26] MEDS: COLCHICINE 0.6 MG EACH PO SCH (10:19)
[2023-01-26] MEDS: VALSARTAN 160 MG TAB PO SCH ×2 (10:19→19:53)
[2023-01-26] MEDS: DAPAGLIFLOZIN PROPANEDIOL 5 MG TABLET PO SCH (10:19)
[2023-01-26] MEDS: LORATADINE 10 MG TAB PO SCH (10:19)
[2023-01-26] MEDS: diphenhydrAMINE 25 MG CAP PO SCH ×2 (10:19→19:53)
--- NOTE | 2023-01-26 10:21 | P.PN ---
Subjective Progress Note Date: 01/26/23 Principal diagnosis: Carotid stenosis Patient was seen and examined today as follow-up. No acute changes through the night. Left upper extremity remains flaccid, no other new focal deficits reported. He had MRI of the brain yesterday afternoon which reported scattered infarcts in microinfarcts throughout the right cerebrum and to lesser extent the left with areas of luxury perfusion also present some of these areas of infarct most pronounced right occipital lobe and posterior right frontal. Correlate for embolic phenomenon. Nonspecific white matter changes, likely related to small vessel ischemic disease. Objective - Vital Signs Vital signs: Vital Signs Temp 97.4 F L 01/25/23 09:14 Pulse 95 01/26/23 04:00 Resp 18 01/26/23 04:00 BP 128/84 01/26/23 04:00 Pulse Ox 95 01/26/23 04:00 FiO2 Intake & Output 01/25/23 01/26/23 01/26/23 18:59 06:59 18:59 Intake Total 118 225 Output Total 975 675 Balance -975 -557 225 Intake: Oral 118 225 Output: Urine 975 675 Male - External 675 Uretheral (Morton) 175 Other: Voiding Method Indwelling Catheter Indwelling Catheter # Bowel Movements 1 - Exam General appearance: The patient is alert, oriented to self and place, appears in no acute distress. HET: Head is normocephalic and atraumatic. Pupils are equal and reactive. Neck: Supple. Heart: Regular. Lungs: Equal expansion, normal respiratory effort. Abdomen: Soft, nondistended. Extremities: Normal skin color and turgor. Left upper extremity swelling and bruising noted. Neurological: Alert and oriented to self and place. Left upper extremity flaccid. - Labs CBC & Chem 7: 01/25/23 08:42 01/25/23 08:42 Labs: Abnormal Lab Results - Last 24 Hours (Table) 01/25/23 Range/Units 08:42 Sodium 135 L (137-145) mmol/L Carbon Dioxide 21 L (22-30) mmol/L Glucose 117 H (74-99) mg/dL Calcium 8.2 L (8.4-10.2) mg/dL Total Protein 5.7 L (6.3-8.2) g/dL Albumin 3.0 L (3.5-5.0) g/dL Microbiology - Last 24 Hours (Table) 01/22/23 13:20 Blood Culture - Preliminary Blood 01/22/23 13:10 Blood Culture - Preliminary Blood Assessment and Plan Assessment: 1. Left upper extremity weakness, with MRI findings of scattered infarcts and microinfarcts throughout right cerebrum and to lesser extent in the left with some of the areas of infarct most pronounced right occipital lobe and posterior right frontal. Correlate for embolic phenomenon 2. Right ICA stenosis very close to 50% 3. Atrial fibrillation on Xarelto Plan: Long discussion had with the family all in the room and the daughter at the bedside who is the decision maker with Dr. Morton. Patient himself was not on any antiplatelet therapy prior to this. Given his advanced age and no antiplate let medication prior would consider treatment in this regard prior to going forward with recommendations for surgery with his comorbid conditions. Daughter states that they would have to have a family discussion prior to even deciding upon going forward with surgical intervention versus no intervention. A more conservative route is most manageable and appropriate at this time especially considering the stenosis is closer to 50% based upon Dr. Morton's evaluation. It was discussed with the daughter that should he need to be changed from aspirin to Plavix, that would be reasonable versus continuing just aspirin along with his Xarelto since he has not been on anything previous as far as antiplatelets. She seemingly understands the plan and is very willing to proceed in this manner rather than aggressively towards surgical intervention. MRI reviewed, likely embolic phenomenon. No change in plan, continue with medical therapy. Continue with further recommendations from neurology. Thank you for this consultation, we will sign off at this time. We would be happy to see patient in the office if he so chooses. The impression and plan of care has been dictated as directed. Dr. Heath I performed a history and examination of this patient, discussed the same with the dictator. I agree with the dictator's note ,documented as a scribe. Any additional findings or plans will be noted.
--- NOTE | 2023-01-26 10:49 | P.CRDCN ---
History of Present Illness History of present illness: HISTORY OF PRESENT ILLNESS: This is a 87-year-old male with a past medical history significant for atrial fibrillation, hypertension, carotid stenosis, and hyperlipidemia. Patient follows in the office with Dr. Zamudio. We have been asked to see the patient in consultation for PRESLEY. Patient examined at the bedside. Patient is confused at time of examination. He is alert and oriented 1. Patient is admitted to the hospital secondary to CVA. MRI revealed scattered infarcts throughout right cerebrum, right occipital lobe, and posterior right frontal. Patient is on Xarelto for history of atrial fibrillation. He was also started on aspirin per neurology. Patient currently denies any chest pain or pressure. He denies any shortness of breath. Vital signs are stable. Telemetry reveals atrial fibrillation with controlled ventricular rate. * EKG reveals atrial fibrillation with controlled ventricular rate * Chest xray cardiomegaly * Laboratory data: WBC 7.0. Hemoglobin 14.7. Platelet count 193. Sodium 135. Potassium 3.9. BUN 20. Creatinine 0.80. * Echocardiogram completed revealing ejection fraction 55-60% with no wall motion abnormalities and mild aortic stenosis REVIEW OF SYSTEMS: At the time of my exam: Unable to obtain therapy of systems secondary to altered mental status PHYSICAL EXAM: VITAL SIGNS: Reviewed. GENERAL: Well-developed in no acute distress. HEENT: Head is normocephalic. Pupils are equal, round. Sclerae anicteric. Mucous membranes of the mouth are moist. Neck supple. No JVD or thyromegaly LUNGS: Respirations even and unlabored. Lungs essentially clear to auscultation bilaterally. HEART: Irregular rate and rhythm. S1 and S2 heard. Soft systolic murmur noted. ABDOMEN: Soft. Nondistended. Nontender. EXTREMITIES: No clubbing or cyanosis. Peripheral pulses intact. No lower extremity edema NEUROLOGIC: Awake and alert. Oriented x 1. ASSESSMENT: Left upper extremity weakness Acute CVA Persistent atrial fibrillation Carotid stenosis Hypertension Hyperlipidemia Mild aortic stenosis PLAN: 2-D echo obtained and reviewed Continue Xarelto. Patient has also been started on aspirin. NPO at midnight Patient will tentatively be scheduled for PRESLEY tomorrow with Dr. Frances Further recommendations pending patient's course Nurse practitioner note has been reviewed by physician. Signing provider agrees with the documented findings, assessment, and plan of care. Past Medical History Past Medical History: Atrial Fibrillation, Cancer, Chest Pain / Angina, Deep Vein Thrombosis (DVT), GERD/Reflux, Hyperlipidemia, Hypertension, Memory Impairment, Osteoarthritis (OA), Prostate Disorder Additional Past Medical History / Comment(s): Paroxysmal Afib, atach, DVT R leg years ago, bilateral lower extremity edema/past R lower leg wounds/L lower leg wrapped, prostate cancer with 41 radiation treatments, BPH, chronic back and R shoulder pain, past empyema with surgery to drain/chest tube History of Any Multi-Drug Resistant Organisms: None Reported Past Surgical History: Back Surgery, Hernia Repair, Joint Replacement, Orthopedic Surgery Additional Past Surgical History / Comment(s): bilateral cataract removal, laminectomy,/back sx has 2 rods and screws, lt shoulder arthroplasty, bilateral total hips, L carpal tunnel release, umbilical hernia repair, colonoscopy, oral sx. Past Anesthesia/Blood Transfusion Reactions: Motion Sickness, Postoperative Nausea & Vomiting (PONV) Past Psychological History: Anxiety, Depression Smoking Status: Never smoker Past Alcohol Use History: None Reported Past Drug Use History: None Reported - Past Family History Father Family Medical History: COPD Additional Family Medical History / Comment(s): Father fell at the age of 87yrs- had head injury- from complications. Mother Family Medical History: Congestive Heart Failure (CHF), Osteoarthritis (OA) Additional Family Medical History / Comment(s): Mother had severe arthritis. Son(s) Family Medical History: Cancer Additional Family Medical History / Comment(s): FIBROSARCOMA BONE CANCER- AT 16 YRS OLD Daughter(s) Family Medical History: Cancer, Deep Vein Thrombosis (DVT) Additional Family Medical History / Comment(s): CERVICAL CANCER Medications and Allergies Home Medications Medication Instructions Recorded Confirmed Type Cetirizine HCl [Zyrtec] 10 mg PO DAILY@0800 10/11/15 01/22/23 History Tamsulosin [Flomax] 0.4 mg PO BID@0800,2100 10/11/15 01/22/23 History Multivitamins, Thera [Multivitamin 1 tab PO DAILY@0800 01/16/16 01/22/23 History (formulary)] DULoxetine HCL [Cymbalta] 60 mg PO HS@2130 05/13/16 01/22/23 History Pantoprazole Sodium [Protonix] 20 mg PO DAILY@0800 05/13/16 01/22/23 History Rivaroxaban [Xarelto] 20 mg PO HS@21301/02/17 01/22/23 History Atorvastatin [Lipitor] 20 mg PO HS@2100 01/29/18 01/22/23 History Colchicine [Colcrys] 0.6 mg PO DAILY@0800 11/26/19 01/22/23 History Nitroglycerin Sl Tabs [Nitrostat] 0.4 mg SL Q5M PRN 11/26/19 01/22/23 History Furosemide [Lasix] 60 mg PO TUFR@0800 06/22/21 01/22/23 History diphenhydrAMINE [Benadryl] 50 mg PO BID@0800,212906/22/21 01/22/23 History Acetaminophen [Tylenol Arthritis] 1,300 mg PO TID PRN 02/12/22 01/22/23 History Docusate [Colace] 100 mg PO DAILY@0800 02/12/22 01/22/23 History Furosemide [Lasix] 40 mg PO SUMOWETHSA@0800 02/12/22 01/22/23 History Isosorbide Mononitrate ER [Imdur] 30 mg PO DAILY@0800 02/12/22 01/22/23 History Valsartan 160 mg PO BID@0800,212902/12/22 01/22/23 History Spironolactone [Aldactone] 25 mg PO DAILY@0800 10/13/22 01/22/23 History polyethylene glycoL 3350 [Miralax] 17 gm PO DAILY PRN 10/13/22 01/22/23 History Albuterol Inhaler [Ventolin Hfa 2 puff INHALATION RT-Q6H PRN 01/09/23 01/22/23 History Inhaler] fentaNYL 12MCG/HR PATCH [Duragesic 1 patch TRANSDERM Q72H #1 patch 01/13/23 01/22/23 Rx 12MCG/HR] Benzonatate [Tessalon Perles] 200 mg PO Q8HR@0600,1400,2200 01/18/23 01/22/23 History Lidocaine 4% Cream [Lmx 4] 1 applic TOPICAL QID PRN 01/18/23 01/22/23 History Magnesium Hydroxide [Milk of 7,200 mg PO Q2D PRN 01/18/23 01/22/23 History Magnesia Concentrate] Na Phos,M-B/Na Phos,Di-Ba [Fleet 133 ml RECTAL DAILY PRN 01/18/23 01/22/23 Hi story Adult] bisacodyL [Dulcolax] 10 mg RECTAL DAILY PRN 01/18/23 01/22/23 History carvediloL [Coreg] 25 mg PO BID@0800,209901/18/23 01/22/23 History guaiFENesin [guaiFENesin Oral 200 mg PO Q4H PRN 01/18/23 01/22/23 History Solution] HYDROcodone/APAP 5-325MG [[place] 1 tab PO BID@0900,209901/22/23 01/22/23 History 5-325] Allergies Allergy/AdvReac Type Severity Reaction Status Date / Time tobramycin Allergy Unknown Itching, Verified 01/22/23 12:04 Red eyes, Inflammation(tobramycin eye drops) Physical Exam Vitals: Vital Signs Temp Pulse Resp BP Pulse Ox 01/26/23 08:00 98.1 F 94 20 151/93 98 01/26/23 04:00 95 18 128/84 95 01/26/23 02:00 97 18 01/26/23 00:00 97 18 138/96 95 01/25/23 20:00 98 18 110/89 94 L 01/25/23 16:00 89 18 144/74 92 L 01/25/23 15:07 98 18 01/25/23 12:51 98 18 114/72 94 L 01/25/23 11:07 85 18 Intake and Output 01/25/23 01/26/23 01/26/23 22:59 06:59 14:59 Intake Total 118 465 Output Total 975 675 Balance -857 -675 465 Intake: Oral 118 465 Output: Urine 975 675 Male - External 675 Uretheral (Morton) 175 Other: Voiding Method Indwelling Catheter Indwelling Catheter External Catheter Results 01/25/23 08:42 01/25/23 08:42 Current Medications Generic Name Dose Route Start Last Admin Trade Name Freq PRN Reason Stop Dose Admin Acetaminophen 1,250 mg 01/22/23 15:18 Acetaminophen Tab 500 Mg Tab PO TID PRN Pain or Fever > 100.5 Hydrocodone Bitart/Acetaminophen 1 each 01/22/23 21:00 01/26/23 10:17 Hydrocodone/Apap 5-325mg 1 Each Tab PO 1 each BID@0900,2100 YADIRA Administration Albuterol Sulfate 2.5 mg 01/22/23 15:18 Albuterol Nebulized 2.5 Mg/3 Ml INHALATION RT-Q6H PRN Shortness Of Breath Aspirin 81 mg 01/23/23 11:30 01/26/23 10:16 Aspirin 81 Mg PO 81 mg DAILY YADIRA Administration Atorvastatin Calcium 20 mg 01/22/23 21:00 01/25/23 19:52 Atorvastatin 20 Mg Tab PO 20 mg HS@2100 YADIRA Administration Benzonatate 200 mg 01/22/23 22:00 01/26/23 08:02 Benzonatate 100 Mg Cap PO Not Given Q8HR@0600,1400,2200 [facility] Carvedilol 25 mg 01/22/23 21:00 01/26/23 10:17 Carvedilol 12.5 Mg Tab PO 25 mg BID@0800,2100 YADIRA Administration Colchicine 0.6 mg 01/23/23 08:00 01/26/23 10:19 Colchicine 0.6 Mg Each PO 0.6 mg DAILY@0800 YADIRA Administration Dapagliflozin 5 mg 01/26/23 09:00 01/26/23 10:19 Dapagliflozin Propanediol 5 Mg Tablet PO 5 mg DAILY YADIRA Administration Diphenhydramine HCl 50 mg 01/22/23 21:30 01/26/23 10:19 Diphenhydramine 25 Mg Cap PO 50 mg BID@0800,2129 YADIRA Administration Docusate Sodium 100 mg 01/23/23 08:00 01/26/23 10:15 Docusate 100 Mg Cap PO 100 mg DAILY@0800 YADIRA Administration Duloxetine HCl 60 mg 01/22/23 21:30 01/25/23 19:52 Duloxetine Hcl 60 Mg Capsule.Dr PO 60 mg HS@0 YADIRA Administration Fentanyl 1 patch 01/24/23 09:00 01/24/23 10:34 Fentanyl 12mcg/Hr Patch TRANSDERM 1 patch Q72H YADIRA Administration Protocol Furosemide 40 mg 01/23/23 08:00 01/25/23 09:18 Furosemide 40 Mg Tab PO 40 mg SUMOWETHSA@0800 YADIRA Administration Furosemide 60 mg 01/26/23 08:00 01/26/23 10:18 Furosemide 20 Mg Tab PO 60 mg TUFR@0800 YADIRA Administration Guaifenesin 200 mg 01/24/23 14:27 01/25/23 09:31 Guaifenesin Syrup 100mg/5ml 200 Mg/10 Ml Cup PO 200 mg Q4H PRN Administration Cough Sodium Chloride 1,000 mls @ 10 mls/hr 01/22/23 14:15 01/25/23 12:54 Saline 0.9% IV Not Given .Q24H YADIRA Ceftriaxone Sodium 2 gm/ 50 mls @ 100 mls/hr 01/23/23 09:00 01/26/23 10:13 Sodium Chloride IVPB 100 mls/hr Q24HR [facility] Administration Protocol Isosorbide Mononitrate 30 mg 01/23/23 08:00 01/26/23 10:16 Isosorbide Mononitrate Er 30 Mg Tab.Er.24h PO 30 mg DAILY@0800 [facility] Administration Lidocaine HCl 1 applic 01/22/23 15:18 Lidocaine 4% Cream 5 Gm Tube TOPICAL QID PRN Knee/Shoulder pain Protocol Loratadine 10 mg 01/23/23 08:00 01/26/23 10:19 Loratadine 10 Mg Tab PO 10 mg DAILY@0800 [facility] Administration Multivitamins 1 each 01/23/23 08:00 01/26/23 10:16 Multivitamins, Thera 1 Each Tab PO 1 each DAILY@0800 [facility] Administration Naloxone HCl 0.2 mg 01/22/23 13:57 Naloxone 0.4 Mg/Ml 1 Ml Vial IV Q2M PRN Opioid Reversal Nitroglycerin 0.4 mg 01/22/23 15:18 Nitroglycerin Sl Tabs 0.4 Mg Tab SUBLINGUAL Q5M PRN Chest Pain Pantoprazole Sodium 40 mg 01/23/23 08:00 01/26/23 10:16 Pantoprazole 40 Mg Tablet PO 40 mg DAILY@0800 [facility] Administration Polyethylene Glycol 17 gm 01/22/23 15:18 01/24/23 15:27 Polyethylene Glycol 3350 17 Gm Powd.Pack PO 17 gm DAILY PRN Administration Constipation Rivaroxaban 20 mg 01/22/23 21:30 01/25/23 19:53 Rivaroxaban 20 Mg Tab PO 20 mg HS@2130 [facility] Administration Protocol Spironolactone 25 mg 01/23/23 08:00 01/26/23 10:17 Spironolactone 25 Mg Tab PO 25 mg DAILY@0800 YADIRA Administration Tamsulosin HCl 0.4 mg 01/22/23 21:00 01/26/23 10:17 Tamsulosin 0.4 Mg Cap.Er.24h PO 0.4 mg BID@0800,2100 YADIRA Administration Valsartan 160 mg 01/22/23 21:30 01/26/23 10:19 Valsartan 160 Mg Tab PO 160 mg BID@0800,2130 YADIRA Administration Intake and Output 01/25/23 01/26/23 01/26/23 22:59 06:59 14:59 Intake Total 118 465 Output Total 975 675 Balance -857 -676 465 Intake: Oral 118 465 Output: Urine 975 675 Male - External 675 Uretheral (Morton) 175 Other: Voiding Method Indwelling Catheter Indwelling Catheter External Catheter 01/25/23 08:42 01/25/23 08:42
[2023-01-26] MEDS: SODIUM CHLORIDE 0.9% 1,000 ML IV SCH (10:59)
--- NOTE | 2023-01-26 12:46 | EEG ---
ELECTROENCEPHALOGRAM REPORT PREAMBLE: This is an 87-year-old man with a history of CVA, came with some twitching. This study is performed to evaluate for any epileptiform activity. EEG FINDINGS: This is a 21-channel digital EEG recorded with video component, utilizing 10/20 International System with referential and bipolar montages. Background consists of moderately well developed and regulated, mixed frequencies of 8 Hz alpha, with some 6 Hz theta and occasional delta activity seen in the bihemispheric region. Background does not seem to be clearly reactive to eye opening or closing. Photic driving response was not seen. Drowsiness was seen with appearance of more consistent bilaterally symmetric theta frequency rhythm. Deeper stages of sleep were not clearly seen. No focal or generalized epileptiform activity was seen. IMPRESSION: This is an abnormal EEG due to background slowing of [id number] degree, suggestive of generalized cerebral dysfunction as can be seen with toxic metabolic encephalopathy or related to diffuse structural brain abnormality. Clinical correlation is recommended. No epileptiform activity was seen. No seizures were recorded. MMODL / IJN: [id number] / BUTCH
--- NOTE | 2023-01-26 14:01 | P.PN ---
Subjective Progress Note Date: 01/26/23 HISTORY OF PRESENT ILLNESS: This is an 87-year-old male with a previous medical history signifi cant for hypertension and hypertensive cardio vascular disease, hyperlipidemia, history of paroxysmal atrial fibrillation on chronic anti-coagulation with Xarelto, chronic bilateral lower extremity edema also history of prostate cancer in the past status post ablation therapy history of chronic back pain and anxiety depressive disorder and was recently hospitalized at [facility] back on 01/10/2023 after he was found to have generalized weakness and he was brought into the hospital by his daughter was not able to take care of him at that time he was tested positive for COVID-19 and he was in atrial fibrillation with rapid ventricular response, he was seen and evaluated and eventually he was discharged to go to [facility] for physical therapy and rehabilitation, patient was intended to the emergency department at [facility] from the [facility] after he was found to have TIA-like symptoms despite the fact patient is chronically anticoagulated with Xarelto had a computed tomography scan of the brain did not show evidence of acute abnormalities at that time he d id have some lactose status with increased confusion and agitation, this corrected and the patient was sent back to the [facility] apparently received a phone call yesterday from his nurse in the morning stated the patient is not able to move his left upper extremity and according to the nursing staff this was not noticed until today but according to the physical therapy note this patient going on for about 24 hours, family stated that the patient was not able to move his left upper extremity since early this week, patient apparently was instructed to go to the emergency department at [facility] via EMS, had a computed tomography scan brain did not show evidence of acute infarct or blee d, venous Doppler of the left upper extremity did not show evidence of acute abnormalities, patient was found to have a urinary tract infection catheter associated, he was started on IV antibiotic in the form of Rocephin 1 g IV piggyback every 24 hours, his 12-lead EKG showed atrial fibrillation with controlled rate, his recent blood work came back negative, but because of the presentation he was admitted to the hospital with neurology consultation. 01/23: Patient is laying down in bed does not appear to be in acute distress, he continues to be at baseline, he continues to have paralysis of the left upper extremity, computed tomography scan of the brain did not show evidence of acute stroke, ultrasound of the carotids will be obtained, echocardiogram will be obtained, continue Xarelto, continue and add aspirin 81 mg once every day, neurology consultation, MRI of the brain with and without contrast, we will follow-up with the patient very closely, physical therapy and occupational thera py evaluation, speech therapy evaluation as well. 01/24: Patient is laying down in bed in no apparent distress, he denies any chest pain, shortness breath, he continues to have flaccid left upper extremity, history of culture is negative, continue antibiotic for now, patient had his culture sent after the antibiotic was given, monitor the patient symptoms very closely, patient is scheduled to go for MRI of the brain with and without CAD, ultrasound of the carotid which evidence of moderate right internal carotid stenosis 50-60%, mild left internal carotid artery stenosis, echocardiogram still pending, monitor the patient closely. Continue Xarelto 20 mg once every day, continue aspirin 81 mg once every day, continue with neuro check, neurology is following. 01/25: Patient was seen yesterday by vascular surgery regarding right ICA stenosis with recommendations for conservative management and recommended changing from aspirin to Plavix. Patient subsequently underwent CT angiogram of the head and neck that was essentially nondiagnostic due to kyphotic positioning. Suggested less than 50% stenosis at the origin of the right internal carotid artery secondary to calcified plaque on the reformatted images. Suggested 60% stenosis at the origin of the left internal carotid artery on the reformatted images.neurology is following closely and recommended EEG for recent episode of twitching. Also echocardiogram has been obtained and report is pending. MRI of the brain is pending. Blood pressure 156/94, heart rate in the 80s and 90s, pulse ox 98% on room air, afebrile. Sodium is 135, potassium 3.9, creatinine 0.8. Right shoulder x-ray did not show any acute fracture or dislocation. 01/26: Echocardiogram reveals normal LV systolic function. Mild aortic stenosis. MRI of the brain completed yesterday revealed scattered infarcts and micro- infarcts throughout the right cerebrum and to a lesser extent the left with areas of puncture a perfusion also presents some of these areas of infarct most pronounced right occipital lobe and posterior right frontal. Correlate for embolic phenomenon. Nonspecific white matter changes likely small vessel ischemic disease. A consult has been added for cardiology to perform PRESLEY which is scheduled for today. EEG is abnormal with background slowing seen with toxic metabolic encephalopathy. Patient remains afebrile, heart rate in the 90s, blood pressure 128/84, pulse ox 95% on room air. REVIEW OF SYSTEMS: Constitutional: No documented fever, no chills, no night sweats. No weight change. No weakness, fatigue or lethargy. No daytime sleepiness. EENT: No headache. No blurred vision or double vision, no loss of vision. No loss of Hearing, no ringing in the ears, no dizziness. No nasal drainage or congestion. No epistaxis. No sore throat. Lungs: No shortness of breath, no cough, no sputum production. No wheezing. Reports dyspnea with activity. Cardiovascular: No chest pain, no lower extremity edema. No palpitations. No paroxysmal nocturnal dyspnea. No orthopnea. No lightheadedness or dizziness. No syncopal episodes. Abdominal: Reports abdominal pain. No nausea, vomiting. No diarrhea. No constipation. No bloody or tarry stools reports loss of appetite. Genitourinary: No dysuria, increased frequency, urgency. No urinary retention. Musculoskeletal: No myalgias. No muscle weakness, no gait dysfunction, no frequent falls. No back pain. No neck pain. Integumentary: No wounds, no lesions. No rash or pruritus. No unusual bruising. No change in hair or nails. Neurologic: No aphasia. No facial droop. Noted change in mentation. No head injury. No headache. No paralysis. No paresthesia. Psychiatric: No depression. No anxiety. No mood swings. Endocrine: No abnormal blood sugars. No weight change. PHYSICAL EXAMINATION: General: 87-year-old male laying down in bed in no apparent distress. HEENT: Head is atraumatic, normocephalic, pupils were equal round reactive to light and recommendation, extraocular muscle movement were intact, sclera nonicteric, conjunctivae were pale, mucous membranes of the mouth are somewhat dry. Neck: Supple, no JVP, decreased carotid upstroke bilaterally, no lymphadenopathy. Chest: Decreased breath sounds at the bases, few rhonchi, no expiratory wheezes, no chest wall tenderness, no intercostal retractions. Heart: First heart sound is normal, second heart sound is normal there is systolic ejection murmur 2/6 left sternal border,irregularly irregular due to atrial fibrillation. Abdomen: Soft, nontender, nondistended, positive bowel sounds. Extremities: There is +3 edema no calf tenderness DP +2 bilaterally. Neurologic examination: Patient is awake alert and oriented to person, cranial nerves II-12 patient moves his right upper extremity and both lower extremities he is flaccid in the left upper extremity. ASSESSMENT AND PLAN: 1. Left upper extremity weakness and metabolic encephalopathy secondary to acute ischemic stroke, right cerebrum and left cerebrum to lesser extent, rule out embolic phenomenon. Neurology consult appreciated. EEG pending. Continue Xarelto 20 mg orally once every day and add aspirin 81 mg once every day. Cardiology following for PRESLEY 2. Increased edema in the left upper extremity post venous Doppler that was negative for DVT. 3. Carotid stenosis. Consult with vascular surgery appreciated. Plan is for conservative management. 4. Hypertension and hypertensive cardiovascular disease. Continue patient on carvedilol 25 mg orally twice every day, continue patient on valsartan 160 mg orally twice every day, monitor the patient blood pressure very closely, continue also spironolactone 25 mg once every day. 5. Mixed hyperlipidemia. Continue patient on atorvastatin 20 mg once every day. 6. Chronic atrial fibrillation. Continue patient on Xarelto 20 mg once every day, continue carvedilol 25 mg orally twice every day. 7. Urinary tract infection, ruled out by culture with no growth at 18 hours. Ceftriaxone will be discontinued. 8. Recent COVID-19. Recovering well. Continue supportive care with guaifenesin as well as Tessalon Perles other supportive vitamins. 9. History of prostate cancer status post radiotherapy. Continue Flomax 0.4 mg orally twice every day, currently has a Morton catheter in place. 10. Chronic diastolic heart failure. Continue patient on carvedilol 25 mg orally twice every day, valsartan 160 mg orally twice every day, continue with spironolactone 25 mg once every day, as well as Lasix 40 mg once every day except 60 mg twice every week. Monitor the patient's electrolytes magnesium regularly. 11. History of gout. Continue colchicine 0.6 mg orally once every day. 12. GERD with esophagitis. Continue patient on Protonix 40 mg once every day. 13. Severe osteoarthritis of both knees with chronic pain syndrome. Continue patient on fentanyl patch 12 g every 72 hours, Eads 5/325 g orally twice every day, monitor the patient very closely. 14. Consultation. Continue patient on MiraLAX 17 g in 8 ounces water, Colace 100 mg orally twice every day. 15. Depression continue patient on Cymbalta 60 mg orally once every day. 16. Medical debility. With regard to go back to [facility] for physical therapy and rehabilitation. 17. DO NOT RESUSCITATE okay for hospitalization 18. DVT prophylaxis. Continue patient on Xarelto 20 mg once every day. 18. GI prophylaxis. Continue patient on Protonix 40 mg daily. Impression and plan of care have been directed as dictated by the signing physician. Jaimie Solomon nurse practitioner acting as scribe for signing physician. Objective - Vital Signs Vital signs: Vital Signs Temp 97.4 F L 01/25/23 09:14 Pulse 95 01/26/23 04:00 Resp 18 01/26/23 04:00 BP 128/84 01/26/23 04:00 Pulse Ox 95 01/26/23 04:00 FiO2 Intake & Output 01/25/23 01/26/23 01/26/23 18:59 06:59 18:59 Intake Total 118 225 Output Total 975 675 Balance -975 -557 225 Intake: Oral 118 225 Output: Urine 975 675 Male - External 675 Uretheral (Morton) 175 Other: Voiding Method Indwelling Catheter Indwelling Catheter # Bowel Movements 1 - Labs CBC & Chem 7: 01/25/23 08:42 01/25/23 08:42 Labs: Abnormal Lab Results - Last 24 Hours (Table) 01/25/23 Range/Units 08:42 Sodium 135 L (137-145) mmol/L Carbon Dioxide 21 L (22-30) mmol/L Glucose 117 H (74-99) mg/dL Calcium 8.2 L (8.4-10.2) mg/dL Total Protein 5.7 L (6.3-8.2) g/dL Albumin 3.0 L (3.5-5.0) g/dL Microbiology - Last 24 Hours (Table) 01/22/23 13:20 Blood Culture - Preliminary Blood 01/22/23 13:10 Blood Culture - Preliminary Blood
--- NOTE | 2023-01-26 16:27 | FL ---
EXAMINATION TYPE: FL barium swallow w video DATE OF EXAM: 01/26/2023 CLINICAL HISTORY: 87-year-old male stroke, gurgling, assess for aspiration TECHNIQUE: Deglutition study is performed utilizing thin liquid barium, nectar thick liquid barium, barium thick pudding, and barium coated cracker. Total fluoroscopy time: 1 minute 50 seconds Total images: None. Real-time fluoroscopy support was provided to speech pathology. DOSE AREA PRODUCT (DAP) UGY*M,MGY*CM: 218.23 COMPARISON: None. FINDINGS: The oral and pharyngeal phases show satisfactory initiation and propagation with all modalities teste d. Normal mastication is seen with solid modalities tested. There is no evidence of penetration or aspiration with any modality tested. No significant pharyngeal residue was appreciated. IMPRESSION: Normal deglutition study. Please refer to speech therapist notes for further details if necessary.
--- NOTE | 2023-01-26 17:13 | P.PN ---
Subjective Progress Note Date: 01/26/23 01/26/2023: Patient was seen for a follow-up. Patient is laying comfortably in the bed. Offers no new complaints. Feels bones are stiff. Left arm still very weak. Patient appears slightly confused, as he believes that [facility] is [facility]. 01/25/2023: Patient was initially seen by Dr. Enio Lopez. Please refer to his note for details. Patient is a 87-year-old right-handed male with left-sided weakness for about a week. Symptoms started last Wednesday on 01/18/2023. He was evaluated in the ER and released back to [facility] after a reported normal CT head. Patient's s ymptoms got worse on , 01/21/2023 with worsening left arm weakness and by Wednesday, he was flaccid in the left upper extremity therefore came to the ER. Patient has history of hypertension, also diagnosed with new onset diabetes. His lipids are well controlled with Lipitor. Patient's daughter Noemi was present, who states that patient usually at home walks with his rolling walker. He has not been walking since a stroke. Patient also suffered from Covid on 01/09/2023. Patient has history of atrial fibrillation since September 2016 and has been on Xarelto since then. Patient also has right ICA stenosis about 50-69%, vascular surgeon on board. Some of the workup during his hospital visit consisted of: Urine Analysis seems suggestive of underlying ureter tract infection Ammonia level is less than 9. CT of the head is reported as age-related atrophy can chronic small vessel ischemic change without acute intracranial process seen at this time. I personally reviewed the CT and I felt the patient has an old lacunar over the right thalamus. I also feel the patient has subacute hypodensity changes over the right frontal region. I felt the patient had same changes on 01/18/2023 CT Carotid duplex is reported as moderate plaque formation involving the right carotid bulb and proximal internal carotid artery resulting in moderate 50-69% stenosis. Mild plaque formation in the left carotid bulb and proximal internal carotid artery resulting in mild stenosis. Objective - Vital Signs Vital signs: Vital Signs Temp 97.5 F L 01/26/23 15:48 Pulse 84 01/26/23 15:48 Resp 18 01/26/23 15:48 BP 121/80 01/26/23 15:48 Pulse Ox 93 L 01/26/23 15:48 FiO2 Intake & Output 01/25/23 01/26/23 01/26/23 18:59 06:59 18:59 Intake Total 118 465 Output Total 975 675 775 Balance -975 -557 -310 Intake: Oral 118 465 Output: Urine 975 675 775 Male - External 675 Uretheral (Morton) 175 Other: Voiding Method Indwelling Catheter Indwelling Catheter External Catheter # Bowel Movements 1 1 - Exam Patient is an elderly male, in no acute distress. Patient is alert awake oriented to time place and person. Patient knows it is January and the year is . He believes it is [facility]. He knows that he lives in [place] in [place]. Could not tell what city he is in right now. Speech and language functions are normal. Patient can name and repeat very well. No aphasia or dysarthria. Attention, concentration and fund of knowledge is adequate. Detailed testing deferred. On cranial nerve examination, pupils are equal, round and reacting to light, v isual rahman revealed left visual field neglect on confrontation. Extraocular muscles are intact with no nystagmus. Face is symmetric, tongue protrudes to the midline. Palatal elevation and sensation normal, hearing and shoulder shrug normal, facial sensation normal. On muscle strength testing, the strength is (right/left) deltoid 5-/0, biceps 5/0, triceps 5/0, equipment maintenance engineer 5/3. In the lower limbs hip flexion 5/5, ankle dorsiflexion 5/5. Sensory to touch is decreased on the left, with significant neglect in the left arm and left leg as compared to the right. Cerebellar functions could not be performed on the left side because of weakness. No ataxia in the right side. Tone and bulk of muscles normal. Gait deferred.. On general examination, there is no carotid bruit or murmur, S1-S2 audible. Chest is clear on consultation. Abdomen is soft nontender. No organomegaly, bowel sounds present. - Labs CBC & Chem 7: 01/25/23 08:42 01/25/23 08:42 Labs: Microbiology - Last 24 Hours (Table) 01/22/23 13:20 Blood Culture - Preliminary Blood 01/22/23 13:10 Blood Culture - Preliminary Blood Assessment and Plan Assessment: Probable acute ischemic stroke involving left arm paresis, and left-sided visual and sensory neglect. Symptoms started since last 01/18/2023. Left upper extremity weakness: Suspect subacute ischemic stroke. Patient was not a candidate for TPA because of symptoms present for several days, as well as is on anticoagulation and the risk outweighed the benefit. Right ICA stenosis about 50-69% on the carotid duplex. Altered mental status seems due to likely underlying acute urinary tract infection, currently on ceftriaxone. Left upper extremity edema New onset diabetes Vitamin B12 deficiency History of atrial fibrillation on Xarelto Plan: MRI the brain revealed scattered infarcts and microinfarcts throughout the right cerebrum and to a lesser extent to the left with areas of luxury perfusion also present. Some of these areas of infarct most pronounced right occipital lobe and posterior right frontal. Correlate for embolic phenomenon. Nonspecific white matter changes, likely related to small vessel ischemic disease. I personally reviewed MRI, I agree with the findings. CTA of head and neck revealed essentially nondiagnostic examination due to patient kyphotic positioning. Suggested less than 50% stenosis at the origin of the right BAILEY secondary to calcified plaque on the reformatted images. Suggested 60% stenosis at the origin of the left ICA on the reformatted images. Vascular surgery seen the patient, recommending medical management. Patient has been started on aspirin 81 mg for stroke prevention related to vascular disease. Patient also on, Xarelto 20 mg for his history of atrial fibrillation, as well as the Lipitor 20 mg. Cardiology consulted for embolic stroke despite being on Xarelto. Patient to undergo PRESLEY in the morning. EEG was done today, which was abnormal due to background slowing of mild to moderate degree, suggestive of encephalopathy. No epileptiform activity was seen. Hemoglobin A1c 6.9, suggestive of new onset diabetes. Recommend healthy lifestyles, dietary adjustment, and follow A1c in 3 months. Discussed with patient's daughter. Vitamin B12 borderline 224, folate 29.30. We will give vitamin B12 injections for 2-3 days and then continue B12 orally thereafter. Patient had a recent TSH on 01/11/2023 which was normal. Fasting lipid panel with cholesterol 80, LDL 30.3, HDL 33 and triglycerides 82. Continue Lipitor 20 mg daily that patient was taking at home. Continue neuro checks Cardiac monitoring PT OT and BAKER are consulted We'll defer the rest of the medical management to primary team For DVT prophylaxis the patient is on Xarelto. Neurology will follow.
[2023-01-26] MEDS: RIVAROXABAN 20 MG TAB PO SCH (19:52)
[2023-01-26] MEDS: ATORVASTATIN 20 MG TAB PO SCH (19:54)
[2023-01-26] MEDS: DULoxetine HCL 60 MG CAPSULE.DR PO SCH (19:54)
[2023-01-27] MEDS: BENZONATATE 100 MG CAP PO SCH ×3 (06:24→20:59)
[2023-01-27] MEDS: SODIUM CHLORIDE 0.9% 1,000 ML IV SCH (08:44)
[2023-01-27] MEDS ORDERED: fentaNYL (PF) 50 MCG/ML 2 ML AMP ONE (08:55)
[2023-01-27] MEDS: PANTOPRAZOLE 40 MG TABLET PO SCH (08:56)
[2023-01-27] MEDS: HYDROcodone/APAP 5-325MG 1 EACH TAB PO SCH ×2 (08:56→21:00)
[2023-01-27] MEDS: FUROSEMIDE 40 MG TAB PO SCH (08:56)
[2023-01-27] MEDS: carvediloL 12.5 MG TAB PO SCH ×2 (08:56→20:59)
[2023-01-27] MEDS: MULTIVITAMINS, THERA 1 EACH TAB PO SCH (08:56)
[2023-01-27] MEDS: COLCHICINE 0.6 MG EACH PO SCH (08:56)
[2023-01-27] MEDS: VALSARTAN 160 MG TAB PO SCH ×2 (08:56→21:00)
[2023-01-27] MEDS: ISOSORBIDE MONONITRATE ER 30 MG TAB.ER.24H PO SCH (08:56)
[2023-01-27] MEDS: ASPIRIN 81 MG PO SCH (08:56)
[2023-01-27] MEDS: diphenhydrAMINE 25 MG CAP PO SCH ×2 (08:56→20:59)
[2023-01-27] MEDS: SPIRONOLACTONE 25 MG TAB PO SCH (08:56)
[2023-01-27] MEDS: TAMSULOSIN 0.4 MG CAP.ER.24H PO SCH ×2 (08:56→20:59)
[2023-01-27] MEDS: LORATADINE 10 MG TAB PO SCH (08:56)
[2023-01-27] MEDS: DOCUSATE 100 MG CAP PO SCH (08:56)
[2023-01-27] MEDS: DAPAGLIFLOZIN PROPANEDIOL 5 MG TABLET PO SCH (08:56)
[2023-01-27] MEDS ORDERED: IV FLUID CONTINUATION 1,000 ML IV ONE (09:05)
[2023-01-27] MEDS: BENZOCAINE SPRAY 1 CAN TOPICAL ONE ×2 (09:10→09:24)
[2023-01-27] MEDS ORDERED: MIDAZOLAM 2 MG/2 ML VIAL IVP ONE ×3 (09:27→09:33)
[2023-01-27] MEDS ORDERED: fentaNYL (PF) 50 MCG/ML 2 ML AMP IVP ONE ×2 (09:27)
[2023-01-27] MEDS: MIDAZOLAM 2 MG/2 ML VIAL IVP ONE (09:37)
--- NOTE | 2023-01-27 09:52 | P.PN ---
Subjective Progress Note Date: 01/27/23 Principal diagnosis: Carotid stenosis Patient seen and examined for follow-up. No acute changes through the night. No new focal deficits. Patient still with left upper extremity flaccidity. Is going down for PRESLEY today. Objective - Vital Signs Vital signs: Vital Signs Temp 97.5 F L 01/26/23 15:48 Pulse 79 01/27/23 09:26 Resp 16 01/27/23 09:26 BP 165/96 01/27/23 09:26 Pulse Ox 97 01/27/23 09:26 FiO2 Intake & Output 01/26/23 01/27/23 01/27/23 18:59 06:59 18:59 Intake Total 465 0 Output Total 1375 1275 Balance -910 -1275 Intake: Oral 465 0 Output: Urine 1375 1275 Other: Voiding Method External Catheter External Catheter # Bowel Movements 1 1 - Exam General appearance: The patient is alert, oriented to self and place, appears in no acute distress. HET: Head is normocephalic and atraumatic. Pupils are equal and reactive. Neck: Supple. Heart: Regular. Lungs: Equal expansion, normal respiratory effort. Abdomen: Soft, nondistended. Extremities: Normal skin color and turgor. Left upper extremity swelling and bruising noted. Neurological: Alert and oriented to self and place. Left upper extremity flaccid. - Labs CBC & Chem 7: 01/25/23 08:42 01/25/23 08:42 Assessment and Plan Assessment: 1. Left upper extremity weakness, with MRI findings of scattered infarcts and microinfarcts throughout right cerebrum and to lesser extent in the left with some of the areas of infarct most pronounced right occipital lobe and posterior right frontal. Correlate for embolic phenomenon 2. Right ICA stenosis very close to 50% 3. Atrial fibrillation on Xarelto Plan: Patient scheduled for PRESLEY today. Long discussion had with the family all in the room and the daughter at the bedside who is the decision maker with Dr. Morton. Patient himself was not on any antiplatelet therapy prior to this. Given his advanced age and no antiplatelet medication prior would consider treatment in this regard prior to going forward with recommendations for surgery with his comorbid conditions. Daughter states that they would have to have a family discussion prior to even deciding upon going forward with surgical intervention versus no intervention. A more conservative route is most manageable and appropriate at this time especially considering the stenosis is closer to 50% based upon Dr. Morton's evaluation. It was discussed with the daughter that should he need to be change d from aspirin to Plavix, that would be reasonable versus continuing just aspirin along with his Xarelto since he has not been on anything previous as far as antiplatelets. She seemingly understands the plan and is very willing to proceed in this manner rather than aggressively towards surgical intervention. MRI reviewed, likely embolic phenomenon. No change in plan, continue with medical therapy. Continue with further recommendations from neurology. Thank you for this consultation, we will sign off at this time. We would be happy to see patient in the office if he so chooses. The impression and plan of care has been dictated as directed. Dr. Morton I performed a history and examination of this patient, discussed the same with the dictator. I agree with the dictator's note ,documented as a scribe. Any additional findings or plans will be noted.
--- NOTE | 2023-01-27 10:50 | P.GSCN ---
History of Present Illness Consult date: 01/27/23 History of present illness: 87-year-old gentleman in the hospital with left arm weakness probably due to a stroke. He continues to be evaluated and treated for this. He has gone into urinary retention and for this reason we are asked see the patient. He was on tamsulosin twice a day prior to admission. Unfortunately the patient can give me no history today as he is lethargic and does not answer any questions. Review of Systems ROS unobtainable: due to mental status Past Medical History Past Medical History: Atrial Fibrillation, Cancer, Chest Pain / Angina, Deep Vein Thrombosis (DVT), GERD/Reflux, Hyperlipidemia, Hypertension, Memory Impairment, Osteoarthritis (OA), Prostate Disorder Additional Past Medical History / Comment(s): Paroxysmal Afib, atach, DVT R leg years ago, bilateral lower extremity edema/past R lower leg wounds/L lower leg wrapped, prostate cancer with 41 radiation treatments, BPH, chronic back and R shoulder pain, past empyema with surgery to drain/chest tube History of Any Multi-Drug Resistant Organisms: None Reported Past Surgical History: Back Surgery, Hernia Repair, Joint Replacement, Orthopedic Surgery Additional Past Surgical History / Comment(s): bilateral cataract removal, laminectomy,/back sx has 2 rods and screws, lt shoulder arthroplasty, bilateral total hips, L carpal tunnel release, umbilical hernia repair, colonoscopy, oral sx. Past Anesthesia/Blood Transfusion Reactions: Motion Sickness, Postoperative Na usea & Vomiting (PONV) Past Psychological History: Anxiety, Depression Smoking Status: Never smoker Past Alcohol Use History: None Reported Past Drug Use History: None Reported - Past Family History Father Family Medical History: COPD Additional Family Medical History / Comment(s): Father fell at the age of 87yrs- had head injury- from complications. Mother Family Medical History: Congestive Heart Failure (CHF), Osteoarthritis (OA) Additional Family Medical History / Comment(s): Mother had severe arthritis. Son(s) Family Medical History: Cancer Additional Family Medical History / Comment(s): FIBROSARCOMA BONE CANCER- AT 16 YRS OLD Daughter(s) Family Medical History: Cancer, Deep Vein Thrombosis (DVT) Additional Family Medical History / Comment(s): CERVICAL CANCER Medications and Allergies Home Medications Medication Instructions Recorded Confirmed Type Cetirizine HCl [Zyrtec] 10 mg PO DAILY@0800 10/11/15 09/29/23 History Tamsulosin [Flomax] 0.4 mg PO BID@0800,2100 10/11/15 01/22/23 History Multivitamins, Thera [Multivitamin 1 tab PO DAILY@0801/16/16 01/22/23 History (formulary)] DULoxetine HCL [Cymbalta] 60 mg PO HS@212905/13/16 01/22/23 History Pantoprazole Sodium [Protonix] 20 mg PO DAILY@0805/13/16 01/22/23 History Rivaroxaban [Xarelto] 20 mg PO HS@212901/02/17 01/22/23 History Atorvastatin [Lipitor] 20 mg PO HS@2100 01/29/18 01/22/23 History Colchicine [Colcrys] 0.6 mg PO DAILY@0800 11/26/19 01/22/23 History Nitroglycerin Sl Tabs [Nitrostat] 0.4 mg SL Q5M PRN 11/26/19 01/22/23 History Furosemide [Lasix] 60 mg PO TUFR@79906/22/21 01/22/23 History diphenhydrAMINE [Benadryl] 50 mg PO BID@0800,212906/22/21 01/22/23 History Acetaminophen [Tylenol Arthritis] 1,300 mg PO TID PRN 02/12/22 01/22/23 History Docusate [Colace] 100 mg PO DAILY@0802/12/22 01/22/23 History Furosemide [Lasix] 40 mg PO SUMOWETHSA@0802/12/22 01/22/23 History Isosorbide Mononitrate ER [Imdur] 30 mg PO DAILY@0802/12/22 01/22/23 History Valsartan 160 mg PO BID@0800,212902/12/22 01/22/23 History Spironolactone [Aldactone] 25 mg PO DAILY@79910/13/22 01/22/23 History polyethylene glycoL 3350 [Miralax] 17 gm PO DAILY PRN 10/13/22 01/22/23 History Albuterol Inhaler [Ventolin Hfa 2 puff INHALATION RT-Q6H PRN 01/09/23 01/22/23 History Inhaler] fentaNYL 12MCG/HR PATCH [Duragesic 1 patch TRANSDERM Q72H #1 patch 01/13/23 Rx 12MCG/HR] Benzonatate [Tessalon Perles] 200 mg PO Q8HR@0600,1400,2200 01/18/23 01/22/23 History Lidocaine 4% Cream [Lmx 4] 1 applic TOPICAL QID PRN 01/18/23 01/22/23 History Magnesium Hydroxide [Milk of 7,200 mg PO Q2D PRN 01/18/23 01/22/23 History Magnesia Concentrate] Na Phos,M-B/Na Phos,Di-Ba [Fleet 133 ml RECTAL DAILY PRN 01/18/23 01/22/23 History Adult] bisacodyL [Dulcolax] 10 mg RECTAL DAILY PRN 01/18/23 01/22/23 History carvediloL [Coreg] 25 mg PO BID@0800,2100 01/18/23 01/22/23 History guaiFENesin [guaiFENesin Oral 200 mg PO Q4H PRN 01/18/23 01/22/23 History Solution] HYDROcodone/APAP 5-325MG [[place] 1 tab PO BID@0900,209901/22/23 01/22/23 History 5-325] Allergies Allergy/AdvReac Type Severity Reaction Status Date / Time tobramycin Allergy Unknown Itching, Verified 01/22/23 12:04 Red eyes, Inflammation(tobramycin eye drops) Surgical - Exam Vital Signs Temp Pulse Resp BP Pulse Ox 97.7 F 96 18 126/91 97 01/22/23 10:36 01/22/23 10:36 01/22/23 10:36 01/22/23 10:36 01/22/23 10:36 - General well nourished, obese - Respiratory normal respiratory effort - Abdomen Abdomen: soft, non tender - Genitourinary Indwelling catheter with clear urine Results - Labs 01/25/23 08:42 01/25/23 08:42 Assessment and Plan Assessment: Impression: Post stroke urinary retention. Preoperative BPH. Multiple bj rbidities Recommendation: I would leave indwelling catheter until he is more alert ambulatory and getting near to being discharged. At that point time the catheter can be removed for a voiding trial. Please contact me for further care
[2023-01-27] MEDS: VALSARTAN 40 MG TAB PO SCH ×2 (11:20→20:59)
--- NOTE | 2023-01-27 14:38 | P.PN ---
Subjective HISTORY OF PRESENT ILLNESS: This is a 87-year-old male with a past medical history significant for atrial fibrillation, hypertension, carotid stenosis, and hyperlipidemia. Patient follows in the office with Dr. Zamudio. We have been asked to see the patient in consultation for PRESLEY. Patient examined at the bedside. Patient is confused at time of examination. He is alert and oriented 1. Patient is admitted to the hospital secondary to CVA. MRI revealed scattered infarcts throughout right cerebrum, right occipital lobe, and posterior right frontal. Patient is on Xarelto for history of atrial fibrillation. He was also started on aspirin per neurology. Patient currently denies any chest pain or pressure. He denies any shortness of breath. Vital signs are stable. Telemetry reveals atrial fibrillation with controlled ventricular rate. * EKG reveals atrial fibrillation with controlled ventricular rate * Chest xray cardiomegaly * Laboratory data: WBC 7.0. Hemoglobin 14.7. Platelet count 193. Sodium 135. Potassium 3.9. BUN 20. Creatinine 0.80. * Echocardiogram completed revealing ejection fraction 55-60% with no wall motion abnormalities and mild aortic stenosis 01/27/2023 Patient examined this morning at the bedside. Patient remains confused. No complaints of chest pain or pressure. He denies shortness of breath. Vital signs are stable. PHYSICAL EXAM: VITAL SIGNS: Reviewed. GENERAL: Well-developed in no acute distress. HEENT: Head is normocephalic. Pupils are equal, round. Sclerae anicteric. Mucous membranes of the mouth are moist. Neck supple. No JVD or thyromegaly LUNGS: Respirations even and unlabored. Lungs essentially clear to auscultation bilaterally. HEART: Irregular rate and rhythm. S1 and S2 heard. Soft systolic murmur noted. EXTREMITIES: No clubbing or cyanosis. Peripheral pulses intact. No lower extremity edema ASSESSMENT: Left upper extremity weakness Acute CVA Persistent atrial fibrillation Carotid stenosis Hypertension Hyperlipidemia Mild aortic stenosis PLAN: Continue current cardiac mediations Continue Xarelto. Patient has also been started on aspirin. Patient was scheduled for PRESLEY today with Dr. Frances. However patient was unable to cooperate for procedure. This will be rescheduled for tomorrow with anesthesia. NPO at midnight Further recommendations pending patient's course Nurse practitioner note has been reviewed by physician. Signing provider agrees with the documented findings, assessment, and plan of care. Objective - Vital Signs Vital signs: Vital Signs Temp 97.8 F 01/27/23 11:59 Pulse 82 01/27/23 11:59 Resp 18 01/27/23 11:59 BP 143/89 01/27/23 11:59 Pulse Ox 96 01/27/23 11:59 FiO2 Intake & Output 01/26/23 01/27/23 01/27/23 18:59 06:59 18:59 Intake Total 465 0 390 Output Total 1375 1275 325 Balance -480 -9425 65 Intake: IV 150 Oral 465 0 240 Output: Urine 1375 1275 325 Other: Voiding Method External Catheter External Catheter Indwelling Catheter # Bowel Movements 1 1 1 - Labs CBC & Chem 7: 01/25/23 08:42 01/25/23 08:42
--- NOTE | 2023-01-27 15:29 | P.PN ---
Subjective Progress Note Date: 01/27/23 HISTORY OF PRESENT ILLNESS: This is an 87-year-old male with a previous medical history signifi cant for hypertension and hypertensive cardio vascular disease, hyperlipidemia, history of paroxysmal atrial fibrillation on chronic anti-coagulation with Xarelto, chronic bilateral lower extremity edema also history of prostate cancer in the past status post ablation therapy history of chronic back pain and anxiety depressive disorder and was recently hospitalized at [facility] back on 01/10/2023 after he was found to have generalized weakness and he was brought into the hospital by his daughter was not able to take care of him at that time he was tested positive for COVID-19 and he was in atrial fibrillation with rapid ventricular response, he was seen and evaluated and eventually he was discharged to go to [facility] for physical therapy and rehabilitation, patient was intended to the emergency department at [facility] from the [facility] [place] he was found to have TIA-like symptoms despite the fact patient is chronically anticoagulated with Xarelto had a computed tomography scan of the brain did not show evidence of acute abnormalities at that time he d id have some lactose status with increased confusion and agitation, this corrected and the patient was sent back to the [facility] apparently received a phone call yesterday from his nurse in the morning stated the patient is not able to move his left upper extremity and according to the nursing staff this was not noticed until today but according to the physical therapy note this patient going on for about 24 hours, family stated that the patient was not able to move his left upper extremity since early this week, patient apparently was instructed to go to the emergency department at [facility] via EMS, had a computed tomography scan brain did not show evidence of acute infarct or blee d, venous Doppler of the left upper extremity did not show evidence of acute abnormalities, patient was found to have a urinary tract infection catheter associated, he was started on IV antibiotic in the form of Rocephin 1 g IV piggyback every 24 hours, his 12-lead EKG showed atrial fibrillation with controlled rate, his recent blood work came back negative, but because of the presentation he was admitted to the hospital with neurology consultation. 01/23: Patient is laying down in bed does not appear to be in acute distress, he continues to be at baseline, he continues to have paralysis of the left upper extremity, computed tomography scan of the brain did not show evidence of acute stroke, ultrasound of the carotids will be obtained, echocardiogram will be obtained, continue Xarelto, continue and add aspirin 81 mg once every day, neurology consultation, MRI of the brain with and without contrast, we will follow-up with the patient very closely, physical therapy and occupational thera py evaluation, speech therapy evaluation as well. 01/24: Patient is laying down in bed in no apparent distress, he denies any chest pain, shortness breath, he continues to have flaccid left upper extremity, history of culture is negative, continue antibiotic for now, patient had his culture sent after the antibiotic was given, monitor the patient symptoms very closely, patient is scheduled to go for MRI of the brain with and without CAD, ultrasound of the carotid which evidence of moderate right internal carotid stenosis 50-60%, mild left internal carotid artery stenosis, echocardiogram still pending, monitor the patient closely. Continue Xarelto 20 mg once every day, continue aspirin 81 mg once every day, continue with neuro check, neurology is following. 01/25: Patient was seen yesterday by vascular surgery regarding right ICA stenosis with recommendations for conservative management and recommended changing from aspirin to Plavix. Patient subsequently underwent CT angiogram of the head and neck that was essentially nondiagnostic due to kyphotic positioning. Suggested less than 50% stenosis at the origin of the right internal carotid artery secondary to calcified plaque on the reformatted images. Suggested 60% stenosis at the origin of the left internal carotid artery on the reformatted images.neurology is following closely and recommended EEG for recent episode of twitching. Also echocardiogram has been obtained and report is pending. MRI of the brain is pending. Blood pressure 156/94, heart rate in the 80s and 90s, pulse ox 98% on room air, afebrile. Sodium is 135, potassium 3.9, creatinine 0.8. Right shoulder x-ray did not show any acute fracture or dislocation. 01/26: Echocardiogram reveals normal LV systolic function. Mild aortic stenosis. MRI of the brain completed yesterday revealed scattered infarcts and micro- infarcts throughout the right cerebrum and to a lesser extent the left with areas of puncture a perfusion also presents some of these areas of infarct most pronounced right occipital lobe and posterior right frontal. Correlate for embolic phenomenon. Nonspecific white matter changes likely small vessel ischemic disease. A consult has been added for cardiology to perform PRESLEY which is scheduled for today. EEG is abnormal with background slowing seen with toxic metabolic encephalopathy. Patient remains afebrile, heart rate in the 90s, blood pressure 128/84, pulse ox 95% on room air. 01/27: Neurology had requested PRESLEY and this was attempted today by cardiology. Patient was uncooperative and anesthesia was not available at that time. It has been rescheduled for tomorrow but after thorough discussion with the patient's daughter, Noemi, she has decided that she does not want to pursue PRESLEY or any invasive procedures or treatments. Plan is to continue conservative management. Patient has been seen by urology with recommendations to maintain Morton catheter until patient is more alert, ambulating and close to discharge. He has a Morton catheter in place. He has been afebrile, heart rate 86, blood pressure 179/82, pulse ox 96% on 3 L nasal cannula. REVIEW OF SYSTEMS: Constitutional: No documented fever, no chills, no night sweats. No weight change. No weakness, fatigue or lethargy. No daytime sleepiness. EENT: No headache. No blurred vision or double vision, no loss of vision. No loss of Hearing, no ringing in the ears, no dizziness. No nasal drainage or congestion. No epistaxis. No sore throat. Lungs: No shortness of breath, no cough, no sputum production. No wheezing. Reports dyspnea with activity. Cardiovascular: No chest pain, no lower extremity edema. No palpitations. No paroxysmal nocturnal dyspnea. No orthopnea. No lightheadedness or dizziness. No syncopal episodes. Abdominal: Reports abdominal pain. No nausea, vomiting. No diarrhea. No constipation. No bloody or tarry stools reports loss of appetite. Genitourinary: No dysuria, increased frequency, urgency. No urinary retention. Musculoskeletal: No myalgias. No muscle weakness, no gait dysfunction, no frequent falls. No back pain. No neck pain. Integumentary: No wounds, no lesions. No rash or pruritus. No unusual br uising. No change in hair or nails. Neurologic: No aphasia. No facial droop. Noted change in mentation. No head injury. No headache. No paralysis. No paresthesia. Psychiatric: No depression. No anxiety. No mood swings. Endocrine: No abnormal blood sugars. No weight change. PHYSICAL EXAMINATION: General: 87-year-old male laying down in bed in no apparent distress. HEENT: Head is atraumatic, normocephalic, pupils were equal round reactive to light and recommendation, extraocular muscle movement were intact, sclera nonicteric, conjunctivae were pale, mucous membranes of the mouth are somewhat dry. Neck: Supple, no JVP, decreased carotid upstroke bilaterally, no lymphadenopat hy. Chest: Decreased breath sounds at the bases, few rhonchi, no expiratory wheezes, no chest wall tenderness, no intercostal retractions. Heart: First heart sound is normal, second heart sound is normal there is systolic ejection murmur 2/6 left sternal border,irregularly irregular due to atrial fibrillation. Abdomen: Soft, nontender, nondistended, positive bowel sounds. Extremities: There is +3 edema no calf tenderness DP +2 bilaterally. Neurologic examination: Patient is awake and oriented to person, cranial nerves II-12 patient moves his right upper extremity and both lower extremities he is flaccid in the left upper extremity. ASSESSMENT AND PLAN: 1. Left upper extremity weakness and metabolic encephalopathy secondary to acute ischemic stroke, right cerebrum and left cerebrum to lesser extent, rule out embolic phenomenon. Neurology consult appreciated. Continue Xarelto 20 mg orally once every day and add aspirin 81 mg once every day. No PRESLEY. 2. Increased edema in the left upper extremity post venous Doppler that was negative for DVT. 3. Carotid stenosis. Consult with vascular surgery appreciated. Plan is for conservative management. 4. Hypertension and hypertensive cardiovascular disease. Continue patient on carvedilol 25 mg orally twice every day, continue patient on valsartan increased to 200 mg orally twice every day, monitor the patient blood pressure very closely, continue also spironolactone 25 mg once every day. 5. Mixed hyperlipidemia. Continue patient on atorvastatin 20 mg once every day. 6. Chronic atrial fibrillation. Continue patient on Xarelto 20 mg once every day, continue carvedilol 25 mg orally twice every day. 7. Urinary retention requiring Morton catheter placement. Patient is been seen by urology with recommendations to leave Morton in until he is more alert and ambulating and getting close to discharge. 8. Recent COVID-19. Recovering well. Continue supportive care with guaifenesin as well as Tessalon Perles other supportive vitamins. 9. History of prostate cancer status post radiotherapy. Continue Flomax 0.4 mg orally twice every day, currently has a Morton catheter in place. 10. Chronic diastolic heart failure. Continue patient on carvedilol 25 mg orally twice every day, valsartan 200 mg orally twice every day, continue with spironolactone 25 mg once every day, as well as Lasix 40 mg once every day e xcept 60 mg twice every week. Monitor the patient's electrolytes magnesium regularly. 11. History of gout. Continue colchicine 0.6 mg orally once every day. 12. GERD with esophagitis. Continue patient on Protonix 40 mg once every day. 13. Severe osteoarthritis of both knees with chronic pain syndrome. Continue patient on fentanyl patch 12 g every 72 hours, [place] 5/325 g orally twice every day, monitor the patient very closely. 14. Consultation. Continue patient on MiraLAX 17 g in 8 ounces water, Colace 100 mg orally twice every day. 15. Depression continue patient on Cymbalta 60 mg orally once every day. 16. Medical debility. With regard to go back to [facility] for physical therapy and rehabilitation. 17. DO NOT RESUSCITATE okay for hospitalization 18. DVT prophylaxis. Continue patient on Xarelto 20 mg once every day. 18. GI prophylaxis. Continue patient on Protonix 40 mg daily. Impression and plan of care have been directed as dictated by the signing physician. Jaimie Solomon nurse practitioner acting as scribe for signing physician. Objective - Vital Signs Vital signs: Vital Signs Temp 97.6 F 01/27/23 08:00 Pulse 86 01/27/23 09:51 Resp 18 01/27/23 09:51 BP 179/82 01/27/23 09:51 Pulse Ox 96 01/27/23 09:51 FiO2 Intake & Output 01/26/23 01/27/23 01/27/23 18:59 06:59 18:59 Intake Total 465 0 150 Output Total 1375 1275 Balance -910 -1275 150 Intake: IV 150 Oral 465 0 Output: Urine 1375 1275 Other: Voiding Method External Catheter External Catheter Indwelling Catheter # Bowel Movements 1 1 - Labs CBC & Chem 7: 01/25/23 08:42 01/25/23 08:42
[2023-01-27] MEDS: DULoxetine HCL 60 MG CAPSULE.DR PO SCH (20:59)
[2023-01-27] MEDS: ATORVASTATIN 20 MG TAB PO SCH (20:59)
[2023-01-27] MEDS: RIVAROXABAN 20 MG TAB PO SCH (20:59)
[2023-01-28] MEDS: BENZONATATE 100 MG CAP PO SCH ×2 (05:17→14:40)
[2023-01-28] MEDS ORDERED: LACTATED RINGERS 1,000 ML IV SCH (06:00)
--- NOTE | 2023-01-28 08:04 | P.DS ---
Providers Date of admission: 01/22/23 13:57 Expected date of discharge: 01/28/23 Attending physician: Jeb Sweeney Consults: 01/22/23 13:57 Consult Physician Routine Consulting Provider: Enio Lopez Consult Reason/Comments: Left arm weakness, possible CVA Do you want consulting provider notified?: Yes 01/24/23 11:35 Consult Physician Routine Consulting Provider: Padmini Bass Consult Reason/Comments: right ica stenosis with left arm weakness Do you want consulting provider notified?: Yes 01/25/23 16:21 Consult Physician Routine Consulting Provider: Olvin Zamudio Consult Reason/Comments: Multiple bilateral ischemic strokes on Xarelto, Rec PRESLEY Do you want consulting provider notified?: Yes 01/26/23 16:13 Consult Physician Routine Consulting Provider: Frederick Hinds Consult Reason/Comments: retention, bass catheter in palce Do you want consulting provider notified?: Yes, Notify in am 01/27/23 16:41 Consult Physician Routine Consulting Provider: Hussein Hinkle Consult Reason/Comments: Recurrent strokes despite on Xarelto, R/o hypercoag state, +Fam hx clots Do you want consulting provider notified?: Yes Primary care physician: Jeb Sweeney Hospital Course: HISTORY OF PRESENT ILLNESS: This is an 87-year-old male with a previous medical history significant for hypertension and hypertensive cardio vascular disease, hyperlipidemia, history of paroxysmal atrial fibrillation on chronic anti- coagulation with Xarelto, chronic bilateral lower extremity edema also history of prostate cancer in the past status post ablation therapy history of chronic back pain and anxiety depressive disorder and was recently hospitalized at [facility] on 01/10/2023 after he was found to have generalized weakness and he was brought into the hospital by his daughter was not able to take care of him at that time he was tested positive for COVID-19 and he was in atrial fibrillation with rapid ventricular response, he was seen and evaluated and eventually he was discharged to go to [facility] for physical therapy and rehabilitation, patient was intended to the emergency department at [facility] from the [facility] care facility after he was found to have TIA-like symptoms despite the fact patient is chronically anticoagulated with Xarelto had a computed tomography scan of the brain did not show evidence of acute abnormalities at that time he did have some lactose status with increased confusion and agitation, this corrected and the [facility] apparently received a phone call yesterday from his nurse in the morning stated the patient is not able to move his left upper extremity and according to the nursing staff this was not noticed until today but according to the physical therapy note this patient going on for about 24 hours, family stated that the patient was not able to move his left upper extremity since early this week, patient apparently was instructed to go to the emergency department at [facility] via EMS, had a computed tomography scan brain did not show evidence of acute infarct or bleed, venous Doppler of the left upper extremity did not show evidence of acute abnormalities, patient was found to have a urinary tract infection catheter associated, he was started on IV antibiotic in the form of Rocephin 1 g IV piggyback every 24 hours, his 12-lead EKG showed atrial fibrillation with controlled rate, his recent blood work came back negative, but because of the presentation he was admitted to the hospital with neurology consultation. 01/23: Patient is laying down in bed does not appear to be in acute distress, he continues to be at baseline, he continues to have paralysis of the left upper extremity, computed tomography scan of the brain did not show evidence of acute stroke, ultrasound of the carotids will be obtained, echocardiogram will be obtained, continue Xarelto, continue and add aspirin 81 mg once every day, ne urology consultation, MRI of the brain with and without contrast, we will follow-up with the patient very closely, physical therapy and occupational therapy evaluation, speech therapy evaluation as well. 01/24: Patient is laying down in bed in no apparent distress, he denies any chest pain, shortness breath, he continues to have flaccid left upper extremity, history of culture is negative, continue antibiotic for now, patient had his culture sent after the antibiotic was given, monitor the patient symptoms very closely, patient is scheduled to go for MRI of the brain with and without CAD, ultrasound of the carotid which evidence of moderate right internal carotid stenosis 50-60%, mild left internal carotid artery stenosis, echocardiogram still pending, monitor the patient closely. Continue Xarelto 20 mg once every day, continue aspirin 81 mg once every day, continue with neuro check, neurology is following. 01/25: Patient was seen yesterday by vascular surgery regarding right ICA sten osis with recommendations for conservative management and recommended changing from aspirin to Plavix. Patient subsequently underwent CT angiogram of the head and neck that was essentially nondiagnostic due to kyphotic positioning. Suggested less than 50% stenosis at the origin of the right internal carotid artery secondary to calcified plaque on the reformatted images. Suggested 60% stenosis at the origin of the left internal carotid artery on the reformatted images.neurology is following closely and recommended EEG for recent episode of twitching. Also echocardiogram has been obtained and report is pending. MRI of the brain is pending. Blood pressure 156/94, heart rate in the 80s and 90s, pulse ox 98% on room air, afebrile. Sodium is 135, potassium 3.9, creatinine 0.8. Right shoulder x-ray did not show any acute fracture or dislocation. 01/26: Echocardiogram reveals normal LV systolic function. Mild aortic stenosis. MRI of the brain completed yesterday revealed scattered infarcts and micro- infarcts throughout the right cerebrum and to a lesser extent the left with areas of puncture a perfusion also presents some of these areas of infarct most pronounced right occipital lobe and posterior right frontal. Correlate for embolic phenomenon. Nonspecific white matter changes likely small vessel ischemic disease. A consult has been added for cardiology to perform PRESLEY which is scheduled for today. EEG is abnormal with background slowing seen with toxic metabolic encephalopathy. Patient remains afebrile, heart rate in the 90s, blood pressure 128/84, pulse ox 95% on room air. 01/27: Neurology had requested PRESLEY and this was attempted today by cardiology. Patient was uncooperative and anesthesia was not available at that time. It has been rescheduled for tomorrow but after thorough discussion with the patient's daughter, Noemi, she has decided that she does not want to pursue PRESLEY or any invasive procedures or treatments. Plan is to continue conservative management. Patient has been seen by urology with recommendations to maintain Bass catheter until patient is more alert, ambulating and close to discharge. He has a Bass catheter in place. He has been afebrile, heart rate 86, blood pressure 179/82, pulse ox 96% on 3 L nasal cannula. 01/28: Patient has had no events overnight. Blood pressure this 40 147/85, pulse ox 95% on room air, heart rate in the 80s and 90s. Urine culture no growth at 18 hours. Blood culture no growth 2 specimens. Plan is to maintain Bass catheter and he will have a voiding trial at [facility]. Discharge plan is for [facility] today. Patient will be discharged once all arrangements are completed. DISCHARGE DIAGNOSES: 1. Left upper extremity weakness and metabolic encephalopathy secondary to acute ischemic stroke, right cerebrum and left cerebrum to lesser extent, rule out embolic phenomenon. 2. Increased edema in the left upper extremity post venous Doppler that was negative for DVT. 3. Carotid stenosis. 4. Hypertension and hypertensive cardiovascular disease. 5. Mixed hyperlipidemia. 6. Chronic atrial fibrillation. 7. Urinary retention requiring Bass catheter placement. 8. Recent COVID-19. 9. History of prostate cancer status post radiotherapy. 10. Chronic diastolic heart failure. 11. History of gout. 12. GERD with esophagitis. 13. Severe osteoarthritis of both knees with chronic pain syndrome. 14. Constipation. 15. Depression 16. Medical debility. Discharge plan: [facility] for subacute rehab Greater than 35 minutes was utilized and coordinating patient's discharge. Impression and plan of care have been directed as dictated by the signing physician. Jaimie Solomon nurse practitioner acting as scribe for signing physician. Patient Condition at Discharge: Stable Plan - Discharge Summary Discharge Rx Participant: No New Discharge Prescriptions: New Dapagliflozin Propanediol [Farxiga] 5 mg PO DAILY tab Aspirin 81 mg PO DAILY tab Continue Tamsulosin [Flomax] 0.4 mg PO BID@0800,2100 Cetirizine HCl [Zyrtec] 10 mg PO DAILY@0800 Multivitamins, Thera [Multivitamin (formulary)] 1 tab PO DAILY@0800 Pantoprazole Sodium [Protonix] 20 mg PO DAILY@0800 DULoxetine HCL [Cymbalta] 60 mg PO HS@2130 Rivaroxaban [Xarelto] 20 mg PO HS@2130 Atorvastatin [Lipitor] 20 mg PO HS@2100 Colchicine [Colcrys] 0.6 mg PO DAILY@0800 Nitroglycerin Sl Tabs [Nitrostat] 0.4 mg SL Q5M PRN PRN Reason: Chest Pain Furosemide [Lasix] 60 mg PO TUFR@0800 Isosorbide Mononitrate ER [Imdur] 30 mg PO DAILY@0800 Acetaminophen [Tylenol Arthritis] 1,300 mg PO TID PRN PRN Reason: Pain Or Fever > 100.5 Spironolactone [Aldactone] 25 mg PO DAILY@0800 polyethylene glycoL 3350 [Miralax] 17 gm PO DAILY PRN PRN Reason: Constipation Benzonatate [Tessalon Perles] 200 mg PO Q8HR@0600,1400,2200 bisacodyL [Dulcolax] 10 mg RECTAL DAILY PRN PRN Reason: Constipation Lidocaine 4% Cream [Lmx 4] 1 applic TOPICAL QID PRN PRN Reason: Knee/Shoulder pain Magnesium Hydroxide [Milk of Magnesia Concentrate] 7,200 mg PO Q2D PRN PRN Reason: No BM for 2 days Na Phos,M-B/Na Phos,Di-Ba [Fleet Adult] 133 ml RECTAL DAILY PRN PRN Reason: Constipation fentaNYL 12MCG/HR PATCH [Duragesic 12MCG/HR] 1 patch TRANSDERM Q72H #1 patch Docusate [Colace] 100 mg PO DAILY@0800 Valsartan 160 mg PO BID@0800,2129 Furosemide [Lasix] 40 mg PO SUMOWETHSA@0800 Albuterol Inhaler [Ventolin Hfa Inhaler] 2 puff INHALATION RT-Q6H PRN PRN Reason: Shortness Of Breath carvediloL [Coreg] 25 mg PO BID@0800,2100 guaiFENesin [guaiFENesin Oral Solution] 200 mg PO Q4H PRN PRN Reason: Cough HYDROcodone/APAP 5-325MG [[place] 5-325] 1 tab PO BID@0900,2100 #6 tab Discontinued diphenhydrAMINE [Benadryl] 50 mg PO BID@0800,2129 Discharge Medication List Cetirizine HCl [Zyrtec] 10 mg PO DAILY@0810/11/15 [History] Tamsulosin [Flomax] 0.4 mg PO BID@0800,209910/11/15 [History] Multivitamins, Thera [Multivitamin (formulary)] 1 tab PO DAILY@0801/16/16 [History] DULoxetine HCL [Cymbalta] 60 mg PO HS@212905/13/16 [History] Pantoprazole Sodium [Protonix] 20 mg PO DAILY@0800 05/13/16 [History] Rivaroxaban [Xarelto] 20 mg PO HS@212901/02/17 [History] Atorvastatin [Lipitor] 20 mg PO HS@2100 01/29/18 [History] Colchicine [Colcrys] 0.6 mg PO DAILY@0800 11/26/19 [History] Nitroglycerin Sl Tabs [Nitrostat] 0.4 mg SL Q5M PRN 11/26/19 [History] Furosemide [Lasix] 60 mg PO TUFR@0800 06/22/21 [History] Acetaminophen [Tylenol Arthritis] 1,300 mg PO TID PRN 02/12/22 [History] Docusate [Colace] 100 mg PO DAILY@0802/12/22 [History] Furosemide [Lasix] 40 mg PO SUMOWETHSA@0802/12/22 [History] Isosorbide Mononitrate ER [Imdur] 30 mg PO DAILY@0800 02/12/22 [History] Valsartan 160 mg PO BID@0800,2130 02/12/22 [History] Spironolactone [Aldactone] 25 mg PO DAILY@0810/13/22 [History] polyethylene glycoL 3350 [Miralax] 17 gm PO DAILY PRN 10/13/22 [History] Albuterol Inhaler [Ventolin Hfa Inhaler] 2 puff INHALATION RT-Q6H PRN 01/09/23 [History] Benzonatate [Tessalon Perles] 200 mg PO Q8HR@0600,1400,2200 01/18/23 [History] Lidocaine 4% Cream [Lmx 4] 1 applic TOPICAL QID PRN 01/18/23 [History] Magnesium Hydroxide [Milk of Magnesia Concentrate] 7,200 mg PO Q2D PRN 01/18/23 [History] Na Phos,M-B/Na Phos,Di-Ba [Fleet Adult] 133 ml RECTAL DAILY PRN 01/18/23 [History] bisacodyL [Dulcolax] 10 mg RECTAL DAILY PRN 01/18/23 [History] carvediloL [Coreg] 25 mg PO BID@0800,2100 01/18/23 [History] guaiFENesin [guaiFENesin Oral Solution] 200 mg PO Q4H PRN 01/18/23 [History] Aspirin 81 mg PO DAILY tab 01/28/23 [Rx] Dapagliflozin Propanediol [Farxiga] 5 mg PO DAILY tab 01/28/23 [Rx] HYDROcodone/APAP 5-325MG [[place] 5-325] 1 tab PO BID@0900,2100 #6 tab 01/28/23 [Rx] fentaNYL 12MCG/HR PATCH [Duragesic 12MCG/HR] 1 patch TRANSDERM Q72H #1 patch 01/28/23 [Rx] Follow up Appointment(s)/Referral(s): Padmini Bass DO [STAFF PHYSICIAN] - As Needed Jeb Sweeney MD [Primary Care Provider] - 1 Week (AT [facility]) Discharge Disposition: TRANSFER TO SNF/ECF
[2023-01-28] MEDS: LORATADINE 10 MG TAB PO SCH (09:52)
[2023-01-28] MEDS: ISOSORBIDE MONONITRATE ER 30 MG TAB.ER.24H PO SCH (09:52)
[2023-01-28] MEDS: VALSARTAN 160 MG TAB PO SCH (09:52)
[2023-01-28] MEDS: HYDROcodone/APAP 5-325MG 1 EACH TAB PO SCH (09:53)
[2023-01-28] MEDS: diphenhydrAMINE 25 MG CAP PO SCH (09:54)
[2023-01-28] MEDS: TAMSULOSIN 0.4 MG CAP.ER.24H PO SCH (09:54)
[2023-01-28] MEDS: PANTOPRAZOLE 40 MG TABLET PO SCH (09:54)
[2023-01-28] MEDS: COLCHICINE 0.6 MG EACH PO SCH (09:55)
[2023-01-28] MEDS: SPIRONOLACTONE 25 MG TAB PO SCH (09:55)
[2023-01-28] MEDS: FUROSEMIDE 40 MG TAB PO SCH (09:55)
[2023-01-28] MEDS: DAPAGLIFLOZIN PROPANEDIOL 5 MG TABLET PO SCH (09:55)
[2023-01-28] MEDS: MULTIVITAMINS, THERA 1 EACH TAB PO SCH (09:55)
[2023-01-28] MEDS: DOCUSATE 100 MG CAP PO SCH (09:55)
--- NOTE | 2023-01-28 10:04 | P.PN ---
Subjective Progress Note Date: 01/27/23 01/27/2023: Patient was seen for a follow-up. Patient continues to be confused as per examination below. Patient is trying to pull on his Morton's catheter. He is difficult to be redirected per nurse. 01/26/2023: Patient was seen for a follow-up. Patient is laying comfortably in the bed. Offers no new complaints. Feels bones are stiff. Left arm still very weak. Patient appears slightly confused, as he believes that he is in ten[place] building. 01/25/2023: Patient was initially seen by Dr. Enio Lopez. Please refer to his note for details. Patient is a 87-year-old right-handed male with left-sided weakness for about a week. Symptoms started last Wednesday on 01/18/2023. He was evaluated in the ER and released back to [facility] after a reported normal CT head. Patient's symptoms got worse on , 01/21/2023 with worsening left arm weakness and by Wednesday, he was flaccid in the left upper extremity therefore came to the ER. Patient has history of hypertension, also diagnosed with new onset diabetes. His lipids are well controlled with Lipitor. Patient's daughter Noemi was present, who states that patient usually at home walks with his rolling walker. He has not been walking since a stroke. Patient also suffered from Covid on 0 01/09/2023. Patient has history of atrial fibrillation since September 2016 and has been on Xarelto since then. Patient also has right ICA stenosis about 50-69%, vascular surgeon on board. Some of the workup during his hospital visit consisted of: Urine Analysis seems suggestive of underlying ureter tract infection Ammonia level is less than 9. CT of the head is reported as age-related atrophy can chronic small vessel ischemic change without acute intracranial process seen at this time. I personally reviewed the CT and I felt the patient has an old lacunar over the ri ght thalamus. I also feel the patient has subacute hypodensity changes over the right frontal region. I felt the patient had same changes on 01/18/2023 CT Carotid duplex is reported as moderate plaque formation involving the right carotid bulb and proximal internal carotid artery resulting in moderate 50-69% stenosis. Mild plaque formation in the left carotid bulb and proximal internal carotid artery resulting in mild stenosis. Objective - Vital Signs Vital signs: Vital Signs Temp 98 F 01/27/23 15:48 Pulse 80 01/27/23 15:48 Resp 18 01/27/23 15:48 BP 117/79 01/27/23 15:48 Pulse Ox 94 L 01/27/23 15:48 FiO2 Intake & Output 01/26/23 01/27/23 01/27/23 18:59 06:59 18:59 Intake Total 465 0 390 Output Total 1375 1275 675 Balance -910 -1275 -285 Intake: IV 150 Oral 465 0 240 Output: Urine 1375 1275 675 Other: Voiding Method External Catheter External Catheter Indwelling Catheter # Bowel Movements 1 1 1 - Exam Patient is an elderly male, in no acute distress. Patient is alert awake. He states it is December and the year is . He states that he is in his house. He says something about scissors which is completely out of context. Patient states "I got some birthday present". Speech and language functions are normal. Patient can name and repeat very well. No aphasia or dysarthria. Attention span, concentration decreased. Fund of knowledge is difficult to assess. On cranial nerve examination, pupils are equal, round and reacting to light, visual rahman revealed left visual field neglect on confrontation. Extraocular muscles are intact with no nystagmus. Face is symmetric, tongue protrudes to the midline. Palatal elevation and sensation normal, hearing and shoulder shrug normal, facial sensation normal. On muscle strength testing, the strength is (right/left) deltoid 5-/0, biceps 5/0, triceps 5/0, quantometer operator 5/3. In the lower limbs hip flexion 5/5, ankle dorsiflexion 5/5. Sensory to touch is decreased on the left, with significant neglect in the left arm and left leg as compared to the right. Cerebellar functions could not be performed on the left side because of weakness. No ataxia in the right side. Tone and bulk of muscles normal. Gait deferred.. On general examination, there is no carotid bruit or murmur, S1-S2 audible. Chest is clear on consultation. Abdomen is soft nontender. No organomegaly, bowel sounds present. - Labs CBC & Chem 7: 01/25/23 08:42 01/25/23 08:42 Assessment and Plan Assessment: Acute ischemic stroke with left arm paresis, and left-sided visual and sensory neglect. Symptoms started since last 01/18/2023. Acute delirium, likely due to multiple CVA, possible underlying metabolic encephalopathy. Left upper extremity weakness: Suspect subacute ischemic stroke. Patient was not a candidate for TPA because of symptoms present for several days, as well as is on anticoagulation and the risk outweighed the benefit. Right ICA stenosis about 50-69% on the carotid duplex. Altered mental status seems due to likely underlying acute urinary tract infection, currently on ceftriaxone. Left upper extremity edema, likely due to weakness from CVA New onset diabetes Vitamin B12 deficiency History of atrial fibrillation on Xarelto Plan: MRI the brain revealed scattered infarcts and microinfarcts throughout the right cerebrum and to a lesser extent to the left with areas of luxury perfusion also present. Some of these areas of infarct most pronounced right occipital lobe and posterior right frontal. Correlate for embolic phenomenon. Nonspecific white matter changes, likely related to small vessel ischemic disease. I personally reviewed MRI, I agree with the findings. CTA of head and neck revealed essentially nondiagnostic examination due to patient kyphotic positioning. Suggested less than 50% stenosis at the origin of the right BAILEY secondary to calcified plaque on the reformatted images. Suggested 60% stenosis at the origin of the left ICA on the reformatted images. Vascular surgery seen the patient, recommending medical management. Patient has been started on aspirin 81 mg for stroke prevention related to vascular disease. Patient also on, Xarelto 20 mg for his history of atrial fibrillation, as well as the Lipitor 20 mg. Cardiology consulted for embolic stroke despite being on Xarelto. PRESLEY attempted today, but was unsuccessful as patient was not cooperative. Patient will undergo PRESLEY under his easy in the morning. Discussed with patient's daughter. She mentions that her sister has history of clots, and also some other family members with clots. We will consult hematology to rule out any hypercoagulable state. EEG performed 01/26/2023 was abnormal due to background slowing of mild to moderate degree, suggestive of encephalopathy. No epileptiform activity was seen. Hemoglobin A1c 6.9, suggestive of new onset diabetes. Recommend healthy lifestyles, dietary adjustment, and follow A1c in 3 months. Discussed with patient's daughter. Vitamin B12 borderline 224, folate 29.30. We will give vitamin B12 injections for 2-3 days and then continue B12 orally thereafter. Patient had a recent TSH on 01/11/2023 which was normal. Fasting lipid panel with cholesterol 80, LDL 30.3, HDL 33 and triglycerides 82. Continue Lipitor 20 mg daily that patient was taking at home. Continue neuro checks Cardiac monitoring so far showing atrial fibrillation, rate controlled between 80-90 per day. Some PVC. PT OT and [facility] [facility] [employer] are consulted We'll defer the rest of the medical management to primary team For DVT prophylaxis the patient is on Xarelto.
[2023-01-28] MEDS: carvediloL 12.5 MG TAB PO SCH (10:05)
[2023-01-28] MEDS: ASPIRIN 81 MG PO SCH (10:05)
[2023-01-28] MEDS ORDERED: CYANOCOBALAMIN 500 MCG TAB PO SCH (10:15)
[2023-01-28] MEDS: SODIUM CHLORIDE 0.9% 1,000 ML IV SCH (12:26)
[2023-01-28 12:34] VITALS: BP 125/76; PULSE 82; RESP 20; TEMP 97.7
--- NOTE | 2023-01-28 12:36 | P.PN ---
Subjective HISTORY OF PRESENT ILLNESS: This is a 87-year-old male with a past medical history significant for atrial fibrillation, hypertension, carotid stenosis, and hyperlipidemia. Patient follows in the office with Dr. Zamudio. We have been asked to see the patient in consultation for PRESLEY. Patient examined at the bedside. Patient is confused at time of examination. He is alert and oriented 1. Patient is admitted to the hospital secondary to CVA. MRI revealed scattered infarcts throughout right cerebrum, right occipital lobe, and posterior right frontal. Patient is on Xarelto for history of atrial fibrillation. He was also started on aspirin per neurology. Patient currently denies any chest pain or pressure. He denies any shortness of breath. Vital signs are stable. Telemetry reveals atrial fibrillation with controlled ventricular rate. * EKG reveals atrial fibrillation with controlled ventricular rate * Chest xray cardiomegaly * Laboratory data: WBC 7.0. Hemoglobin 14.7. Platelet count 193. Sodium 135. Potassium 3.9. BUN 20. Creatinine 0.80. * Echocardiogram completed revealing ejection fraction 55-60% with no wall motion abnormalities and mild aortic stenosis 01/27/2023 Patient examined this morning at the bedside. Patient remains confused. No complaints of chest pain or pressure. He denies shortness of breath. Vital signs are stable. 01/28/2023 Patient examined this morning at the bedside. Patient remains confused. No complaints of chest pain or pressure. He denies shortness of breath. Vital signs are stable. PRESLEY was scheduled for today. However patient's daughter has declined to have this performed. PHYSICAL EXAM: VITAL SIGNS: Reviewed. GENERAL: Well-developed in no acute distress. HEENT: Head is normocephalic. Pupils are equal, round. Sclerae anicteric. Mucous membranes of the mouth are moist. Neck supple. No JVD or thyromegaly LUNGS: Respirations even and unlabored. Lungs essentially clear to auscultation bilaterally. HEART: Irregular rate and rhythm. S1 and S2 heard. Soft systolic murmur noted. EXTREMITIES: No clubbing or cyanosis. Peripheral pulses intact. No lower extremity edema ASSESSMENT: Left upper extremity weakness Acute CVA Persistent atrial fibrillation Carotid stenosis Hypertension Hyperlipidemia Mild aortic stenosis PLAN: Continue current cardiac mediations No further inpatient recommendations from a cardiac standpoint We will sign off. Please reconsult if needed. Nurse practitioner note has been reviewed by physician. Signing provider agrees with the documented findings, assessment, and plan of care. Objective - Vital Signs Vital signs: Vital Signs Temp 97.7 F 01/28/23 12:00 Pulse 82 01/28/23 12:00 Resp 20 01/28/23 12:00 BP 125/76 01/28/23 12:00 Pulse Ox 92 L 01/28/23 12:00 FiO2 Intake & Output 01/27/23 01/28/23 01/28/23 18:59 06:59 18:59 Intake Total 630 Output Total 675 850 Balance -45 -850 Weight 133 kg Intake: IV 150 Oral 480 Output: Urine 675 850 Other: Voiding Method Indwelling Catheter Indwelling Catheter # Bowel Movements 1 1 - Labs CBC & Chem 7: 01/25/23 08:42 01/25/23 08:42 Labs: Microbiology - Last 24 Hours (Table) 01/22/23 13:20 Blood Culture - Final Blood 01/22/23 13:10 Blood Culture - Final Blood
[2023-01-28 14:12] VITALS: BMI 42.0
[2023-01-28 20:56] LABS: Cardiolipin Ab IgG Interp Negative (Negative); Cardiolipin Ab IgM Interp Negative (Negative); Cardiolipin IgA Antibody <2.0 U/mL; Cardiolipin IgM Antibody <1.5 U/mL
[2023-01-28] MEDS ORDERED: VALSARTAN 40 MG TAB PO SCH (21:30)
--- NOTE | 2023-01-28 22:44 | P.CONS ---
History of Present Illness - Reason for Consult Consult date: 01/28/23 r/o hypercoag state Requesting physician: Jacki Figueroa - Chief Complaint CVA - History of Present Illness Patient is an 87-year-old male with a previous medical history significant for hypertension, CVD, hyperlipidemia, and paroxysmal atrial fibrillation anticoagulated with Xarelto. Consult was placed to r/o hypercoaguable state, due to CVA while on xarelto. Patient presented to the hospital with complaints of confusion and increasing left-sided weakness. P venus does have some baseline of left-sided weakness but it was reported to have increased. Of note patient was recently hospitalized at [facility] on 01/10/2023 and was found to be COVID-positive and in A-fib with RVR. Upon admission CT brain revealed age-related atrophic and chronic small vessel ischemic changes without acute intracranial processes seen. MRI brain revealed scattered infarcts and microinfarcts throughout the right cerebrum and to a lesser extent the left with areas of luxury perfusion also present in some of these areas of infarct are most pronounced right occipital lobe and posterior right frontal. And nonspecific white matter changes. Neurology following and started patient on aspirin. Doppler of left upper extremity was also obtained due to complaints of increased swelling and decreased movement of extremity, no DVT noted on exam. At today's visit patient is A&Ox3 but is forgetful. He is experiencing left sided weakness. Patient has currently been in rehab since discharge from previous admission on 01/10. Patient reports he was taking his xarelto at home and overall has a good appetite and is eating. However, unsure if patient has been eating when taking medication at home, which could decrease efficacy of medication. Review of Systems 10 point ROS is negative except as stated in the HPI Past Medical History Past Medical History: Atrial Fibrillation, Cancer, Chest Pain / Angina, Deep V ein Thrombosis (DVT), GERD/Reflux, Hyperlipidemia, Hypertension, Memory Impairment, Osteoarthritis (OA), Prostate Disorder Additional Past Medical History / Comment(s): Paroxysmal Afib, atach, DVT R leg years ago, bilateral lower extremity edema/past R lower leg wounds/L lower leg wrapped, prostate cancer with 41 radiation treatments, BPH, chronic back and R shoulder pain, past empyema with surgery to drain/chest tube History of Any Multi-Drug Resistant Organisms: None Reported Past Surgical History: Back Surgery, Hernia Repair, Joint Replacement, Orthopedic Surgery Additional Past Surgical History / Comment(s): bilateral cataract removal, laminectomy,/back sx has 2 rods and screws, lt shoulder arthroplasty, bilateral total hips, L carpal tunnel release, umbilical hernia repair, colonoscopy, oral sx. Past Anesthesia/Blood Transfusion Reactions: Motion Sickness, Postoperative Nausea & Vomiting (PONV) Past Psychological History: Anxiety, Depression Smoking Status: Never smoker Past Alcohol Use History: None Reported Past Drug Use History: None Reported - Past Family History Father Family Medical History: COPD Additional Family Medical History / Comment(s): Father fell at the age of 87yrs- had head injury- from complications. Mother Family Medical History: Congestive Heart Failure (CHF), Osteoarthritis (OA) Additional Family Medical History / Comment(s): Mother had severe arthritis. Son(s) Family Medical History: Cancer Additional Family Medical History / Comment(s): FIBROSARCOMA BONE CANCER- AT 16 YRS OLD Daughter(s) Family Medical History: Cancer, Deep Vein Thrombosis (DVT) Additional Family Medical History / Comment(s): CERVICAL CANCER Medications and Allergies Home Medications Medication Instructions Recorded Confirmed Type Cetirizine HCl [Zyrtec] 10 mg PO DAILY@79910/11/15 01/22/23 History Tamsulosin [Flomax] 0.4 mg PO BID@00,209910/11/15 01/22/23 History Multivitamins, Thera [Multivitamin 1 tab PO DAILY@0800 01/16/16 01/22/23 History (formulary)] DULoxetine HCL [Cymbalta] 60 mg PO HS@212905/13/16 01/22/23 History Pantoprazole Sodium [Protonix] 20 mg PO DAILY@0800 05/13/16 01/22/23 History Rivaroxaban [Xarelto] 20 mg PO HS@212901/02/17 01/22/23 History Atorvastatin [Lipitor] 20 mg PO HS@2100 01/29/18 01/22/23 History Colchicine [Colcrys] 0.6 mg PO DAILY@0800 11/26/19 01/22/23 History Nitroglycerin Sl Tabs [Nitrostat] 0.4 mg SL Q5M PRN 11/26/19 01/22/23 History Furosemide [Lasix] 60 mg PO TUFR@0800 06/22/21 01/22/23 History Acetaminophen [Tylenol Arthritis] 1,300 mg PO TID PRN 02/12/22 01/22/23 History Docusate [Colace] 100 mg PO DAILY@0800 02/12/22 01/22/23 History Furosemide [Lasix] 40 mg PO SUMOWETHSA@0800 02/12/22 01/22/23 History Isosorbide Mononitrate ER [Imdur] 30 mg PO DAILY@0800 02/12/22 01/22/23 History Valsartan 160 mg PO BID@0800,2130 02/12/22 01/22/23 History Spironolactone [Aldactone] 25 mg PO DAILY@0800 10/13/22 01/22/23 History polyethylene glycoL 3350 [Miralax] 17 gm PO DAILY PRN 10/13/22 01/22/23 History Albuterol Inhaler [Ventolin Hfa 2 puff INHALATION RT-Q6H PRN 01/09/23 01/22/23 History Inhaler] Benzonatate [Tessalon Perles] 200 mg PO Q8HR@0600,1400,2200 01/18/23 01/22/23 History Lidocaine 4% Cream [Lmx 4] 1 applic TOPICAL QID PRN 01/18/23 01/22/23 History Magnesium Hydroxide [Milk of 7,200 mg PO Q2D PRN 01/18/23 01/22/23 History Magnesia Concentrate] Na Phos,M-B/Na Phos,Di-Ba [Fleet 133 ml RECTAL DAILY PRN 01/18/23 01/22/23 History Adult] bisacodyL [Dulcolax] 10 mg RECTAL DAILY PRN 01/18/23 01/22/23 History carvediloL [Coreg] 25 mg PO BID@0800,2100 01/18/23 01/22/23 History guaiFENesin [guaiFENesin Oral 200 mg PO Q4H PRN 01/18/23 01/22/23 History Solution] Aspirin 81 mg PO DAILY tab 01/28/23 Rx Dapagliflozin Propanediol [Farxiga] 5 mg PO DAILY tab 01/28/23 Rx HYDROcodone/APAP 5-325MG [[place] 1 tab PO BID@0900,2099 #6 tab 01/28/23 Rx 5-325] fentaNYL 12MCG/HR PATCH [Duragesic 1 patch TRANSDERM Q72H #1 patch 01/28/23 Rx 12MCG/HR] Allergies Allergy/AdvReac Type Severity Reaction Status Date / Time tobramycin Allergy Unknown Itching, Verified 01/22/23 12:04 Red eyes, Inflammation(tobramycin eye drops) Physical Exam Vitals: Vital Signs Temp Pulse Resp BP Pulse Ox 01/28/23 12:00 97.7 F 82 20 125/76 92 L 01/28/23 08:00 97.6 F 83 18 139/85 94 L 01/28/23 04:00 86 18 147/85 95 01/28/23 00:00 97 18 139/84 94 L 01/27/23 20:00 97.9 F 93 18 159/87 95 Intake and Output 01/28/23 01/28/23 01/28/23 06:59 14:59 22:59 Output Total 850 Balance -850 Output: Urine 850 Other: Voiding Method Indwelling Catheter Indwelling Catheter # Bowel Movements 1 Weight 133 kg 133 kg - Constitutional General appearance: no acute distress, obese - EENT Eyes: anicteric sclerae, EOMI ENT: hearing grossly normal - Respiratory Respiratory: bilateral: CTA - Cardiovascular Rhythm: irregularly irregular Heart sounds: normal: S1, S2 - Gastrointestinal General gastrointestinal: soft, no tenderness - Integumentary Integumentary: no cyanotic, no jaundiced - Neurologic left sided deficit, LUE>LLE - Musculoskeletal LUE edema Musculoskeletal: left sided weakness Results CBC & Chem 7: 01/25/23 08:42 01/25/23 08:42 Labs: Microbiology - Last 24 Hours (Table) 01/22/23 13:20 Blood Culture - Final Blood 01/22/23 13:10 Blood Culture - Final Blood CT Scan - head: report reviewed MRI - head: report reviewed Venous US: report reviewed Assessment and Plan (1) Cerebrovascular accident (CVA) Status: Acute Priority: High Code(s): I63.9 - CEREBRAL INFARCTION, UNSPECIFIED SNOMED Code(s): 677281432 Plan: CVA: -Presented with complaints of confusion and increasing left-sided weakness. Hx of paroxysmal atrial fibrillation anticoagulated with Xarelto -Upon admission CT brain revealed age-related atrophic and chronic small vessel ischemic changes without acute intracranial processes seen. MRI brain revealed scattered infarcts and microinfarcts throughout the right cerebrum and to a lesser extent the left with areas of luxury perfusion also present in some of these areas of infarct are most pronounced right occipital lobe and posterior right frontal. And nonspecific white matter changes. -Neurology following and started patient on aspirin. He continues on xarelto -Patient reports he was taking his xarelto at home prior to previous admission and overall has a good appetite and is eating. However, unsure if patient has been eating when taking medication at home, which could decrease efficacy of medication -Antiphospholipid workup and anti-factor Xa assay ordered. Continue xarelto and ASA for now. Will await workup, if positive for APS pt will need to be switched to coumadin or lovenox. Spoke with IM team regarding anticoagulation. If APS workup is negative, patient may need to be switched to Eliquis if there are concerns for compliance with patient eating with Xarelto administration. -Plan for discharge today. F/u in clinic will be scheduled to review workup and to provide further recommendations attests: I seen and examined patient, performed H&P, developed impression and plan of care. Discussed with dictator. Agree with documentation, dictated as a scribe.
[2023-01-29 12:08] LABS: APTT 52 Sec(s) (<43); APTT 1:1 Mix 44 Sec(s) (<43); DRVVT 1:1 Mix 75 Sec(s) (<44); DRVVT Confirmation Negative (Negative); Dilute Russell Viper Venom 93 Sec(s) (<44); Hexagonal Phase Neutralization Negative (Negative)
--- NOTE | 2023-01-29 16:27 | CDI ---
Documentation Clarification Form Date: 01/29/2023 04:19:08 PM From: Felicia Parra Phone: Admit Date: 01/22/2023 01:57:00 PM Patient Name: Noel Lugo Visit Number: [id number] Discharge Date: 01/28/2023 03:30:00 PM ATTENTION: The Clinical Documentation Specialists (CDI) and [facility] Coding Staff appreciate your assistance in clarifying documentation. Please respond to the clarification below the line at the bottom and electronically sign. The CDI & [facility] Coding staff will review the response and follow-up if needed. Please note: Queries are made part of the Legal Health Record. If you have any questions, please contact the author of this message via ITS. Dr. Jeb Sweeney Diabetes is documented Progress Note 01/25. Additional specificity regarding the diabetes diagnosis is requested. History/Risk Factors: 87yo M, CVA, met enceph, HTN, CSHF, mixed HLD, chronic A Fib, Hx Covid, Hx prostate Cx, GERD, Isidoro knee OA, depression Clinical Indicators: [id number] Treatment: Farxiga 5mg Please clarify the type of diabetes, if known: [ X ] Type 2 diabetes mellitus with hyperglycemia [ ] Other, please specify [ ] Unable to Determine (Template Last Revised: June 2020) MTDD
== END 2023-01-28 15:30 | DRG 64 ==
LOC: EC 10:15 → 3SCARD 13:57
PROVIDERS: ADMIT Internal Medicine; ATTEND Internal Medicine
DX: I63.233 Cerebral infarction due to unspecified occlusion or stenosis of bilateral carotid arteries (principal); G92.8 Other toxic encephalopathy; I48.19 Other persistent atrial fibrillation; G81.94 Hemiplegia, unspecified affecting left nondominant side; T83.511A Infection and inflammatory reaction due to indwelling urethral catheter, initial encounter; I50.32 Chronic diastolic (congestive) heart failure; I11.0 Hypertensive heart disease with heart failure; E11.65 Type 2 diabetes mellitus with hyperglycemia; Z66 Do not resuscitate; F32.A Depression, unspecified; R41.4 Neurologic neglect syndrome; N39.0 Urinary tract infection, site not specified; I35.0 Nonrheumatic aortic (valve) stenosis; E78.2 Mixed hyperlipidemia; K21.9 Gastro-esophageal reflux disease without esophagitis; M19.90 Unspecified osteoarthritis, unspecified site; N40.0 Benign prostatic hyperplasia without lower urinary tract symptoms; M54.9 Dorsalgia, unspecified; M10.9 Gout, unspecified; K21.00 Gastro-esophageal reflux disease with esophagitis, without bleeding; M17.0 Bilateral primary osteoarthritis of knee; I25.10 Atherosclerotic heart disease of native coronary artery without angina pectoris; K59.00 Constipation, unspecified; H53.9 Unspecified visual disturbance; E53.8 Deficiency of other specified B group vitamins; G89.4 Chronic pain syndrome; M40.209 Unspecified kyphosis, site unspecified; R53.81 Other malaise; R26.9 Unspecified abnormalities of gait and mobility; Z96.643 Presence of artificial hip joint, bilateral; Z96.612 Presence of left artificial shoulder joint; Z96.611 Presence of right artificial shoulder joint; Y73.1 Therapeutic (nonsurgical) and rehabilitative gastroenterology and urology devices associated with adverse incidents; Z92.3 Personal history of irradiation; Z86.16 Personal history of COVID-19; Z86.718 Personal history of other venous thrombosis and embolism; Z85.46 Personal history of malignant neoplasm of prostate; Z79.899 Other long term (current) drug therapy; Z88.1 Allergy status to other antibiotic agents; Z79.01 Long term (current) use of anticoagulants; Z79.84 Long term (current) use of oral hypoglycemic drugs; Z86.73 Personal history of transient ischemic attack (TIA), and cerebral infarction without residual deficits; Z82.49 Family history of ischemic heart disease and other diseases of the circulatory system
CPT/HCPCS: 36415; 70450; 70496; 70498; 70553; 71045; 74230; 80053; 80061; 81001; 82140; 82607; 82746; 83036; 83605; 83735; 83880; 84484; 85025; 85027; 85598; 85610; 85613; 85730; 85732; 86147; 87040; 87086; 93005; 93306; 93880; 94760; 95816; 96361; 96365; 96374; 96375; 99285